=== PATIENT | female | born 1940 | race Caucasian/White ===

== ENCOUNTER 2017-11-10 13:00 | Outpatient (RCR) | payer OTHER, SELFPAY ==
--- NOTE | 2017-10-16 16:40 | PT.OIE ---
Current Diagnoses Benign paroxysmal vertigo, right ear (10/16/17) Dizziness and giddiness (10/16/17) Past Surgical History History of bladder suspension procedure Provider Visit Care Team Role Provider Type Hazel Stewart MD Attending Provider Physician Family Provider Primary Care Provider Specialty: Family Practice Address: [address] [place] [address], [id number] Email: [email or web address] Physical Therapy Initial Evaluation PT-OP-A Visit Information Start: 10/16/17 06:41 Freq: Status: Active Protocol: Document 10/16/17 09:00 AMB (Rec: 10/16/17 16:21 AMB [email or web address]) Out-Patient Physical Therapy Visit Information Visit Information Visit Type Initial Evaluation Visit Start Time 09:00 Visit Stop Time 09:45 Total Visit Minutes 45 Visit Number 1 Number of TITLE SEARCHER Visits 0 Evaluation Information Evaluation Date 10/16/17 PT-OP-B Current Condition Start: 10/16/17 06:41 Freq: Status: Active Protocol: Document 10/16/17 09:00 AMB (Rec: 10/16/17 16:21 AMB [email or web address]) Current Condition History of Current Condition Onset Date 7-8 years ago Current Complaints dizziness with getting into bed and looking up History of Current Condition The patient reports dizziness that improved with physical therapy (descirbes what sounds like Ml manuever) years ago, but then the dizziness came back and she has been dealing with it since. Prior Functional Status Baseline Function- ADL's Independent Baseline Function- Mobility Independent Current Functional Impairments (Reported) Functional Limitations- ADL's Difficulty winding clock ( looking up) Functional Limitations- Mobility/Gait Difficulty walking on uneven ground ([place]) PT-OP-C Subjective Start: 10/16/17 06:41 Freq: Status: Active Protocol: Document 10/16/17 09:00 AMB (Rec: 10/16/17 16:21 AMB [email or web address]) Patient Questionnaires ABC- Activity Specific Balance Confidence Scale ABC Score 79 ABC Functional Impairment 20 to <40% Impaired (Score 61- 80) Dizziness Handicap Inventory DHI Score 18 DHI Functional Impairment 1 to 19% Impaired (Score 1-19) PT-OP-D Balance Start: 10/16/17 06:41 Freq: Status: Active Protocol: Document 10/16/17 09:00 AMB (Rec: 10/16/17 16:30 AMB [email or web address]) Balance Tests Single Limb Standing Single Limb- Right unable Single Limb- Left unable Semi-Tandem Standing Semi-Tandem Standing Balance increased ankle sway with eyes open, unable with eyes closed / head turns PT-OP-O Vestibular Start: 10/16/17 06:41 Freq: Status: Active Protocol: Document 10/16/17 09:00 AMB (Rec: 10/16/17 16:30 AMB [email or web address]) Vestibular Assessment Visual Testing Smooth Pursuits Horizontal WFL Smooth Pursuits Vertical WFL Saccades Horizontal WFL Saccades Vertical WFL Thrust Head Positive Right Head Shake Positive Positional Testing Shreyas-Hallpike Positive Right Upbeating < 60 Seconds Comments Vestibular Comments Strong positive with R [place]- Hallpike that did not repeat with second [place] Hallpike after Ml maneuver. PT-OP-Q Treatments Start: 10/16/17 06:41 Freq: Status: Active Protocol: Document 10/16/17 09:00 AMB (Rec: 10/16/17 16:30 AMB [email or web address]) Canalithic Repositioning BPPV Treatment Ml Affected Canal(s) R Reps 2 PT-OP-T Assessment and Plan Start: 10/16/17 06:41 Freq: Status: Active Protocol: Document 10/16/17 09:00 AMB (Rec: 10/16/17 16:40 AMB [email or web address]) Physical Therapy Assessment Rehab Potential Rehabilitation Potential Excellent Evaluation Complexity Number of Personal Factors/Comorbidities 1-2 Number of Body Systems Impaired 1-2 Clinical Presentation at Evaluation Stable Impairments Impairments Balance Vestibular Goals Two Impairment Balance Short Term Goal (STG) The patient will maintain modified tandem stance with eyes closed for 30 seconds without loss of balance. STG Duration 2 weeks Alf Goal (LTG) The patient will maintain single leg stance for 5 seconds with eye open without loss of balance. LTG Duration 4 weeks One Impairment Dizziness Short Term Goal (STG) The patient will look up without dizziness. STG Duration 2 weeks Portable Grinding Machine Operator Goal (LTG) The patient will get in and out of bed without dizziness. 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 She also has poor static balance. She will benefit from canalith repositioning and then vestibular rehab given the long history of her dizziness. Physical Therapy Plan Frequency and Duration Frequency of Treatment 2x/Week Duration of Treatment 4 weeks Plan of Care Start Date 10/16/17 Plan of Care End Date 11/13/17 Therapeutic Interventions Therapeutic Interventions Balance Training Canalithic Repositioning Gait Training Home Exercise Program Neuromuscular Re-education Self-Care/Home Management Therapeutic Activities Therapeutic Exercises Vestibular Rehabilitation Next Visit Focus/Plan Next Note Type Treatment Note
--- NOTE | 2017-10-16 16:41 | PT.OPPOC ---
Current Diagnoses Benign paroxysmal vertigo, right ear (10/16/17) Dizziness and giddiness (10/16/17) Provider Visit Care Team Role Provider Type Hazel Stewart MD Attending Provider Physician Family Provider Primary Care Provider Specialty: Family Practice Address: [address] [place] [address], [phone] Email: [email or web address] Plan Of Care PT-OP-T Assessment and Plan Start: 10/16/17 06:41 Freq: Status: Active Protocol: Document 10/16/17 09:00 AMB (Rec: 10/16/17 16:40 AMB [email or web address]) Physical Therapy Assessment Rehab Potential Rehabilitation Potential Excellent Evaluation Complexity Number of Personal Factors/Comorbidities 1-2 Number of Body Systems Impaired 1-2 Clinical Presentation at Evaluation Stable Impairments Impairments Balance Vestibular Goals Two Impairment Balance Short Term Goal (STG) The patient will maintain modified tandem stance with eyes closed for 30 seconds without loss of balance. STG Duration 2 weeks Wastewater Operator Goal (LTG) The patient will maitain single leg stance for 5 seconds with eye open without loss of balance. LTG Duration 4 weeks One Impairment Dizziness Short Term Goal (STG) The patient will look up without dizziness. STG Duration 2 weeks Wastewater Operator Goal (LTG) The patient will get in and out of bed without dizziness. 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 She also has poor static balance. She will benfit from canalith repositioning and then vestibular rehab given the long history of her dizziness. Physical Therapy Plan Frequency and Duration Frequency of Treatment 2x/Week Duration of Treatment 4 weeks Plan of Care Start Date 10/16/17 Plan of Care End Date 11/13/17 Therapeutic Interventions Therapeutic Interventions Balance Training Canalithic Repositioning Gait Training Home Exercise Program Neuromuscular Re-education Self-Care/Home Management Therapeutic Activities Therapeutic Exercises Vestibular Rehabilitation Next Visit Focus/Plan Next Note Type Treatment Note Plan of Care Dates Plan of Care Start Date 10/16/17 Plan of Care End Date 11/13/17 Please Sign and Return: I have reviewed this Plan of Care and certify that the skilled therapy services above are required to meet the patient?s needs. Physician Signature Date Printed Name and Credentials Clinical Instructor Signature Printed Name and Credentials
--- NOTE | 2017-10-19 16:10 | PT.OTN ---
Current Diagnoses Benign paroxysmal vertigo, right ear (10/19/17) Dizziness and giddiness (10/19/17) Physical Therapy Treatment Note PT-OP-A Visit Information Start: 10/16/17 06:41 Freq: Status: Active Protocol: Document 10/19/17 11:15 AMB (Rec: 10/19/17 16:06 AMB [email or web address]) Out-Patient Physical Therapy Visit Information Visit Information Visit Type Treatment Note Visit Start Time 11:15 Visit Stop Time 12:00 Total Visit Minutes 45 Visit Number 2 Evaluation Information Evaluation Date 10/16/17 PT-OP-B Current Condition Start: 10/16/17 06:41 Freq: Status: Active Protocol: Document 10/16/17 09:00 AMB (Rec: 10/16/17 16:21 AMB [email or web address]) Current Condition History of Current Condition Onset Date 7-8 years ago Current Complaints dizziness with getting into bed and looking up History of Current Condition The patient reports dizziness that improved with physical therapy (descirbes what sounds like Ml manuindu) years ago, but then the dizziness came back and she has been dealing with it since. Prior Functional Status Baseline Function- ADL's Independent Baseline Function- Mobility Independent Current Functional Impairments (Reported) Functional Limitations- ADL's Difficulty winding clock ( looking up) Functional Limitations- Mobility/Gait Difficulty walking on uneven ground ([place]) PT-OP-C Subjective Start: 10/16/17 06:41 Freq: Status: Active Protocol: Document 10/19/17 11:15 AMB (Rec: 10/19/17 16:06 AMB [email or web address]) OP-PT Subjective Patient Comments Patient Comments Pt has not noticed spinning since the last time she was here. She has been feeling a bit shadowy. PT-OP-D Balance Start: 10/16/17 06:41 Freq: Status: Active Protocol: Document 10/16/17 09:00 AMB (Rec: 10/16/17 16:30 AMB [email or web address]) Balance Tests Single Limb Standing Single Limb- Right unable Single Limb- Left unable Semi-Tandem Standing Semi-Tandem Standing Balance increased ankle sway with eyes open, unable with eyes closed / head turns PT-OP-O Vestibular Start: 10/16/17 06:41 Freq: Status: Active Protocol: Document 10/16/17 09:00 AMB (Rec: 10/16/17 16:30 AMB [email or web address]) Vestibular Assessment Visual Testing Smooth Pursuits Horizontal WFL Smooth Pursuits Vertical WFL Saccades Horizontal WFL Saccades Vertical WFL Thrust Head Positive Right Head Shake Positive Positional Testing Billy-Hallpike Positive Right Upbeating < 60 Seconds Comments Vestibular Comments Strong positive with R [place]- Hallpike that did not repeat with second [place] Hallpike after Ml manuever. PT-OP-Q Treatments Start: 10/16/17 06:41 Freq: Status: Active Protocol: Document 10/19/17 11:15 AMB (Rec: 10/19/17 11:42 AMB [email or web address]) Neuro Re-Education Treatment Balance Activities 1 Details NBOS Comments Eyes closed Vestibular Rehabilitation X1 Viewing Background clear Distance From Target arm length Speed slow Position modified tandem Canalithic Repositioning BPPV Treatment Ml Affected Canal(s) R Reps 2 Comments Checked left, no nystagmus. Mild dizziness in position 1 on rep 1, not on rep 2. PT-OP-T Assessment and Plan Start: 10/16/17 06:41 Freq: Status: Active Protocol: Document 10/19/17 11:15 AMB (Rec: 10/19/17 16:06 AMB [email or web address]) Physical Therapy Assessment Assessment Summary Assessment The patient had decreased nystagmus today. She continues to have poor balance . Physical Therapy Plan Frequency and Duration Frequency of Treatment 2x/Week Duration of Treatment 4 weeks Plan of Care Start Date 10/16/17 Plan of Care End Date 11/13/17 Next Visit Focus/Plan Next Note Type Treatment Note Next Visit Plan Reasess billy-hallpike. Progress balance, VOR.
--- NOTE | 2017-10-23 15:04 | PT.OTN ---
Current Diagnoses Benign paroxysmal vertigo, right ear (10/23/17) Dizziness and giddiness (10/23/17) Physical Therapy Treatment Note PT-OP-A Visit Information Start: 10/16/17 06:41 Freq: Status: Active Protocol: Document 10/23/17 10:30 AMB (Rec: 10/23/17 15:03 AMB [email or web address]) Out-Patient Physical Therapy Visit Information Visit Information Visit Type Treatment Note Visit Start Time 10:30 Visit Stop Time 11:00 Total Visit Minutes 30 Visit Number 3 Evaluation Information Evaluation Date 10/16/17 PT-OP-B Current Condition Start: 10/16/17 06:41 Freq: Status: Active Protocol: Document 10/16/17 09:00 AMB (Rec: 10/16/17 16:21 AMB [email or web address]) Current Condition History of Current Condition Onset Date 7-8 years ago Current Complaints dizziness with getting into bed and looking up History of Current Condition The patient reports dizziness that improved with physical therapy (descirbes what sounds like Ml manuever) years ago, but then the dizziness came back and she has been dealing with it since. Prior Functional Status Baseline Function- ADL's Independent Baseline Function- Mobility Independent Current Functional Impairments (Reported) Functional Limitations- ADL's Difficulty winding clock ( looking up) Functional Limitations- Mobility/Gait Difficulty walking on uneven ground ([place]) PT-OP-C Subjective Start: 10/16/17 06:41 Freq: Status: Active Protocol: Document 10/23/17 10:30 AMB (Rec: 10/23/17 15:03 AMB [email or web address]) OP-PT Subjective Patient Comments Patient Comments Pt reports no problems getting in/out of bed. She did notice feeling off balance with one instance of turning quickly. PT-OP-D Balance Start: 10/16/17 06:41 Freq: Status: Active Protocol: Document 10/16/17 09:00 AMB (Rec: 10/16/17 16:30 AMB [email or web address]) Balance Tests Single Limb Standing Single Limb- Right unable Single Limb- Left unable Semi-Tandem Standing Semi-Tandem Standing Balance increased ankle sway with eyes open, unable with eyes closed / head turns PT-OP-O Vestibular Start: 10/16/17 06:41 Freq: Status: Active Protocol: Document 10/16/17 09:00 AMB (Rec: 10/16/17 16:30 AMB [email or web address]) Vestibular Assessment Visual Testing Smooth Pursuits Horizontal WFL Smooth Pursuits Vertical WFL Saccades Horizontal WFL Saccades Vertical WFL Thrust Head Positive Right Head Shake Positive Positional Testing [place]-Hallpike Positive Right Upbeating < 60 Seconds Comments Vestibular Comments Strong positive with R [place]- Hallpike that did not repeat with second [place]rey[place] Hallpike after Ml artis. PT-OP-Q Treatments Start: 10/16/17 06:41 Freq: Status: Active Protocol: Document 10/23/17 10:30 AMB (Rec: 10/23/17 15:03 AMB [email or web address]) Neuro Re-Education Treatment Balance Activities 3 Details modified tandem Comments EO 2 Details foam Comments blue, with eyes closed, then with eyes open and head turns Vestibular Rehabilitation X1 Viewing Background clear Distance From Target arm length Speed slow Position modified tandem PT-OP-T Assessment and Plan Start: 10/16/17 06:41 Freq: Status: Active Protocol: Document 10/23/17 10:30 AMB (Rec: 10/23/17 15:03 AMB [email or web address]) Physical Therapy Assessment Assessment Summary Assessment No nystagmus noted today, but pt continues to have difficulty with quick head turns. Physical Therapy Plan Next Visit Focus/Plan Next Note Type Treatment Note Next Visit Plan Progress balance, VOR
--- NOTE | 2017-10-29 16:37 | PT.OTN ---
Current Diagnoses Benign paroxysmal vertigo, right ear (10/29/17) Dizziness and giddiness (10/29/17) Physical Therapy Treatment Note PT-OP-A Visit Information Start: 10/16/17 06:41 Freq: Status: Active Protocol: Document 10/29/17 13:00 AMB (Rec: 10/29/17 16:36 AMB [email or web address]) Out-Patient Physical Therapy Visit Information Visit Information Visit Type Treatment Note Visit Start Time 13:00 Visit Stop Time 13:30 Total Visit Minutes 30 Visit Number 4 Evaluation Information Evaluation Date 10/16/17 PT-OP-B Current Condition Start: 10/16/17 06:41 Freq: Status: Active Protocol: Document 10/16/17 09:00 AMB (Rec: 10/16/17 16:21 AMB [email or web address]) Current Condition History of Current Condition Onset Date 7-8 years ago Current Complaints dizziness with getting into bed and looking up History of Current Condition The patient reports dizziness that improved with physical therapy (descirbes what sounds like Ml manuindu) years ago, but then the dizziness came back and she has been dealing with it since. Prior Functional Status Baseline Function- ADL's Independent Baseline Function- Mobility Independent Current Functional Impairments (Reported) Functional Limitations- ADL's Difficulty winding clock ( looking up) Functional Limitations- Mobility/Gait Difficulty walking on uneven ground ([place]) PT-OP-C Subjective Start: 10/16/17 06:41 Freq: Status: Active Protocol: Document 10/29/17 13:00 AMB (Rec: 10/29/17 16:36 AMB [email or web address]) OP-PT Subjective Patient Comments Patient Comments Pt reports she is about 75% better. PT-OP-D Balance Start: 10/16/17 06:41 Freq: Status: Active Protocol: Document 10/16/17 09:00 AMB (Rec: 10/16/17 16:30 AMB [email or web address]) Balance Tests Single Limb Standing Single Limb- Right unable Single Limb- Left unable Semi-Tandem Standing Semi-Tandem Standing Balance increased ankle sway with eyes open, unable with eyes closed / head turns PT-OP-O Vestibular Start: 10/16/17 06:41 Freq: Status: Active Protocol: Document 10/16/17 09:00 AMB (Rec: 10/16/17 16:30 AMB [email or web address]) Vestibular Assessment Visual Testing Smooth Pursuits Horizontal WFL Smooth Pursuits Vertical WFL Saccades Horizontal WFL Saccades Vertical WFL Thrust Head Positive Right Head Shake Positive Positional Testing [place]-Hallpike Positive Right Upbeating < 60 Seconds Comments Vestibular Comments Strong positive with R [place]- Hallpike that did not repeat with second [place] Hallpike after Ml manuever. PT-OP-Q Treatments Start: 10/16/17 06:41 Freq: Status: Active Protocol: Document 10/29/17 13:00 AMB (Rec: 10/29/17 16:36 AMB [email or web address]) Canalithic Repositioning BPPV Treatment Ml Affected Canal(s) L Reps 2 Comments Checked R no nystagmus, but upbeated torsional nystagmus with the L is position 1 on rep 1 and 2 PT-OP-T Assessment and Plan Start: 10/16/17 06:41 Freq: Status: Active Protocol: Document 10/29/17 13:00 AMB (Rec: 10/29/17 16:36 AMB [email or web address]) Physical Therapy Assessment Assessment Summary Assessment Concerning that the pt had nystagmus (but not significant dizziness) on the opposite side that she originally presented with. Physical Therapy Plan Next Visit Focus/Plan Next Note Type Treatment Note Next Visit Plan Reassess billy-hallpike bilaterally
--- NOTE | 2017-11-03 18:12 | PT.OTN ---
Current Diagnoses Benign paroxysmal vertigo, right ear (11/03/17) Dizziness and giddiness (11/03/17) Physical Therapy Treatment Note PT-OP-A Visit Information Start: 10/16/17 06:41 Freq: Status: Active Protocol: Document 11/03/17 13:00 AMB (Rec: 11/03/17 18:08 AMB [email or web address]) Out-Patient Physical Therapy Visit Information Visit Information Visit Type Treatment Note Visit Start Time 13:00 Visit Stop Time 13:30 Total Visit Minutes 30 Visit Number 5 Evaluation Information Evaluation Date 10/16/17 PT-OP-B Current Condition Start: 10/16/17 06:41 Freq: Status: Active Protocol: Document 10/16/17 09:00 AMB (Rec: 10/16/17 16:21 AMB [email or web address]) Current Condition History of Current Condition Onset Date 7-8 years ago Current Complaints dizziness with getting into bed and looking up History of Current Condition The patient reports dizziness that improved with physical therapy (descirbes what sounds like Ml manuever) years ago, but then the dizziness came back and she has been dealing with it since. Prior Functional Status Baseline Function- ADL's Independent Baseline Function- Mobility Independent Current Functional Impairments (Reported) Functional Limitations- ADL's Difficulty winding clock ( looking up) Functional Limitations- Mobility/Gait Difficulty walking on uneven ground ([place]) PT-OP-C Subjective Start: 10/16/17 06:41 Freq: Status: Active Protocol: Document 11/03/17 13:00 AMB (Rec: 11/03/17 18:08 AMB [email or web address]) OP-PT Subjective Patient Comments Patient Comments Pt is doing well, slight feeling of imbalance but no dizziness. PT-OP-D Balance Start: 10/16/17 06:41 Freq: Status: Active Protocol: Document 10/16/17 09:00 AMB (Rec: 10/16/17 16:30 AMB [email or web address]) Balance Tests Single Limb Standing Single Limb- Right unable Single Limb- Left unable Semi-Tandem Standing Semi-Tandem Standing Balance increased ankle sway with eyes open, unable with eyes closed / head turns PT-OP-O Vestibular Start: 10/16/17 06:41 Freq: Status: Active Protocol: Document 10/16/17 09:00 AMB (Rec: 10/16/17 16:30 AMB [email or web address]) Vestibular Assessment Visual Testing Smooth Pursuits Horizontal WFL Smooth Pursuits Vertical WFL Saccades Horizontal WFL Saccades Vertical WFL Thrust Head Positive Right Head Shake Positive Positional Testing [place]rey[place]-Hallpike Positive Right Upbeating < 60 Seconds Comments Vestibular Comments Strong positive with R [place]- Hallpike that did not repeat with second [place] Hallpike after Ml artis. PT-OP-Q Treatments Start: 10/16/17 06:41 Freq: Status: Active Protocol: Document 11/03/17 13:00 AMB (Rec: 11/03/17 13:28 AMB [id number]) Neuro Re-Education Treatment Balance Activities 3 Details modified tandem Comments EO with and withought head turns Vestibular Rehabilitation X1 Viewing Background clear Distance From Target arm length Speed slow Position modified tandem PT-OP-T Assessment and Plan Start: 10/16/17 06:41 Freq: Status: Active Protocol: Document 11/03/17 13:00 AMB (Rec: 11/03/17 18:12 AMB [email or web address]) Physical Therapy Assessment Assessment Summary Assessment Pt without nystagmus but eyes closed and head turn balance continues to be difficult. Physical Therapy Plan Next Visit Focus/Plan Next Note Type Treatment Note Next Visit Plan Follow up with one more visit to make sure all sx are resolved, pt continues to have poor balance.
--- NOTE | 2017-11-10 16:02 | PT.OTN ---
Current Diagnoses Benign paroxysmal vertigo, right ear (11/10/17) Dizziness and giddiness (11/10/17) Physical Therapy Treatment Note PT-OP-A Visit Information Start: 10/16/17 06:41 Freq: Status: Active Protocol: Document 11/10/17 13:00 AMB (Rec: 11/10/17 13:00 AMB [id number]) Out-Patient Physical Therapy Visit Information Visit Information Visit Type Treatment Note Visit Start Time 13:00 Visit Stop Time 13:30 Total Visit Minutes 30 Visit Number 6 PT-OP-B Current Condition Start: 10/16/17 06:41 Freq: Status: Active Protocol: Document 10/16/17 09:00 AMB (Rec: 10/16/17 16:21 AMB [email or web address]) Current Condition History of Current Condition Onset Date 7-8 years ago Current Complaints dizziness with getting into bed and looking up History of Current Condition The patient reports dizziness that improved with physical therapy (descirbes what sounds like Ml manuever) years ago, but then the dizziness came back and she has been dealing with it since. Prior Functional Status Baseline Function- ADL's Independent Baseline Function- Mobility Independent Current Functional Impairments (Reported) Functional Limitations- ADL's Difficulty winding clock ( looking up) Functional Limitations- Mobility/Gait Difficulty walking on uneven ground ([place]) PT-OP-C Subjective Start: 10/16/17 06:41 Freq: Status: Active Protocol: Document 11/10/17 13:00 AMB (Rec: 11/10/17 15:55 AMB [email or web address]) OP-PT Subjective Patient Comments Patient Comments Pt reports a fall last week, when walking down the stairs carrying a box. She did hit her head and her butt which hurt, but now she is back to baseline. She denies any dizziness in the last week. PT-OP-D Balance Start: 10/16/17 06:41 Freq: Status: Active Protocol: Document 10/16/17 09:00 AMB (Rec: 10/16/17 16:30 AMB [email or web address]) Balance Tests Single Limb Standing Single Limb- Right unable Single Limb- Left unable Semi-Tandem Standing Semi-Tandem Standing Balance increased ankle sway with eyes open, unable with eyes closed / head turns PT-OP-O Vestibular Start: 10/16/17 06:41 Freq: Status: Active Protocol: Document 10/16/17 09:00 AMB (Rec: 10/16/17 16:30 AMB [email or web address]) Vestibular Assessment Visual Testing Smooth Pursuits Horizontal WFL Smooth Pursuits Vertical WFL Saccades Horizontal WFL Saccades Vertical WFL Thrust Head Positive Right Head Shake Positive Positional Testing Windsor-Hallpike Positive Right Upbeating < 60 Seconds Comments Vestibular Comments Strong positive with R Shreyas- Hallpike that did not repeat with second Windsor Hallpike after Ml manuever. PT-OP-Q Treatments Start: 10/16/17 06:41 Freq: Status: Active Protocol: Document 11/10/17 13:30 AMB (Rec: 11/10/17 13:33 AMB [email or web address]) Neuro Re-Education Treatment Balance Activities 4 Details single leg stance Comments up to 4 seconds, but inconsistent 3 Details modified tandem Comments EO with and withought head turns 2 Details foam Comments blue, with eyes closed, then with eyes open and head turns 1 Details NBOS Comments Eyes closed PT-OP-T Assessment and Plan Start: 10/16/17 06:41 Freq: Status: Active Protocol: Document 11/10/17 13:19 AMB (Rec: 11/10/17 13:28 AMB [id number]) Physical Therapy Assessment Goals Two Impairment Balance Short Term Goal (STG) The patient will maintain modified tandem stance with eyes closed for 30 seconds without loss of balance. MET STG Duration 2 weeks Retirement Goal (LTG) The patient will maitain single leg stance for 5 seconds with eye open without loss of balance. NOT MET LTG Duration 4 weeks One Impairment Dizziness Short Term Goal (STG) The patient will look up without dizziness. MET STG Duration 2 weeks Retirement Goal (LTG) The patient will get in and out of bed without dizziness. MET LTG Duration 4 weeks Assessment Summary Assessment The patient denies any dizziness over the past week. She did have a fall on stairs , and was encouraged to continue with a balance HEP for overall wellness. She was encouraged to return to physical therapy if she has a return of her dizziness. Physical Therapy Plan Discharge Physical Therapy Discharge Reasons Goals Met
== END 2018-04-02 13:10 ==
LOC: PHYS 13:00
PROVIDERS: Family Provider Family Medicine; PCP Family Medicine; Visit Provider Family Medicine
DX: H81.11 Benign paroxysmal vertigo, right ear (principal); R42 Dizziness and giddiness
CPT/HCPCS: 95992; 97112; 97161

== ENCOUNTER → 2017-12-28 08:55 | Outpatient (CLI) | payer OTHER, SELFPAY ==
[2017-12-28 09:22] LABS: Add Manual Diff / Slide Review NO; Basophils Percent Auto 0.8 % (0-2); Eosinophils Percent Auto 3.2 % (2-4); Hematocrit 36.3 % (36-46); Hemoglobin 12.4 g/dL (12.0-16.0); Mean Corpuscular HGB Conc 34.2 % (30-36); Mean Corpuscular Hemoglobin 30.4 PG (26-34); Mean Corpuscular Volume 88.9 fL (80-100); Monocytes Percent Auto 10.8 % (3-14); Neutrophils Absolute Auto 3800 /uL (3000-5900); Neutrophils Percent Auto 58.2 % (50-75); Platelet Count 250 X10^3/uL (150-400); Red Blood Cell Count 4.08 X10^6/uL (4.0-5.2); Red Cell Distribution Width 14.2 % (11.6-14.8); White Blood Cell Count 6.5 X10^3/uL (4.5-11.0)
[2017-12-28 09:45] LABS: Alanine Aminotransferase 46 IU/L (9-52); Albumin Globulin Ratio 1.1 (1.0-2.8); Alkaline Phosphatase 136 U/L (38-126); Aspartate Aminotransferase 35 IU/L (14-36); BUN Creatinine Ratio 28.8 (6-22); Bilirubin Total 0.5 mg/dL (0.2-1.3); Blood Urea Nitrogen 23 mg/dL (7-17); Calcium 9.6 mg/dL (8.4-10.2); Carbon Dioxide 34 mmol/L (22-32); Chloride 103 mmol/L (98-107); Cholesterol 168 mg/dL (140-199); Estimated Glomerular Filt Rate > 60.0 mL/min (>60); Globulin 3.5 g/dL (1.7-4.1); Glucose 111 mg/dL (80-110); HDL Cholesterol 64 mg/dL (40-60); HEMOLYSIS < 15 (0-50); LDL Cholesterol Calculated 84 mg/dL (<100); Potassium 3.9 mmol/L (3.4-5.1); Sodium 145 mmol/L (137-145); Total Protein 7.5 g/dL (6.3-8.2); Triglycerides 100 mg/dL (35-150)
[2017-12-28 10:15] LABS: TSH w/ Reflex to FT4 0.94 uIU/mL (0.47-4.68)
== END ==
PROVIDERS: Visit Provider Family Medicine
DX: D64.9 Anemia, unspecified (principal); E78.5 Hyperlipidemia, unspecified; I10 Essential (primary) hypertension; E03.9 Hypothyroidism, unspecified
CPT/HCPCS: 36415; 80053; 80061; 84443; 85025

== ENCOUNTER → 2018-02-11 11:11 | Outpatient (CLI) | payer OTHER, SELFPAY ==
--- NOTE | 2018-02-11 11:14 | DI.US.S_ITS ---
PROCEDURE: US CAROTID DOPPLER BI INDICATIONS: retinal vein occlusion TECHNIQUE: Color and pulse Doppler interrogation was performed of both carotid systems, with image documentation and velocity measurements. COMPARISON: None. FINDINGS: Stenosis calculations are based on SRU (Society of Radiologists in Ultrasound) criteria. Right side: Brachial blood pressure: 152/76 mm Hg. Common carotid artery peak systolic velocity: 87 cm/sec. Internal carotid artery peak systolic velocity: 112 cm/sec. Internal carotid artery end diastolic velocity: 26 cm/sec. External carotid artery peak systolic velocity: 98 cm/sec. ICA/CCA peak systolic ratio: 1.3. Lewis scale imaging description: Moderate scattered plaque. Percent internal carotid artery stenosis: Left. Vertebral artery: Flow direction is antegrade. Left side: Brachial blood pressure: 176/78 mm Hg. Common carotid artery peak systolic velocity: 74 cm/sec. Internal carotid artery peak systolic velocity: 115 cm/sec. Internal carotid artery end diastolic velocity: 27 cm/sec. External carotid artery peak systolic velocity: 110 cm/sec. ICA/CCA peak systolic ratio: 1.6. Lewis scale imaging description: Moderate scattered plaque. Percent internal carotid artery stenosis: Less than 50%. Vertebral artery: Flow direction is antegrade. IMPRESSION: Less than 50% bilateral internal carotid artery stenosis. Dictated by: Adonay Zuñiga [facility] Interpreted: Randy Giordano MD on 02/11/2018 at 12:44 Approved by: Randy Giordano M.D. on 02/11/2018 at 13:52
== END ==
PROVIDERS: PCP Ophthalmology; Visit Provider Family Medicine
DX: H34.8192 Central retinal vein occlusion, unspecified eye, stable (principal); I65.23 Occlusion and stenosis of bilateral carotid arteries
CPT/HCPCS: 93880

== ENCOUNTER → 2018-05-28 08:53 | Outpatient (CLI) | payer OTHER, SELFPAY ==
[2018-05-28 09:39] LABS: Add Manual Diff / Slide Review NO; Basophils Absolute Auto 0 /uL (0-100); Basophils Percent Auto 0.5 % (0-2); Eosinophils Absolute Auto 200 /uL (0-450); Eosinophils Percent Auto 2.4 % (2-4); Hematocrit 34.7 % (36-46); Hemoglobin 11.7 g/dL (12.0-16.0); Lymphocytes Absolute Auto 1800 /uL (1100-4500); Lymphocytes Percent Auto 28.1 % (25-40); Mean Corpuscular HGB Conc 33.9 % (30-36); Mean Corpuscular Hemoglobin 29.9 PG (26-34); Mean Corpuscular Volume 88.3 fL (80-100); Monocytes Absolute Auto 700 /uL (0-900); Monocytes Percent Auto 11.3 % (3-14); Neutrophils Absolute Auto 3600 /uL (1500-7000); Neutrophils Percent Auto 57.7 % (50-75); Platelet Count 248 X10^3/uL (150-400); Red Blood Cell Count 3.93 X10^6/uL (4.0-5.2); Red Cell Distribution Width 14.1 % (11.6-14.8); White Blood Cell Count 6.3 X10^3/uL (4.5-11.0)
[2018-05-28 09:49] LABS: Alanine Aminotransferase 30 IU/L (9-52); Albumin Globulin Ratio 1.1 (1.0-2.8); Alkaline Phosphatase 73 U/L (38-126); Aspartate Aminotransferase 33 IU/L (14-36); BUN Creatinine Ratio 28.8 (6-22); Bilirubin Total 0.4 mg/dL (0.2-1.3); Blood Urea Nitrogen 23 mg/dL (7-17); Calcium 9.4 mg/dL (8.4-10.2); Carbon Dioxide 32 mmol/L (22-32); Chloride 99 mmol/L (98-107); Cholesterol 154 mg/dL (140-199); Estimated Glomerular Filt Rate > 60.0 mL/min (>60); Globulin 3.5 g/dL (1.7-4.1); Glucose 116 mg/dL (80-110); HDL Cholesterol 59 mg/dL (40-60); HEMOLYSIS < 15 (0-50); LDL Cholesterol Calculated 75 mg/dL (<100); Magnesium 1.9 mg/dL (1.6-2.3); Potassium 3.3 mmol/L (3.4-5.1); Sodium 139 mmol/L (137-145); Total Protein 7.5 g/dL (6.3-8.2); Triglycerides 99 mg/dL (35-150)
[2018-05-28 10:21] LABS: Thyroid Stimulating Hormone 1.87 uIU/mL (0.47-4.68)
== END ==
PROVIDERS: Family Provider Family Medicine; PCP Family Medicine; Visit Provider Internal Medicine Cardiovascular Disease
DX: R00.2 Palpitations (principal); I10 Essential (primary) hypertension
CPT/HCPCS: 36415; 80053; 80061; 83735; 84443; 85025

== ENCOUNTER → 2018-06-14 09:12 | Outpatient (CLI) | payer OTHER, SELFPAY ==
[2018-06-14 10:31] LABS: BUN Creatinine Ratio 28.8 (6-22); Blood Urea Nitrogen 23 mg/dL (7-17); Calcium 9.5 mg/dL (8.4-10.2); Carbon Dioxide 32 mmol/L (22-32); Chloride 101 mmol/L (98-107); Estimated Glomerular Filt Rate > 60.0 mL/min (>60); Glucose 120 mg/dL (80-110); HEMOLYSIS < 15 (0-50); Potassium 3.4 mmol/L (3.4-5.1); Sodium 139 mmol/L (137-145)
== END ==
PROVIDERS: Family Provider Family Medicine; PCP Family Medicine; Visit Provider Internal Medicine Cardiovascular Disease
DX: E87.6 Hypokalemia (principal)
CPT/HCPCS: 36415; 80048

== ENCOUNTER → 2018-06-30 09:23 | Outpatient (CLI) | payer OTHER, SELFPAY ==
[2018-06-30 10:47] LABS: BUN Creatinine Ratio 28.8 (6-22); Blood Urea Nitrogen 23 mg/dL (7-17); Calcium 9.7 mg/dL (8.4-10.2); Carbon Dioxide 32 mmol/L (22-32); Chloride 100 mmol/L (98-107); Estimated Glomerular Filt Rate > 60.0 mL/min (>60); Glucose 103 mg/dL (80-110); HEMOLYSIS < 15 (0-50); Potassium 4.2 mmol/L (3.4-5.1); Sodium 140 mmol/L (137-145)
== END ==
PROVIDERS: Family Provider Family Medicine; PCP Family Medicine; Visit Provider Internal Medicine Cardiovascular Disease
DX: I10 Essential (primary) hypertension (principal)
CPT/HCPCS: 36415; 80048

== ENCOUNTER → 2018-07-05 12:54 | Outpatient (CLI) | payer OTHER, SELFPAY ==
--- NOTE | 2018-07-05 | DI.MG.S_ITS ---
BILATERAL DIGITAL SCREENING MAMMOGRAM 3D/2D WITH CAD: 07/05/2018 CLINICAL: Routine screening. Comparison is made to exams dated: 06/04/2017 mammogram, 05/21/2016 mammogram, and 05/18/2015 mammogram - [facility]. The tissue of both breasts is heterogeneously dense. This may lower the sensitivity of mammography. Current study was also evaluated with a Computer Aided Detection (CAD) system. There are benign calcifications in both breasts. No significant masses, calcifications, or other findings are seen in either breast. There has been no significant interval change. IMPRESSION: There is no mammographic evidence of malignancy. A 1 year screening mammogram is recommended. This exam was interpreted at Station ID: [id number]. NOTE: For mammograms, a report in lay terms will be sent to the patient. Approximately 15% of breast malignancies will not be visualized mammographically. In the management of a palpable breast mass, a negative mammogram must not discourage biopsy of a clinically suspicious lesion. Electronically Signed By: Melquiades isaacs/alla:07/05/2018 17:13:21 letter sent: Normal Exam ACR BI-RADS Category 2: Benign Finding(s) 3342F
== END ==
PROVIDERS: Family Provider Family Medicine; PCP Family Medicine; Visit Provider Family Medicine
DX: Z12.31 Encounter for screening mammogram for malignant neoplasm of breast (principal)
CPT/HCPCS: 77063; 77067

== ENCOUNTER → 2018-09-22 12:43 | Outpatient (CLI) | payer OTHER, SELFPAY ==
--- NOTE | 2018-09-23 12:44 | DI.RAD.S_ITS ---
PROCEDURE: FL UPPER GI W AIR INDICATIONS: dysphagia COMPARISON: [facility], MG, MM SCREENING MAMMO BI, 07/05/2018, 13:26. FINDINGS: KUB: Preprocedural chief digital officer film demonstrates a normal bowel gas pattern. No suspicious abdominal calcifications. Visualized solid organ contours appear normal. Bony structures appear unremarkable. Esophagus: Esophageal mucosa is normal on air-contrast views. On single-contrast views, there is normal esophageal peristalsis. No strictures, extrinsic mass effects, or diverticula. No hiatal hernia or elicited gastroesophageal reflux. There is normal transit of a calibrated barium tablet through the esophagus. Stomach: The stomach is normally distensible, with normal rugal fold thickness. No mucosal masses or ulcers. Pylorus and duodenal bulb appear normal in morphology. Duodenal folds are normal in thickness as well. IMPRESSION: Normal upper GI examination. If clinical symptoms persist or there is clinical suspicion for abnormality of swallowing mechanisms, barium swallow with speech pathology is suggested. Dictated by: Thai Chau M.D. on 09/23/2018 at 11:03 Approved by: Thai Chau M.D. on 09/23/2018 at 11:04
== END ==
PROVIDERS: PCP Family Medicine; Visit Provider Surgery
DX: R13.10 Dysphagia, unspecified (principal)
CPT/HCPCS: 74247

== ENCOUNTER → 2018-09-23 10:00 | Outpatient (CLI) | payer OTHER, SELFPAY | PROVIDERS: PCP Family Medicine; Visit Provider Surgery | DX: R13.10 Dysphagia, unspecified (principal); Z53.9 Procedure and treatment not carried out, unspecified reason ==

== ENCOUNTER 2018-11-15 06:41 | Day surgery (SDC) | payer OTHER, SELFPAY ==
[2018-11-15] VITALS (8 sets, daily range): BP systolic 118–188; BP diastolic 61–82; PULSE 49–60; RESP 10–17; TEMP 36–37.7; O2SAT 91–98; BMI 23.6
--- NOTE | 2018-11-15 | PATH_ITS ---
[facility] Accession Number: [id number] . 01 Material submitted: . PART A: gastrointestinal site - GASTRIC POLYP PART B: esophagus - RANDOM ESOPHAGEAL BIOPSIES PART C: esophagus - PROXIMAL ESOPHAGUS BIOPSY . 02 Diagnosis: A. Gastric Polyp, Biopsy: Fundic gland polyp. No evidence of Helicobacter organisms on H/E stain. Negative for intestinal metaplasia, dysplasia or malignancy. . B. Random Esophagus, Biopsies: Squamous mucosa with no diagnostic abnormality. 0-1 eosinophils per 40X high-power field. Negative for dysplasia or malignancy. . C. Proximal Esophagus, Biopsy: Squamous epithelium with no diagnostic abnormality. 0-1 eosinophils per 40X high-power field. Negative for dysplasia or malignancy. [facility]/11/16/2018 . 02 Electronically signed: . Terry Lam MD, PhD, Pathologist NPI- [id number] . 01 Gross description: . Part A: GASTRIC POLYP: Received in formalin is 1 fragment(s) of mills, soft tissue measuring 0.2 x 0.2 x 0.2 cm which is entirely submitted and submitted entirely in 1 cassette(s) Part B: RANDOM ESOPHAGEAL BIOPSIES: Received in formalin are multiple fragment(s) of mills, soft tissue measuring 0.1 x 0.1 x 0.1 cm to 0.2 x 0.1 x 0.1 cm which is entirely submitted and submitted entirely in 1 cassette(s) Part C: PROXIMAL ESOPHAGUS BIOPSY: Received in formalin is 1 fragment(s) of mills, soft tissue measuring 0.2 x 0.2 x 0.1 cm which is entirely submitted and submitted entirely in 1 cassette(s) /DMC /DMC . 02 Pathologist provided ICD-10: R13.10, K31.7 . 02 CPT . 132257, [id number], [id number] Performed at: 01 [facility] [address] [place] [address], [place], [place] [id number] MD Panfilo Li MD Phone: [phone] Performed at: 02 [facility] [place] [address] [place], [place] [id number] MD Dorene Baker MD Phone: [phone]
[2018-11-15] MEDS: SODIUM CHLORIDE 0.9% 1,000 ML 200 ML IV (07:14)
--- NOTE | 2018-11-15 07:23 | PM.HP.1 ---
History of Present Illness Date Patient Seen: 11/15/18 Time Patient Seen: 07:30 Chief complaint: [id number] Narrative: 77yo F with progressive dysphagia to solids. She had this develop a few years ago and in 2017 had an EGD with dilation. Per the note, no abnormality was found but a 52 Fr bougie was passed regardless due to her symptoms and pt states she felt better after. Over the last few months the food sticking in the throat sensation has returned. She says she had swallow studies done some years ago but we do not have these records. She says nothing abnormal was found. She has not lost weight. No nausea, no reflux symptoms. No other new symptoms and no symptoms or family history to suggest autoimmune disorder; does have polymyalgia rheumatica listed on PMH. UGI shows no stricture nor abnormality. Symptoms continue to progress since seen in office. Patient History Medical History Hyperlipidemia (Chronic 08/21/14) Hypertension (Chronic 08/21/14) Osteoarthritis (Chronic 05/22/14) Lumbar back pain with radiculopathy affecting right lower extremity (Chronic 11/28/14) Cyst of ovary (Resolved 03/20/15) Hearing loss (Chronic 2011) Hypertension (Chronic 1993) Hypothyroidism (Chronic) Polymyalgia rheumatica (Chronic 2011) Right sacral radiculopathy (Chronic) Chicken pox (Resolved 1961) History of live (Resolved 08/21/68) History of live (Resolved 12/01/64) History of live (Resolved 11/08/62) Measles (Resolved 1946) Tuberculosis (Resolved 1946) History of one miscarriage (Inactive ~1964) Normal colonoscopy (Inactive) Stillborn, normal (Inactive ~1967) Surgical History History of cataract surgery (Acute) Anesthesia (Resolved) History of bladder suspension procedure (Resolved 2001) History of eyelid surgery (Resolved 2013) History of hysterectomy with oophorectomy (Inactive ~2013) Family History Mother Hypertension Stroke Cardiopulmonary arrest Brother Cancer Father Pneumonia Grandmother Heart disease Grandfather Heart disease Social History marital status: household members: spouse occupational status: previously employed Smoking Status: Never smoker alcohol intake: never substance use type: does not use Family & Social History Family History Mother Hypertension Stroke Cardiopulmonary arrest Brother Cancer Father Pneumonia Grandmother Heart disease Grandfather Heart disease Social History: household members spouse Tobacco & Substance use: Smoking Status Never smoker alcohol intake never Meds Home Medications Medication Instructions Recorded Confirmed Type [CALCIUM] 600 mg PO Q DAY #0 05/21/08 09/16/18 History ascorbic acid (vitamin C) 500 mg PO QDAY #0 08/12/16 09/16/18 History hydrochlorothiazide 25 mg tablet 25 mg PO QDAY #90 tab 01/18/18 09/16/18 Rx levothyroxine 88 mcg tablet 88 mcg PO QDAY #90 tab 01/18/18 09/16/18 Rx losartan 100 mg tablet 100 mg PO QDAY #90 tab 01/18/18 09/16/18 Rx lovastatin 40 mg tablet 40 mg PO HS #90 tab 03/05/18 09/16/18 Rx metoprolol succinate ER 50 mg 50 mg PO BID 09/16/18 09/16/18 History tablet,extended release 24 hr potassium chloride ER 20 mEq 20 meq PO DAILY 09/16/18 09/16/18 History tablet,extended release Allergies Allergy/AdvReac Type Severity Reaction Status Date / Time No Known Drug Allergies Allergy Verified 11/15/18 07:35 Review of Systems Constitutional Constitutional: Reports as per HPI Exam Vital Signs (past 8 hours): - 11/15/18 07:10 Temperature 99.9 F H Pulse Rate 60 Respiratory Rate 16 Blood Pressure 188/82 H Pulse Oximetry 96 Oxygen Delivery Method Room Air Narrative Exam Narrative: AAO, NAD, female of healthy weight EOMI, MMM, no scleral icterus unlabored RA soft, nt/nd MAEW visible skin dry and intact Objective Imaging UGI: Radiologist's impression: Normal upper GI examination. If clinical symptoms persist or there is clinical suspicion for abnormality of swallowing mechanisms, barium swallow with speech pathology is suggested. Assessment & Plan Assessment & Plan narrative: - unclear etiology --> EGD after above, plan for biopsies and likely dilation --> all R/B/A discussed and pt wishes to proceed
[2018-11-15] MEDS: LIDOCAINE 4% SOLN 50 ML 20 ML TOP (07:51)
[2018-11-15] MEDS: TETRACAINE/BENZOCAINE/BUTAMBEN (CETACAINE) BOTTLE 1 SPRAY TOP (07:52)
--- NOTE | 2018-11-15 07:56 | SUR.OPER ---
GLASSES IN LABELED BAG TO PACU WITH PATIENT
[2018-11-15] MEDS: fentaNYL 250 MCG/5 ML INJ IV (08:01)
[2018-11-15] MEDS: MIDAZOLAM 5 MG/5 ML VIAL IV (08:02)
--- NOTE | 2018-11-15 08:16 | PM.OP.ENDO ---
Operative Date/Time/Diagnoses Date of procedure: 11/15/18 Time of procedure: 08:16 Pre-op diagnosis: Dysphagia, recurrent Post-op diagnosis: same Procedure & Clinicians Study performed: 1. EGD with Biopsies 2. Esophageal Dilation Same procedure as scheduled: Yes Indications: 78yo F with recurrent dysphagia. Feels like this is mid-esophagus. No abnormal imaging findings. Had an EGD for same a few years ago with no abnormal stricturing but dilation to 52 Fr helped symptoms. Surgeon: Dolores Grey Procedure Notes SCOAP/Timeout: 0752 Procedure in detail: After obtaining informed consent, the patient was brought to the GI suite and placed in the left lateral decubitus position on the examination table. After placement of appropriate monitors, the patient was given incremental doses of Versed and Fentanyl until an appropriate level of sedation was achieved. A time out was held per SCOAP protocol. A bite block was gently placed between the patient's teeth. The endoscope was lubricated and then passed into the patient's posterior oropharynx. The esophagus was cannulated under direct vision and the scope was passed to the first portion of the duodenum without difficulty. The scope was then withdrawn with careful examination of all areas of the upper GI tract and mucosa. In the stomach, the instrument was retroflexed and the GE junction, at 40cm to teeth, examined. The scope was straightened and the procedure continued with examination of the remainder of the upper GI tract. Findings include a small gastric polyp which is removed for biopsy. The esophagus has no distinct stricture nor abnormal mucosa save a small protuberance at 15cm which is submucosal in appearance. Not seen on imaging so unlikely significant but does have a mild bruise, likely from dilations. After initial examination, dilation with sequential bougie dilators from 51 to 54 Fr was performed. Exam of mucosa and stomach after showed no concern for injury or perforation other than small bruise noted. Air was aspirated from the stomach and the endoscope gently removed from the esophagus. The patient was allowed to awaken from sedation without difficulty and taken to the post-anesthesia care unit in good condition. Scope withdrawal time: n/a Sedation minutes: 20 Findings: polyp (gastric polyp, 2mm, body of stomach- biopsied) and other findings (mild protuberance with bruising at 15cm in esophagus (bruising possibly from dilation)- biopsied) Specimen(s): other (1. gastric polyp 2. random esohagus biopsies 3. proximal esophagus biopsy (of protuberance at 15cm)) Complications: none Impression: 1. Gastric polyp 2. Mild protuberance of esophagus at 15cm, minimal bruising likely from dilation 3. No distinct stricture or abnormality of esophagus otherwise- random biopsies sent 4. Dilation to 54 Fr bougie Follow up: weeks Disposition: PACU
--- NOTE | 2018-11-15 08:23 | SUR.PHASEI ---
O2 sat 90%ra, 1l nc applied
== END 2018-11-15 09:44 | disposition home or self-care (01) ==
PROVIDERS: PCP Family Medicine; Visit Provider Surgery
PROC: 0DJ08ZZ Inspection of Upper Intestinal Tract, Via Natural or Artificial Opening Endoscopic (ICD-10-PCS; CPT 43235; principal; 2018-11-15 07:45)
DX: R13.10 Dysphagia, unspecified (principal); I10 Essential (primary) hypertension; E78.5 Hyperlipidemia, unspecified; E03.9 Hypothyroidism, unspecified; K31.7 Polyp of stomach and duodenum
CPT/HCPCS: 43450; 43239; 99152; J2250; J3010

== ENCOUNTER → 2018-12-09 11:08 | Outpatient (CLI) | payer OTHER, SELFPAY ==
--- NOTE | 2018-12-09 | DI.MRI.S_ITS ---
PROCEDURE: MR LUMBAR SPINE WO CON INDICATIONS: Low back pain TECHNIQUE: Noncontrast sagittal T1 spin echo and T2 fast echo, sagittal STIR, axial T1 and T2 fast spin echo through the lumbar spine. In cases with scoliosis, additional coronal T2 fast spin echo may be performed. COMPARISON: [facility], CR, L-SPINE 2-3 VIEWS, 10/26/2014, 11:30. [facility], MR, L-SPINE WITHOUT CONTRAST, 01/16/2015, 13:35. [facility], MR, L-SPINE WITHOUT CONTRAST, 04/07/2017, 16:51. FINDINGS: Image quality: Diagnostic, with note made of motion artifact. Alignment and Curvature: There is minimal retrolisthesis seen at L5-S1 level. Bone Marrow: Marrow is of normal overall signal. Since the prior imaging, there has been interval anterior wedge deformity of L1, with 40% loss of height centrally. No acute features are seen, however. There is no posterior displacement of fracture fragments. No acute vertebral body compression fractures. Spinal Cord: Conus medullaris terminates at the L1 level. Visualized cord demonstrates normal signal and size. Paraspinous Soft Tissues: No paravertebral masses. T12-L1: Mild loss of disc height is seen. Loss of disc signal is seen. L1-L2: Mild loss of disc height is seen. Loss of disc signal is seen. Moderate bilateral neural foraminal narrowing is seen. No significant central canal narrowing is seen. When comparison is made with the prior examination, these findings are similar. L2-L3: The disc height is well-preserved. Loss of disc signal is seen at this level. Mild generalized disc bulge is seen. There is mild left-sided and no right-sided neural foraminal narrowing seen. No significant central canal narrowing is seen. When comparison is made with the prior examination, these findings are similar. L3-L4: Moderate loss of disc height is seen. Loss of disc signal is seen. Moderate to prominent disc bulge is seen, which is eccentric to the right. Moderate facet joint hypertrophy is seen. There is moderate to severe right-sided neural foraminal narrowing seen, with associated compression upon the exiting right L3 nerve root. There is no significant left-sided neural foraminal narrowing seen. Moderate central canal narrowing is seen. When comparison is made with the prior examination, these findings are similar. L4-L5: Moderate loss of disc height is seen. Loss of disc signal is seen. Moderate disc bulge is seen, with a central disc protrusion. There is moderate bilateral neural foraminal narrowing seen, left worse than right. Moderate central canal narrowing is seen. Stable from the prior study. L5-S1: The disc height is well-preserved. Loss of disc signal is seen at this level. Moderate disc bulge is seen, which is eccentric to the right. Moderate facet joint hypertrophy is seen. Moderate bilateral neural foraminal narrowing is seen. Mild central canal narrowing is seen. When comparison is made with the prior examination, these findings are similar. IMPRESSION: Multiple levels of lumbar spine degenerative change are seen, which are similar to 2017. Degenerative changes are most prominent at L3-L4 and L4-L5. Interval L1 compression deformity, yet without acute features. Dictated by: Kavon Pinon M.D. on 12/09/2018 at 12:00 Approved by: Kavon Pinon M.D. on 12/09/2018 at 12:15
== END ==
PROVIDERS: PCP Family Medicine; Visit Provider Physical Medicine & Rehabilitation Pain Medicine
DX: M54.5 Low back pain (principal)
CPT/HCPCS: 72148

== ENCOUNTER → 2019-06-08 09:08 | Outpatient (CLI) | payer OTHER, SELFPAY ==
[2019-06-08 10:24] LABS: Alanine Aminotransferase 17 IU/L (<35); Albumin 4.1 g/dL (3.5-5.0); Albumin Globulin Ratio 1.2 (1.0-2.8); Alkaline Phosphatase 86 U/L (38-126); Aspartate Aminotransferase 30 IU/L (14-36); BUN Creatinine Ratio 28.8 (6-22); Bilirubin Total 0.5 mg/dL (0.2-1.3); Blood Urea Nitrogen 23 mg/dL (7-17); Calcium 10.2 mg/dL (8.4-10.2); Carbon Dioxide 33 mmol/L (22-32); Chloride 102 mmol/L (98-107); Cholesterol 179 mg/dL (140-199); Estimated Glomerular Filt Rate > 60.0 mL/min (>60); Globulin 3.3 g/dL (1.7-4.1); Glucose 121 mg/dL (80-110); HDL Cholesterol 69 mg/dL (40-60); HEMOLYSIS < 15 (0-50); LDL Cholesterol Calculated 89 mg/dL (<100); Potassium 4.4 mmol/L (3.4-5.1); Sodium 142 mmol/L (137-145); Total Protein 7.4 g/dL (6.3-8.2); Triglycerides 105 mg/dL (35-150)
[2019-06-08 10:40] LABS: Free T3, Triiodothyronine Free 3.94 pg/mL (2.77-5.27); Free T4, Direct Thyroxine 1.67 ng/dL (0.78-2.19)
[2019-06-08 10:54] LABS: Thyroid Stimulating Hormone 0.92 uIU/mL (0.47-4.68)
== END ==
PROVIDERS: PCP Family Medicine; Referring Provider Family Medicine; Visit Provider Family Medicine
DX: E03.9 Hypothyroidism, unspecified (principal); I10 Essential (primary) hypertension; E78.5 Hyperlipidemia, unspecified
CPT/HCPCS: 36415; 80053; 80061; 84439; 84443; 84481

== ENCOUNTER 2019-06-16 13:26 | Outpatient (CLI) | payer OTHER, SELFPAY ==
[2019-06-16] VITALS (10 sets, daily range): BP systolic 131–173; BP diastolic 57–71; PULSE 51–61; RESP 14–16; TEMP 36.1; O2SAT 95–100
--- NOTE | 2019-06-16 13:27 | DI.RAD.S_ITS ---
PROCEDURE: PAIN L/SI FACET INJ/BLK 1STL INDICATIONS: SPONDYLOSIS FINDINGS: Fluoroscopic spot filming was performed to verify placement of spinal needles at the L3-L4, L4-L5 level(s), as labeled on the films. Appropriate location(s) of the needle tip(s) was confirmed by injection of iodinated contrast. Dictated by: Yobani Sepulveda M.D. on 06/16/2019 at 16:33 Approved by: Yobani Sepulveda M.D. on 06/16/2019 at 16:33
[2019-06-16] MEDS: MIDAZOLAM 5 MG/5 ML VIAL IV (14:33)
[2019-06-16] MEDS: IOPAMIDOL 15 ML VIAL 3 ML INJ (14:38)
[2019-06-16] MEDS: BETAMETHASONE 30 MG/5 ML MDV 12 MG INJ (14:38)
[2019-06-16] MEDS: BUPIVACAINE 0.5% (PF) VIAL 2 ML INJ (14:38)
--- NOTE | 2019-06-16 14:40 | PC.NURSE ---
ASSISTING PT OFF TABLE AND TRANSPORTING TO POST PROC AREA IN STABLE CONDITION. PASSING RN CARE OF PT OFF TO CARA Nguyễn RN.
--- NOTE | 2019-06-16 14:41 | P.PCN_ITS ---
Procedures Date/Time Date of procedure: 06/16/19 Time of procedure: 14:41 General Procedure description: PREOP DIAGNOSIS 1. FACET ARTHROPATHY, 2. AXIAL LBP, 3. MULTILEVEL DDD, POST OP DIAGNOSIS 1. FACET ARTHROPATHY, 2. AXIAL LBP, 3. MULTILEVEL DDD, PROCEDURES 1. FLUORSCOPICALLY GUIDED CONTRAST CONTROLLED FACET JOINT INJECTIONS RIGHT L3/4, L4/5 SURGEON: Cameron Caraballo, DO INDICATIONS Roxie is referred by for treatment of Axial LBP FINDINGS Multilevel Facet Arthropathy with Clinically significant axial LBP DESCRIPTION OF PROCEDURE Fluoroscopically guided, contrast-controlled right L3/4, L4/5 facet joint injections. Following review of allergy and review of potential side effects and complications, including, but not necessarily limited to, infection, allergic reaction, local tissue breakdown, stroke, temporary or permanent nerve injury, paralysis, and possible , the patient indicated that the patient understood and agreed to proceed. An informed consent document was signed by the patient, witnessed by a nurse, and placed in the patient's chart. Additionally, other treatment options including medications, modalities, and physical therapy were reviewed with the patient. After review of previous anaesthesic history and IV conscious sedation the patient was deemed safe to proceed with todays procedure with IV conscious sedation as ASA class II designation. Safety time-out was performed to confirm patient ID, procedure to be performed and site of procedure. IV sedation was accomplished with 2mg of Versed administered by the RN after DO order, titrated to patient comfort during the course of the procedure while the patient remained responsive to all verbal commands. In the prone position, following sterile prep and drape of the lumbar region, the posterior aspect of the right L3/4, L4/5 facet joints were identified fluoroscopically. The skin was anesthetized via a 25-gauge 1.5-inch needle with 1% lidocaine solution into the corresponding facet joints. At this point, a 22- gauge 3.5-inch spinal needle was atraumatically introduced and advanced under fluoroscopic guidance into the corresponding facet joints. Following negative aspiration, injections of approximately 0.2-cc of Isovue 200 confirmed interarticular placement without vascular uptake. Radiological data, including multiple fluoroscopic views of the lumbosacral spine, reveal a spinal needle at the right L3/4, L4/5 facet joints. Subsequent views show flow of contrast material both superiorly and inferiorly within the joint space without vascular or intrathecal uptake. At this point, a total of 0.5cc including a mixture of 0.25cc Marcaine and 0.25cc betamethasone was injected without complication into each of the corresponding facet joints. The patient tolerated the procedure well without signs or symptoms of complications prior to transfer to the recovery area for further monitoring. The patient was then transferred to the recovery area where they were observed for an appropriate period of time after the injection. The patient reported a VAS score of 7 prior to the procedure and a post-procedure VAS of 0. Total Fluoroscopy Time: 7 seconds Total Conscious Sedation Time: 24min POST OP INSTRUCTIONS The patient was provided a Pain Log to continue to record their response to the target-specific procedure prior to follow-up visit with their referring physician. Additionally, specific post-injection care instructions and a contact number to our office were provided if concerns arise regarding possible complications associated with the procedure are suspected Complications: none
--- NOTE | 2019-06-16 15:25 | PC.NURSE ---
Patient arrived from procedure via w/c accompanied by cecil Wilsonby assist to chair. Denies pain, given water.
== END 2019-06-16 15:05 ==
LOC: RAD 13:27
PROVIDERS: PCP Family Medicine; Referring Provider Physical Medicine & Rehabilitation; Visit Provider Physical Medicine & Rehabilitation
DX: M47.816 Spondylosis without myelopathy or radiculopathy, lumbar region (principal); M54.5 Low back pain; M51.36 Other intervertebral disc degeneration, lumbar region
CPT/HCPCS: 64493; 64494; 99152; J0702; J2250; J3010

== ENCOUNTER → 2019-08-19 09:01 | Outpatient (CLI) | payer OTHER, SELFPAY ==
[2019-08-19 09:55] LABS: BUN Creatinine Ratio 33.8 (6-22); Blood Urea Nitrogen 26 mg/dL (7-17); Calcium 9.9 mg/dL (8.4-10.2); Carbon Dioxide 33 mmol/L (22-32); Chloride 100 mmol/L (98-107); Estimated Glomerular Filt Rate > 60.0 mL/min (>60); Glucose 123 mg/dL (80-110); HEMOLYSIS < 15 (0-50); Potassium 3.9 mmol/L (3.4-5.1); Sodium 138 mmol/L (137-145)
[2019-08-19 10:15] LABS: Hemoglobin A1C% w Est Avg Glu 7.3 % (4.0-6.0)
== END ==
PROVIDERS: PCP Family Medicine; Referring Provider Family Medicine; Visit Provider Family Medicine
DX: R73.01 Impaired fasting glucose (principal)
CPT/HCPCS: 36415; 80048; 83036

== ENCOUNTER → 2019-09-08 12:50 | Outpatient (CLI) | payer OTHER, SELFPAY ==
--- NOTE | 2019-09-08 | DI.MG.S_ITS ---
BILATERAL DIGITAL SCREENING MAMMOGRAM 3D/2D WITH CAD: 09/08/2019 CLINICAL: Routine screening. Comparison is made to exams dated: 07/05/2018 mammogram, 06/04/2017 mammogram, and 05/21/2016 mammogram - [facility]. The tissue of both breasts is heterogeneously dense. This may lower the sensitivity of mammography. Current study was also evaluated with a Computer Aided Detection (CAD) system. There are benign calcifications in both breasts. No significant masses, calcifications, or other findings are seen in either breast. There has been no significant interval change. IMPRESSION: There is no mammographic evidence of malignancy. A 1 year screening mammogram is recommended. This exam was interpreted at Station ID: [id number]. NOTE: For mammograms, a report in lay terms will be sent to the patient. Approximately 15% of breast malignancies will not be visualized mammographically. In the management of a palpable breast mass, a negative mammogram must not discourage biopsy of a clinically suspicious lesion. Electronically Signed By: Panfilo ordonez/alla:09/08/2019 13:45:25 letter sent: Normal Exam ACR BI-RADS Category 2: Benign Finding(s) [id number]
== END ==
PROVIDERS: PCP Family Medicine; Referring Provider Family Medicine; Visit Provider Family Medicine
DX: Z12.31 Encounter for screening mammogram for malignant neoplasm of breast (principal)
CPT/HCPCS: 77063; 77067

== ENCOUNTER → 2019-11-18 08:28 | Outpatient (CLI) | payer OTHER, SELFPAY ==
[2019-11-18 10:02] LABS: Hemoglobin A1C% w Est Avg Glu 7.1 % (4.0-6.0)
[2019-11-18 10:07] LABS: Blood Urea Nitrogen 24 mg/dL (7-17); Calcium 9.9 mg/dL (8.4-10.2); Carbon Dioxide 34 mmol/L (22-32); Chloride 103 mmol/L (98-107); Estimated Glomerular Filt Rate > 60.0 mL/min (>60); Glucose 117 mg/dL (80-110); HEMOLYSIS < 15 (0-50); Potassium 3.7 mmol/L (3.4-5.1); Sodium 139 mmol/L (137-145)
== END ==
PROVIDERS: PCP Family Medicine; Referring Provider Family Medicine; Visit Provider Family Medicine
DX: I10 Essential (primary) hypertension (principal); R73.03 Prediabetes
CPT/HCPCS: 36415; 80048; 83036

== ENCOUNTER → 2020-02-21 08:21 | Outpatient (CLI) | payer OTHER, SELFPAY ==
[2020-02-21 09:33] LABS: Hemoglobin A1C% w Est Avg Glu 6.7 % (4.0-6.0)
[2020-02-21 09:49] LABS: Cholesterol 159 mg/dL (140-199); HDL Cholesterol 65 mg/dL (40-60); LDL Cholesterol Calculated 80 mg/dL (<100); Triglycerides 68 mg/dL (35-150)
[2020-02-23 10:42] LABS: BUN Creatinine Ratio 33.3 (6-22); Blood Urea Nitrogen 25 mg/dL (7-17); Calcium 9.6 mg/dL (8.4-10.2); Carbon Dioxide 32 mmol/L (22-32); Chloride 103 mmol/L (98-107); Estimated Glomerular Filt Rate > 60.0 mL/min (>60); Glucose 116 mg/dL (80-110); HEMOLYSIS < 15 (0-50); Potassium 3.6 mmol/L (3.4-5.1); Sodium 140 mmol/L (137-145)
== END ==
PROVIDERS: PCP Family Medicine; Referring Provider Family Medicine; Visit Provider Family Medicine
DX: E11.9 Type 2 diabetes mellitus without complications (principal); E78.5 Hyperlipidemia, unspecified; I10 Essential (primary) hypertension; E03.9 Hypothyroidism, unspecified
CPT/HCPCS: 36415; 80048; 80061; 83036

== ENCOUNTER → 2020-02-29 12:04 | Outpatient (CLI) | payer OTHER, SELFPAY ==
--- NOTE | 2020-02-29 12:06 | DI.RAD.S_ITS ---
PROCEDURE: XR LUMBAR SPINE MIN 4V INDICATIONS: update imaging TECHNIQUE: 5 views of the lumbar spine were acquired. COMPARISON: [facility], , L-SPINE 2-3 VIEWS, 10/26/2014, 11:30. FINDINGS: Bones: 5 nonrib-bearing vertebrae are present. There is normal bony alignment. No vertebral body compression fractures. No suspicious bony lesions. Soml-[id number] degenerative disc disease is present as was previously the case in October of 2014, with mild interval worsening of disc height reduction and endplate osteophyte formation at L3-4. No definite changes seen at L4-5 and only a slight degree of worsening is seen at L5-S1. The oblique views do not show significant foraminal stenosis to the L5-S1 level where facet osteoarthritis and disc height reduction combined to produce a moderate symmetric foraminal stenosis potentially impinging on the L5 nerve roots E coli Soft tissues: Overlying bowel gas pattern is normal. No suspicious soft tissue calcifications. Oblique images: No pars defects. IMPRESSION: Mild interval progression of degenerative disc disease and facet osteoarthritis as discussed from the comparison study in October of 2014. No intervening compression fracture has developed nor has significant subluxation developed either. Dictated by: Randy Giordano M.D. on 02/29/2020 at 13:34 Approved by: Randy Giordano M.D. on 02/29/2020 at 13:35
== END ==
PROVIDERS: PCP Family Medicine; Referring Provider Physical Medicine & Rehabilitation; Visit Provider Physical Medicine & Rehabilitation
DX: M47.817 Spondylosis without myelopathy or radiculopathy, lumbosacral region (principal); M51.26 Other intervertebral disc displacement, lumbar region; M51.36 Other intervertebral disc degeneration, lumbar region
CPT/HCPCS: 72110

== ENCOUNTER → 2020-03-19 13:02 | Outpatient (CLI) | payer OTHER, SELFPAY ==
[2020-03-19 14:12] LABS: COVID19 -Nasal RAPID Negative (Negative)
== END ==
PROVIDERS: PCP Family Medicine; Visit Provider Physical Medicine & Rehabilitation
DX: Z01.812 Encounter for preprocedural laboratory examination (principal); Z11.59 Encounter for screening for other viral diseases
CPT/HCPCS: 87635; C9803

== ENCOUNTER 2020-03-20 14:12 | Outpatient (CLI) | payer OTHER, SELFPAY ==
[2020-03-20] VITALS (8 sets, daily range): BP systolic 148–237; BP diastolic 68–103; PULSE 61–71; RESP 15–22; O2SAT 97–100
--- NOTE | 2020-03-20 14:15 | DI.RAD.S_ITS ---
PROCEDURE: PAIN SI JOINT INJECTION INDICATIONS: SACROCCOCYGEAL DISORDER COMPARISON: None. FINDINGS: Fluoroscopic spot filming was performed to verify placement of spinal needles at the right inferior sacroiliac joint level(s), as labeled on the films. Appropriate location(s) of the needle tip(s) was confirmed by injection of iodinated contrast. IMPRESSION: Successful needle tip localization at the inferior aspect of the right sacroiliac joint, from posterior approach, for presumed intra-articular steroid injection. Dictated by: Randy Giordano M.D. on 03/20/2020 at 15:52 Approved by: Randy Giordano M.D. on 03/20/2020 at 15:52
[2020-03-20] MEDS: MIDAZOLAM 5 MG/5 ML VIAL IV (15:20)
[2020-03-20] MEDS: BUPIVACAINE 0.5% (PF) VIAL 2 ML INJ (15:28)
[2020-03-20] MEDS: BETAMETHASONE 30 MG/5 ML MDV 12 MG INJ (15:28)
[2020-03-20] MEDS: IOPAMIDOL 15 ML VIAL 3 ML INJ (15:29)
--- NOTE | 2020-03-20 15:32 | PM.PROC.IR.1 ---
Date/Time/Diagnoses Date of procedure: 03/20/20 Time of procedure: 15:32 Pre-procedure diagnosis: Sacroiliac joint pain/DJD Post-procedure diagnosis: same Procedure Notes Procedure: Fluoroscopically guided contrast controlled right sacroiliac joint injection Indications: Roxie is referred by Dr. Rogers for treatment of right sacroiliac joint DJD Physician: Cameron Caraballo Total Fluoroscopy time (seconds): 6 Total sedation minutes: 9 Complications: none Procedure in detail & Post-procedure care: DESCRIPTION OF PROCEDURE Fluoroscopically guided, contrast controlled right sacroiliac joint injection Following review of allergies and review of potential side effects and complications, including, but not necessarily limited to, infection, allergic reaction, local tissue breakdown, temporary as well as permanent nerve injury, paralysis, stroke and possible , the patient indicated that they understood and agreed to proceed. An informed consent was signed by the patient, witnessed by a nurse, and placed in the patient's chart. Additionally, other treatment options including modalities, medications, and physical therapy were reviewed with the patient. After review of previous anaesthesic history and IV conscious sedation the patient was deemed safe to proceed with today?s procedure with IV conscious sedation as ASA class II designation. Safety time-out was performed to confirm patient ID, procedure to be performed and site of procedure. IV sedation was accomplished with a combination of 2mg of Versed was administered by the RN after DO order, titrated to patient comfort during the course of the procedure while the patient remained responsive to all verbal commands In the prone position following sterile prep and drape of the pelvic region, the hyper lucency on in the inferior aspect of the sacroiliac joint was identified fluoroscopically the skin was anesthetized be a 25 gauge 1 eventual with approximately 2cc of 1% lidocaine solution. At this point, a 22 gauge 3 in spinal needle was atraumatically introduced and advanced under fluoroscopic guidance into the inferior aspect of the right sacroiliac joint. Following negative aspiration, approximately 0.3cc of Isovue-300 was injected confirming intra-articular placement without vascular uptake. Radiographic data, including multiple fluoroscopic views of the pelvis, reveals a spinal needle in the sacroiliac joint hyper lucent zone. Subsequent view show flow contrast tear superiorly and inferiorly within the joint capsule without vascular intrathecal uptake. At this point a total of 1cc of 0.5% Marcaine was combined with 1cc of 6 mg of betamethasone was injected without incident. The procedure tolerated the procedure well without signs or symptoms of complications prior to transfer to the recovery area continued monitoring without incident. The patient was then transferred to the recovery area with a bur observed for an appropriate time after the injection. The patient reverted a vas score of 7 prior to the procedure and post-procedure vas of 1. POSTOP INSTRUCTIONS The patient was provided with a pain like to continue to record the patient's response to the target specific procedure prior to the patient's follow-up visit with the referring physician. Additionally, specific post injection care instructions and a contact number to our office were provided if concerns arise regarding the possible complications associated with procedure are suspected.
== END 2020-03-20 16:15 | disposition home or self-care (01) ==
PROVIDERS: PCP Family Medicine; Referring Provider Physical Medicine & Rehabilitation; Visit Provider Physical Medicine & Rehabilitation
DX: M53.3 Sacrococcygeal disorders, not elsewhere classified (principal); M46.1 Sacroiliitis, not elsewhere classified
CPT/HCPCS: 27096; J0702; J2250; J3010

== ENCOUNTER → 2020-08-04 11:41 | Outpatient (CLI) | payer OTHER, SELFPAY ==
--- NOTE | 2020-08-04 | DI.MG.S_ITS ---
BILATERAL DIGITAL SCREENING MAMMOGRAM 3D/2D WITH CAD: 08/04/2020 CLINICAL: Routine screening. Comparison is made to exams dated: 09/08/2019 mammogram, 07/05/2018 mammogram, and 06/04/2017 mammogram - [facility]. The tissue of both breasts is heterogeneously dense. This may lower the sensitivity of mammography. Current study was also evaluated with a Computer Aided Detection (CAD) system. There are benign vascular calcifications in both breasts. No significant masses, calcifications, or other findings are seen in either breast. There has been no significant interval change. IMPRESSION: BENIGN There is no mammographic evidence of malignancy. A 1 year screening mammogram is recommended. Future imaging is recommended as follows: 09/08/2020 screening mammogram. This exam was interpreted at Station ID: [id number]. NOTE: For mammograms, a report in lay terms will be sent to the patient. Approximately 15% of breast malignancies will not be visualized mammographically. In the management of a palpable breast mass, a negative mammogram must not discourage biopsy of a clinically suspicious lesion. Electronically Signed By: Sathya marks/alla:08/06/2020 08:25:19 letter sent: Normal Exam ACR BI-RADS Category 2: Benign Finding(s) [id number]
== END ==
PROVIDERS: PCP Family Medicine; Referring Provider Family Medicine; Visit Provider Family Medicine
DX: Z12.31 Encounter for screening mammogram for malignant neoplasm of breast (principal)
CPT/HCPCS: 77063; 77067

== ENCOUNTER → 2020-08-15 11:17 | Outpatient (CLI) | payer OTHER, SELFPAY ==
[2020-08-15 11:42] LABS: Hemoglobin A1C% w Est Avg Glu 6.6 % (4.0-6.0)
[2020-08-15 12:32] LABS: BUN Creatinine Ratio 34.6 (6-22); Blood Urea Nitrogen 28 mg/dL (7-17); Calcium 10.1 mg/dL (8.4-10.2); Carbon Dioxide 31 mmol/L (22-32); Chloride 99 mmol/L (98-107); Estimated Glomerular Filt Rate > 60.0 mL/min (>60); Glucose 216 mg/dL (80-110); HEMOLYSIS < 15 (0-50); Potassium 3.3 mmol/L (3.4-5.1); Sodium 137 mmol/L (137-145)
[2020-08-15 13:04] LABS: TSH w/ Reflex to FT4 0.35 uIU/mL (0.47-4.68)
[2020-08-15 13:30] LABS: Free T4, Direct Thyroxine 2.14 ng/dL (0.78-2.19)
== END ==
PROVIDERS: PCP Family Medicine; Referring Provider Family Medicine; Visit Provider Family Medicine
DX: E11.9 Type 2 diabetes mellitus without complications (principal); I10 Essential (primary) hypertension; E03.9 Hypothyroidism, unspecified
CPT/HCPCS: 36415; 80048; 83036; 84439; 84443

== ENCOUNTER → 2020-10-08 08:32 | Outpatient (CLI) | payer OTHER, SELFPAY ==
[2020-10-08 10:05] LABS: BUN Creatinine Ratio 36.1 (6-22); Blood Urea Nitrogen 26 mg/dL (7-17); Carbon Dioxide 31 mmol/L (22-32); Chloride 100 mmol/L (98-107); Estimated Glomerular Filt Rate > 60.0 mL/min (>60); Glucose 119 mg/dL (80-110); HEMOLYSIS < 15 (0-50); Potassium 3.5 mmol/L (3.4-5.1); Sodium 137 mmol/L (137-145)
[2020-10-08 10:37] LABS: TSH w/ Reflex to FT4 0.55 uIU/mL (0.47-4.68)
== END ==
PROVIDERS: PCP Family Medicine; Referring Provider Family Medicine; Visit Provider Family Medicine
DX: E03.9 Hypothyroidism, unspecified (principal); I10 Essential (primary) hypertension; E11.9 Type 2 diabetes mellitus without complications; E87.6 Hypokalemia
CPT/HCPCS: 36415; 80048; 84443

== ENCOUNTER → 2021-02-11 08:06 | Outpatient (CLI) | payer OTHER, SELFPAY ==
[2021-02-11 10:48] LABS: Alanine Aminotransferase 18 IU/L (<35); Albumin 3.7 g/dL (3.5-5.0); Albumin Globulin Ratio 1.2 (1.0-2.8); Alkaline Phosphatase 61 U/L (38-126); Aspartate Aminotransferase 29 IU/L (14-36); BUN Creatinine Ratio 32.9 (6-22); Bilirubin Total 0.4 mg/dL (0.2-1.3); Blood Urea Nitrogen 26 mg/dL (7-17); Calcium 10.1 mg/dL (8.4-10.2); Carbon Dioxide 31 mmol/L (22-32); Chloride 100 mmol/L (98-107); Estimated Glomerular Filt Rate > 60.0 mL/min (>60); Globulin 3.1 g/dL (1.7-4.1); Glucose 109 mg/dL (80-110); HEMOLYSIS < 15 (0-50); Potassium 3.5 mmol/L (3.4-5.1); Sodium 137 mmol/L (137-145); Total Protein 6.8 g/dL (6.3-8.2)
[2021-02-11 10:49] LABS: Hemoglobin A1C% w Est Avg Glu 6.6 % (4.0-6.0)
[2021-02-11 12:13] LABS: Free T4, Direct Thyroxine 2.29 ng/dL (0.78-2.19)
[2021-02-11 14:46] LABS: Creatinine Urine Random 67.3 mg/dL
[2021-02-11 14:57] LABS: Microalbumin Urine Random < 0.6 mg/dL (0-1.6)
== END ==
PROVIDERS: PCP Family Medicine; Referring Provider Family Medicine; Visit Provider Family Medicine
DX: E11.9 Type 2 diabetes mellitus without complications (principal); I10 Essential (primary) hypertension; E03.9 Hypothyroidism, unspecified
CPT/HCPCS: 36415; 80053; 82043; 82570; 83036; 84439; 84443

== ENCOUNTER → 2021-05-01 08:20 | Outpatient (CLI) | payer OTHER, SELFPAY ==
[2021-05-01 09:40] LABS: Hemoglobin A1C% w Est Avg Glu 6.9 % (4.0-6.0)
[2021-05-01 09:54] LABS: Alanine Aminotransferase 15 IU/L (<35); Albumin 3.8 g/dL (3.5-5.0); Albumin Globulin Ratio 1.2 (1.0-2.8); Alkaline Phosphatase 68 U/L (38-126); Aspartate Aminotransferase 27 IU/L (14-36); BUN Creatinine Ratio 35.9 (6-22); Bilirubin Total 0.3 mg/dL (0.2-1.3); Blood Urea Nitrogen 28 mg/dL (7-17); Calcium 9.6 mg/dL (8.4-10.2); Carbon Dioxide 30 mmol/L (22-32); Chloride 103 mmol/L (98-107); Cholesterol 157 mg/dL (140-199); Estimated Glomerular Filt Rate > 60.0 mL/min (>60); Globulin 3.3 g/dL (1.7-4.1); Glucose 128 mg/dL (80-110); HDL Cholesterol 59 mg/dL (40-60); HEMOLYSIS < 15 (0-50); LDL Cholesterol Calculated 79 mg/dL (<100); Potassium 3.4 mmol/L (3.4-5.1); Sodium 139 mmol/L (137-145); Total Protein 7.1 g/dL (6.3-8.2); Triglycerides 95 mg/dL (35-150)
[2021-05-01 10:04] LABS: Creatinine Urine Random 88.9 mg/dL
[2021-05-01 10:07] LABS: Microalbumi Creatinin Ratio Ur 7.8 ug/mg CR (<30); Microalbumin Urine Random 0.7 mg/dL (0-1.6)
[2021-05-01 10:36] LABS: TSH w/ Reflex to FT4 0.79 uIU/mL (0.47-4.68)
== END ==
PROVIDERS: PCP Family Medicine; Referring Provider Family Medicine; Visit Provider Family Medicine
DX: E11.9 Type 2 diabetes mellitus without complications (principal); E78.5 Hyperlipidemia, unspecified; E03.9 Hypothyroidism, unspecified; E87.6 Hypokalemia; I10 Essential (primary) hypertension
CPT/HCPCS: 36415; 80053; 80061; 82043; 82570; 83036; 84443

== ENCOUNTER → 2021-08-19 11:57 | Outpatient (CLI) | payer OTHER, SELFPAY ==
[2021-08-19 13:20] LABS: Alanine Aminotransferase 17 IU/L (<35); Albumin 3.9 g/dL (3.5-5.0); Albumin Globulin Ratio 1.1 (1.0-2.8); Alkaline Phosphatase 66 U/L (38-126); Aspartate Aminotransferase 27 IU/L (14-36); BUN Creatinine Ratio 30.5 (6-22); Bilirubin Total 0.4 mg/dL (0.2-1.3); Blood Urea Nitrogen 25 mg/dL (7-17); Calcium 9.5 mg/dL (8.4-10.2); Carbon Dioxide 33 mmol/L (22-32); Chloride 100 mmol/L (98-107); Estimated Glomerular Filt Rate > 60 mL/min (>60); Globulin 3.6 g/dL (1.7-4.1); Glucose 244 mg/dL (80-110); HEMOLYSIS < 15 (0-50); Potassium 3.6 mmol/L (3.4-5.1); Sodium 139 mmol/L (137-145); Total Protein 7.5 g/dL (6.3-8.2)
[2021-08-19 14:19] LABS: Hemoglobin A1C% w Est Avg Glu 6.9 % (4.0-6.0)
[2021-08-19 14:57] LABS: TSH w/ Reflex to FT4 0.37 uIU/mL (0.47-4.68)
[2021-08-19 16:08] LABS: Free T4, Direct Thyroxine 2.58 ng/dL (0.78-2.19)
== END ==
PROVIDERS: PCP Family Medicine; Referring Provider Family Medicine; Visit Provider Family Medicine
DX: E11.9 Type 2 diabetes mellitus without complications (principal); E78.2 Mixed hyperlipidemia; I10 Essential (primary) hypertension; E03.9 Hypothyroidism, unspecified
CPT/HCPCS: 36415; 80053; 83036; 84439; 84443

== ENCOUNTER 2021-09-16 19:59 | Emergency (ER) | payer OTHER, SELFPAY ==
--- NOTE | 2021-09-16 20:00 | DI.RAD.S_ITS ---
PROCEDURE: XR ANKLE RT MIN 3V INDICATIONS: fall TECHNIQUE: 3 views of the ankle were acquired. COMPARISON: None. FINDINGS: Bones: There is a mildly displaced fracture of the medial malleolus extending to the ankle mortise. Ankle mortise alignment appears grossly preserved. There is also a mildly displaced fracture of the distal fibula extending to the distal tibiofibular syndesmosis. No definite associated syndesmotic widening. Soft tissues: There is periarticular soft tissue swelling. There is an associated tibiotalar joint effusion. Achilles tendon appears intact. IMPRESSION: 1. Bimalleolar fracture of the right ankle. Dictated by: Panfilo Knapp M.D. on 09/16/2021 at 20:16 Approved by: Panfilo Knapp M.D. on 09/16/2021 at 20:18
[2021-09-16 20:02] VITALS: BP 110/72; PULSE 75; RESP 16; TEMP 36.8; O2SAT 98
--- NOTE | 2021-09-16 21:59 | PC.NURSE ---
Short leg posterior splint applied to R leg. Pt educated on importance of checking circulation to toes and how to loosen and adjust briana wraps if needed.
[2021-09-16 22:22] VITALS: BP 190/79; PULSE 87; RESP 16; O2SAT 97
--- NOTE | 2021-09-16 22:22 | PC.NURSE ---
Pt requesting this RN make note that pt has a walker at home and does not want one to be provided to her from the hospital. Upon discharge, pt will be assisted into their vehicle and her will get the walker for her when they arrive home.
--- NOTE | 2021-09-16 23:00 | ED_ITS ---
HPI - Extremity Injury (Lower) General Chief Complaint: Extremity Injury, Lower Stated Complaint: Fall/ankle pain Time Seen by Provider: 09/16/21 21:07 Source: patient and EMS Mode of arrival: EMS History of Present Illness HPI Narrative: 80-year-old woman with history of hypertension and diabetes was out working in her garden and stumbled and fell over a rock injuring her right ankle. She comes in for further evaluation. She does not note any additional injuries with the fall. Related Data Home Medications Medication Instructions Recorded Confirmed [CALCIUM] 600 mg PO Q DAY #0 05/21/08 09/11/21 ascorbic acid (vitamin C) 500 mg 500 mg PO QDAY #0 08/12/16 09/11/21 tablet ibuprofen 200 mg capsule (Motrin 200 mg PO Q6H PRN 03/01/20 09/11/21 IB) ResMed AirSense 10 07/18/21 09/11/21 erythromycin 5 mg/gram (0.5 %) eye 1 applic EYE-BOTH g 09/11/21 09/11/21 ointment prednisolone acetate 1 % eye 1 drp EYE-BOTH ml 09/11/21 09/11/21 drops,suspension Previous Rx's Medication Instructions Recorded hydrochlorothiazide 25 mg tablet See Rx Instructions .ROUTE 01/10/21 .COMPLEX #90 tab losartan 100 mg tablet 100 mg PO QDAY #90 tab 04/16/21 metformin 500 mg tablet See Rx Instructions .ROUTE 05/16/21 .COMPLEX #180 tab lovastatin 40 mg tablet See Rx Instructions .ROUTE 08/19/21 .COMPLEX #90 tab levothyroxine 50 mcg tablet 50 mcg PO DAILY #30 tab 09/11/21 Allergies Allergy/AdvReac Type Severity Reaction Status Date / Time No Known Drug Allergies Allergy Verified 09/11/21 11:43 Review of Systems Review of Systems Narrative: Pertinent positive and negative findings as per HPI Remainder of review of systems is otherwise unremarkable for Constitutional: Fevers, chills, weakness ENT: No sore throat, neck pain, ear pain CV: Chest pain, palpitations, Respiratory: Cough, wheeze, dyspnea GI: Nausea, vomiting, diarrhea, : Dysuria, hematuria, Patient History Medical History Chicken pox (1961) Cyst of ovary (03/20/15) Eccrine poroma Esophageal stricture Facet arthropathy, lumbosacral Hearing loss (2011) Herniated nucleus pulposus, L3-4 right History of live (08/21/1968) History of live (12/01/1964) History of live (11/08/1962) History of one miscarriage (~1964) Hyperlipidemia (08/21/14) Hypertension (08/21/14) Hypertension (1993) Hypothyroidism Lumbar back pain with radiculopathy affecting right lower extremity (11/28/14) Measles (194) Normal colonoscopy Osteoarthritis (05/22/14) Polymyalgia rheumatica (2011) Right sacral radiculopathy Sacral dysfunction Seborrheic keratosis, inflamed 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[place], normal (~1967) Tuberculosis (1946) Surgical History Anesthesia History of bladder suspension procedure (2001) History of cataract surgery History of eyelid surgery (2013) History of hysterectomy with oophorectomy (~2013) Family History Mother Hypertension Stroke Cardiopulmonary arrest Brother Cancer Father Pneumonia Grandmother Heart disease Grandfather Heart disease Social History marital status: (to Don) household members: spouse occupational status: previously employed Smoking Status: Never smoker alcohol intake: never substance use type: does not use Smoking Status: Never smoker Substance Use Type: does not use Exam Initial Vital Signs Initial Vital Signs: Vital Signs Temperature 98.2 F 09/16/21 20:02 Pulse Rate 75 09/16/21 20:02 Respiratory Rate 16 09/16/21 20:02 Blood Pressure 110/72 09/16/21 20:02 Pulse Oximetry 98 09/16/21 20:02 General: Alert appropriate in no acute distress Respiratory: Able to speak in full sentences, no obvious respiratory distress Skin: No obvious rashes, warm and dry Neurologic: Grossly intact no obvious asymmetries or abnormalities Psych: appropriate insight and affect, cooperative Extremity: No trauma to the upper extremities or left leg. Her right ankle is swollen and ecchymotic but neurovascularly intact distal Procedures Orthopedic Splinting/Casting Right ankle: Side: right Lower Extremity Injury Location: ankle Lower Extremity Immobilizer: posterior splint and stirrup splint Other Orthopedic Equipment: other (Has walker available at home) Post splinting neuro exam: intact Post splinting vascular exam: intact Placed by: Nursing Course Orders Ordered: ED Orders 09/16/21 20:00 XR ankle RT min 3V Stat Vital Signs Vital signs: Vital Signs - 8 hr 09/16/21 20:02 09/16/21 22:22 Temperature 98.2 F Pulse Rate 75 87 Respiratory Rate 16 16 Blood Pressure 110/72 190/79 H Pulse Oximetry 98 97 MDM - Extremity Injury (Lower) Imaging Data XR ankle: Radiologist's Impression: FINDINGS:? ? Bones:? There is a mildly displaced fracture of the medial malleolus extending to the ankle mortise.? Ankle mortise alignment appears grossly preserved.? There is also a mildly displaced fracture of the distal fibula extending to the distal tibiofibular syndesmosis.? No definite associated syndesmotic widening. ? Soft tissues:? There is periarticular soft tissue swelling.? There is an associated tibiotalar joint effusion.? Achilles tendon appears intact.? ? ? IMPRESSION:? ? 1. Bimalleolar fracture of the right ankle. ? Dictated by: Panfilo Knapp M.D. on 09/16/2021 at 20:16 ? ? [facility] Narrative Medical decision making narrative: 80-year-old woman with mechanical fall and resulting bimalleolar right ankle fracture. Pain is controlled. She is placed in a posterior splint with with sugar-tong bracing for stability and instructed to do no weight bearing. She does have walker to help at home. She will need follow-up with Orthopedic surgery and I did share with of possibility that she may need surgical intervention. Discussed use of of appropriate pain medications. On clinical exam there was no suggestion of additional injuries from her fall today. Questions are answered and she is safe for home discharge Discharge Plan Departure Patient Disposition: Home Clinical Impression: Ankle fracture, bimalleolar, closed Instructions: DI for Ankle Fracture Activity Restrictions/Additional Instructions: Thank you for coming in today You do have an ankle fracture and does involve both of the bones in your lower leg. This is an unstable fracture and you should not be walking on this like at all. Please make sure you are using the walker that you have available at home. You have a splint in place but you need to see the orthopedic surgeon for definitive treatment of this fracture. Please call [facility] at [phone] tomorrow. Please explain to them your in the emergency room and have a ?by a malleolar ankle fracture? and will need to be seen. Using 400 mg of ibuprofen (2 ynzb-[id number] pills) and 1 Tylenol every 6 hours can be very helpful in controlling pain. If you find that you are getting worse or develop any new symptoms, please feel free to return to the emergency department for further evaluation. Prescriptions: No Action [CALCIUM] 600 mg PO Q DAY Qty: 0 0RF ascorbic acid (vitamin C) 500 MG tablet 500 mg PO QDAY Qty: 0 0RF hydrochlorothiazide 25 mg tablet See Rx Instructions .ROUTE .COMPLEX Qty: 90 3RF Dose Instruction: Take 1 tablet (25 mg) by mouth daily Rx Instructions: Take 1 tablet (25 mg) by mouth daily losartan 100 mg tablet 100 mg PO QDAY Qty: 90 3RF metformin 500 mg tablet See Rx Instructions .ROUTE .COMPLEX Qty: 180 1RF Dose Instruction: Take 1 tablet (500 mg) by mouth 2 times daily Rx Instructions: Take 1 tablet (500 mg) by mouth 2 times daily lovastatin 40 mg tablet See Rx Instructions .ROUTE .COMPLEX Qty: 90 0RF Dose Instruction: Take 1 tablet (40 mg) by mouth daily at bedtime DUE FOR LAB WORK Rx Instructions: Take 1 tablet (40 mg) by mouth daily at bedtime erythromycin 5 mg/gram (0.5 %) ointment 1 applic EYE-BOTH 0RF prednisolone acetate 1 % drops,suspension 1 drp EYE-BOTH 0RF levothyroxine 50 mcg tablet 50 mcg PO DAILY Qty: 30 5RF ibuprofen [Motrin IB] 200 mg capsule 200 mg PO Q6H PRN0RF (DME) ResMed AirSense 10 See Rx Instructions .Route .MEDSUPPLY 0RF Rx Instructions: CPAP Min: 5 Max: 15 DME: [employer] Referrals: Erin Melvin MD [Primary Care Provider] -
[2021-09-16 23:32] VITALS: BP 181/70; PULSE 71; RESP 18; O2SAT 97
== END 2021-09-16 23:33 | disposition home or self-care (01) ==
PROVIDERS: Emergency Provider Emergency Medicine; PCP Family Medicine
DX: S82.841A Displaced bimalleolar fracture of right lower leg, initial encounter for closed fracture (principal); W01.0XXA Fall on same level from slipping, tripping and stumbling without subsequent striking against object, initial encounter; Y93.H2 Activity, gardening and landscaping
CPT/HCPCS: 73610; 99281; 99283

== ENCOUNTER → 2021-09-23 11:03 | Outpatient (CLI) | payer OTHER, SELFPAY ==
[2021-09-23 12:05] LABS: COVID19 -Nasal RAPID Negative (Negative)
== END ==
PROVIDERS: PCP Family Medicine; Referring Provider Orthopaedic Surgery; Visit Provider Orthopaedic Surgery
DX: Z20.822 Contact with and (suspected) exposure to COVID-19 (principal)
CPT/HCPCS: 87635; C9803

== ENCOUNTER 2021-09-24 06:07 | Day surgery (SDC) | payer OTHER, SELFPAY ==
[2021-09-19 10:41] VITALS: BMI 25.1
[2021-09-24 06:56] VITALS: BP 149/64; PULSE 68; RESP 20; TEMP 37.2; O2SAT 98; BMI 25.1
[2021-09-24] MEDS: LACTATED RINGERS 1,000 ML 42 ML IV ×2 (07:12→09:00)
--- NOTE | 2021-09-24 07:28 | PM.PREOP ---
Pre-operative Note COVID-19 COVID-19 status: Negative Result date/Date tested (Pos, Neg/Pending): 09/23/21 Interval Note History & Physical reviewed/Exam performed by Physician: Yes Changes to H&P: No
[2021-09-24] MEDS: ACETAMINOPHEN 325 MG TABLET 975 MG PO (07:41)
[2021-09-24] MEDS: CELECOXIB 200 MG CAPSULE PO (07:41)
[2021-09-24] MEDS: CEFAZOLIN 1 GM VIAL IV (08:28)
--- NOTE | 2021-09-24 08:35 | SUR.OPER ---
Supine on padded OR bed, head on pillow, arms secured on padded arm boards at <90 degrees abduction, legs uncrossed, safety belt at thigh, tape over blanket over lower leg. Right leg draped into field positioned on bump during procedure. Positioning directed and approved by surgeon.
--- NOTE | 2021-09-24 08:54 | SUR.PREOP ---
Block start time [0758] . Monitoring initiated and maintained throughout procedure. Oxygen and medications given by anesthesiologist instructions. Patient remained stable throughout procedure, no adverse reactions noted. Block end time [0808]. Pt left for OR in stable condition.
[2021-09-24] MEDS: BUPIVACAINE 0.5% (PF) VIAL 10 ML INJ (09:12)
--- NOTE | 2021-09-24 09:33 | PM.OP.1 ---
Operative Date/Time/Diagnoses Date of procedure: 09/24/21 Time of procedure: 09:33 Pre-op diagnosis: Right ankle closed displaced bimalleolar fracture. Post-op diagnosis: same Procedure & Clinicians Procedure: open reduction internal fixation of medial and lateral malleoli, right ankle Same procedure as scheduled: Yes Indications: The patient is an 80-year-old woman who suffered a fall sustaining the above-noted fracture. She has agreed to open reduction internal fixation after discussion the risks benefits and alternatives. Risks discussed included but were not limited to: Loss of fixation, nerve damage, infection, stiffness, deep venous thrombosis, pulmonary embolism, stroke, myocardial infarction, permanent paralysis and . Surgeon: Clark Álvarez Click Yes if Unassisted: Yes Anesthesia Type: General, Peripheral nerve block and Local Operative Notes Findings: displaced fracture of the distal fibula and minimally displaced medial malleolus fracture Closure Type: primary Specimen(s): none sent Prosthetic devices, grafts, tissues, transplants, or devices: implants used in this procedure manufactured by the [employer] and included a 6 hole 1/3 tubular fibular plate with 5 cortical screws and 1 cancellous screws through the plate and an additional lag screw which was a cortical screw. On the medial side two 40 mm partially-threaded cancellous bone screws were implanted. Applied: implant(s) Estimated Blood Loss (mL): 100 Blood products transfused: none Tourniquet time (min): 44 Procedure in detail: The patient was seen in the preoperative area where she identified the right foot as the operative site and this was marked with my initials. She was taken to the operating room placed on the operating room table in the supine position after undergoing a peripheral nerve block in the preoperative area for postoperative pain control. She received a g of Ancef preoperatively. She underwent induction of a general anesthetic. A tourniquet was placed about her proximal right thigh. Her right leg was prepared from the toes to the tourniquet with ChloraPrep in the usual fashion and draped through sterile drapes. The leg was elevated and exsanguinated with an Esmarch bandage and the tourniquet inflated to 250 mmHg. An incision was created approximately 10 cm in length in line with the distal fibula. We immediately encountered significant bleeding which made it clear that the tourniquet was not functioning normally. A compression dressing was applied using the Esmarch bandage and the tourniquet replaced with a new tourniquet which did function normally. The bleeder was controlled with electrocautery. The fascia on the fibula was elevated to expose the fracture site. The fracture was cleaned of hematoma and reduced with a reduction clamp and a single anterior to posterior lag screw placed by drilling a 3.5 mm proximal hole and a 2.5 mm distal hole. The countersink was used. The appropriate length screw was placed. This reduced the fracture completely and was then backed up with a lateral 1/3 tubular plate which was bent to the shape of the fibula. The 5 proximal holes in the plate were fixed with bicortical cortical screws in the distal hole was fixed with a unicortical cancellous screw due to proximity to the joint. The position of all hardware and the fracture was verified on fluoroscopy as being satisfactory. This wound was irrigated and closure of the subcutaneous tissues was performed with 3-0 Vicryl. We then turned our attention to the medial side. The medial incision was created overlying the tip of the medial malleolus. This measured approximately 4 cm in length. The fracture was very well reduced in actually quite difficult to see. It was eventually found and fixed with 2 parallel 40 mm partially threaded screws placed up from the malleolus into the distal tibia. This nicely compressed the fracture. This wound was also irrigated and the subcutaneous layer closed with 3-0 Vicryl. The position of all screws and the of fractures was verified as appropriate in the AP and lateral views. The wounds were then closed with francai. 10 mL of 0.5% plain Marcaine was injected for postoperative pain control. Dressings of Xeroform sterile 4 x 4s and sterile cast padding were applied followed by a stirrup type splint and Uli wrap. The tourniquet was deflated during splint placement for a total tourniquet time of 44 minutes. The patient was then extubated in the operating room and transported to the recovery room in good condition having tolerated the procedure well. Complications: none Post-operative Condition: stable Disposition: PACU Plan for aftercare: The patient will be discharged later this morning. She will remain nonweightbearing on the right lower extremity for 4 weeks. She will be seen in my office in 2 weeks for removal of francia and placement into a short-leg cast.
[2021-09-24 09:34] VITALS: BP 135/52; PULSE 87; RESP 16; TEMP 36.1; O2SAT 97
[2021-09-24 09:39] VITALS: BP 140/53; PULSE 88; RESP 16; O2SAT 97
[2021-09-24] MEDS: ONDANSETRON 4 MG/2 ML INJ IV (09:46)
[2021-09-24] MEDS: OXYCODONE IR 5 MG TABLET PO (09:47)
[2021-09-24 09:49] VITALS: BP 140/54; PULSE 86; RESP 15; O2SAT 94
[2021-09-24 09:59] VITALS: BP 144/58; PULSE 80; RESP 13; TEMP 36.7; O2SAT 95
[2021-09-24 10:30] VITALS: BP 142/67; PULSE 74; RESP 16; TEMP 36.1; O2SAT 96
--- NOTE | 2021-09-24 10:58 | SUR.PHASEII ---
1030 Patient has been waiting for spouse to arrive to review discharge instructions. Tolerating PO well, states that her pain is improving and declined another med. Instructions reviewed with patient/spouse.
== END 2021-09-24 10:53 | disposition home or self-care (01) ==
PROVIDERS: PCP Family Medicine; Referring Provider Orthopaedic Surgery; Visit Provider Orthopaedic Surgery
PROC: 0SSF04Z Reposition Right Ankle Joint with Internal Fixation Device, Open Approach (ICD-10-PCS; CPT 27814; principal; 2021-09-24 07:45)
DX: S82.841A Displaced bimalleolar fracture of right lower leg, initial encounter for closed fracture (principal); W18.40XA Slipping, tripping and stumbling without falling, unspecified, initial encounter; E03.9 Hypothyroidism, unspecified; I10 Essential (primary) hypertension; G47.33 Obstructive sleep apnea (adult) (pediatric); E11.9 Type 2 diabetes mellitus without complications; Z79.84 Long term (current) use of oral hypoglycemic drugs
CPT/HCPCS: 27814; 64450; J0690; J1100; J2250; J2405; J2704; J3010

== ENCOUNTER → 2021-10-08 15:43 | Outpatient (CLI) | payer OTHER, SELFPAY ==
[2021-10-08 18:20] LABS: TSH w/ Reflex to FT4 7.49 uIU/mL (0.47-4.68)
[2021-10-08 19:04] LABS: Free T4, Direct Thyroxine 1.35 ng/dL (0.78-2.19)
== END ==
PROVIDERS: PCP Family Medicine; Referring Provider Family Medicine; Visit Provider Family Medicine
DX: E03.9 Hypothyroidism, unspecified (principal)
CPT/HCPCS: 36415; 84439; 84443

== ENCOUNTER → 2021-12-19 11:54 | Outpatient (CLI) | payer OTHER, SELFPAY | PROVIDERS: PCP Family Medicine; Referring Provider Pediatrics; Visit Provider Pediatrics | DX: M81.0 Age-related osteoporosis without current pathological fracture (principal); Z78.0 Asymptomatic menopausal state; M85.88 Other specified disorders of bone density and structure, other site | CPT/HCPCS: 77080 ==

== ENCOUNTER → 2022-01-30 10:25 | Outpatient (CLI) | payer OTHER, SELFPAY ==
[2022-01-30 15:37] LABS: Free T4, Direct Thyroxine 1.59 ng/dL (0.78-2.19)
== END ==
PROVIDERS: Family Medicine; PCP Family Medicine; Referring Provider Family Medicine; Visit Provider Family Medicine
DX: E03.9 Hypothyroidism, unspecified (principal)
CPT/HCPCS: 36415; 84439; 84443

== ENCOUNTER 2022-03-17 05:32 | Inpatient (IN) | payer OTHER, SELFPAY ==
[2022-03-17] VITALS (13 sets, daily range): BP systolic 105–153; BP diastolic 37–77; PULSE 82–108; RESP 16–26; TEMP 35.9–36.9; O2SAT 93–97; BMI 22.8
--- NOTE | 2022-03-17 05:42 | DI.RAD.S_ITS ---
PROCEDURE: XR CHEST 1V INDICATIONS: short of breath TECHNIQUE: One view of the chest was acquired. COMPARISON: [facility], , CHEST 2 VIEW, 03/04/2012, 11:47. FINDINGS: Surgical changes and devices: None. Lungs and pleura: Confluent opacity at the left lung periphery lower lobe. No pleural effusions. Mediastinum: Mediastinal contours appear normal. Heart size is normal. Bones and chest wall: No suspicious bony lesions. Overlying soft tissues appear unremarkable. IMPRESSION: Confluent opacity left lower lobe of the lung, suspicious for infection/inflammation. Consider future imaging surveillance to assess for resolution. Agree with prelim report. Dictated by: Sachin Perdomo M.D. on 03/17/2022 at 8:21 Approved by: Sachin Perdomo M.D. on 03/17/2022 at 8:21
--- NOTE | 2022-03-17 05:43 | ED.WEAKNESS ---
HPI - Weakness General Chief complaint: Fall Stated complaint: GLF Time Seen by Provider: 03/17/22 05:41 History of Present Illness HPI Narrative: Patient is a 81-year-old female history of hypothyroid hypertension presenting today with generalized weakness and fall. Patient states that she was feeling okay today however she went to bed woke up and had to go the bathroom. She has had 1 episode of diarrhea she went back to bed. He tried to get up again when she tripped and fell. She generally is not feeling well. She is mildly nauseated no vomiting. Had she just overall feels very weak and fatigued. She denies any chest pain or palpitations. No painful or frequent urination. She states that she did not hit her head or lose consciousness when she fell. She is not on any antiplatelet or anticoagulation medication. She has no other injury from a fall. Related Data Home Medications Medication Instructions Recorded Confirmed ascorbic acid (vitamin C) 500 mg 500 mg PO QDAY ##0 08/12/16 03/17/22 tablet ibuprofen 200 mg capsule (Motrin 200 mg PO Q6H PRN Pain 03/01/20 03/17/22 IB) prednisolone acetate 1 % eye 1 drp EYE-RIGHT TID 09/11/21 03/17/22 drops,suspension hydrochlorothiazide 25 mg tablet 25 mg PO DAILY 01/13/22 03/17/22 losartan 100 mg tablet 100 mg PO QDAY 01/13/22 03/17/22 levothyroxine 50 mcg tablet 50 mcg PO DAILY 03/17/22 03/17/22 Previous Rx's Medication Instructions Recorded metformin 500 mg tablet 500 mg PO BID #180 tabs 02/04/22 lovastatin 40 mg tablet 40 mg PO BEDTIME #90 tabs 02/11/22 amoxicillin 875 mg-potassium 1 tab PO BID #10 tabs 03/19/22 clavulanate 125 mg tablet Allergies Allergy/AdvReac Type Severity Reaction Status Date / Time No Known Drug Allergies Allergy Verified 02/11/22 11:43 Review of Systems Review of Systems Narrative: GENERAL: Denies chills, fatigue, malaise, fever, sweats, travel HEENT: Denies sinus pain, ear pain, sore throat, difficulty swallowing, neck pain RESPIRATORY: Denies dyspnea, cough, wheezing, hemoptysis, sputum. CARDIOVASCULAR: Denies chest pain, palpitations, orthopnea, edema GASTROINTESTINAL: See HPI : Denies dysuria, frequency, incontinence, hematuria, urinary retention, flank pain. MUSCULOSKELETAL: Denies weakness, joint pain, or bony pain SKIN: No rash, no erythema, no pruritus NEUROLOGIC: Denies weakness, dizziness, headache, numbness, change in speech, confusion PSYCHIATRIC: No concerning psychosocial issues. 12 point review of systems is negative except for those stated above and HPI Patient History Medical History Chicken pox (1961) Cyst of ovary (03/20/15) Eccrine poroma Esophageal stricture Facet arthropathy, lumbosacral Hearing loss (2011) Herniated nucleus pulposus, L3-4 right History of live (08/21/1968) History of live (12/01/1964) History of live (11/08/1962) History of one miscarriage (~1964) Hyperlipidemia (08/21/14) Hypertension (08/21/14) Hypertension (1993) Hypothyroidism Lumbar back pain with radiculopathy affecting right lower extremity (11/28/14) Measles (194) Normal colonoscopy Obstructive sleep apnea Osteoarthritis (05/22/14) Polymyalgia rheumatica (2011) Right sacral radiculopathy Sacral dysfunction Seborrheic keratosis, inflamed 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Stillborn, normal (~1967) Tuberculosis (1946) Surgical History Anesthesia History of bladder suspension procedure (2001) History of cataract surgery History of eyelid surgery (2013) History of hysterectomy with oophorectomy (~2013) Family History Mother Hypertension Stroke Cardiopulmonary arrest Brother Cancer Father Pneumonia Grandmother Heart disease Grandfather Heart disease Social History marital status: household members: spouse occupational status: previously employed Smoking Status: Never smoker alcohol intake: never substance use type: does not use Smoking Status: Never smoker Substance Use Type: does not use Exam Initial Vital Signs Initial Vital Signs: Vital Signs Temperature 98.4 F 03/17/22 05:39 Pulse Rate 88 03/17/22 05:39 Respiratory Rate 16 03/17/22 05:39 Blood Pressure 153/69 H 03/17/22 05:39 Pulse Oximetry 97 03/17/22 05:39 Oxygen Delivery Method 03/17/22 05:39 GENERAL: Alert week 81-year-old female HEENT: Head atraumatic,EOMI, pupils reactive, face symmetric, mildly dry CARDIOVASCULAR: Regular rate and rhythm without murmurs, rubs or gallops. RESPIRATORY: Breath sounds equal bilaterally, no wheezes rales or rhonchi. ABDOMEN: Soft, nontender. Normoactive bowel sounds all 4 quadrants. No guarding or rebound. : No CVA tenderness EXTREMITIES: Normal range of motion, no clubbing or edema. Neurovascularly intact NEUROLOGICAL: Alert and oriented x4.Normal gait and speech. Moving all extremities SKIN: Warm, dry, no laceration, no petechiae, no rashes or lesions. Course Orders Ordered: Discontinued Medications Acetaminophen (Acetaminophen 325 Mg Tablet) 650 mg PO Q6H PRN PRN Reason: Fever/Mild Pain (1-3) Last Admin: 03/17/22 21:56 Dose: 650 mg Documented By: Admin: 03/17/22 10:12 Dose: 650 mg Documented By: ASTRID Hydrocodone Bitart/Acetaminophen (Hydrocodone/Acet 5/325 Tablet) 1 tab PO Q6HR PRN PRN Reason: Pain, Moderate (4-6) Albuterol/Ipratropium (Albuterol/Ipratropium 3 Ml Ampul) 3 ml INH [id number] JAE Last Admin: 03/19/22 12:05 Dose: Not Given Documented By: Admin: 03/19/22 10:16 Dose: Not Given Documented By: Admin: 03/19/22 08:05 Dose: Not Given Documented By: Admin: 03/18/22 19:51 Dose: Not Given Documented By: Admin: 03/18/22 14:00 Dose: Not Given Documented By: JShaw Admin: 03/18/22 14:00 Dose: Not Given Documented By: JShaw Admin: 03/18/22 13:59 Dose: Not Given Documented By: JShaw Admin: 03/18/22 04:42 Dose: Not Given Documented By: AM Dextrose (Dextrose 50 % In Water 25 Gm/50 Ml Syringe) 25 gm IV PRN PRN PRN Reason: Hypoglycemia Enoxaparin Sodium (Enoxaparin 40 Mg/0.4 Ml Syringe) 40 mg SUBCUT DAILY [facility] Last Admin: 03/19/22 08:45 Dose: 40 mg Documented By: Admin: 03/18/22 09:26 Dose: 40 mg Documented By: Admin: 03/17/22 10:13 Dose: 40 mg Documented By: ASTRID Sodium Chloride (Normal Saline 0.9%) 1,000 mls @ 1,000 mls/hr IV BOLUS ONE Stop: 03/17/22 06:41 Last Infusion: 03/17/22 07:22 Dose: 0 mls/hr Documented By: Admin: 03/17/22 06:00 Dose: 1,000 mls/hr Documented By: BRIANNA POTASSIUM CHLORIDE IN WATER (Potassium Cl 10 Meq/100 Ml Delmis) 10 meq in 100 mls @ 100 mls/hr IV Q1H JAE Stop: 03/17/22 10:14 Last Admin: 03/17/22 12:22 Dose: 100 mls/hr Documented By: Infusion: 03/17/22 12:22 Dose: 100 mls/hr Documented By: Admin: 03/17/22 11:29 Dose: 100 mls/hr Documented By: Infusion: 03/17/22 11:20 Dose: 100 mls/hr Documented By: Admin: 03/17/22 10:20 Dose: 100 mls/hr Documented By: Infusion: 03/17/22 08:58 Dose: 0 mls/hr Documented By: Admin: 03/17/22 07:00 Dose: 100 mls/hr Documented By: FELISHA Piperacillin Sod/Tazobactam (Sod 4.5 gm/ Sodium Chloride) 100 mls @ 200 mls/hr IV NOW ONE Stop: 03/17/22 06:39 Last Infusion: 03/17/22 08:35 Dose: 0 mls/hr Documented By: Admin: 03/17/22 07:44 Dose: 200 mls/hr Documented By: MIKE Sodium Chloride (Normal Saline 0.9%) 1,000 mls @ 1,000 mls/hr IV BOLUS ONE Stop: 03/17/22 08:05 Last Infusion: 03/17/22 08:58 Dose: 0 mls/hr Documented By: Admin: 03/17/22 07:21 Dose: 1,000 mls/hr Documented By: FELISHA Piperacillin Sod/Tazobactam (Sod 3.375 gm/ Sodium Chloride) 100 mls @ 25 mls/hr IV Q8H [facility] Last Admin: 03/17/22 08:34 Dose: Not Given Documented By: MIKE Piperacillin Sod/Tazobactam (Sod 3.375 gm/ Sodium Chloride) 100 mls @ 25 mls/hr IV Q8H [facility] Last Admin: 03/17/22 12:24 Dose: Not Given Documented By: ASTRID Sodium Chloride (Normal Saline 0.9%) 1,000 mls @ 1,000 mls/hr IV BOLUS ONE Stop: 03/17/22 10:15 Last Admin: 03/17/22 10:16 Dose: 1,000 mls/hr Documented By: ASTRID Azithromycin 500 mg/ Dextrose 250 mls @ 250 mls/hr IV Q24H [facility] Last Admin: 03/19/22 10:17 Dose: Not Given Documented By: Infusion: 03/19/22 08:17 Dose: 250 mls/hr Documented By: Admin: 03/18/22 09:27 Dose: 250 mls/hr Documented By: Infusion: 03/17/22 11:18 Dose: 0 mls/hr Documented By: Admin: 03/17/22 10:18 Dose: 250 mls/hr Documented By: ASTRID Vancomycin HCl (Vancomycin) 750 mg in 150 mls @ 150 mls/hr IV Q12H [facility] Last Admin: 03/17/22 12:23 Dose: Not Given Documented By: ASTRID Piperacillin Sod/Tazobactam (Sod 3.375 gm/ Sodium Chloride) 100 mls @ 25 mls/hr IV Q8H [facility] Piperacillin Sod/Tazobactam (Sod 3.375 gm/ Sodium Chloride) 100 mls @ 25 mls/hr IV Q8H [facility] Last Infusion: 03/19/22 11:33 Dose: 25 mls/hr Documented By: Infusion: 03/19/22 10:17 Dose: 25 mls/hr Documented By: Admin: 03/19/22 06:18 Dose: 25 mls/hr Documented By: Infusion: 03/19/22 02:30 Dose: 0 mls/hr Documented By: Admin: 03/18/22 22:29 Dose: 25 mls/hr Documented By: Infusion: 03/18/22 19:11 Dose: 25 mls/hr Documented By: Admin: 03/18/22 15:11 Dose: 25 mls/hr Documented By: Infusion: 03/18/22 09:56 Dose: 25 mls/hr Documented By: Admin: 03/18/22 05:56 Dose: 25 mls/hr Documented By: Infusion: 03/18/22 01:57 Dose: 0 mls/hr Documented By: Admin: 03/17/22 21:57 Dose: 25 mls/hr Documented By: Infusion: 03/17/22 18:36 Dose: 25 mls/hr Documented By: Admin: 03/17/22 14:36 Dose: 25 mls/hr Documented By: ASTRID POTASSIUM CHLORIDE IN WATER (Potassium Cl 10 Meq/100 Ml Delmis) 10 meq in 100 mls @ 100 mls/hr IV Q1H JAE Stop: 03/17/22 13:29 Last Admin: 03/17/22 12:24 Dose: Not Given Documented By: ASTRID Vancomycin HCl (Vancomycin) 750 mg in 150 mls @ 150 mls/hr IV Q12H [facility] Last Infusion: 03/19/22 10:16 Dose: 150 mls/hr Documented By: Admin: 03/18/22 13:06 Dose: 150 mls/hr Documented By: Infusion: 03/18/22 03:49 Dose: 0 mls/hr Documented By: Admin: 03/18/22 02:49 Dose: 150 mls/hr Documented By: Infusion: 03/17/22 14:30 Dose: 0 mls/hr Documented By: Admin: 03/17/22 13:30 Dose: 150 mls/hr Documented By: ASTRID Sodium Chloride (Normal Saline 0.9%) 500 mls @ 1,000 mls/hr IV BOLUS ONE Stop: 03/17/22 17:28 Last Admin: 03/17/22 17:46 Dose: 1,000 mls/hr Documented By: ASTRID Sodium Chloride (Normal Saline 0.9%) 1,000 mls @ 1,000 mls/hr IV BOLUS ONE Stop: 03/18/22 01:24 Last Infusion: 03/19/22 10:17 Dose: 1,000 mls/hr Documented By: Admin: 03/18/22 00:36 Dose: 1,000 mls/hr Documented By: AM Insulin Human Lispro (Insulin Lispro 100 Unit/Ml 3ml Vial) 0 unit SUBCUT [facility]; Protocol Last Admin: 03/19/22 08:16 Dose: Not Given Documented By: Admin: 03/18/22 20:46 Dose: 3 unit Documented By: Co-signed By: JASON Admin: 03/18/22 17:05 Dose: 2 unit Documented By: ASTRID Co-signed By: ROSA Admin: 03/18/22 11:56 Dose: 2 unit Documented By: ASTRID Co-signed By: MODESTO Admin: 03/18/22 08:15 Dose: Not Given Documented By: Admin: 03/17/22 22:59 Dose: Not Given Documented By: Admin: 03/17/22 17:44 Dose: Not Given Documented By: Admin: 03/17/22 12:13 Dose: 1 unit Documented By: ASTRID Co-signed By: ROSA Admin: 03/17/22 08:35 Dose: Not Given Documented By: PATSY Levothyroxine Sodium (Levothyroxine 50 Mcg Tablet) 50 mcg PO DAILY [facility] Last Admin: 03/18/22 09:26 Dose: 50 mcg Documented By: Admin: 03/17/22 10:13 Dose: 50 mcg Documented By: ASTRID Levothyroxine Sodium (Levothyroxine 50 Mcg Tablet) 50 mcg PO DAILY@0600 [facility] Last Admin: 03/19/22 06:18 Dose: 50 mcg Documented By: Losartan Potassium (Losartan 50 Mg Tablet) 100 mg PO DAILY [facility] Last Admin: 03/19/22 08:46 Dose: 100 mg Documented By: TATE Losartan Potassium (Losartan 50 Mg Tablet) 100 mg PO NOW ONE Stop: 03/18/22 19:27 Last Admin: 03/18/22 20:08 Dose: 100 mg Documented By: Ondansetron HCl (Ondansetron 4 Mg/2 Ml Inj) 4 mg IV Q8HR PRN PRN Reason: Nausea And Vomiting Potassium Chloride (Potassium Chloride 20 Meq Tab) 40 meq PO NOW ONE Stop: 03/17/22 18:09 Last Admin: 03/17/22 20:10 Dose: 40 meq Documented By: JASON Potassium Chloride (Potassium Chloride 20 Meq Tab) 40 meq PO NOW ONE Stop: 03/18/22 06:26 Last Admin: 03/18/22 06:44 Dose: 40 meq Documented By: AM Potassium Chloride (Potassium Chloride 20 Meq Tab) 40 meq PO 0700 [facility] Last Admin: 03/19/22 06:55 Dose: 40 meq Documented By: Prednisolone Acetate (Prednisolone Ophth Susp) 1 drops EYE-RIGHT TID [facility] Last Admin: 03/19/22 08:46 Dose: 1 drop Documented By: Admin: 03/18/22 20:14 Dose: 1 drop Documented By: Admin: 03/18/22 15:12 Dose: 1 drop Documented By: Admin: 03/18/22 09:32 Dose: 1 drop Documented By: ASTRID Prednisone (Prednisone 20 Mg Tablet) 40 mg PO DAILY [facility] Last Admin: 03/18/22 09:26 Dose: 40 mg Documented By: ASTRID Vancomycin HCl (Vancomycin Per Pharmacy) 1 request MISC NOW ONE Stop: 03/17/22 09:17 Last Admin: 03/17/22 10:59 Dose: 1 request Documented By: ASTRID Vancomycin HCl (Vancomycin Trough) 1 request MISC NOW ONE Stop: 03/19/22 00:31 Vancomycin HCl (Vancomycin Peak) 1 request MISC NOW ONE Stop: 03/19/22 03:01 Vital Signs Vital signs: Vital Signs - 8 hr 03/17/22 05:39 03/17/22 05:48 03/17/22 06:00 Temperature 98.4 F Pulse Rate 88 88 89 Respiratory Rate 16 Blood Pressure 153/69 H Pulse Oximetry 97 96 96 Oxygen Delivery Method Room Air 03/17/22 06:02 03/17/22 06:02 03/17/22 06:30 Temperature Pulse Rate 90 Respiratory Rate Blood Pressure 137/63 143/64 H Pulse Oximetry 96 Oxygen Delivery Method 03/17/22 06:30 Temperature Pulse Rate 91 H Respiratory Rate Blood Pressure Pulse Oximetry 97 Oxygen Delivery Method MDM - Weakness Lab Data Result diagrams: 03/19/22 08:22 03/19/22 08:22 Labs: Lab Results 03/17/22 03/17/22 03/17/22 Range/Units 05:35 05:40 05:40 WBC 16.5 H (4.5-11.0) X10^3/uL RBC 3.91 L (4.0-5.2) X10^6/uL Hgb 11.4 L (12.0-16.0) g/dL Hct 34.2 L (36-46) % MCV 87.4 (80-100) fL MCH 29.2 (26-34) PG MCHC 33.4 (30-36) % RDW 14.1 (11.6-14.8) % Plt Count 256 (150-400) X10^3/uL Neut % (Auto) 90.9 H (50-75) % Lymph % (Auto) 2.5 L (25-40) % [place] % (Auto) 6.3 (3-14) % Eos % (Auto) 0.0 L (2-4) % Baso % (Auto) 0.3 (0-2) % Neut # (Auto) 59118 H (6402-5868) /uL Lymph # (Auto) 400 L (4671-9574) /uL [place] # (Auto) 1000 H (0-900) /uL Eos # (Auto) 0 (0-450) /uL Baso # (Auto) 100 (0-100) /uL Sodium 137 (137-145) mmol/L Potassium 2.9 L (3.4-5.1) mmol/L Chloride 97 L (98-107) mmol/L Carbon Dioxide 31 (22-32) mmol/L BUN 22 H (7-17) mg/dL Creatinine 0.74 (0.52-1.04) mg/dL Estimated GFR > 60 (>60) mL/min BUN/Creatinine Ratio 29.7 H (6-22) Glucose 179 H (80-110) mg/dL Lactate (0.7-2.1) mmol/L Calcium 9.6 (8.4-10.2) mg/dL Total Bilirubin 0.6 (0.2-1.3) mg/dL AST 29 (14-36) IU/L ALT 21 (<35) IU/L Alkaline Phosphatase 74 (38-126) U/L Total Creatine Kinase 96 (30-135) U/L CK-MB (CK-2) TNP CK-MB (CK-2) Rel Index TNP Troponin I < 0.012 (0.01-0.034) ng/mL Total Protein 7.8 (6.3-8.2) g/dL Albumin 4.1 (3.5-5.0) g/dL Globulin 3.7 (1.7-4.1) g/dL Albumin/Globulin Ratio 1.1 (1.0-2.8) Lipase 52 (23-300) U/L Procalcitonin 1.00 H (<0.5) ng/mL Urine Color Urine Appearance Urine pH (4.5-8.0) Ur Specific [place] (1.000-1.035) Urine Protein (Negative) Urine Glucose (UA) (Negative) g/dL Urine Ketones (NEGATIVE) Urine Occult Blood (Negative) Urine Nitrate (Negative) Urine Bilirubin (NEGATIVE) Urine Urobilinogen (0.2) E.U./dL Ur Leukocyte Esterase (NEGATIVE) Urine RBC (0-5/HPF) Urine WBC (0-5/HPF) Ur Squamous Epith Cells (0-5/HPF) Urine Bacteria (None) Ur Culture Indicated? Stl C. cayetanensis PCR (Not Detect) Stool Rotavirus (PCR) (Not Detect) Stool Adenovirus (PCR) (Not Detect) Stool Astrovirus (PCR) (Not Detect) Stool Cryptosporidium PCR (Not Detect) Stl E.coli Shiga Tox PCR (Not Detect) St Sh/Enteroin Ecoli PCR (Not Detect) Stool E coli O157 PCR Stl Enterotoxigenic E PCR (Not Detect) Stool EPEC (PCR) (Not Detect) Stl E. histolytica PCR (Not Detect) Stool Giardia Lamblia PCR (Not Detect) Stool Sapovirus (PCR) (Not Detect) Stl P. shigelloides PCR (Not Detect) St Y.enterocolitica PCR (Not Detect) Stool Vibrio (PCR) (Not Detect) Stl Vibrio cholerae PCR (Not Detect) Stl Enteroaggr Ecoli PCR (Not Detect) Stl Norovirus GI/GII PCR (Not Detect) Campylobacter (PCR) (Not Detect) C. difficile Tox (PCR) (Not Detect) SARS-CoV-2 (PCR) Negative (Negative) Influenza A (RT-PCR) Flu a negative (NEGATIVE) Influenza B (RT-PCR) Flu b negative (NEGATIVE) RSV (PCR) Negative (Negative) Salmonella (PCR) (Not Detect) 03/17/22 03/17/22 03/17/22 Range/Units 05:40 07:43 07:43 WBC (4.5-11.0) X10^3/uL RBC (4.0-5.2) X10^6/uL Hgb (12.0-16.0) g/dL Hct (36-46) % MCV (80-100) fL MCH (26-34) PG MCHC (30-36) % RDW (11.6-14.8) % Plt Count (150-400) X10^3/uL Neut % (Auto) (50-75) % Lymph % (Auto) (25-40) % [place] % (Auto) (3-14) % Eos % (Auto) (2-4) % Baso % (Auto) (0-2) % Neut # (Auto) (5287-4815) /uL Lymph # (Auto) (3377-0780) /uL [place] # (Auto) (0-900) /uL Eos # (Auto) (0-450) /uL Baso # (Auto) (0-100) /uL Sodium (137-145) mmol/L Potassium (3.4-5.1) mmol/L Chloride (98-107) mmol/L Carbon Dioxide (22-32) mmol/L BUN (7-17) mg/dL Creatinine (0.52-1.04) mg/dL Estimated GFR (>60) mL/min BUN/Creatinine Ratio (6-22) Glucose (80-110) mg/dL Lactate 2.3 H (0.7-2.1) mmol/L Calcium (8.4-10.2) mg/dL Total Bilirubin (0.2-1.3) mg/dL AST (14-36) IU/L ALT (<35) IU/L Alkaline Phosphatase (38-126) U/L Total Creatine Kinase (30-135) U/L CK-MB (CK-2) CK-MB (CK-2) Rel Index Troponin I (0.01-0.034) ng/mL Total Protein (6.3-8.2) g/dL Albumin (3.5-5.0) g/dL Globulin (1.7-4.1) g/dL Albumin/Globulin Ratio (1.0-2.8) Lipase (23-300) U/L Procalcitonin (<0.5) ng/mL Urine Color Yellow Urine Appearance Clear Urine pH 7.0 (4.5-8.0) Ur Specific [place] 1.015 (1.000-1.035) Urine Protein Negative (Negative) Urine Glucose (UA) Negative (Negative) g/dL Urine Ketones Negative (NEGATIVE) Urine Occult Blood Negative (Negative) Urine Nitrate Negative (Negative) Urine Bilirubin Negative (NEGATIVE) Urine Urobilinogen 0.2 (0.2) E.U./dL Ur Leukocyte Esterase Negative (NEGATIVE) Urine RBC None seen (0-5/HPF) Urine WBC None seen (0-5/HPF) Ur Squamous Epith Cells None seen (0-5/HPF) Urine Bacteria None seen (None) Ur Culture Indicated? Cult not indicated Stl C. cayetanensis PCR Not detected (Not Detect) Stool Rotavirus (PCR) Not detected (Not Detect) Stool Adenovirus (PCR) Not detected (Not Detect) Stool Astrovirus (PCR) Not detected (Not Detect) Stool Cryptosporidium PCR Not detected (Not Detect) Stl E.coli Shiga Tox PCR Not detected (Not Detect) St Sh/Enteroin Ecoli PCR Not detected (Not Detect) Stool E coli O157 PCR Not Reportable Stl Enterotoxigenic E PCR Not detected (Not Detect) Stool EPEC (PCR) Not detected (Not Detect) Stl E. histolytica PCR Not detected (Not Detect) Stool Giardia Lamblia PCR Not detected (Not Detect) Stool Sapovirus (PCR) Not detected (Not Detect) Stl P. shigelloides PCR Not detected (Not Detect) St Y.enterocolitica PCR Not detected (Not Detect) Stool Vibrio (PCR) Not detected (Not Detect) Stl Vibrio cholerae PCR Not detected (Not Detect) Stl Enteroaggr Ecoli PCR Not detected (Not Detect) Stl Norovirus GI/GII PCR Not detected (Not Detect) Campylobacter (PCR) Not detected (Not Detect) C. difficile Tox (PCR) Not detected (Not Detect) SARS-CoV-2 (PCR) (Negative) Influenza A (RT-PCR) (NEGATIVE) Influenza B (RT-PCR) (NEGATIVE) RSV (PCR) (Negative) Salmonella (PCR) Not detected (Not Detect) Imaging Data Chest x-ray: Radiologist Impression: Preliminary report ill-defined lower lobe opacity. Differential considerations include pneumonia pleural based mass . CT scan - abdomen/pelvis: Radiologist Impression: Patient: Roxie Brito MR#: [id number] : 1940 Acct:[id number] Age/Sex: 81 / F Date of Service: 03/17/22 Loc: ED Accession Number: [id number] ?? Procedure: CT chest abd pel w con Ordering Provider: Nikki Madrid D.O. PROCEDURE:? CT CHEST ABD PEL W CON ? INDICATIONS:? left flank pain fever ? TECHNIQUE:? After the administration of intravenous contrast, 5 mm thick sections acquired from the lung apices to the symphysis.? 5 mm coronal and sagittal reformats were performed, with additional 7 mm MIP reformats through the lungs.? For radiation dose reduction, the following was used:? automated exposure control, adjustment of mA and/or kV according to patient size.? ? COMPARISON:? [facility], CR, XR CHEST 1V, 03/17/2022, 5:43. ? FINDINGS:? Image quality:? Excellent ? Lungs and pleura:? Mixed ground-glass and consolidation in the left lower lobe periphery corresponding to radiographic abnormality.? There are also scattered areas centrilobular nodularity in both lungs and atelectasis/scarring, particularly at the apices. No pleural effusions or pneumothorax. ? Mediastinum, heart, and esophagus:? Nonspecific mild distal esophageal wall thickening.? No thoracic aortic aneurysm scattered atherosclerotic calcifications.? Overall heart size is at the upper limit of normal. ? Chest wall and thyroid:? Overall unremarkable ? Solid organs:? Liver is unremarkable.? Gallbladder is mildly distended.? Prominent biliary tree is at the upper limit of normal for age.? No pathologic dilation of the pancreatic duct.? No splenomegaly.? No adrenal nodule.? Extrarenal pelvis bilaterally.? No hydronephrosis. ? Vessels and lymph nodes:? The main portal vein is patent.? No abdominal aortic aneurysm.? No pathologic adenopathy by size criteria. ? Bowel and peritoneum:? No bowel obstruction.? No pathologic ascites.? Mild pericolonic fat stranding. ? Body wall:? Tiny fat containing umbilical hernia. ? Pelvis:? Bladder is unremarkable.? Status post hysterectomy. ? Bones:? Degenerative changes without acute or suspicious osseous abnormality.? There is age-indeterminate height loss of the L1 vertebral body superior endplate. ? IMPRESSION:? Corresponding to radiographic abnormality is a confluent mixed ground-glass and consolidation in the periphery of the left lower lobe.? Other areas of centrilobular nodularity are present in both lungs, along with atelectasis and scarring.? Findings are favored to represent infection or inflammation.? Imaging surveillance is recommended to ensure resolution, as adenocarcinoma can have a similar appearance. ? Possible mild colitis.? No bowel obstruction. ? Other findings as above. ? ? ? Dictated by: Sachin Perdomo M.D. on 03/17/2022 at 7:51 ? ? ECG Data Interpretation: Normal sinus rhythm rate 87 OR interval 174 QRS 74 QTC 551 low voltage artifact noted is no ST changes MDM Narrative Medical decision making narrative: Patient is generally weak. Found to have leukocytosis 16 procalcitonin of 1 lactic acid of 2.3. Her viral panel is negative and she is negative chest x-ray. Waiting urine sample. She actually did have a bowel movement here in the ED but it is not diarrhea or liquid. Concern for bacterial infection she is given Zosyn. sHe is given IV fluids as well. She is not hypotensive or tachycardic. She has not given the full sepsis fluids. She is actually tender in her left flank area. Dr. Guevara no updated patient's symptoms test results CT urinalysis and GI panel are pending. But he does agree to accept Discharge Plan Departure Patient Disposition: Admitted As Inpatient Clinical Impression: Sepsis Admit Date/Time: 03/17/22 08:22 Admit Provider: Rodo Guevara
[2022-03-17] MEDS: SODIUM CHLORIDE 0.9% 1,000 ML 1000 ML IV ×3 (06:00→10:16)
[2022-03-17 06:02] LABS: Add Manual Diff / Slide Review NO; Basophils Absolute Auto 100 /uL (0-100); Basophils Percent Auto 0.3 % (0-2); Eosinophils Absolute Auto 0 /uL (0-450); Hematocrit 34.2 % (36-46); Hemoglobin 11.4 g/dL (12.0-16.0); Lymphocytes Absolute Auto 400 /uL (1100-4500); Lymphocytes Percent Auto 2.5 % (25-40); Mean Corpuscular HGB Conc 33.4 % (30-36); Mean Corpuscular Hemoglobin 29.2 PG (26-34); Mean Corpuscular Volume 87.4 fL (80-100); Monocytes Absolute Auto 1000 /uL (0-900); Monocytes Percent Auto 6.3 % (3-14); Neutrophils Absolute Auto 15000 /uL (1500-7000); Neutrophils Percent Auto 90.9 % (50-75); Platelet Count 256 X10^3/uL (150-400); Red Blood Cell Count 3.91 X10^6/uL (4.0-5.2); Red Cell Distribution Width 14.1 % (11.6-14.8); White Blood Cell Count 16.5 X10^3/uL (4.5-11.0)
[2022-03-17 06:08] LABS: HEMOLYSIS < 15 (0-50)
[2022-03-17 06:12] LABS: Alanine Aminotransferase 21 IU/L (<35); Albumin 4.1 g/dL (3.5-5.0); Albumin Globulin Ratio 1.1 (1.0-2.8); Alkaline Phosphatase 74 U/L (38-126); Aspartate Aminotransferase 29 IU/L (14-36); BUN Creatinine Ratio 29.7 (6-22); Bilirubin Total 0.6 mg/dL (0.2-1.3); Blood Urea Nitrogen 22 mg/dL (7-17); Calcium 9.6 mg/dL (8.4-10.2); Carbon Dioxide 31 mmol/L (22-32); Chloride 97 mmol/L (98-107); Creatine Kinase 96 U/L (30-135); Estimated Glomerular Filt Rate > 60 mL/min (>60); Globulin 3.7 g/dL (1.7-4.1); Glucose 179 mg/dL (80-110); Lipase 52 U/L (23-300); Potassium 2.9 mmol/L (3.4-5.1); Sodium 137 mmol/L (137-145); Total Protein 7.8 g/dL (6.3-8.2)
[2022-03-17 06:13] LABS: Lactate (Lactic Acid) 2.3 mmol/L (0.7-2.1)
--- NOTE | 2022-03-17 06:23 | PC.NURSE ---
first set of BC's frawn at this time
[2022-03-17 06:26] LABS: Troponin I < 0.012 ng/mL (0.01-0.034)
[2022-03-17 06:37] LABS: Influenza A - CEPHEID Flu A NEGATIVE (NEGATIVE); Influenza B - CEPHEID Flu B NEGATIVE (NEGATIVE); Respiratory Syncytial Virus Negative (Negative)
[2022-03-17 06:38] LABS: COVID-19 CEPHEID 4-PLEX PCR Negative (Negative)
[2022-03-17] MEDS: POTASSIUM CHLORIDE IN WATER 10 MEQ/100 ML PIGGYBACK 100 MEQ IV ×4 (07:00→12:22)
--- NOTE | 2022-03-17 07:01 | PC.NURSE ---
In room with ELHAM Cruz to place the patient on the bedpan - the patient's perineal area was covered with loose brown stool - cleansed area with cleaning cloths - placed on bedpan with no output - pt states that she is unaware of having BM's - pt oozing stool without awareness - small sample collected and placed in a specimen cup - in and out cath performed by ELHAM Cruz - clear yellow urine obtained and sent to lab
--- NOTE | 2022-03-17 07:23 | DI.CT.S_ITS ---
PROCEDURE: CT CHEST ABD PEL W CON INDICATIONS: left flank pain fever TECHNIQUE: After the administration of intravenous contrast, 5 mm thick sections acquired from the lung apices to the symphysis. 5 mm coronal and sagittal reformats were performed, with additional 7 mm MIP reformats through the lungs. For radiation dose reduction, the following was used: automated exposure control, adjustment of mA and/or kV according to patient size. COMPARISON: [facility], CR, XR CHEST 1V, 03/17/2022, 5:43. FINDINGS: Image quality: Excellent Lungs and pleura: Mixed ground-glass and consolidation in the left lower lobe periphery corresponding to radiographic abnormality. There are also scattered areas centrilobular nodularity in both lungs and atelectasis/scarring, particularly at the apices. No pleural effusions or pneumothorax. Mediastinum, heart, and esophagus: Nonspecific mild distal esophageal wall thickening. No thoracic aortic aneurysm scattered atherosclerotic calcifications. Overall heart size is at the upper limit of normal. Chest wall and thyroid: Overall unremarkable Solid organs: Liver is unremarkable. Gallbladder is mildly distended. Prominent biliary tree is at the upper limit of normal for age. No pathologic dilation of the pancreatic duct. No splenomegaly. No adrenal nodule. Extrarenal pelvis bilaterally. No hydronephrosis. Vessels and lymph nodes: The main portal vein is patent. No abdominal aortic aneurysm. No pathologic adenopathy by size criteria. Bowel and peritoneum: No bowel obstruction. No pathologic ascites. Mild pericolonic fat stranding. Body wall: Tiny fat containing umbilical hernia. Pelvis: Bladder is unremarkable. Status post hysterectomy. Bones: Degenerative changes without acute or suspicious osseous abnormality. There is age-indeterminate height loss of the L1 vertebral body superior endplate. IMPRESSION: Corresponding to radiographic abnormality is a confluent mixed ground-glass and consolidation in the periphery of the left lower lobe. Other areas of centrilobular nodularity are present in both lungs, along with atelectasis and scarring. Findings are favored to represent infection or inflammation. Imaging surveillance is recommended to ensure resolution, as adenocarcinoma can have a similar appearance. Possible mild colitis. No bowel obstruction. Other findings as above. Dictated by: Sachin Perdomo M.D. on 03/17/2022 at 7:51 Approved by: Sachin Perdomo M.D. on 03/17/2022 at 7:59
[2022-03-17] MEDS: PIPERACILLIN/TAZO 4.5 GM in SODIUM CHLORIDE 0.9% 100 ML IV (07:44)
[2022-03-17 07:53] LABS: Appearance Urine UA CLEAR; Bilirubin Urine UA NEGATIVE (NEGATIVE); Color Urine UA YELLOW; Glucose Urine UA NEGATIVE (Negative); Ketones Urine UA NEGATIVE (NEGATIVE); Leukocyte Esterase Urine UA NEGATIVE (NEGATIVE); Nitrite Urine UA NEGATIVE (Negative); Occult Blood Urine UA NEGATIVE (Negative); Protein Urine UA NEGATIVE (Negative); Specific Gravity Urine UA 1.015 (1.000-1.035); Urobilinogen Urine UA 0.2 E.U./dL (0.2)
[2022-03-17 07:57] LABS: Reflexed Lactate in 2 Hours Y
[2022-03-17 08:03] LABS: Bacteria Urine None Seen; Culture Indicated Urine Cult Not Indicated; RBC Urine None Seen (0-5/HPF); Squamous Epithelial Cell Urine None Seen (0-5/HPF); WBC Urine None Seen (0-5/HPF)
[2022-03-17 09:10] LABS: Lactate 2HR (Lactic Acid Rflx) 2.6 mmol/L (0.7-2.1)
[2022-03-17 10:10] LABS: Adenovirus F 40/41 Not Detected (Not Detect); Astrovirus Not Detected (Not Detect); Campylobacter Not Detected (Not Detect); Clostridium difficile toxin AB Not Detected (Not Detect); Cryptosporidium Not Detected (Not Detect); Cyclospora cayetanensis Not Detected (Not Detect); Entamoeba histolytica Not Detected (Not Detect); Enteroaggregative E.coli Not Detected (Not Detect); Enteropathogenic E.coli Not Detected (Not Detect); Enterotoxigenic E.coli It/st Not Detected (Not Detect); Giardia lamblia Not Detected (Not Detect); Norovirus GI/GII Not Detected (Not Detect); Plesiomonsa shigelloides Not Detected (Not Detect); Rotavirus A Not Detected (Not Detect); Salmonella Not Detected (Not Detect); Sapovirus Not Detected (Not Detect); Shiga-like toxin-prod E.coli Not Detected (Not Detect); Shigella/Enteroinvasive E.coli Not Detected (Not Detect); Vibrio Not Detected (Not Detect); Vibrio cholerae Not Detected (Not Detect); Yersinia enterocolitica Not Detected (Not Detect)
[2022-03-17] MEDS: ACETAMINOPHEN 325 MG TABLET 650 MG PO ×2 (10:12→21:56)
[2022-03-17] MEDS: LEVOTHYROXINE 50 MCG TABLET PO (10:13)
[2022-03-17] MEDS: ENOXAPARIN 40 MG/0.4 ML SYRINGE SUBCUT (10:13)
[2022-03-17] MEDS: AZITHROMYCIN 500 MG in DEXTROSE 5% IN WATER 250 ML 250 MG IV (10:18)
--- NOTE | 2022-03-17 10:28 | P.HP_ITS ---
History of Present Illness History of Present Illness Date Patient Seen: 03/17/22 Time Patient Seen: 10:00 Chief complaint: GLF Narrative: Ms. Brito is an 81W with PMH hypothyroid, hypertension who presents to the hospital with weakness and a fall. She states pthat prior to today she largely felt well. When she woke up today she had diarrhea. She had an episode of vomiting. She then had a trip and fall an dnoted she was weak and tired. She feels cold. She has not felt subjective fevers. No dysuria. No cough or shortness of breath. No abdominal pain. No sick contacts. After the fall she had right hip pain and left flank pain. In the ED workup was done, vitals were afebrile, normal heart rate and respiratory rate. Labs notable for WBC 16.5, hgb 11.4 plts 256. K 2.9, creatinine 0.74. Troponin negative. Procal 1.00. Lactate 2.3->2.6->1.8. COVID, flu, and RSV negative. Chest xray showed left lower lobe opacity. CT shows opacity in the left lower lobe, and possible mild colitis. She was ordered for antibiotics and admitted for further treatment. Patient History Medical History Chicken pox (1961) Cyst of ovary (03/20/15) Eccrine poroma Esophageal stricture Facet arthropathy, lumbosacral Hearing loss (2011) Herniated nucleus pulposus, L3-4 right History of live (08/21/1968) History of live (12/01/1964) History of live (11/08/1962) History of one miscarriage (~1964) Hyperlipidemia (08/21/14) Hypertension (08/21/14) Hypertension (1993) Hypothyroidism Lumbar back pain with radiculopathy affecting right lower extremity (11/28/14) Measles (1946) Normal colonoscopy Obstructive sleep apnea Osteoarthritis (05/22/14) Polymyalgia rheumatica (2011) Right sacral radiculopathy Sacral dysfunction Seborrheic keratosis, inflamed 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Stillborn, normal (~1967) Tuberculosis (194) Surgical History Anesthesia History of bladder suspension procedure (2001) History of cataract surgery History of eyelid surgery (2013) History of hysterectomy with oophorectomy (~2013) Family & Social History Family History Mother Hypertension Stroke Cardiopulmonary arrest Brother Cancer Father Pneumonia Grandmother Heart disease Grandfather Heart disease Social History: household members spouse Prior Living Arrangements House Safety & Behavioral: Feels Safe in Current Yes Environment Been Physically Hurt or No Threatened By a Person Tobacco & Substance use: Smoking Status Never smoker alcohol intake never Substance Use Type does not use Meds Home Medications and Allergies Home Medications Medication Instructions Recorded Confirmed Type ascorbic acid (vitamin C) 500 mg 500 mg PO QDAY ##0 08/12/16 03/17/22 History tablet ibuprofen 200 mg capsule (Motrin 200 mg PO Q6H PRN Pain 03/01/20 03/17/22 History IB) prednisolone acetate 1 % eye 1 drp EYE-RIGHT TID 09/11/21 03/17/22 History drops,suspension hydrochlorothiazide 25 mg tablet 25 mg PO DAILY 01/13/22 03/17/22 History losartan 100 mg tablet 100 mg PO QDAY 01/13/22 03/17/22 History metformin 500 mg tablet 500 mg PO BID #180 tabs 02/04/22 03/17/22 Rx lovastatin 40 mg tablet 40 mg PO BEDTIME #90 tabs 02/11/22 03/17/22 Rx levothyroxine 50 mcg tablet 50 mcg PO DAILY 03/17/22 03/17/22 History Allergies Allergy/AdvReac Type Severity Reaction Status Date / Time No Known Drug Allergies Allergy Verified 02/11/22 11:43 Review of Systems Review of Systems Narrative: 14 systems reviewed and negative aside from what is noted in HPI Exam Vital Signs (past 8 hours): - 03/17/22 17:16 Temperature 97 F L Pulse Rate 82 Respiratory Rate 16 Blood Pressure 105/37 L Pulse Oximetry 94 Oxygen Flow Rate 0 Oxygen Delivery Method Room Air Oxygen Flow Rate 0 Narrative Exam Narrative: GEN: fatigued, no acute distress HEENT: dry mucous membreanes, PERRL NECK: trachea midline, no JVD PULM: rhonchi noted in left lung CV: regular rate and rhythm, systolic murmur noted ABD: soft, nontender, nondistended, no organomegaly EXT: warm and well perfused with no edema NEURO: awake, alert, oriented, no focal deficits Objective Labs Result Diagrams: 03/17/22 05:40 03/17/22 17:20 Labs: Laboratory Results - last 24 hr 03/17/22 03/17/22 03/17/22 05:35 05:40 05:40 WBC 16.5 H RBC 3.91 L Hgb 11.4 L Hct 34.2 L MCV 87.4 MCH 29.2 MCHC 33.4 RDW 14.1 Plt Count 256 Neut % (Auto) 90.9 H Lymph % (Auto) 2.5 L [place] % (Auto) 6.3 Eos % (Auto) 0.0 L Baso % (Auto) 0.3 Neut # (Auto) 65033 H Lymph # (Auto) 400 L [place] # (Auto) 1000 H Eos # (Auto) 0 Baso # (Auto) 100 Sodium 137 Potassium 2.9 L Chloride 97 L Carbon Dioxide 31 BUN 22 H Creatinine 0.74 Estimated GFR > 60 BUN/Creatinine Ratio 29.7 H Glucose 179 H Lactate Calcium 9.6 Total Bilirubin 0.6 AST 29 ALT 21 Alkaline Phosphatase 74 Total Creatine Kinase 96 CK-MB (CK-2) TNP CK-MB (CK-2) Rel Index TNP Troponin I < 0.012 Total Protein 7.8 Albumin 4.1 Globulin 3.7 Albumin/Globulin Ratio 1.1 Lipase 52 Procalcitonin 1.00 H Urine Color Urine Appearance Urine pH Ur Specific [place] Urine Protein Urine Glucose (UA) Urine Ketones Urine Occult Blood Urine Nitrate Urine Bilirubin Urine Urobilinogen Ur Leukocyte Esterase Urine RBC Urine WBC Ur Squamous Epith Cells Urine Bacteria Ur Culture Indicated? Stl C. cayetanensis PCR Stool Rotavirus (PCR) Stool Adenovirus (PCR) Stool Astrovirus (PCR) Stool Cryptosporidium PCR Stl E.coli Shiga Tox PCR St Sh/Enteroin Ecoli PCR Stool E coli O157 PCR Stl Enterotoxigenic E PCR Stool EPEC (PCR) Stl E. histolytica PCR Stool Giardia Lamblia PCR Stool Sapovirus (PCR) Stl P. shigelloides PCR St Y.enterocolitica PCR Stool Vibrio (PCR) Stl Vibrio cholerae PCR Stl Enteroaggr Ecoli PCR Stl Norovirus GI/GII PCR Campylobacter (PCR) C. difficile Tox (PCR) SARS-CoV-2 (PCR) Negative Influenza A (RT-PCR) Flu a negative Influenza B (RT-PCR) Flu b negative RSV (PCR) Negative Salmonella (PCR) 03/17/22 03/17/22 03/17/22 05:40 07:43 07:43 WBC RBC Hgb Hct MCV MCH MCHC RDW Plt Count Neut % (Auto) Lymph % (Auto) [place] % (Auto) Eos % (Auto) Baso % (Auto) Neut # (Auto) Lymph # (Auto) [place] # (Auto) Eos # (Auto) Baso # (Auto) Sodium Potassium Chloride Carbon Dioxide BUN Creatinine Estimated GFR BUN/Creatinine Ratio Glucose Lactate 2.3 H Calcium Total Bilirubin AST ALT Alkaline Phosphatase Total Creatine Kinase CK-MB (CK-2) CK-MB (CK-2) Rel Index Troponin I Total Protein Albumin Globulin Albumin/Globulin Ratio Lipase Procalcitonin Urine Color Yellow Urine Appearance Clear Urine pH 7.0 Ur Specific [place] 1.015 Urine Protein Negative Urine Glucose (UA) Negative Urine Ketones Negative Urine Occult Blood Negative Urine Nitrate Negative Urine Bilirubin Negative Urine Urobilinogen 0.2 Ur Leukocyte Esterase Negative Urine RBC None seen Urine WBC None seen Ur Squamous Epith Cells None seen Urine Bacteria None seen Ur Culture Indicated? Cult not indicated Stl C. cayetanensis PCR Not detected Stool Rotavirus (PCR) Not detected Stool Adenovirus (PCR) Not detected Stool Astrovirus (PCR) Not detected Stool Cryptosporidium PCR Not detected Stl E.coli Shiga Tox PCR Not detected St Sh/Enteroin Ecoli PCR Not detected Stool E coli O157 PCR Not Reportable Stl Enterotoxigenic E PCR Not detected Stool EPEC (PCR) Not detected Stl E. histolytica PCR Not detected Stool Giardia Lamblia PCR Not detected Stool Sapovirus (PCR) Not detected Stl P. shigelloides PCR Not detected St Y.enterocolitica PCR Not detected Stool Vibrio (PCR) Not detected Stl Vibrio cholerae PCR Not detected Stl Enteroaggr Ecoli PCR Not detected Stl Norovirus GI/GII PCR Not detected Campylobacter (PCR) Not detected C. difficile Tox (PCR) Not detected SARS-CoV-2 (PCR) Influenza A (RT-PCR) Influenza B (RT-PCR) RSV (PCR) Salmonella (PCR) Not detected 03/17/22 03/17/22 03/17/22 08:45 17:20 17:20 WBC RBC Hgb Hct MCV MCH MCHC RDW Plt Count Neut % (Auto) Lymph % (Auto) [place] % (Auto) Eos % (Auto) Baso % (Auto) Neut # (Auto) Lymph # (Auto) [place] # (Auto) Eos # (Auto) Baso # (Auto) Sodium 134 L Potassium 3.1 L Chloride 102 Carbon Dioxide 25 BUN 16 Creatinine 0.68 Estimated GFR > 60 BUN/Creatinine Ratio 23.5 H Glucose 125 H Lactate 2.6 H 1.8 Calcium 7.6 L Total Bilirubin AST ALT Alkaline Phosphatase Total Creatine Kinase CK-MB (CK-2) CK-MB (CK-2) Rel Index Troponin I Total Protein Albumin Globulin Albumin/Globulin Ratio Lipase Procalcitonin Urine Color Urine Appearance Urine pH Ur Specific [place] Urine Protein Urine Glucose (UA) Urine Ketones Urine Occult Blood Urine Nitrate Urine Bilirubin Urine Urobilinogen Ur Leukocyte Esterase Urine RBC Urine WBC Ur Squamous Epith Cells Urine Bacteria Ur Culture Indicated? Stl C. cayetanensis PCR Stool Rotavirus (PCR) Stool Adenovirus (PCR) Stool Astrovirus (PCR) Stool Cryptosporidium PCR Stl E.coli Shiga Tox PCR St Sh/Enteroin Ecoli PCR Stool E coli O157 PCR Stl Enterotoxigenic E PCR Stool EPEC (PCR) Stl E. histolytica PCR Stool Giardia Lamblia PCR Stool Sapovirus (PCR) Stl P. shigelloides PCR St Y.enterocolitica PCR Stool Vibrio (PCR) Stl Vibrio cholerae PCR Stl Enteroaggr Ecoli PCR Stl Norovirus GI/GII PCR Campylobacter (PCR) C. difficile Tox (PCR) SARS-CoV-2 (PCR) Influenza A (RT-PCR) Influenza B (RT-PCR) RSV (PCR) Salmonella (PCR) Assessment & Plan Assessment & Plan narrative: 1. Acute pneumonia -she is noted on have opacity on xray -labs notable for procal of 1.00, wbc 16 -CURB 65 of 3 -she is also noted to have elevated lactate and hypotension to the systolic 90s which improved with IV fluids -continue broad spectrum antibiotics with vanc,zosyn, azithro -folow up cultures -check MRSA swab 2. Hypokalemia -replete as needed 3. Hypothyroidism -continue synthroid 4. Hypertension -hold anti-hypertensives for now Dispo: Patient appears to have severe infection with hypotension requiring multiple boluses of IV fluids and broad spectrum antibiotics. May need further workup if is not improving with antibiotics. Given severity of initial presentation she is appropriate for inpatient admission as expected length of stay is greater than 2 midnights Code: Full Proxy: Chuck Mayer, spouse I have utilized all available resources to reconcile the patient's home medications Time Spent With Patient Critical Care time: I spent a total of [] minutes of critical care time on this patient's care today; this time is exclusive of procedural time. Quality VTE Deep Vein Thrombosis/Pulmonary Embolism Present on Admission: No
[2022-03-17] MEDS: VANCOMYCIN PER PHARMACY 1 REQUEST MISC (10:59)
[2022-03-17] MEDS: INSULIN LISPRO 100 UNIT/ML 3ML VIAL SUBCUT (12:13)
[2022-03-17] MEDS: VANCOMYCIN 750 MG/150 ML PIGGYBACK 150 MG IV (13:30)
[2022-03-17] MEDS: PIPERACILLIN/TAZO 3.375 GM in SODIUM CHLORIDE 0.9% 100 ML IV ×2 (14:36→21:57)
[2022-03-17 17:42] LABS: BUN Creatinine Ratio 23.5 (6-22); Blood Urea Nitrogen 16 mg/dL (7-17); Calcium 7.6 mg/dL (8.4-10.2); Carbon Dioxide 25 mmol/L (22-32); Chloride 102 mmol/L (98-107); Estimated Glomerular Filt Rate > 60 mL/min (>60); Glucose 125 mg/dL (80-110); HEMOLYSIS < 15 (0-50); Potassium 3.1 mmol/L (3.4-5.1); Sodium 134 mmol/L (137-145)
[2022-03-17 17:43] LABS: Lactate (Lactic Acid) 1.8 mmol/L (0.7-2.1)
[2022-03-17] MEDS: SODIUM CHLORIDE 0.9% 500 ML 1000 ML IV (17:46)
--- NOTE | 2022-03-17 18:34 | PC.NURSE ---
Pt arrived to room 207 at 9 a.m. A&Ox3, VSS, afebrile on RA. She states she is feeling weak and slid over from gurney to bed. She is able to move all extremities well. IV potassium replacement, NS 1 liter bolus and IV antibiotics administered. Patient tolerated well. DBP running low this evening, alerted and NS bolus 500 cc given, with repeat BMP and lactate acid. Pt denies feeling symptomatic. She is able to get up with x1 assist to bsc this evening. Poor appetite throughout the day but she denies n/v. She states she is eager to go home but reports not feeling well.She is educated on IS and uses frequently. LS clear,diminished in bases. Bed alarm on, call light in reach, frequent rounding.
[2022-03-17] MEDS: POTASSIUM CHLORIDE 20 MEQ TAB 40 MEQ PO (20:10)
[2022-03-18] VITALS (13 sets, daily range): BP systolic 103–185; BP diastolic 38–90; PULSE 75–95; RESP 16–22; TEMP 36.2–36.8; O2SAT 92–96
[2022-03-18] MEDS: SODIUM CHLORIDE 0.9% 1,000 ML 1000 ML IV (00:36)
[2022-03-18] MEDS: VANCOMYCIN 750 MG/150 ML PIGGYBACK 150 MG IV ×2 (02:49→13:06)
--- NOTE | 2022-03-18 04:47 | PC.NURSE ---
0000, MAP of 60, RR 20, pt denies SOB or any issues, bolus given. BP and Map increased. 88% o2 sat on RA w/ ambulation to bedside commode, RR 28 and shallow, pt states 'im fine' denying SOB. When laying back in bed pt leaned head into bed railing. No bump/redness/pain. RN advised pt to change positions slowly. Brief fully saturated, advised to call when needing to urinate or feeling of brief is wet.
[2022-03-18 05:39] LABS: Add Manual Diff / Slide Review NO; Basophils Absolute Auto 0 /uL (0-100); Basophils Percent Auto 0.2 % (0-2); Eosinophils Absolute Auto 0 /uL (0-450); Eosinophils Percent Auto 0.2 % (2-4); Hematocrit 28.6 % (36-46); Hemoglobin 9.5 g/dL (12.0-16.0); Lymphocytes Absolute Auto 1700 /uL (1100-4500); Lymphocytes Percent Auto 9.7 % (25-40); Mean Corpuscular HGB Conc 33.2 % (30-36); Mean Corpuscular Hemoglobin 29.3 PG (26-34); Mean Corpuscular Volume 88.3 fL (80-100); Monocytes Absolute Auto 1000 /uL (0-900); Neutrophils Absolute Auto 14500 /uL (1500-7000); Neutrophils Percent Auto 83.9 % (50-75); Platelet Count 212 X10^3/uL (150-400); Red Blood Cell Count 3.24 X10^6/uL (4.0-5.2); Red Cell Distribution Width 14.6 % (11.6-14.8); White Blood Cell Count 17.3 X10^3/uL (4.5-11.0)
[2022-03-18 05:45] LABS: BUN Creatinine Ratio 18.4 (6-22); Blood Urea Nitrogen 14 mg/dL (7-17); Calcium 7.4 mg/dL (8.4-10.2); Carbon Dioxide 24 mmol/L (22-32); Chloride 110 mmol/L (98-107); Estimated Glomerular Filt Rate > 60 mL/min (>60); Glucose 122 mg/dL (80-110); HEMOLYSIS < 15 (0-50); Potassium 3.3 mmol/L (3.4-5.1); Sodium 138 mmol/L (137-145)
[2022-03-18] MEDS: PIPERACILLIN/TAZO 3.375 GM in SODIUM CHLORIDE 0.9% 100 ML IV ×3 (05:56→22:29)
[2022-03-18] MEDS: POTASSIUM CHLORIDE 20 MEQ TAB 40 MEQ PO (06:44)
--- NOTE | 2022-03-18 09:07 | CM.DANOTE ---
Addendum entered by Micaela Lunsford R.N. 03/18/22 14:40: Patient originally had discharge orders, but her blood pressure had increased. It is also noted that patient is able to walk, but holding on to staff. P.T. orders were placed as likely patient will need a FWW upon DC. May also see if patient could potentially benefit with home health. Original Note: DCP: Case received, EMR reviewed and met with patient. Introduced self and role. Was able to obtain information regarding patient's baseline activity status at home prior to admission. DCP assessment completed with information currently available. Patient is an 81 year old female who admitted yesterday morning to the care of the hospitalist team. PCP: Dr. Rehman. Payer: confirmed: [facility]. Patient came to the hospital via ambulance secondary to a fall that occurred at home. It is noted that patient had gotten up from bed, had an episode of diarrhea, and then went back to bed. Patient had tried to get up again, and had tripped and fell. Patient was weak, and nauseated. Patient or spouse was unable to get patient up, so she was brought here to [facility]. Patient was diagnosed with acute pneumonia. Patient initially had BP systolic in the 90s. Patient is here for IV fluids, broad spectrum antibiotics. Met with patient in her room. She was sitting up in bed having breakfast, alert and oriented. Confirmed that she resides here in [place], in the [facility], with spouse, Chuck. She indicated that she drives, and does not use any DME at her baseline. Confirmed that her provider had been Dr. Rogers, is not Ori, but has seen other providers in the group, such as Dr. Padgett. She indicated that when she had fallen, her attempted to help her up, but was unable. P: DCP to continue to follow. Patient does not have P.T. orders as of yet, but she is hopeful to go home as soon as she is able. Micaela Lunsford RN/Top Icer Discharge Planning/Care Management CM Discharge Assessment Start: 03/18/22 09:05 Freq: Status: Active Protocol: Document 03/18/22 09:05 (Rec: 03/18/22 09:07 [id number]) Discharge Planning Assessment Assigned Brush Loader And Handle Attacher Micaela Lunsford RN/Top Icer Advance Directives? Yes Advance Directives on File Yes History Provided By Patient,Medical Record Prior Living Arrangements House Household Members spouse Type of transporation used prior to Drives own vehicle admit Independent with ADL's Yes Is patient alert and oriented? Yes Caregiver for Another No Barriers to Discharge No Discharge Plan Home Transportation Arrangement Spouse Referrals Initiated Other Additional Comment Patient did have a fall due to weakness, she does not yet have P.T. orders, will see if appropriate. Whiteboard Updated in Patient Room with Yes name and ext. # of Brush Loader And Handle Attacher Review Status In Process Next Review Type Continued Stay Review
[2022-03-18] MEDS: LEVOTHYROXINE 50 MCG TABLET PO (09:26)
[2022-03-18] MEDS: predniSONE 20 MG TABLET 40 MG PO (09:26)
[2022-03-18] MEDS: ENOXAPARIN 40 MG/0.4 ML SYRINGE SUBCUT (09:26)
[2022-03-18] MEDS: AZITHROMYCIN 500 MG in DEXTROSE 5% IN WATER 250 ML 250 MG IV (09:27)
[2022-03-18] MEDS: prednisoLONE OPHTH SUSP 1 DROPS EYE-RIGHT ×3 (09:32→20:14)
[2022-03-18] MEDS: INSULIN LISPRO 100 UNIT/ML 3ML VIAL SUBCUT ×3 (11:56→20:46)
[2022-03-18 12:51] LABS: Procalcitonin 6.82 ng/mL (<0.5)
--- NOTE | 2022-03-18 14:40 | PT.IIE ---
Current Diagnoses Pneumonia, unspecified organism (03/17/22) Surgical History (Last Reviewed 03/17/22 @ 19:35 by Rodo Guevara MD) Anesthesia History of bladder suspension procedure (2001) History of cataract surgery History of eyelid surgery (2013) History of hysterectomy with oophorectomy (~2013) Medical History (Last Reviewed 03/17/22 @ 19:35 by Rodo Guevara MD) Chicken pox (1961) Cyst of ovary (03/20/15) Eccrine poroma Esophageal stricture Facet arthropathy, lumbosacral Hearing loss (2011) Herniated nucleus pulposus, L3-4 right History of live (08/21/1968) History of live (12/01/1964) History of live (11/08/1962) History of one miscarriage (~1964) Hyperlipidemia (08/21/14) Hypertension (08/21/14) Hypertension (1993) Hypothyroidism Lumbar back pain with radiculopathy affecting right lower extremity (11/28/14) Measles (1946) Normal colonoscopy Obstructive sleep apnea Osteoarthritis (05/22/14) Polymyalgia rheumatica (2011) Right sacral radiculopathy Sacral dysfunction Seborrheic keratosis, inflamed 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Stillborn, normal (~1967) Tuberculosis (1946) Physical Therapy Inpatient Evaluation/Re-Eval M1 PT/OT-IP Prior Functional Status Start: 03/18/22 16:57 Freq: NEEDED Status: Active Protocol: Document 03/18/22 14:40 AB (Rec: 03/18/22 17:08 AB [id number]) Medical Review Prior Functional Status Medical History Reviewed Yes Communication ablet o make needs known Mobility and Gait pt stated that she is modified independent with all mobilities and ambulation without AD Social History Household Members spouse Living Arrangements House Number of Floors (Floors) One Floor Number of Stairs To Enter/Railing? 2 steps to etner with L rail ascending Home Environment High Toilet,Walk in Shower, Built-In Shower Seat Home Equipment Front Wheel Walker,Grab Bars Near Toilet,Grab Bars In Shower M2 PT-IP Current Condition Start: 03/18/22 16:57 Freq: NEEDED Status: Active Protocol: Document 03/18/22 14:40 AB (Rec: 03/18/22 17:08 AB [id number]) Physical Therapy Current Condition Current Condition Evaluation Date 03/18/22 Treatment Diagnosis sepsis; difficulty in walking Onset Date 03/17/22 M3 PT-IP Subjective Start: 03/18/22 16:57 Freq: NEEDED Status: Active Protocol: Document 03/18/22 14:40 AB (Rec: 03/18/22 17:08 AB [id number]) Subjective Physical Therapy Visit Type Type Initial Evaluation Visit Start Time 14:40 Visit Stop Time 15:11 Total Visit Minutes 31 Number of CHECKER STOCKER Visits 0 Physical Therapy Visit Comments Patient Comments agreeable to do PT M4 PT-IP Mobility and Gait Start: 03/18/22 16:57 Freq: NEEDED Status: Active Protocol: Document 03/18/22 14:40 AB (Rec: 03/18/22 17:08 AB [id number]) PT-Bed Mobility Assessment Supine to Sit Supine to Sit Standby Assistance PT-Transfer Assessment Sit to and From Stand Sit to and from Stand Standby Assistance,Contact Guard Assistance,1 Person Assistance Equipment Transfer Assistive Device None,Gait Belt,Front Wheeled Walker Orthotic/Prosthetic Devices or Brace: No Transfers Transfer Destination Chair Transfer Technique ambulated Transfer Ability Level of Assist Standby Assistance,Contact Guard Assistance,Use of Upper Extremities Comments Mobility Comments pt completed supine to sit SBA . able to sit on EOB SBA. completed sit to stand CGA and ambulated in room without AD ~ 5 ft CGA and cues. presents with unsteady gait and pt agreed to use a FWW. pt ambulated in room using FWW ~ 50 ft SBA. agreed to do stairs. completed up/down step stool using 1 rail CGA and cues. repeated x 5 sets. pt agreed to sit on the chair. ambulated back to the chair using FWW. positioned on the chair. call light and table placed within reach. Gait Assessment Gait Gait Assistance Required: Standby Assistance,Contact Guard Assist Distance (Feet) 50 Able to Maintain Weight Bearing Status Yes During Gait Assistive Devices Assistive Device None,Gait Belt,Front Wheeled Walker Orthotic/Prosthetic Devices or Brace: No Gait Deviations General Gait Pattern Decreased Stride Length, Decreased Feet Clearance Factors Limiting Gait Function Factors Limiting Gait Function Decreased Activity Tolerance, Decreased Strength,Limited Range of Motion,Poor Balance, Poor Safety Awareness Stair Climbing Assessment Evaluation Level of Assist On Stairs Contact Guard Assistance Devices Stair Climbing Assistive Devices Left Railing,Right Railing Technique/Endurance Stair Climbing Direction Ascend and Descend Stair Climbing Technique Step to Step Number of Steps Climbed 1 Query Text: Stair Climbing Set # Repetitions (reps) 5 PT-Balance Assessment Sitting Balance and Reactions Static Sitting Balance Ability Good Dynamic Sitting Balance Ability Good Standing Balance and Reactions Static Standing Balance Ability Fair Dynamic Standing Balance Ability Fair Device Used FWW M5 PT-IP Objective Assessments Start: 03/18/22 16:57 Freq: NEEDED Status: Active Protocol: Document 03/18/22 14:40 AB (Rec: 03/18/22 17:08 AB [id number]) Orientation Orientation/Cognition Level of Alertness Alert Orientation Name,Place,Situation Language Function Ability No Deficits Noted Safety Awareness Decreased Safety Awareness Strength Upper Extremity Strength Assessment Within Functional Limits Lower Extremity Strength Hip 4-/5 Knee 4-/5 Coordination Assessment Gross Coordination Gross Coordination WNL Muscle Tone Muscle Tone WNL Yes M6 PT-IP Treatment Start: 03/18/22 16:57 Freq: NEEDED Status: Active Protocol: Document 03/18/22 14:40 AB (Rec: 03/18/22 17:08 [facility] Treatment Education Education Provided Safety M7 PT-IP Assessment and Plan Start: 03/18/22 16:57 Freq: NEEDED Status: Active Protocol: Document 03/18/22 14:40 AB (Rec: 03/18/22 17:08 AB [id number]) PT Summary Assessment and Plan Potential Rehabilitation Potential Fair Status of Condition at Evaluation Stable Summary Impairments Pain,ROM,Strength,Balance, Coordination,Sensation,Tone, Cognition,Bed Mobility, Transfers,Gait,Activity Tolerance Assessment Summary pt requiring SBA to CGA with mobility. recommending use of FWW at this time and pt agreed . pt plans to go home and spouse will be able to assist. Goals Bed Mobility Goal Independent Transfer Goal Independent,Front Wheeled Walker Gait Goal Independent,Front Wheel Walker Gait Distance 200 Other Goals improve ambulation without AD 100 ft SBA up/down 2 steps L rail ascending SBA Days to Meet Goals 5 Frequency of Treatment Frequency Of Treatment Once a Day Treatment Plan Physical Therapy Treatment Plan Bed Mobility Training,Transfer Training,Gait Training, Therapeutic Exercise,Balance Retraining,Discharge Planning, Hot or Cold Pack,Neuromuscular Re-ed,Coordination Retraining Recommendations To Nursing Amount of Assist Needed 1 Person Assist Discharge Recommendations PT Discharge Recommendations Home with Assistance,Home Health Transportation Needs at Discharge Private Vehicle
--- NOTE | 2022-03-18 15:02 | P.PN_ITS ---
Subjective Subjective Date Patient Seen: 03/18/22 Time Patient Seen: 08:00 Interval history: She feels more energetic today. She has had some worsening shortness of breath especially with exertion. She denies any aspiration. Exam Vital Signs (past 8 hours): - 03/18/22 09:13 03/18/22 13:00 Temperature 97.5 F L Pulse Rate 79 80 Respiratory Rate 16 16 Blood Pressure 124/51 L 162/84 H Pulse Oximetry 95 94 Oxygen Delivery Method Room Air Oxygen Flow Rate 0 Narrative Exam Narrative: GEN: no acute distress HEENT: moist mucous membreanes, PERRL PULM: rhonchi noted in left lung CV: regular rate and rhythm, systolic murmur noted ABD: soft, nontender, nondistended, no organomegaly EXT: warm and well perfused with no edema NEURO: awake, alert, oriented, no focal deficits Objective Labs Result Diagrams: 03/18/22 05:11 03/18/22 05:11 Labs: Laboratory Results - last 24 hr 03/17/22 03/17/22 03/17/22 17:20 17:20 19:30 WBC RBC Hgb Hct MCV MCH MCHC RDW Plt Count Neut % (Auto) Lymph % (Auto) [place] % (Auto) Eos % (Auto) Baso % (Auto) Neut # (Auto) Lymph # (Auto) [place] # (Auto) Eos # (Auto) Baso # (Auto) Sodium 134 L Potassium 3.1 L Chloride 102 Carbon Dioxide 25 BUN 16 Creatinine 0.68 Estimated GFR > 60 BUN/Creatinine Ratio 23.5 H Glucose 125 H Lactate 1.8 Calcium 7.6 L Procalcitonin Nasal Screen MRSA (PCR) Negative for mrsa 03/18/22 03/18/22 03/18/22 05:11 05:11 05:11 WBC 17.3 H RBC 3.24 L Hgb 9.5 L Hct 28.6 L MCV 88.3 MCH 29.3 MCHC 33.2 RDW 14.6 Plt Count 212 Neut % (Auto) 83.9 H Lymph % (Auto) 9.7 L [place] % (Auto) 6.0 Eos % (Auto) 0.2 L Baso % (Auto) 0.2 Neut # (Auto) 25938 H Lymph # (Auto) 1700 [place] # (Auto) 1000 H Eos # (Auto) 0 Baso # (Auto) 0 Sodium 138 Potassium 3.3 L Chloride 110 H Carbon Dioxide 24 BUN 14 Creatinine 0.76 Estimated GFR > 60 BUN/Creatinine Ratio 18.4 Glucose 122 H Lactate Calcium 7.4 L Procalcitonin 6.82 H Nasal Screen MRSA (PCR) [facility] Medical History Chicken pox (1961) Cyst of ovary (03/20/15) Eccrine poroma Esophageal stricture Facet arthropathy, lumbosacral Hearing loss (2011) Herniated nucleus pulposus, L3-4 right History of live (08/21/1968) History of live (12/01/1964) History of live (11/08/1962) History of one miscarriage (~1964) Hyperlipidemia (08/21/14) Hypertension (08/21/14) Hypertension (1993) Hypothyroidism Lumbar back pain with radiculopathy affecting right lower extremity (11/28/14) Measles (1946) Normal colonoscopy Obstructive sleep apnea Osteoarthritis (05/22/14) Polymyalgia rheumatica (2011) Right sacral radiculopathy Sacral dysfunction Seborrheic keratosis, inflamed 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Stillborn, normal (~1967) Tuberculosis (1946) Surgical History Anesthesia History of bladder suspension procedure (2001) History of cataract surgery History of eyelid surgery (2013) History of hysterectomy with oophorectomy (~2013) Family History Mother Hypertension Stroke Cardiopulmonary arrest Brother Cancer Father Pneumonia Grandmother Heart disease Grandfather Heart disease Social History marital status: household members: spouse occupational status: previously employed Smoking Status: Never smoker alcohol intake: never substance use type: does not use Assessment & Plan Assessment & Plan narrative: 1. Acute pneumonia -she is noted on have opacity on xray -labs notable for procal of 1.00, wbc 16 on admission -onn 03/18 procal worsened to over 6, and wbc to over 17.3 -CURB 65 of 3 -she is also noted to have elevated lactate and hypotension to the systolic 90s which improved with IV fluids -continue broad spectrum antibiotics with zosyn, azithromycin -folow up cultures -mrsa swab negative, stop vanco 2. Hypokalemia -replete as needed 3. Hypothyroidism -continue synthroid 4. Hypertension -hold anti-hypertensives for now Dispo: Patient appears to have severe infection with hypotension requiring multiple boluses of IV fluids and broad spectrum antibiotics. May need further workup if is not improving with antibiotics. Given severity of initial presentation she is appropriate for inpatient admission as expected length of stay is greater than 2 midnights Code: Full Proxy: Chuck Mayer, spouse I have utilized all available resources to reconcile the patient's home medications Time Spent With Patient Critical Care time: I spent a total of [] minutes of critical care time on this patient's care today; this time is exclusive of procedural time. Quality VTE Deep Vein Thrombosis/Pulmonary Embolism Present on Admission: No
[2022-03-18] MEDS: LOSARTAN 50 MG TABLET 100 MG PO (20:08)
[2022-03-19 03:00] VITALS: BP 127/76; PULSE 83; RESP 16; TEMP 36.1; O2SAT 97
[2022-03-19 03:35] LABS: HEMOLYSIS < 15 (0-50); Potassium 3.1 mmol/L (3.4-5.1)
[2022-03-19] MEDS: LEVOTHYROXINE 50 MCG TABLET PO (06:18)
[2022-03-19] MEDS: PIPERACILLIN/TAZO 3.375 GM in SODIUM CHLORIDE 0.9% 100 ML IV (06:18)
[2022-03-19] MEDS: POTASSIUM CHLORIDE 20 MEQ TAB 40 MEQ PO (06:55)
[2022-03-19 08:00] VITALS: O2SAT 95
[2022-03-19 08:11] VITALS: BP 165/73; PULSE 74; RESP 18; TEMP 36.7; O2SAT 97
[2022-03-19 08:45] LABS: Hematocrit 29.6 % (36-46); Mean Corpuscular HGB Conc 33.7 % (30-36); Mean Corpuscular Hemoglobin 29.6 PG (26-34); Mean Corpuscular Volume 87.8 fL (80-100); Platelet Count 233 X10^3/uL (150-400); Red Blood Cell Count 3.37 X10^6/uL (4.0-5.2); Red Cell Distribution Width 15.1 % (11.6-14.8); White Blood Cell Count 17.1 X10^3/uL (4.5-11.0)
[2022-03-19] MEDS: ENOXAPARIN 40 MG/0.4 ML SYRINGE SUBCUT (08:45)
[2022-03-19 08:46] VITALS: BP 165/73; PULSE 74
[2022-03-19] MEDS: prednisoLONE OPHTH SUSP 1 DROPS EYE-RIGHT (08:46)
[2022-03-19] MEDS: LOSARTAN 50 MG TABLET 100 MG PO (08:46)
[2022-03-19 08:55] LABS: BUN Creatinine Ratio 21.4 (6-22); Blood Urea Nitrogen 15 mg/dL (7-17); Calcium 8.3 mg/dL (8.4-10.2); Carbon Dioxide 22 mmol/L (22-32); Chloride 109 mmol/L (98-107); Estimated Glomerular Filt Rate > 60 mL/min (>60); Glucose 123 mg/dL (80-110); HEMOLYSIS < 15 (0-50); Potassium 3.1 mmol/L (3.4-5.1); Sodium 138 mmol/L (137-145)
[2022-03-19 09:11] LABS: Procalcitonin 5.03 ng/mL (<0.5)
--- NOTE | 2022-03-19 10:37 | CM.DPC ---
DCP Cont: Patient has discharge orders for today. Checked in with patient to see if she would like home health. Patient indicated, she does not think that she does. Let her know that if she changes her mind, she can tell her nurse, and this DC Sc[facility]er can order. Patient is not familiar with home health, and would have no preferences upon agencies should she change her mind. P: DCP to continue to follow. Plan is home today, she will let this DC [facility]er know if she changes her mind before she leaves, for home health. Micaela Lunsford RN/Community Case Manager
--- NOTE | 2022-03-19 11:31 | PT.IPTN ---
Current Diagnoses Pneumonia, unspecified organism (03/17/22) Physical Therapy Treatment Note M2 PT-IP Current Condition Start: 03/18/22 16:57 Freq: NEEDED Status: Active Protocol: Document 03/18/22 14:40 AB (Rec: 03/18/22 17:08 AB [id number]) Physical Therapy Current Condition Current Condition Evaluation Date 03/18/22 Treatment Diagnosis sepsis; difficulty in walking Onset Date 03/17/22 M3 PT-IP Subjective Start: 03/18/22 16:57 Freq: NEEDED Status: Active Protocol: Document 03/19/22 11:19 [facility] (Rec: 03/19/22 11:29 [facility] [id number]) Subjective Physical Therapy Visit Type Type Treatment Note Visit Start Time 10:50 Visit Stop Time 11:15 Total Visit Minutes 25 Physical Therapy Visit Comments Patient Comments pt is agreeable to do PT and states she is ready to go go. She would like to get dressed M4 PT-IP Mobility and Gait Start: 03/18/22 16:57 Freq: NEEDED Status: Active Protocol: Document 03/19/22 11:19 [facility] (Rec: 03/19/22 11:29 [facility] [id number]) PT-Transfer Assessment Sit to and From Stand Sit to and from Stand Standby Assistance,Contact Guard Assistance,1 Person Assistance Equipment Transfer Assistive Device None,Gait Belt,Front Wheeled Walker Orthotic/Prosthetic Devices or Brace: No Transfers Transfer Destination Toilet Transfer Technique ambulated Transfer Ability Level of Assist Standby Assistance,Contact Guard Assistance,Use of Upper Extremities Comments Mobility Comments pt completed supine to sit at edge of bed with SBA, she performed sit-stand with CGA, pt ambulated to the bathroom to void with CGA, after toileting pt then ambulated back to the bedside chair and sat with SBA. She was given her clothes to put on and she did this IND. She decided to stay in the bedside chair until her arrives to pick her up Gait Assessment Gait Gait Assistance Required: Standby Assistance,Contact Guard Assist Distance (Feet) 25 Able to Maintain Weight Bearing Status Yes During Gait Assistive Devices Assistive Device None,Gait Belt,Front Wheeled Walker Orthotic/Prosthetic Devices or Brace: No Gait Deviations General Gait Pattern Decreased Stride Length, Decreased Feet Clearance Factors Limiting Gait Function Factors Limiting Gait Function Decreased Activity Tolerance, Decreased Strength,Limited Range of Motion,Poor Balance, Poor Safety Awareness M5 PT-IP Objective Assessments Start: 03/18/22 16:57 Freq: NEEDED Status: Active Protocol: Document 03/18/22 14:40 AB (Rec: 03/18/22 17:08 AB [id number]) Orientation Orientation/Cognition Level of Alertness Alert Orientation Name,Place,Situation Language Function Ability No Deficits Noted Safety Awareness Decreased Safety Awareness Strength Upper Extremity Strength Assessment Within Functional Limits Lower Extremity Strength Hip 4-/5 Knee 4-/5 Coordination Assessment Gross Coordination Gross Coordination WNL Muscle Tone Muscle Tone WNL Yes M6 PT-IP Treatment Start: 03/18/22 16:57 Freq: NEEDED Status: Active Protocol: Document 03/19/22 11:30 [facility] (Rec: 03/19/22 11:31 [facility] [id number]) Physical Therapy Treatment Education Education Provided Safety Other Treatments Other Treatment Performed pt was given clothes to put on per her request. PT provided SBA while she dressed. Her call light was placed within reach and she is waiting in the bed side chair for her ride home and to be DC M7 PT-IP Assessment and Plan Start: 03/18/22 16:57 Freq: NEEDED Status: Active Protocol: Document 03/19/22 11:19 [facility] (Rec: 03/19/22 11:29 [facility] [id number]) PT Summary Assessment and Plan Potential Rehabilitation Potential Fair Status of Condition at Evaluation Stable Summary Impairments Pain,ROM,Strength,Balance, Coordination,Sensation,Tone, Cognition,Bed Mobility, Transfers,Gait,Activity Tolerance Assessment Summary pt requiring SBA to CGA with mobility. recommending use of FWW at this time and pt agrees . There are discharge orders placed and she is awaiting discharge. Her is driving her home Goals Bed Mobility Goal Independent Transfer Goal Independent,Front Wheeled Walker Gait Goal Independent,Front Wheel Walker Gait Distance 200 Other Goals improve ambulation without AD 100 ft SBA up/down 2 steps L rail ascending SBA Days to Meet Goals 5 Frequency of Treatment Frequency Of Treatment Once a Day Treatment Plan Physical Therapy Treatment Plan Bed Mobility Training,Transfer Training,Gait Training, Therapeutic Exercise,Balance Retraining,Discharge Planning, Hot or Cold Pack,Neuromuscular Re-ed,Coordination Retraining Other Recommendations and Next Treatment pt to be DC home this AM Focus Recommendations To Nursing Amount of Assist Needed 1 Person Assist Discharge Recommendations PT Discharge Recommendations Home with Assistance,Home Health Transportation Needs at Discharge Private Vehicle
--- NOTE | 2022-03-19 22:31 | PM.DS.1 ---
History of Present Illness History of Present Illness Chief complaint: GLF Narrative: Ms. Brito is an 81W with PMH hypothyroid, hypertension who presents to the hospital with weakness and a fall. She states pthat prior to today she largely felt well. When she woke up today she had diarrhea. She had an episode of vomiting. She then had a trip and fall an dnoted she was weak and tired. She feels cold. She has not felt subjective fevers. No dysuria. No cough or shortness of breath. No abdominal pain. No sick contacts. After the fall she had right hip pain and left flank pain. In the ED workup was done, vitals were afebrile, normal heart rate and respiratory rate. Labs notable for WBC 16.5, hgb 11.4 plts 256. K 2.9, creatinine 0.74. Troponin negative. Procal 1.00. Lactate 2.3->2.6->1.8. COVID, flu, and RSV negative. Chest xray showed left lower lobe opacity. CT shows opacity in the left lower lobe, and possible mild colitis. She was ordered for antibiotics and admitted for further treatment. Discharge Providers Provider Date of admission: 03/17/22 08:22 Discharge Date: 03/19/22 Primary care physician: Raheel Rehman MD Consults: 03/18/22 14:16 Consult to Physical Therapy Evaluate & Treat Comment: Physician Instructions: Evaluate and Treat Discharge provider: Rodo Guevara MD Summary Hospital Course Discharge Diagnosis: 1. Acute bacterial pneumonia 2. Hypokalemia 3. Hypothyroidism 4. Hypertension Hospital Course: Ms. Brito was admitted primarily with weakness and hypotension. She was found to have a consolidation on xray consistent with pneumonia. White count and procalcitonin were elevated. She was initially not short of breath, though she did develop mild shortness of breath after admission. She was fluid resuscitated and her strength improved and her blood pressure normalized. She was feeling better and requesting to go home, but white count and procalcitonin were rising so she was treated for an additional day. She did get a dose of steroids which is likely cause of continued elevated white count. Her procalcitonin was downtrending on day of discharge. She had no fevers, cough, shortness of breath and was eager to go home. She was given a presciption for antibiotics and encouraged to follow up with PCP within one week. Exam Vital Signs (past 8 hours): Oxygen Delivery Method Room Air Oxygen Flow Rate 0 Narrative Exam Narrative: GEN: no acute distress HEENT: moist mucous membreanes, PERRL PULM: rhonchi improving in left lung CV: regular rate and rhythm, systolic murmur noted ABD: soft, nontender, nondistended, no organomegaly EXT: warm and well perfused with no edema NEURO: awake, alert, oriented, no focal deficits Objective Labs Result Diagrams: 03/19/22 08:22 03/19/22 08:22 Labs: Laboratory Results - last 24 hr 03/19/22 03/19/22 03/19/22 03:22 08:22 08:22 WBC 17.1 H RBC 3.37 L Hgb 10.0 L Hct 29.6 L MCV 87.8 MCH 29.6 MCHC 33.7 RDW 15.1 H Plt Count 233 Sodium 138 Potassium 3.1 L 3.1 L Chloride 109 H Carbon Dioxide 22 BUN 15 Creatinine 0.70 Estimated GFR > 60 BUN/Creatinine Ratio 21.4 Glucose 123 H Calcium 8.3 L Procalcitonin 5.03 H [facility] Medical History Chicken pox (1961) Cyst of ovary (03/20/15) Eccrine poroma Esophageal stricture Facet arthropathy, lumbosacral Hearing loss (2011) Herniated nucleus pulposus, L3-4 right History of live (08/21/1968) History of live (12/01/1964) History of live (11/08/1962) History of one miscarriage (~1964) Hyperlipidemia (08/21/14) Hypertension (08/21/14) Hypertension (1993) Hypothyroidism Lumbar back pain with radiculopathy affecting right lower extremity (11/28/14) Measles (194) Normal colonoscopy Obstructive sleep apnea Osteoarthritis (05/22/14) Polymyalgia rheumatica (2011) Right sacral radiculopathy Sacral dysfunction Seborrheic keratosis, inflamed 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Stillborn, normal (~1967) Tuberculosis (194) Surgical History Anesthesia History of bladder suspension procedure (2001) History of cataract surgery History of eyelid surgery (2013) History of hysterectomy with oophorectomy (~2013) Family History Mother Hypertension Stroke Cardiopulmonary arrest Brother Cancer Father Pneumonia Grandmother Heart disease Grandfather Heart disease Social History marital status: household members: spouse occupational status: previously employed Smoking Status: Never smoker alcohol intake: never substance use type: does not use Discharge Plan Discharge Plan Patient Disposition: Home Provider Discharge Comment: Ms. Brito came in to the hospital feeling ill. She was found to have a pneumonia. She was given antibiotics and was feeling better. She should completely finish both antibiotics. She should follow up with her PCP within one week. Discharge orders & Medications Prescriptions: New azithromycin 500 mg tablet 500 mg PO DAILY 3 Days Qty: 3 0RF amoxicillin-pot clavulanate 875-125 mg tablet 1 tab PO BID Qty: 10 0RF Continued ascorbic acid (vitamin C) 500 MG tablet 500 mg PO QDAY Qty: 0 metformin 500 mg tablet 500 mg PO BID Qty: 180 0RF lovastatin 40 mg tablet 40 mg PO BEDTIME Qty: 90 0RF losartan 100 mg tablet 100 mg PO QDAY hydrochlorothiazide 25 mg tablet 25 mg PO DAILY prednisolone acetate 1 % drops,suspension 1 drp EYE-RIGHT TID levothyroxine 50 mcg tablet 50 mcg PO DAILY ibuprofen [Motrin IB] 200 mg capsule 200 mg PO Q6H PRN (Reason: Pain) Follow up/Referrals: Raheel Rehman MD [Primary Care Provider] - 3-5 Days Discharge Health Status Multidrug resistant organism: No MDRO Diet/Activity/Treatments Diet: Regular Visit Report/Discharge Packet Instructions: DI for Pneumonia -- Adult Discharge Data Primary Care Provider: Raheel Rehman Quality VTE Deep Vein Thrombosis/Pulmonary Embolism Present on Admission: No
== END 2022-03-19 12:07 | disposition home or self-care (01) | DRG 195 ==
LOC: ED 07:28 → AC 08:26
PROVIDERS: Admitting Provider Internal Medicine; Emergency Provider Emergency Medicine; PCP Family Medicine; Referring Provider Emergency Medicine; Visit Provider Internal Medicine
DX: J15.9 Unspecified bacterial pneumonia (principal); E87.6 Hypokalemia; E03.9 Hypothyroidism, unspecified; I10 Essential (primary) hypertension; I95.9 Hypotension, unspecified; E78.5 Hyperlipidemia, unspecified; Z20.822 Contact with and (suspected) exposure to COVID-19
CPT/HCPCS: 0241U; 36415; 71045; 71260; 74177; 80048; 80053; 81001; 82550; 82962; 83605; 83690; 84132; 84145; 84484; 85025; 85027; 87040; 87507; 87797; 93005; 96365; 96366; 96368; 97161; 97530; 99284; J1650; J1815; J2543; Q9967

== ENCOUNTER → 2022-03-26 11:51 | Outpatient (CLI) | payer OTHER, SELFPAY ==
[2022-03-17 08:36] VITALS: BMI 22.8
[2022-03-26 12:55] LABS: Add Manual Diff / Slide Review NO; Basophils Absolute Auto 100 /uL (0-100); Basophils Percent Auto 0.6 % (0-2); Eosinophils Absolute Auto 100 /uL (0-450); Eosinophils Percent Auto 1.4 % (2-4); Hematocrit 33.5 % (36-46); Hemoglobin 11.2 g/dL (12.0-16.0); Lymphocytes Absolute Auto 1500 /uL (1100-4500); Lymphocytes Percent Auto 16.3 % (25-40); Mean Corpuscular HGB Conc 33.4 % (30-36); Mean Corpuscular Hemoglobin 29.2 PG (26-34); Mean Corpuscular Volume 87.5 fL (80-100); Monocytes Absolute Auto 600 /uL (0-900); Monocytes Percent Auto 6.9 % (3-14); Neutrophils Absolute Auto 7000 /uL (1500-7000); Neutrophils Percent Auto 74.8 % (50-75); Platelet Count 413 X10^3/uL (150-400); Red Blood Cell Count 3.82 X10^6/uL (4.0-5.2); Red Cell Distribution Width 14.8 % (11.6-14.8); White Blood Cell Count 9.3 X10^3/uL (4.5-11.0)
[2022-03-26 13:09] LABS: Hemoglobin A1C% w Est Avg Glu 6.9 % (4.0-6.0)
[2022-03-26 16:50] LABS: Alanine Aminotransferase 22 IU/L (<35); Albumin Globulin Ratio 1.1 (1.0-2.8); Alkaline Phosphatase 66 U/L (38-126); Aspartate Aminotransferase 27 IU/L (14-36); BUN Creatinine Ratio 25.9 (6-22); Bilirubin Total 0.3 mg/dL (0.2-1.3); Blood Urea Nitrogen 21 mg/dL (7-17); Calcium 9.9 mg/dL (8.4-10.2); Carbon Dioxide 32 mmol/L (22-32); Chloride 95 mmol/L (98-107); Estimated Glomerular Filt Rate > 60 mL/min (>60); Globulin 3.6 g/dL (1.7-4.1); Glucose 208 mg/dL (80-110); HEMOLYSIS < 15 (0-50); Potassium 3.4 mmol/L (3.4-5.1); Sodium 137 mmol/L (137-145); Total Protein 7.6 g/dL (6.3-8.2)
[2022-03-26 23:28] LABS: Free T4, Direct Thyroxine 1.41 ng/dL (0.78-2.19)
== END ==
PROVIDERS: PCP Family Medicine; Referring Provider Family Medicine; Visit Provider Family Medicine
DX: A41.9 Sepsis, unspecified organism (principal); E11.9 Type 2 diabetes mellitus without complications; E87.6 Hypokalemia; I10 Essential (primary) hypertension; J18.9 Pneumonia, unspecified organism
CPT/HCPCS: 36415; 80053; 83036; 84439; 84443; 85025

== ENCOUNTER → 2022-04-22 11:28 | Outpatient (CLI) | payer OTHER, SELFPAY ==
[2022-03-17 08:36] VITALS: BMI 22.8
[2022-04-22 15:08] LABS: Free T4, Direct Thyroxine 1.45 ng/dL (0.78-2.19)
== END ==
PROVIDERS: Family Provider Family Medicine; PCP Family Medicine; Referring Provider Family Medicine; Visit Provider Family Medicine
DX: E03.9 Hypothyroidism, unspecified (principal)
CPT/HCPCS: 36415; 84439; 84443

== ENCOUNTER → 2022-05-01 11:30 | Outpatient (CLI) | payer OTHER, SELFPAY ==
[2022-03-17 08:36] VITALS: BMI 22.8
--- NOTE | 2022-05-01 11:32 | DI.RAD.S_ITS ---
PROCEDURE: XR CHEST 2V INDICATIONS: follow up pneumonia TECHNIQUE: 2 views of the chest were acquired. COMPARISON: [facility], CR, XR CHEST 1V, 03/17/2022, 5:43. FINDINGS: Surgical changes and devices: None. Lungs and pleura: Lungs are clear. No pleural effusions or pneumothorax. Mediastinum: Mediastinal contours are normal. Heart size is normal. Bones and chest wall: No suspicious bony abnormalities. Soft tissues appear unremarkable. IMPRESSION: No acute pulmonary process. Dictated by: Jane Miles M.D. on 05/01/2022 at 18:54 Approved by: Jane Miles M.D. on 05/01/2022 at 18:57
== END ==
PROVIDERS: Family Provider Family Medicine; PCP Family Medicine; Referring Provider Family Medicine; Visit Provider Family Medicine
DX: J18.9 Pneumonia, unspecified organism (principal)
CPT/HCPCS: 71046

== ENCOUNTER → 2022-06-02 11:25 | Outpatient (CLI) | payer OTHER, SELFPAY ==
[2022-03-17 08:36] VITALS: BMI 22.8
[2022-06-02 13:29] LABS: TSH w/ Reflex to FT4 2.04 uIU/mL (0.47-4.68)
== END ==
PROVIDERS: Family Provider Family Medicine; PCP Family Medicine; Referring Provider Family Medicine; Visit Provider Family Medicine
DX: E03.9 Hypothyroidism, unspecified (principal)
CPT/HCPCS: 36415; 84443

== ENCOUNTER 2022-08-20 11:15 | Outpatient (RCR) | payer OTHER, SELFPAY ==
[2022-03-17 08:36] VITALS: BMI 22.8
--- NOTE | 2022-05-13 15:37 | PT.OPPOC ---
Physical, Occupational & Speech Therapy At [facility] Current Diagnoses Other abnormalities of gait and mobility (05/13/22) Weakness (05/13/22) Other reduced mobility (05/13/22) Visit Care Team Role Provider Type Kina Bustamante DO Primary Care Provider Physician Specialty: Medical Address: [address] [place] [address], [address], [place], [address] Email: [email or web address] Raheel Rehman MD Attending Provider Physician Family Provider Referring Provider Specialty: Family Practice Address: [address] [place] [address], [id number] Email: [email or web address] Plan Of Care PT-OP-T Assessment and Plan Start: 05/12/22 17:02 Freq: Status: Active Protocol: Document 05/13/22 12:58 SAK (Rec: 05/13/22 13:46 [facility] [id number]) Physical Therapy Assessment Rehab Potential Rehabilitation Potential Good Evaluation Complexity Number of Personal Factors/Comorbidities 1-2 Number of Body Systems Impaired 3 Clinical Presentation at Evaluation Evolving Impairments Impairments Activity Tolerance,Balance, Gait,Strength Assessment Summary Assessment Patient presents to PT with function-limiting weakness right greater than left, balance dysfunction, history of falls. Comes to PT without assistive device for gait, but using wall and other objects to steady herself during gait. Feel she would benefit from physical therapy for strengthening, gait and balance training to help her decrease her risk of falls and return to a more active lifestyle. Discussed POC and patient is in agreement. Physical Therapy Plan Frequency and Duration Frequency of Treatment 2x/Week Duration of treatment (weeks) 12 Plan of Care Start Date 05/13/22 Plan of Care End Date 08/11/22 Therapeutic Interventions Therapeutic Interventions Balance Training,Gait Training ,Home Exercise Program,Manual Therapy,Patient/Caregiver Education,Self-Care/Home Management,Soft Tissue Mobilization,Taping, Therapeutic Activities, Therapeutic Exercises Next Visit Focus/Plan Next Note Type Treatment Note Next Visit Plan Review HEP, therapeutic exercises for LE strengthening , balance, and gait training as tolerated. Plan of Care Dates Plan of Care Start Date 05/13/22 Plan of Care End Date 08/11/22 Electronically Signed by: Alia Serrano, PT 05/15/22 2235 If you are in agreement with this Plan of Care, please return a signed and dated copy. I have reviewed this Plan of Care and certify that the skilled therapy services above are required to meet the patient?s needs. Physician Signature Date Printed Name and Credentials Clinical Instructor Signature Printed Name and Credentials
--- NOTE | 2022-05-13 15:37 | PT.OIE ---
Current Diagnoses Other abnormalities of gait and mobility (05/13/22) Weakness (05/13/22) Other reduced mobility (05/13/22) Past Medical History (Last Updated 05/05/22 @ 16:18 by Kina Bustamante DO) Chicken pox (1961) Cyst of ovary (03/20/15) Eccrine poroma Esophageal stricture Facet arthropathy, lumbosacral Hearing loss (2011) Herniated nucleus pulposus, L3-4 right History of live (08/21/1968) History of live (12/01/1964) History of live (11/08/1962) History of one miscarriage (~1964) Hyperlipidemia (08/21/14) Hypertension (08/21/14) Hypertension (1993) Hypokalemia Hypothyroidism Lumbar back pain with radiculopathy affecting right lower extremity (11/28/14) Measles (1946) Normal colonoscopy Obstructive sleep apnea Osteoarthritis (05/22/14) Polymyalgia rheumatica (2011) Right sacral radiculopathy Sacral dysfunction Seborrheic keratosis, inflamed Sepsis 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Stillborn, normal (~1967) Tuberculosis (1946) Past Surgical History (Last Reviewed 03/17/22 @ 19:35 by Rodo Guevara MD) Anesthesia History of bladder suspension procedure (2001) History of cataract surgery History of eyelid surgery (2013) History of hysterectomy with oophorectomy (~2013) Visit Care Team Role Provider Type Kina Bustamante DO Primary Care Provider Physician Specialty: Medical Address: [address] [place] [address], [address], [place], [facility] Email: [email or web address] Raheel Rehman MD Attending Provider Physician Family Provider Referring Provider Specialty: Family Practice Address: [address] [place] [address] Email: [email or web address] Physical Therapy Initial Evaluation PT-OP-A Visit Information Start: 05/12/22 17:02 Freq: Status: Active Protocol: Document 05/13/22 12:58 [facility] (Rec: 05/13/22 13:46 [facility] [id number]) Out-Patient Physical Therapy Visit Information Visit Information Visit Type Initial Evaluation Visit Start Time 13:03 Visit Stop Time 13:45 Total Visit Minutes 42 Visit Number 1 Evaluation Information Evaluation Date 05/13/22 PT-OP-B Current Condition Start: 05/12/22 17:02 Freq: Status: Active Protocol: Document 05/13/22 12:58 [facility] (Rec: 05/13/22 13:46 [facility] [id number]) Current Condition History of Current Condition Onset Date August 2021 Current Complaints weakness, difficulty walking History of Current Condition Patient reports not sure why I'm here. Fell at home 2x over past 6 months, plus fell last February and wasn't able to get up; went into hospital with pneumonia. Fell and broke right ankle August 2021; ORIF. Agrees per doctor referral she may benefit for her balance and strenth. Rides a stationary bike 40 min 5x/wk. Doesn't go for walks. c/o weakness right thigh and ankle. Prior Treatments and Tests No PT. Prior Functional Status Baseline Function- ADL's Independent Baseline Function- Mobility Independent Baseline Function- Gait indep, no falls Baseline Function- Work/School retired Baseline Function- Recreation/Hobbies no dificulty Current Functional Impairments (Reported) Functional Limitations- ADL's takes more time Functional Limitations- Mobility/Gait some unsteadyness and history of falls Functional Limitations- Work/School retired Functional Limitations- Recreation/ limited Hobbies Personal Factors Other Personal Factors That May Effect right ankle fracture Therapy/Recovery PT-OP-C Subjective Start: 05/12/22 17:02 Freq: Status: Active Protocol: Document 05/15/22 12:58 [facility] (Rec: 05/15/22 15:36 [facility] [id number]) Patient Questionnaires 36 Item Health Survey 36-Score 55 PT-OP-D Balance Start: 05/12/22 17:02 Freq: Status: Active Protocol: Document 05/15/22 12:58 [facility] (Rec: 05/15/22 15:36 [facility] [id number]) Layton Balance Assessment Evaluation Sitting to Standing Ability Independent w/out Hands Unsupported Stance Safely- 2 minutes Sitting Unsupported, Feet on Floor Safely- 2 minutes Standing to Sitting Ability Safely, Minimal Hand Use Transfer Ability Safely, Hand Use Unsupported Stance- Eyes Closed Supervision, 10 seconds Unsupported Stance- Eyes Open Independent, 1 minute Reaching Forward Standing Safely, 2 inches Pick- Up Object From Floor Within 2 inches, Unable Look Behind Shoulder - Standing Supervision w/Turning Turning 360 Degrees Turns slowly, but safely Unsupported Stance, Alternating Feet on (I)- 8 Steps in > 20 secs Stair Unsupported Tandem Stance Balance Lost- Step/Stand Unilateral Leg Stance Unable,assist to not fall Total Score Layton Total Score (out of 56 points) 36 PT-OP-G Mobility & Gait Start: 05/12/22 17:02 Freq: Status: Active Protocol: Document 05/15/22 12:58 [facility] (Rec: 05/15/22 15:36 [facility] [id number]) OP Gait Assessment Gait Gait Assistance Required: Independent Assistive Devices Assistive Device None Gait Deviations General Gait Pattern Decreased Stride Length, Decreased Feet Clearance Factors Limiting Gait Function Factors Limiting Gait Function Decreased Strength,Poor Balance Comments Gait Comments reaches for objects to stready herself Stair Climbing Evaluation Evaluation Level of Assist On Stairs Independent Devices Stair Climbing Assistive Devices Left Railing,Right Railing Technique/Endurance Stair Climbing Technique Step Over Step PT-OP-H Neuro Start: 05/12/22 17:02 Freq: Status: Active Protocol: Document 05/15/22 12:58 [facility] (Rec: 05/15/22 15:36 [facility] [id number]) Sensation Evaluation Gross Sensation Gross Sensation WNL PT-OP-J Posture/Palpation/Skin Start: 05/12/22 17:02 Freq: Status: Active Protocol: Document 05/15/22 12:58 [facility] (Rec: 05/15/22 15:36 [facility] [id number]) Posture Evaluation Position Standing Head/C-Spine Posture Forward Head T-Spine Posture Increased Kyphosis L-Spine Posture Decreased Lordosis Scapula Posture (L) Protracted,(R) Protracted Arm Posture (L) Internally Rotated,(R) Internally Rotated Pelvis Posture Posterior Tilted Hip Posture (L) Externally Rotated,(R) Externally Rotated PT-OP-K Range of Motion Start: 05/12/22 17:02 Freq: Status: Active Protocol: Document 05/15/22 12:58 [facility] (Rec: 05/15/22 15:36 [facility] [id number]) Hip Goniometric Range of Motion Hip alexys Hip ROM WFL Yes Knee Goniometric Range of Motion Knee alexys Knee ROM WFL Yes Ankle and Foot Goniometric Range of Motion Ankle and Foot alexys Ankle/Foot ROM WFL No Dorsiflexion with Knee Flexed 0 Dorsiflexion with Knee Extended 0 Ankle and Foot ROM Limitations ROM Limitations Soft Tissue Tightness PT-OP-M Strength Start: 05/12/22 17:02 Freq: Status: Active Protocol: Document 05/15/22 12:58 [facility] (Rec: 05/15/22 15:36 [facility] [id number]) Hip Strength Hip Manual Muscle Testing Right Flexion (L2) 4 Good Extension (S1) 4 Good Abduction 4- Good- Adduction 3+ Fair+ External Rotation 3+ Fair+ Left Flexion (L2) 4- Good- Extension (S1) 4- Good- Abduction 4 Good External Rotation 4- Good- Internal Rotation 4 Good Knee Strength Knee Manual Muscle Testing rright Flexion (S2) 4- Good- Extension (L3) 4- Good- Left Flexion (S2) 4 Good Extension (L3) 4 Good Ankle/Foot Strength Ankle and Foot Manual Muscle Testing Right Dorsiflexion (L4) 4- Good- Plantarflexion (S1) 4- Good- Left Dorsiflexion (L4) 4 Good Plantarflexion (S1) 4 Good PT-OP-Q Treatments Start: 05/12/22 17:02 Freq: Status: Active Protocol: Document 05/15/22 12:58 [facility] (Rec: 05/15/22 15:36 [facility] [id number]) Self-Care/Home Management Treatment Education Patient Education Fall Risk,Home Exercise Program Other Education issued handout PT-OP-T Assessment and Plan Start: 05/12/22 17:02 Freq: Status: Active Protocol: Document 05/13/22 12:58 [facility] (Rec: 05/13/22 13:46 [facility] [id number]) Physical Therapy Assessment Rehab Potential Rehabilitation Potential Good Evaluation Complexity Number of Personal Factors/Comorbidities 1-2 Number of Body Systems Impaired 3 Clinical Presentation at Evaluation Evolving Impairments Impairments Activity Tolerance,Balance, Gait,Strength Assessment Summary Assessment Patient presents to PT with function-limiting weakness right greater than left, balance dysfunction, history of falls. Comes to PT without assistive device for gait, but using wall and other objects to steady herself during gait. Feel she would benefit from physical therapy for strengthening, gait and balance training to help her decrease her risk of falls and return to a more active lifestyle. Discussed POC and patient is in agreement. Physical Therapy Plan Frequency and Duration Frequency of Treatment 2x/Week Duration of treatment (weeks) 12 Plan of Care Start Date 05/13/22 Plan of Care End Date 08/11/22 Therapeutic Interventions Therapeutic Interventions Balance Training,Gait Training ,Home Exercise Program,Manual Therapy,Patient/Caregiver Education,Self-Care/Home Management,Soft Tissue Mobilization,Taping, Therapeutic Activities, Therapeutic Exercises Next Visit Focus/Plan Next Note Type Treatment Note Next Visit Plan Review HEP, therapeutic exercises for LE strengthening , balance, and gait training as tolerated.
--- NOTE | 2022-05-13 15:46 | PT.OPPOC ---
Physical, Occupational & Speech Therapy At [facility] Current Diagnoses Other abnormalities of gait and mobility (05/13/22) Weakness (05/13/22) Other reduced mobility (05/13/22) Visit Care Team Role Provider Type Kina Bustamante DO Primary Care Provider Physician Specialty: Medical Address: [address] [place] [address], [address], [place], [address] Email: [email or web address] Raheel Rehman MD Attending Provider Physician Family Provider Referring Provider Specialty: Family Practice Address: [address] [place] [address], [address] Email: [email or web address] Plan Of Care PT-OP-T Assessment and Plan Start: 05/12/22 17:02 Freq: Status: Active Protocol: Document 05/13/22 12:58 [facility] (Rec: 05/13/22 13:46 [facility] [id number]) Physical Therapy Assessment Rehab Potential Rehabilitation Potential Good Evaluation Complexity Number of Personal Factors/Comorbidities 1-2 Number of Body Systems Impaired 3 Clinical Presentation at Evaluation Evolving Impairments Impairments Activity Tolerance,Balance, Gait,Strength Goals Three Impairment gait dysfunction Impairment unsteady gait, doesn't use device Manager Power Goal (LTG) Patient to be safe with gait on level and uneven surfaces with least restrictive device. LTG Duration 07/11/22 Two Impairment weakness alexys LE's right greater than left Short Term Goal (STG) Instruct patient in HEP to support exercises and activities in therapy STG Duration 06/13/22 Manager Power Goal (LTG) Patient to be independent in HEP for purposes of LE strengthening and balance training LTG Duration 07/11/22 One Impairment Balance dysfunction with high risk for falls Impairment Layton balance score 36/56 indicating high rrisk for falls Short Term Goal (STG) Improve Layton balance score to at least 45/56 STG Duration 06/13/22 Manager Power Goal (LTG) Improve Layton Balance score to at least 50/56 as measure of improved balance and safety LTG Duration 07/11/22 Assessment Summary Assessment Patient presents to PT with function-limiting weakness right greater than left, balance dysfunction, history of falls. Comes to PT without assistive device for gait, but using wall and other objects to steady herself during gait. Feel she would benefit from physical therapy for strengthening, gait and balance training to help her decrease her risk of falls and return to a more active lifestyle. Discussed POC and patient is in agreement. Physical Therapy Plan Frequency and Duration Frequency of Treatment 2x/Week Duration of treatment (weeks) 12 Plan of Care Start Date 05/13/22 Plan of Care End Date 08/11/22 Therapeutic Interventions Therapeutic Interventions Balance Training,Gait Training ,Home Exercise Program,Manual Therapy,Patient/Caregiver Education,Self-Care/Home Management,Soft Tissue Mobilization,Taping, Therapeutic Activities, Therapeutic Exercises Next Visit Focus/Plan Next Note Type Treatment Note Next Visit Plan Review HEP, therapeutic exercises for LE strengthening , balance, and gait training as tolerated. Plan of Care Dates Plan of Care Start Date 05/13/22 Plan of Care End Date 08/11/22 Electronically Signed by: Alia Serrano, PT 05/15/22 [id number] If you are in agreement with this Plan of Care, please return a signed and dated copy. I have reviewed this Plan of Care and certify that the skilled therapy services above are required to meet the patient?s needs. Physician Signature Date Printed Name and Credentials Clinical Instructor Signature Printed Name and Credentials
--- NOTE | 2022-05-20 16:54 | PT.OTN ---
Current Diagnoses Other abnormalities of gait and mobility (05/20/22) Weakness (05/20/22) Other reduced mobility (05/20/22) Physical Therapy Treatment Note PT-OP-A Visit Information Start: 05/12/22 17:02 Freq: Status: Active Protocol: Document 05/20/22 10:32 [facility] (Rec: 05/20/22 11:16 [facility] [id number]) Out-Patient Physical Therapy Visit Information Visit Information Visit Type Treatment Note Visit Start Time 10:32 Visit Stop Time 11:15 Total Visit Minutes 43 Visit Number 2 PT-OP-B Current Condition Start: 05/12/22 17:02 Freq: Status: Active Protocol: Document 05/20/22 10:32 [facility] (Rec: 05/20/22 11:16 [facility] [id number]) Current Condition History of Current Condition Onset Date August 2021 Current Complaints weakness, difficulty walking History of Current Condition Patient reports not sure why I'm here. Fell at home 2x over past 6 months, plus fell last February and wasn't able to get up; went into hospital with pneumonia. Fell and broke right ankle August 2021; ORIF. Agrees per doctor referral she may benefit for her balance and strenth. Rides a stationary bike 40 min 5x/wk. Doesn't go for walks. c/o weakness right thigh and ankle. Prior Treatments and Tests No PT. PT-OP-C Subjective Start: 05/12/22 17:02 Freq: Status: Active Protocol: Document 05/20/22 10:32 [facility] (Rec: 05/20/22 11:16 [facility] [id number]) OP-PT Subjective Patient Comments Patient Comments Did exercises at least once since seen in PT. PT-OP-D Balance Start: 05/12/22 17:02 Freq: Status: Active Protocol: Document 05/13/22 12:58 [facility] (Rec: 05/15/22 15:36 [facility] [id number]) Layton Balance Assessment Evaluation Sitting to Standing Ability Independent w/out Hands Unsupported Stance Safely- 2 minutes Sitting Unsupported, Feet on Floor Safely- 2 minutes Standing to Sitting Ability Safely, Minimal Hand Use Transfer Ability Safely, Hand Use Unsupported Stance- Eyes Closed Supervision, 10 seconds Unsupported Stance- Eyes Open Independent, 1 minute Reaching Forward Standing Safely, 2 inches Pick- Up Object From Floor Within 2 inches, Unable Look Behind Shoulder - Standing Supervision w/Turning Turning 360 Degrees Turns slowly, but safely Unsupported Stance, Alternating Feet on (I)- 8 Steps in > 20 secs Stair Unsupported Tandem Stance Balance Lost- Step/Stand Unilateral Leg Stance Unable,assist to not fall Total Score Layton Total Score (out of 56 points) 36 PT-OP-G Mobility & Gait Start: 05/12/22 17:02 Freq: Status: Active Protocol: Document 05/13/22 12:58 [facility] (Rec: 05/15/22 15:36 [facility] [id number]) OP Gait Assessment Gait Gait Assistance Required: Independent Assistive Devices Assistive Device None Gait Deviations General Gait Pattern Decreased Stride Length, Decreased Feet Clearance Factors Limiting Gait Function Factors Limiting Gait Function Decreased Strength,Poor Balance Comments Gait Comments reaches for objects to stready herself Stair Climbing Evaluation Evaluation Level of Assist On Stairs Independent Devices Stair Climbing Assistive Devices Left Railing,Right Railing Technique/Endurance Stair Climbing Technique Step Over Step PT-OP-H Neuro Start: 05/12/22 17:02 Freq: Status: Active Protocol: Document 05/13/22 12:58 [facility] (Rec: 05/15/22 15:36 [facility] [id number]) Sensation Evaluation Gross Sensation Gross Sensation WNL PT-OP-J Posture/Palpation/Skin Start: 05/12/22 17:02 Freq: Status: Active Protocol: Document 05/13/22 12:58 [facility] (Rec: 05/15/22 15:36 [facility] [id number]) Posture Evaluation Position Standing Head/C-Spine Posture Forward Head T-Spine Posture Increased Kyphosis L-Spine Posture Decreased Lordosis Scapula Posture (L) Protracted,(R) Protracted Arm Posture (L) Internally Rotated,(R) Internally Rotated Pelvis Posture Posterior Tilted Hip Posture (L) Externally Rotated,(R) Externally Rotated PT-OP-K Range of Motion Start: 05/12/22 17:02 Freq: Status: Active Protocol: Document 05/13/22 12:58 [facility] (Rec: 05/15/22 15:36 [facility] [id number]) Hip Goniometric Range of Motion Hip alexys Hip ROM WFL Yes Knee Goniometric Range of Motion Knee alexys Knee ROM WFL Yes Ankle and Foot Goniometric Range of Motion Ankle and Foot alexys Ankle/Foot ROM WFL No Dorsiflexion with Knee Flexed 0 Dorsiflexion with Knee Extended 0 Ankle and Foot ROM Limitations ROM Limitations Soft Tissue Tightness PT-OP-M Strength Start: 05/12/22 17:02 Freq: Status: Active Protocol: Document 05/13/22 12:58 [facility] (Rec: 05/15/22 15:36 [facility] [id number]) Hip Strength Hip Manual Muscle Testing Right Flexion (L2) 4 Good Extension (S1) 4 Good Abduction 4- Good- Adduction 3+ Fair+ External Rotation 3+ Fair+ Left Flexion (L2) 4- Good- Extension (S1) 4- Good- Abduction 4 Good External Rotation 4- Good- Internal Rotation 4 Good Knee Strength Knee Manual Muscle Testing rright Flexion (S2) 4- Good- Extension (L3) 4- Good- Left Flexion (S2) 4 Good Extension (L3) 4 Good Ankle/Foot Strength Ankle and Foot Manual Muscle Testing Right Dorsiflexion (L4) 4- Good- Plantarflexion (S1) 4- Good- Left Dorsiflexion (L4) 4 Good Plantarflexion (S1) 4 Good PT-OP-Q Treatments Start: 05/12/22 17:02 Freq: Status: Active Protocol: Document 05/20/22 10:32 [facility] (Rec: 05/20/22 11:16 [facility] [id number]) Cardio Equipment Recumbent Stepper (Sci-Fit) Duration (Minutes) 6 Resistance 1 Seat Position 6 Other 0.5 miles Therapeutic Exercises Sitting Exercises ankle alphabet Reps/Minutes 10x Standing Exercises chair squat Reps/Minutes 10x toe raise Equipment Used parallel bars Reps/Minutes 10x heel raise Equipment Used parallel bars Reps/Minutes 10x Neuro Re-Education Treatment Balance Activities tiltboard Details bal and wt shift f/b, side Equipment parallel bars Reps/Duration 3 min x 2 Comments min UE support foam stand Surface blue square foam Equipment parallel bars Reps/Duration 5 min Comments EO, head turns, EC min UE support tandem stand Equipment parallel bars Reps/Duration 5x SLS Equipment parallel bars Reps/Duration 5x Self-Care/Home Management Treatment Education Other Education continue HEP PT-OP-T Assessment and Plan Start: 05/12/22 17:02 Freq: Status: Active Protocol: Document 05/20/22 10:32 [facility] (Rec: 05/20/22 11:16 [facility] [id number]) Physical Therapy Assessment Goals Three Impairment gait dysfunction Impairment unsteady gait, doesn't use device Survey Coordinator Goal (LTG) Patient to be safe with gait on level and uneven surfaces with least restrictive device. LTG Duration 07/11/22 Two Impairment weakness alexys LE's right greater than left Short Term Goal (STG) Instruct patient in HEP to support exercises and activities in therapy STG Duration 06/13/22 Survey Coordinator Goal (LTG) Patient to be independent in HEP for purposes of LE strengthening and balance training LTG Duration 07/11/22 One Impairment Balance dysfunction with high risk for falls Impairment Layton balance score 36/56 indicating high rrisk for falls Short Term Goal (STG) Improve Layton balance score to at least 45/56 STG Duration 06/13/22 Survey Coordinator Goal (LTG) Improve Layton Balance score to at least 50/56 as measure of improved balance and safety LTG Duration 07/11/22 Assessment Summary Assessment Good tolerance for ther ex today with frequent rest breaks. Tendency to lose balance backward but with repetition demonstrating improving balance reactions. No additions to HEP today, anticipate update next session . Physical Therapy Plan Frequency and Duration Frequency of Treatment 2x/Week Duration of treatment (weeks) 12 Plan of Care Start Date 05/13/22 Plan of Care End Date 08/11/22 Therapeutic Interventions Therapeutic Interventions Balance Training,Gait Training ,Home Exercise Program,Manual Therapy,Patient/Caregiver Education,Self-Care/Home Management,Soft Tissue Mobilization,Taping, Therapeutic Activities, Therapeutic Exercises Next Visit Focus/Plan Next Note Type Treatment Note Next Visit Plan Review HEP, therapeutic exercises for LE strengthening , balance, and gait training as tolerated.
--- NOTE | 2022-05-26 12:22 | PT.OTN ---
Current Diagnoses Other abnormalities of gait and mobility (05/26/22) Weakness (05/26/22) Other reduced mobility (05/26/22) Physical Therapy Treatment Note PT-OP-A Visit Information Start: 05/12/22 17:02 Freq: Status: Active Protocol: Document 05/26/22 11:22 NBM (Rec: 05/26/22 12:19 NB [id number]) Out-Patient Physical Therapy Visit Information Visit Information Visit Type Treatment Note Visit Start Time 11:22 Visit Stop Time 12:02 Total Visit Minutes 40 Visit Number 3 PT-OP-B Current Condition Start: 05/12/22 17:02 Freq: Status: Active Protocol: Document 05/20/22 10:32 SAK (Rec: 05/20/22 11:16 SAK [id number]) Current Condition History of Current Condition Onset Date August 2021 Current Complaints weakness, difficulty walking History of Current Condition Patient reports not sure why I'm here. Fell at home 2x over past 6 months, plus fell last February and wasn't able to get up; went into hospital with pneumonia. Fell and broke right ankle August 2021; ORIF. Agrees per doctor referral she may benefit for her balance and strenth. Rides a stationary bike 40 min 5x/wk. Doesn't go for walks. c/o weakness right thigh and ankle. Prior Treatments and Tests No PT. PT-OP-C Subjective Start: 05/12/22 17:02 Freq: Status: Active Protocol: Document 05/26/22 11:22 NBM (Rec: 05/26/22 12:19 NB [id number]) OP-PT Subjective Patient Comments Patient Comments Pt states she gets busy doing other things and so doesn't do her home ex's as often as I should. PT-OP-D Balance Start: 05/12/22 17:02 Freq: Status: Active Protocol: Document 05/13/22 12:58 SAK (Rec: 05/15/22 15:36 SAK [id number]) [place] Balance Assessment Evaluation Sitting to Standing Ability Independent w/out Hands Unsupported Stance Safely- 2 minutes Sitting Unsupported, Feet on Floor Safely- 2 minutes Standing to Sitting Ability Safely, Minimal Hand Use Transfer Ability Safely, Hand Use Unsupported Stance- Eyes Closed Supervision, 10 seconds Unsupported Stance- Eyes Open Independent, 1 minute Reaching Forward Standing Safely, 2 inches Pick- Up Object From Floor Within 2 inches, Unable Look Behind Shoulder - Standing Supervision w/Turning Turning 360 Degrees Turns slowly, but safely Unsupported Stance, Alternating Feet on (I)- 8 Steps in > 20 secs Stair Unsupported Tandem Stance Balance Lost- Step/Stand Unilateral Leg Stance Unable,assist to not fall Total Score Layton Total Score (out of 56 points) 36 PT-OP-G Mobility & Gait Start: 05/12/22 17:02 Freq: Status: Active Protocol: Document 05/13/22 12:58 [facility] (Rec: 05/15/22 15:36 [facility] [id number]) OP Gait Assessment Gait Gait Assistance Required: Independent Assistive Devices Assistive Device None Gait Deviations General Gait Pattern Decreased Stride Length, Decreased Feet Clearance Factors Limiting Gait Function Factors Limiting Gait Function Decreased Strength,Poor Balance Comments Gait Comments reaches for objects to stready herself Stair Climbing Evaluation Evaluation Level of Assist On Stairs Independent Devices Stair Climbing Assistive Devices Left Railing,Right Railing Technique/Endurance Stair Climbing Technique Step Over Step PT-OP-H Neuro Start: 05/12/22 17:02 Freq: Status: Active Protocol: Document 05/13/22 12:58 [facility] (Rec: 05/15/22 15:36 [facility] [id number]) Sensation Evaluation Gross Sensation Gross Sensation WNL PT-OP-J Posture/Palpation/Skin Start: 05/12/22 17:02 Freq: Status: Active Protocol: Document 05/13/22 12:58 [facility] (Rec: 05/15/22 15:36 [facility] [id number]) Posture Evaluation Position Standing Head/C-Spine Posture Forward Head T-Spine Posture Increased Kyphosis L-Spine Posture Decreased Lordosis Scapula Posture (L) Protracted,(R) Protracted Arm Posture (L) Internally Rotated,(R) Internally Rotated Pelvis Posture Posterior Tilted Hip Posture (L) Externally Rotated,(R) Externally Rotated PT-OP-K Range of Motion Start: 05/12/22 17:02 Freq: Status: Active Protocol: Document 05/13/22 12:58 [facility] (Rec: 05/15/22 15:36 [facility] [id number]) Hip Goniometric Range of Motion Hip alexys Hip ROM WFL Yes Knee Goniometric Range of Motion Knee alexys Knee ROM WFL Yes Ankle and Foot Goniometric Range of Motion Ankle and Foot alexys Ankle/Foot ROM WFL No Dorsiflexion with Knee Flexed 0 Dorsiflexion with Knee Extended 0 Ankle and Foot ROM Limitations ROM Limitations Soft Tissue Tightness PT-OP-M Strength Start: 05/12/22 17:02 Freq: Status: Active Protocol: Document 05/13/22 12:58 SAK (Rec: 05/15/22 15:36 SAK [id number]) Hip Strength Hip Manual Muscle Testing Right Flexion (L2) 4 Good Extension (S1) 4 Good Abduction 4- Good- Adduction 3+ Fair+ External Rotation 3+ Fair+ Left Flexion (L2) 4- Good- Extension (S1) 4- Good- Abduction 4 Good External Rotation 4- Good- Internal Rotation 4 Good Knee Strength Knee Manual Muscle Testing rright Flexion (S2) 4- Good- Extension (L3) 4- Good- Left Flexion (S2) 4 Good Extension (L3) 4 Good Ankle/Foot Strength Ankle and Foot Manual Muscle Testing Right Dorsiflexion (L4) 4- Good- Plantarflexion (S1) 4- Good- Left Dorsiflexion (L4) 4 Good Plantarflexion (S1) 4 Good PT-OP-Q Treatments Start: 05/12/22 17:02 Freq: Status: Active Protocol: Document 05/26/22 11:22 NB (Rec: 05/26/22 12:19 [facility] [id number]) Cardio Equipment Recumbent Bicycle Duration (Minutes) 5 Resistance 5 Seat Position 1 Other cue for RLE knee alignment Therapeutic Exercises Sitting Exercises ankle alphabet Side bilateral Reps/Minutes 10x Comments vc for smaller letters to target ankle vs quads Standing Exercises Hip abduction Side bilateral Resistance Lvl1 Tb Equipment Used handrail Reps/Minutes x10 ea Comments cues for controlled eccentric, neutral foot chair squat Equipment Used parallel bars Reps/Minutes 10x toe raise Side bilateral Equipment Used parallel bars Reps/Minutes 10x Comments initial cue for form heel raise Side bilateral Equipment Used parallel bars Reps/Minutes 10x Comments initial cue for form Neuro Re-Education Treatment Balance Activities tiltboard Details bal and wt shift f/b, med/lat Equipment parallel bars Reps/Duration 3 min x 2 Comments min UE support; EO/EC tandem stand Equipment parallel bars Reps/Duration 4 min Comments EO/EC SLS Equipment parallel bars Reps/Duration 3 min Comments trials Self-Care/Home Management Treatment Education Patient Education Home Exercise Program Other Education Discussed to continue current HEP and ways to incorporate it into her daily routine, or to pick one ex each day. PT-OP-T Assessment and Plan Start: 05/12/22 17:02 Freq: Status: Active Protocol: Document 05/26/22 11:22 [facility] (Rec: 05/26/22 12:19 [facility] [id number]) Physical Therapy Assessment Goals Three Impairment gait dysfunction Impairment unsteady gait, doesn't use device Eviscerator Goal (LTG) Patient to be safe with gait on level and uneven surfaces with least restrictive device. LTG Duration 07/11/22 Two Impairment weakness alexys LE's right greater than left Short Term Goal (STG) Instruct patient in HEP to support exercises and activities in therapy STG Duration 06/13/22 Eviscerator Goal (LTG) Patient to be independent in HEP for purposes of LE strengthening and balance training LTG Duration 07/11/22 One Impairment Balance dysfunction with high risk for falls Impairment [place]ton balance score 36/56 indicating high rrisk for falls Short Term Goal (STG) Improve [place]ton balance score to at least 45/56 STG Duration 06/13/22 Eviscerator Goal (LTG) Improve [place] Balance score to at least 50/56 as measure of improved balance and safety LTG Duration 07/11/22 Assessment Summary Assessment Pt requires initial cues for form with heel and toe raises and incorporates cues successfully with repetitions. Pt requires cues for knee valgus w/ chair squats. Pt is challenged w/ balance reactions eyes closed fairly equal in both a/p and m/l directions on tiltboard. Pt encouraged to make smaller letters with ankle alphabet to reduce quad involvement. No additions to HEP today due to pt unable to implement current HEP yet. Discussed ways to incorporate HEP into her daily routine, or to pick one ex each day. Physical Therapy Plan Frequency and Duration Frequency of Treatment 2x/Week Duration of treatment (weeks) 12 Plan of Care Start Date 05/13/22 Plan of Care End Date 08/11/22 Therapeutic Interventions Therapeutic Interventions Balance Training,Gait Training ,Home Exercise Program,Manual Therapy,Patient/Caregiver Education,Self-Care/Home Management,Soft Tissue Mobilization,Taping, Therapeutic Activities, Therapeutic Exercises Next Visit Focus/Plan Next Note Type Treatment Note Next Visit Plan Review HEP, therapeutic exercises for LE strengthening , balance, and gait training as tolerated.
--- NOTE | 2022-06-02 14:09 | PT.OTN ---
Current Diagnoses Other abnormalities of gait and mobility (06/02/22) Weakness (06/02/22) Other reduced mobility (06/02/22) Physical Therapy Treatment Note PT-OP-A Visit Information Start: 05/12/22 17:02 Freq: Status: Active Protocol: Document 06/02/22 10:37 NBM (Rec: 06/02/22 11:21 NBM [id number]) Out-Patient Physical Therapy Visit Information Visit Information Visit Type Treatment Note Visit Start Time 10:37 Visit Stop Time 11:17 Total Visit Minutes 40 Visit Number 5 Number of MATHEMATICS FACULTY MEMBER Visits 1 PT-OP-B Current Condition Start: 05/12/22 17:02 Freq: Status: Active Protocol: Document 05/20/22 10:32 SAK (Rec: 05/20/22 11:16 SAK [id number]) Current Condition History of Current Condition Onset Date August 2021 Current Complaints weakness, difficulty walking History of Current Condition Patient reports not sure why I'm here. Fell at home 2x over past 6 months, plus fell last February and wasn't able to get up; went into hospital with pneumonia. Fell and broke right ankle August 2021; ORIF. Agrees per doctor referral she may benefit for her balance and strenth. Rides a stationary bike 40 min 5x/wk. Doesn't go for walks. c/o weakness right thigh and ankle. Prior Treatments and Tests No PT. PT-OP-C Subjective Start: 05/12/22 17:02 Freq: Status: Active Protocol: Document 06/02/22 10:37 NBM (Rec: 06/02/22 11:21 NBM [id number]) OP-PT Subjective Patient Comments Patient Comments Pt states she is feeling frustrated with her balance. She states she can't do the tandem ex more than 4 seconds. She stood up at the kitchen table and almost lost balance last night, and her cat is often underfoot. PT-OP-D Balance Start: 05/12/22 17:02 Freq: Status: Active Protocol: Document 05/13/22 12:58 SAK (Rec: 05/15/22 15:36 SAK [id number]) [place] Balance Assessment Evaluation Sitting to Standing Ability Independent w/out Hands Unsupported Stance Safely- 2 minutes Sitting Unsupported, Feet on Floor Safely- 2 minutes Standing to Sitting Ability Safely, Minimal Hand Use Transfer Ability Safely, Hand Use Unsupported Stance- Eyes Closed Supervision, 10 seconds Unsupported Stance- Eyes Open Independent, 1 minute Reaching Forward Standing Safely, 2 inches Pick- Up Object From Floor Within 2 inches, Unable Look Behind Shoulder - Standing Supervision w/Turning Turning 360 Degrees Turns slowly, but safely Unsupported Stance, Alternating Feet on (I)- 8 Steps in > 20 secs Stair Unsupported Tandem Stance Balance Lost- Step/Stand Unilateral Leg Stance Unable,assist to not fall Total Score [place] Total Score (out of 56 points) 36 PT-OP-G Mobility & Gait Start: 05/12/22 17:02 Freq: Status: Active Protocol: Document 05/13/22 12:58 [facility] (Rec: 05/15/22 15:36 [facility] [id number]) OP Gait Assessment Gait Gait Assistance Required: Independent Assistive Devices Assistive Device None Gait Deviations General Gait Pattern Decreased Stride Length, Decreased Feet Clearance Factors Limiting Gait Function Factors Limiting Gait Function Decreased Strength,Poor Balance Comments Gait Comments reaches for objects to stready herself Stair Climbing Evaluation Evaluation Level of Assist On Stairs Independent Devices Stair Climbing Assistive Devices Left Railing,Right Railing Technique/Endurance Stair Climbing Technique Step Over Step PT-OP-H Neuro Start: 05/12/22 17:02 Freq: Status: Active Protocol: Document 05/13/22 12:58 [facility] (Rec: 05/15/22 15:36 [facility] [id number]) Sensation Evaluation Gross Sensation Gross Sensation WNL PT-OP-J Posture/Palpation/Skin Start: 05/12/22 17:02 Freq: Status: Active Protocol: Document 05/13/22 12:58 [facility] (Rec: 05/15/22 15:36 [facility] [id number]) Posture Evaluation Position Standing Head/C-Spine Posture Forward Head T-Spine Posture Increased Kyphosis L-Spine Posture Decreased Lordosis Scapula Posture (L) Protracted,(R) Protracted Arm Posture (L) Internally Rotated,(R) Internally Rotated Pelvis Posture Posterior Tilted Hip Posture (L) Externally Rotated,(R) Externally Rotated PT-OP-K Range of Motion Start: 05/12/22 17:02 Freq: Status: Active Protocol: Document 05/13/22 12:58 [facility] (Rec: 05/15/22 15:36 [facility] [id number]) Hip Goniometric Range of Motion Hip alexys Hip ROM WFL Yes Knee Goniometric Range of Motion Knee alexys Knee ROM WFL Yes Ankle and Foot Goniometric Range of Motion Ankle and Foot alexys Ankle/Foot ROM WFL No Dorsiflexion with Knee Flexed 0 Dorsiflexion with Knee Extended 0 Ankle and Foot ROM Limitations ROM Limitations Soft Tissue Tightness PT-OP-M Strength Start: 05/12/22 17:02 Freq: Status: Active Protocol: Document 05/13/22 12:58 [facility] (Rec: 05/15/22 15:36 [facility] [id number]) Hip Strength Hip Manual Muscle Testing Right Flexion (L2) 4 Good Extension (S1) 4 Good Abduction 4- Good- Adduction 3+ Fair+ External Rotation 3+ Fair+ Left Flexion (L2) 4- Good- Extension (S1) 4- Good- Abduction 4 Good External Rotation 4- Good- Internal Rotation 4 Good Knee Strength Knee Manual Muscle Testing rright Flexion (S2) 4- Good- Extension (L3) 4- Good- Left Flexion (S2) 4 Good Extension (L3) 4 Good Ankle/Foot Strength Ankle and Foot Manual Muscle Testing Right Dorsiflexion (L4) 4- Good- Plantarflexion (S1) 4- Good- Left Dorsiflexion (L4) 4 Good Plantarflexion (S1) 4 Good PT-OP-Q Treatments Start: 05/12/22 17:02 Freq: Status: Active Protocol: Document 06/02/22 10:37 NB (Rec: 06/02/22 11:21 [facility] [id number]) Cardio Equipment Recumbent Elliptical (Biodex) Duration (Minutes) 8 Resistance 3 Seat Position 6 seen Other cue to push through heels Gym Equipment Shuttle Balance red Details f/b,side bal and wt shifts Comments Mod UE support -Balloon volleyball a/p and m/ l 1 DIETETIC TECHNICIAN REGISTERED, CGA>[place] Therapeutic Exercises Sitting Exercises ankle alphabet Side bilateral Reps/Minutes 10x Comments vc for smaller letters to target ankle vs quads Standing Exercises calf stretch Standing Exercise Name at wall Side bilateral Reps/Minutes x30 ea Comments pt cued for longer hold Hip abduction Standing Exercise Name HEP Side bilateral Resistance Lvl1 Tb Equipment Used handrail Reps/Minutes x10 ea Comments cues for controlled eccentric, neutral foot chair squat Equipment Used mesh chair Reps/Minutes x5 Therapeutic Activity Therapeutic Activity sit to stand Reps/Minutes x5 Comments no UE support, cue edge of chair, pacing PT-OP-T Assessment and Plan Start: 05/12/22 17:02 Freq: Status: Active Protocol: Document 06/02/22 10:37 [facility] (Rec: 06/02/22 11:21 [facility] [id number]) Physical Therapy Assessment Impairments Impairments Activity Tolerance,Balance, Gait,Strength Goals Three Impairment gait dysfunction Impairment unsteady gait, doesn't use device Instructor Dancing Goal (LTG) Patient to be safe with gait on level and uneven surfaces with least restrictive device. LTG Duration 07/11/22 Two Impairment weakness alexys LE's right greater than left Short Term Goal (STG) Instruct patient in HEP to support exercises and activities in therapy STG Duration 06/13/22 Instructor Dancing Goal (LTG) Patient to be independent in HEP for purposes of LE strengthening and balance training LTG Duration 07/11/22 One Impairment Balance dysfunction with high risk for falls Impairment [place] balance score 36/56 indicating high rrisk for falls Short Term Goal (STG) Improve [place] balance score to at least 45/56 STG Duration 06/13/22 Residential Goal (LTG) Improve [place] Balance score to at least 50/56 as measure of improved balance and safety LTG Duration 07/11/22 Assessment Summary Assessment Pt requires cues for upright posture with distal focal point on shuttle balance and is educated on forward trunk lean shifting weight anteriorly and possibly contributing to loss of balance. On shuttle balance pt uses 1 DIETETIC TECHNICIAN REGISTERED wth balloon volleyball anterioposterior and mediolateral w/ good balance reactions; in weightshifting pt leans forward to look at feet. Pt still requires cues for smaller letters with ankle alphabet ex to target ankle vs quads, and expresses improved understanding and performance with education. She tolerates progression of chair squats to slower pacing of sit to stand with cues for no thigh/ upper extremity support. Physical Therapy Plan Frequency and Duration Frequency of Treatment 2x/Week Duration of treatment (weeks) 12 Plan of Care Start Date 05/13/22 Plan of Care End Date 08/11/22 Therapeutic Interventions Therapeutic Interventions Balance Training,Gait Training ,Home Exercise Program,Manual Therapy,Patient/Caregiver Education,Self-Care/Home Management,Soft Tissue Mobilization,Taping, Therapeutic Activities, Therapeutic Exercises Next Visit Focus/Plan Next Note Type Treatment Note Next Visit Plan Consider standing marching, corner balance and issuing for HEP (EO/EC). Review HEP, therapeutic exercises for LE strengthening , balance, and gait training as tolerated.
--- NOTE | 2022-06-05 14:58 | PT.OTN ---
Current Diagnoses Other abnormalities of gait and mobility (06/05/22) Weakness (06/05/22) Other reduced mobility (06/05/22) Physical Therapy Treatment Note PT-OP-A Visit Information Start: 05/12/22 17:02 Freq: Status: Active Protocol: Document 06/05/22 11:17 SAK (Rec: 06/05/22 11:59 [facility] [id number]) Out-Patient Physical Therapy Visit Information Visit Information Visit Type Treatment Note Visit Start Time 11:17 Visit Stop Time 12:00 Total Visit Minutes 43 Visit Number 6 Number of BUTTONHOLE TACKER Visits 0 PT-OP-B Current Condition Start: 05/12/22 17:02 Freq: Status: Active Protocol: Document 05/20/22 10:32 SAK (Rec: 05/20/22 11:16 SAK [id number]) Current Condition History of Current Condition Onset Date August 2021 Current Complaints weakness, difficulty walking History of Current Condition Patient reports not sure why I'm here. Fell at home 2x over past 6 months, plus fell last February and wasn't able to get up; went into hospital with pneumonia. Fell and broke right ankle August 2021; ORIF. Agrees per doctor referral she may benefit for her balance and strenth. Rides a stationary bike 40 min 5x/wk. Doesn't go for walks. c/o weakness right thigh and ankle. Prior Treatments and Tests No PT. PT-OP-C Subjective Start: 05/12/22 17:02 Freq: Status: Active Protocol: Document 06/05/22 11:17 SAK (Rec: 06/05/22 11:59 [facility] [id number]) OP-PT Subjective Patient Comments Patient Comments BP 159/80 sitting, 137/74 standing. Frustrated by difficulty with balance, not sure if dizzy, or just balance . l Reports BP much lower at home. Agreed to try BP sitting and standing at home. Admits to not drinking much water due to bladder issues. PT-OP-D Balance Start: 05/12/22 17:02 Freq: Status: Active Protocol: Document 05/13/22 12:58 SAK (Rec: 05/15/22 15:36 SAK [id number]) Layton Balance Assessment Evaluation Sitting to Standing Ability Independent w/out Hands Unsupported Stance Safely- 2 minutes Sitting Unsupported, Feet on Floor Safely- 2 minutes Standing to Sitting Ability Safely, Minimal Hand Use Transfer Ability Safely, Hand Use Unsupported Stance- Eyes Closed Supervision, 10 seconds Unsupported Stance- Eyes Open Independent, 1 minute Reaching Forward Standing Safely, 2 inches Pick- Up Object From Floor Within 2 inches, Unable Look Behind Shoulder - Standing Supervision w/Turning Turning 360 Degrees Turns slowly, but safely Unsupported Stance, Alternating Feet on (I)- 8 Steps in > 20 secs Stair Unsupported Tandem Stance Balance Lost- Step/Stand Unilateral Leg Stance Unable,assist to not fall Total Score Layton Total Score (out of 56 points) 36 PT-OP-G Mobility & Gait Start: 05/12/22 17:02 Freq: Status: Active Protocol: Document 05/13/22 12:58 [facility] (Rec: 05/15/22 15:36 [facility] [id number]) OP Gait Assessment Gait Gait Assistance Required: Independent Assistive Devices Assistive Device None Gait Deviations General Gait Pattern Decreased Stride Length, Decreased Feet Clearance Factors Limiting Gait Function Factors Limiting Gait Function Decreased Strength,Poor Balance Comments Gait Comments reaches for objects to stready herself Stair Climbing Evaluation Evaluation Level of Assist On Stairs Independent Devices Stair Climbing Assistive Devices Left Railing,Right Railing Technique/Endurance Stair Climbing Technique Step Over Step PT-OP-H Neuro Start: 05/12/22 17:02 Freq: Status: Active Protocol: Document 05/13/22 12:58 [facility] (Rec: 05/15/22 15:36 [facility] [id number]) Sensation Evaluation Gross Sensation Gross Sensation WNL PT-OP-J Posture/Palpation/Skin Start: 05/12/22 17:02 Freq: Status: Active Protocol: Document 05/13/22 12:58 [facility] (Rec: 05/15/22 15:36 [facility] [id number]) Posture Evaluation Position Standing Head/C-Spine Posture Forward Head T-Spine Posture Increased Kyphosis L-Spine Posture Decreased Lordosis Scapula Posture (L) Protracted,(R) Protracted Arm Posture (L) Internally Rotated,(R) Internally Rotated Pelvis Posture Posterior Tilted Hip Posture (L) Externally Rotated,(R) Externally Rotated PT-OP-K Range of Motion Start: 05/12/22 17:02 Freq: Status: Active Protocol: Document 05/13/22 12:58 [facility] (Rec: 05/15/22 15:36 [facility] [id number]) Hip Goniometric Range of Motion Hip alexys Hip ROM WFL Yes Knee Goniometric Range of Motion Knee alexys Knee ROM WFL Yes Ankle and Foot Goniometric Range of Motion Ankle and Foot alexys Ankle/Foot ROM WFL No Dorsiflexion with Knee Flexed 0 Dorsiflexion with Knee Extended 0 Ankle and Foot ROM Limitations ROM Limitations Soft Tissue Tightness PT-OP-M Strength Start: 05/12/22 17:02 Freq: Status: Active Protocol: Document 05/13/22 12:58 [facility] (Rec: 05/15/22 15:36 [facility] [id number]) Hip Strength Hip Manual Muscle Testing Right Flexion (L2) 4 Good Extension (S1) 4 Good Abduction 4- Good- Adduction 3+ Fair+ External Rotation 3+ Fair+ Left Flexion (L2) 4- Good- Extension (S1) 4- Good- Abduction 4 Good External Rotation 4- Good- Internal Rotation 4 Good Knee Strength Knee Manual Muscle Testing rright Flexion (S2) 4- Good- Extension (L3) 4- Good- Left Flexion (S2) 4 Good Extension (L3) 4 Good Ankle/Foot Strength Ankle and Foot Manual Muscle Testing Right Dorsiflexion (L4) 4- Good- Plantarflexion (S1) 4- Good- Left Dorsiflexion (L4) 4 Good Plantarflexion (S1) 4 Good PT-OP-Q Treatments Start: 05/12/22 17:02 Freq: Status: Active Protocol: Document 06/05/22 11:17 [facility] (Rec: 06/05/22 11:59 [facility] [id number]) Therapeutic Exercises Sitting Exercises sit to stand Reps/Minutes 5x Standing Exercises step-out Standing Exercise Name balance recovery all directions Comments next session marching Equipment Used parallel bars Comments 10x2, cues for slow calf stretch Standing Exercise Name at wall Side bilateral Reps/Minutes x30 ea Comments pt cued for longer hold Hip abduction Standing Exercise Name HEP Side bilateral Resistance Lvl1 Tb Equipment Used handrail Reps/Minutes x10 ea Comments cues for controlled eccentric, neutral foot Therapeutic Activity Therapeutic Activity sit to stand Reps/Minutes 5x2 Comments 1. no UE support, cue edge of chair, pacing 2. blue foam under feet, needed UE's to stand Neuro Re-Education Treatment Balance Activities hurdles Details forward Surface firm Equipment parallel bars, 3 then 5 hurdles Comments step-to and step over step alexys to unil UE support obstacle course Equipment parallel bars Comments foam pads: black, blue, green, blue square, lanier cushion Self-Care/Home Management Treatment Education Other Education Encouraged to inc hydration Instrsucted in sitting and stand BP to see if drops PT-OP-T Assessment and Plan Start: 05/12/22 17:02 Freq: Status: Active Protocol: Document 06/05/22 11:17 [facility] (Rec: 06/05/22 11:59 [facility] [id number]) Physical Therapy Assessment Goals Three Impairment gait dysfunction Impairment unsteady gait, doesn't use device Costume Specialist Goal (LTG) Patient to be safe with gait on level and uneven surfaces with least restrictive device. LTG Duration 07/11/22 Two Impairment weakness alexys LE's right greater than left Short Term Goal (STG) Instruct patient in HEP to support exercises and activities in therapy STG Duration 06/13/22 Costume Specialist Goal (LTG) Patient to be independent in HEP for purposes of LE strengthening and balance training LTG Duration 07/11/22 One Impairment Balance dysfunction with high risk for falls Impairment Layton balance score 36/56 indicating high rrisk for falls Short Term Goal (STG) Improve Layton balance score to at least 45/56 STG Duration 06/13/22 Nursing Home Goal (LTG) Improve Layton Balance score to at least 50/56 as measure of improved balance and safety LTG Duration 07/11/22 Assessment Summary Assessment Drop in BP sit to stand significant though patient denied dizziness today. Improved performance walking on foam and over hurdles with practice, encouraged that increased compliance and frequency of HEP can be helpful. Patient demonstrated good understanding of recommendation to try taking sitting and then immediate standing BP at home as well as benfits of increased hydration. Noting improvement in functional balance, recommend continued PT> Physical Therapy Plan Frequency and Duration Frequency of Treatment 2x/Week Duration of treatment (weeks) 12 Plan of Care Start Date 05/13/22 Plan of Care End Date 08/11/22 Therapeutic Interventions Therapeutic Interventions Balance Training,Gait Training ,Home Exercise Program,Manual Therapy,Patient/Caregiver Education,Self-Care/Home Management,Soft Tissue Mobilization,Taping, Therapeutic Activities, Therapeutic Exercises Next Visit Focus/Plan Next Note Type Treatment Note Next Visit Plan Instruct in corner balance ex, continue progression of therapeutic exercises and neuro re-ed for LE strengthening, balance, gait training.
--- NOTE | 2022-06-20 14:30 | PT.OTN ---
Current Diagnoses Other abnormalities of gait and mobility (06/20/22) Weakness (06/20/22) Other reduced mobility (06/20/22) Physical Therapy Treatment Note PT-OP-A Visit Information Start: 05/12/22 17:02 Freq: Status: Active Protocol: Document 06/20/22 13:50 SP (Rec: 06/20/22 14:31 SP [id number]) Out-Patient Physical Therapy Visit Information Visit Information Visit Type Treatment Note Visit Note PN in 3 more appts. Check if need more appts Visit Start Time 13:50 Visit Stop Time 14:30 Total Visit Minutes 40 Visit Number 7 Number of INFORMATION SECURITY OFFICER Visits 1 Evaluation Information Evaluation Date 05/13/22 PT-OP-B Current Condition Start: 05/12/22 17:02 Freq: Status: Active Protocol: Document 05/20/22 10:32 SAK (Rec: 05/20/22 11:16 SAK [id number]) Current Condition History of Current Condition Onset Date August 2021 Current Complaints weakness, difficulty walking History of Current Condition Patient reports not sure why I'm here. Fell at home 2x over past 6 months, plus fell last February and wasn't able to get up; went into hospital with pneumonia. Fell and broke right ankle August 2021; ORIF. Agrees per doctor referral she may benefit for her balance and strenth. Rides a stationary bike 40 min 5x/wk. Doesn't go for walks. c/o weakness right thigh and ankle. Prior Treatments and Tests No PT. PT-OP-C Subjective Start: 05/12/22 17:02 Freq: Status: Active Protocol: Document 06/20/22 13:50 SP (Rec: 06/20/22 14:31 SP [id number]) OP-PT Subjective Patient Comments Patient Comments Pt report hasn't taken BPs since last tx. SHe reports busy with computer problems and needing to reinstall programs. She states feeling better about walking level surfaces, still has LOB sways recovers from but uneven surfaces goes slow but has potential of falling. PT-OP-D Balance Start: 05/12/22 17:02 Freq: Status: Active Protocol: Document 05/13/22 12:58 SAK (Rec: 05/15/22 15:36 SAK [id number]) [place] Balance Assessment Evaluation Sitting to Standing Ability Independent w/out Hands Unsupported Stance Safely- 2 minutes Sitting Unsupported, Feet on Floor Safely- 2 minutes Standing to Sitting Ability Safely, Minimal Hand Use Transfer Ability Safely, Hand Use Unsupported Stance- Eyes Closed Supervision, 10 seconds Unsupported Stance- Eyes Open Independent, 1 minute Reaching Forward Standing Safely, 2 inches Pick- Up Object From Floor Within 2 inches, Unable Look Behind Shoulder - Standing Supervision w/Turning Turning 360 Degrees Turns slowly, but safely Unsupported Stance, Alternating Feet on (I)- 8 Steps in > 20 secs Stair Unsupported Tandem Stance Balance Lost- Step/Stand Unilateral Leg Stance Unable,assist to not fall Total Score Layton Total Score (out of 56 points) 36 PT-OP-G Mobility & Gait Start: 05/12/22 17:02 Freq: Status: Active Protocol: Document 05/13/22 12:58 [facility] (Rec: 05/15/22 15:36 [facility] [id number]) OP Gait Assessment Gait Gait Assistance Required: Independent Assistive Devices Assistive Device None Gait Deviations General Gait Pattern Decreased Stride Length, Decreased Feet Clearance Factors Limiting Gait Function Factors Limiting Gait Function Decreased Strength,Poor Balance Comments Gait Comments reaches for objects to stready herself Stair Climbing Evaluation Evaluation Level of Assist On Stairs Independent Devices Stair Climbing Assistive Devices Left Railing,Right Railing Technique/Endurance Stair Climbing Technique Step Over Step PT-OP-H Neuro Start: 05/12/22 17:02 Freq: Status: Active Protocol: Document 05/13/22 12:58 [facility] (Rec: 05/15/22 15:36 [facility] [id number]) Sensation Evaluation Gross Sensation Gross Sensation WNL PT-OP-J Posture/Palpation/Skin Start: 05/12/22 17:02 Freq: Status: Active Protocol: Document 05/13/22 12:58 [facility] (Rec: 05/15/22 15:36 [facility] [id number]) Posture Evaluation Position Standing Head/C-Spine Posture Forward Head T-Spine Posture Increased Kyphosis L-Spine Posture Decreased Lordosis Scapula Posture (L) Protracted,(R) Protracted Arm Posture (L) Internally Rotated,(R) Internally Rotated Pelvis Posture Posterior Tilted Hip Posture (L) Externally Rotated,(R) Externally Rotated PT-OP-K Range of Motion Start: 05/12/22 17:02 Freq: Status: Active Protocol: Document 05/13/22 12:58 [facility] (Rec: 05/15/22 15:36 [facility] [id number]) Hip Goniometric Range of Motion Hip alexys Hip ROM WFL Yes Knee Goniometric Range of Motion Knee alexys Knee ROM WFL Yes Ankle and Foot Goniometric Range of Motion Ankle and Foot alexys Ankle/Foot ROM WFL No Dorsiflexion with Knee Flexed 0 Dorsiflexion with Knee Extended 0 Ankle and Foot ROM Limitations ROM Limitations Soft Tissue Tightness PT-OP-M Strength Start: 05/12/22 17:02 Freq: Status: Active Protocol: Document 05/13/22 12:58 [facility] (Rec: 05/15/22 15:36 [facility] [id number]) Hip Strength Hip Manual Muscle Testing Right Flexion (L2) 4 Good Extension (S1) 4 Good Abduction 4- Good- Adduction 3+ Fair+ External Rotation 3+ Fair+ Left Flexion (L2) 4- Good- Extension (S1) 4- Good- Abduction 4 Good External Rotation 4- Good- Internal Rotation 4 Good Knee Strength Knee Manual Muscle Testing rright Flexion (S2) 4- Good- Extension (L3) 4- Good- Left Flexion (S2) 4 Good Extension (L3) 4 Good Ankle/Foot Strength Ankle and Foot Manual Muscle Testing Right Dorsiflexion (L4) 4- Good- Plantarflexion (S1) 4- Good- Left Dorsiflexion (L4) 4 Good Plantarflexion (S1) 4 Good PT-OP-Q Treatments Start: 05/12/22 17:02 Freq: Status: Active Protocol: Document 06/20/22 13:50 SP (Rec: 06/20/22 14:31 SP [id number]) Gym Equipment Shuttle Recovery Unilateral squat Resistance 25 (old band), 3/3 new band to much Shuttle Recovery Platform Stable Reps/Time x10 Bilateral Squats Resistance 50#> #50 (1new band) Shuttle Recovery Platform Stable Reps/Time 10x each resistance Therapeutic Exercises Sitting Exercises sit to stand Sitting Exercise Name added to HEP Equipment Used mesh chair, arms front> across chest Reps/Minutes 2x10 Comments cued scoot fwd, feet back under her, hip hinge asc/ descend improved no flop Gait Training Gait Activity stairs Description 3 stairs back, 3 stairs slider WHR, 3 enter stairs R WHR Device Used R HR Level of Assistance SBA Distance/Duration 4 stairs x4 sets Treatment Focus reciprocal patterning Comments limited R ankle DF Neuro Re-Education Treatment Balance Activities hurdles Details forward, latearl Surface firm Equipment 6 hurdles open space Reps/Duration 2 laps each direction Comments step-to cued soft stepping and posturing improved full foot more fwd COG over FLORIAN. when stopped wt shift retro recover 1 LOB. Self-Care/Home Management Treatment Education Patient Education Body Mechanics,Posture,Safety Other Education Reviewed continue hydration, BP checks, tall posture COG over full foot to decrease retro lean coming to standing. PT-OP-T Assessment and Plan Start: 05/12/22 17:02 Freq: Status: Active Protocol: Document 06/20/22 13:50 SP (Rec: 06/20/22 14:31 SP [id number]) Physical Therapy Assessment Goals Three Impairment gait dysfunction Impairment unsteady gait, doesn't use device Sql Engineer Goal (LTG) Patient to be safe with gait on level and uneven surfaces with least restrictive device. 06/20/22: states not using an AD . She report usually on flat side walks ok, but uneven rock /grass in yard little unsteady feels like potential fall so goes more slowly into yard. LTG Duration 07/11/22 progressing 06/20/22 Two Impairment weakness alexys LE's right greater than left Short Term Goal (STG) Instruct patient in HEP to support exercises and activities in therapy STG Duration 06/13/22 Residential Goal (LTG) Patient to be independent in HEP for purposes of LE strengthening and balance training LTG Duration 07/11/22 One Impairment Balance dysfunction with high risk for falls Impairment Layton balance score 36/56 indicating high rrisk for falls Short Term Goal (STG) Improve Layton balance score to at least 45/56 STG Duration 06/13/22 Residential Goal (LTG) Improve Layton Balance score to at least 50/56 as measure of improved balance and safety LTG Duration 07/11/22 Assessment Summary Assessment Pt BP 146/ 78 HR 66 SaO2 100% post shuttle recovery and STS. Pt improved soft stepping stability over hurdles post cues for taller posturing and allowed increase stance time, though when completed had 2 retro leans 1 being LOB 5%A recovery. Pt improved STS with hip hinge eccentric control post ed and reps. Physical Therapy Plan Frequency and Duration Frequency of Treatment 2x/Week Duration of treatment (weeks) 12 Plan of Care Start Date 05/13/22 Plan of Care End Date 08/11/22 Therapeutic Interventions Therapeutic Interventions Balance Training,Gait Training ,Home Exercise Program,Manual Therapy,Patient/Caregiver Education,Self-Care/Home Management,Soft Tissue Mobilization,Taping, Therapeutic Activities, Therapeutic Exercises Next Visit Focus/Plan Next Note Type Treatment Note Next Visit Plan Trial gait uneven surfaces w/ trek poles/SPC encourage use AD. Add wt shift off wall, perturbations, activities fwd COG full foot decrease retro lean. POC: Instruct in corner balance ex, continue progression of therapeutic exercises and neuro re-ed for LE strengthening, balance, gait training.
--- NOTE | 2022-07-01 14:32 | PT.OTN ---
Current Diagnoses Other abnormalities of gait and mobility (07/01/22) Weakness (07/01/22) Other reduced mobility (07/01/22) Physical Therapy Treatment Note PT-OP-A Visit Information Start: 05/12/22 17:02 Freq: Status: Active Protocol: Document 07/01/22 13:27 NB (Rec: 07/01/22 14:31 [facility] [id number]) Out-Patient Physical Therapy Visit Information Visit Information Visit Type Treatment Note Visit Note PN in 1 more appts. Check if need more appts Visit Start Time 13:49 Visit Stop Time 14:29 Total Visit Minutes 40 Visit Number 10 Number of BOBBIN COIL WINDER Visits 3 Evaluation Information Evaluation Date 05/13/22 PT-OP-B Current Condition Start: 05/12/22 17:02 Freq: Status: Active Protocol: Document 05/20/22 10:32 SAK (Rec: 05/20/22 11:16 SAK [id number]) Current Condition History of Current Condition Onset Date August 2021 Current Complaints weakness, difficulty walking History of Current Condition Patient reports not sure why I'm here. Fell at home 2x over past 6 months, plus fell last February and wasn't able to get up; went into hospital with pneumonia. Fell and broke right ankle August 2021; ORIF. Agrees per doctor referral she may benefit for her balance and strenth. Rides a stationary bike 40 min 5x/wk. Doesn't go for walks. c/o weakness right thigh and ankle. Prior Treatments and Tests No PT. PT-OP-C Subjective Start: 05/12/22 17:02 Freq: Status: Active Protocol: Document 07/01/22 13:27 NB (Rec: 07/01/22 14:31 [facility] [id number]) OP-PT Subjective Patient Comments Patient Comments Pt states she thinks she's getting better. She still struggles to do home exercises . She took her BP yesterday and it was in a good range. PT-OP-D Balance Start: 05/12/22 17:02 Freq: Status: Active Protocol: Document 05/13/22 12:58 SAK (Rec: 05/15/22 15:36 SAK [id number]) Layton Balance Assessment Evaluation Sitting to Standing Ability Independent w/out Hands Unsupported Stance Safely- 2 minutes Sitting Unsupported, Feet on Floor Safely- 2 minutes Standing to Sitting Ability Safely, Minimal Hand Use Transfer Ability Safely, Hand Use Unsupported Stance- Eyes Closed Supervision, 10 seconds Unsupported Stance- Eyes Open Independent, 1 minute Reaching Forward Standing Safely, 2 inches Pick- Up Object From Floor Within 2 inches, Unable Look Behind Shoulder - Standing Supervision w/Turning Turning 360 Degrees Turns slowly, but safely Unsupported Stance, Alternating Feet on (I)- 8 Steps in > 20 secs Stair Unsupported Tandem Stance Balance Lost- Step/Stand Unilateral Leg Stance Unable,assist to not fall Total Score Layton Total Score (out of 56 points) 36 PT-OP-G Mobility & Gait Start: 05/12/22 17:02 Freq: Status: Active Protocol: Document 05/13/22 12:58 [facility] (Rec: 05/15/22 15:36 [facility] [id number]) OP Gait Assessment Gait Gait Assistance Required: Independent Assistive Devices Assistive Device None Gait Deviations General Gait Pattern Decreased Stride Length, Decreased Feet Clearance Factors Limiting Gait Function Factors Limiting Gait Function Decreased Strength,Poor Balance Comments Gait Comments reaches for objects to stready herself Stair Climbing Evaluation Evaluation Level of Assist On Stairs Independent Devices Stair Climbing Assistive Devices Left Railing,Right Railing Technique/Endurance Stair Climbing Technique Step Over Step PT-OP-H Neuro Start: 05/12/22 17:02 Freq: Status: Active Protocol: Document 05/13/22 12:58 [facility] (Rec: 05/15/22 15:36 [facility] [id number]) Sensation Evaluation Gross Sensation Gross Sensation WNL PT-OP-J Posture/Palpation/Skin Start: 05/12/22 17:02 Freq: Status: Active Protocol: Document 05/13/22 12:58 [facility] (Rec: 05/15/22 15:36 [facility] [id number]) Posture Evaluation Position Standing Head/C-Spine Posture Forward Head T-Spine Posture Increased Kyphosis L-Spine Posture Decreased Lordosis Scapula Posture (L) Protracted,(R) Protracted Arm Posture (L) Internally Rotated,(R) Internally Rotated Pelvis Posture Posterior Tilted Hip Posture (L) Externally Rotated,(R) Externally Rotated PT-OP-K Range of Motion Start: 05/12/22 17:02 Freq: Status: Active Protocol: Document 05/13/22 12:58 [facility] (Rec: 05/15/22 15:36 [facility] [id number]) Hip Goniometric Range of Motion Hip alexys Hip ROM WFL Yes Knee Goniometric Range of Motion Knee alexys Knee ROM WFL Yes Ankle and Foot Goniometric Range of Motion Ankle and Foot alexys Ankle/Foot ROM WFL No Dorsiflexion with Knee Flexed 0 Dorsiflexion with Knee Extended 0 Ankle and Foot ROM Limitations ROM Limitations Soft Tissue Tightness PT-OP-M Strength Start: 05/12/22 17:02 Freq: Status: Active Protocol: Document 05/13/22 12:58 [facility] (Rec: 05/15/22 15:36 [facility] [id number]) Hip Strength Hip Manual Muscle Testing Right Flexion (L2) 4 Good Extension (S1) 4 Good Abduction 4- Good- Adduction 3+ Fair+ External Rotation 3+ Fair+ Left Flexion (L2) 4- Good- Extension (S1) 4- Good- Abduction 4 Good External Rotation 4- Good- Internal Rotation 4 Good Knee Strength Knee Manual Muscle Testing rright Flexion (S2) 4- Good- Extension (L3) 4- Good- Left Flexion (S2) 4 Good Extension (L3) 4 Good Ankle/Foot Strength Ankle and Foot Manual Muscle Testing Right Dorsiflexion (L4) 4- Good- Plantarflexion (S1) 4- Good- Left Dorsiflexion (L4) 4 Good Plantarflexion (S1) 4 Good PT-OP-Q Treatments Start: 05/12/22 17:02 Freq: Status: Active Protocol: Document 07/01/22 13:27 NB (Rec: 07/01/22 14:31 NB [id number]) Therapeutic Exercises Standing Exercises kitchen sink stretch Standing Exercise Name thoracic elongation Equipment Used handrail Reps/Minutes x30 bandwalking Standing Exercise Name lateral, forward, backward Side bilateral Resistance Lvl2 Tb Equipment Used // bars Reps/Minutes 1 lap ea Comments cues for feet hip width initially and with fatigue marching Equipment Used handrail Comments 10x2, cues for slow, level pelvis calf stretch Standing Exercise Name at wall Side bilateral Equipment Used handrail today Reps/Minutes 2x30 ea Comments pt cued for longer hold w/ verbal count Hip abduction Standing Exercise Name HEP (progressed to band walking) Side bilateral Resistance Lvl2 Tb at ankles Equipment Used handrail Reps/Minutes x10 ea Comments improved self-awareness for controlled eccentric, neutral foot chair squat Resistance Lvl2 Tb Equipment Used mesh chair Reps/Minutes x10 Comments cues for hip hinge, knee alignment alexys toe raise Standing Exercise Name HEP Side bilateral Reps/Minutes x10 Comments cues for not swaying bwd heel raise Standing Exercise Name HEP Side bilateral Reps/Minutes x10 Comments cue for slow eccentric Therapeutic Activity Therapeutic Activity sit to stand Reps/Minutes 5x Comments 1. no UE support, cue edge of chair, pacing Neuro Re-Education Treatment Balance Activities hurdles Details forward, latearl Surface firm Equipment 6 hurdles // bars Reps/Duration 2 laps each direction obstacle course Equipment parallel bars Comments foam pads: black, blue, green, blue square, lanier cushion PT-OP-T Assessment and Plan Start: 05/12/22 17:02 Freq: Status: Active Protocol: Document 07/01/22 13:27 [facility] (Rec: 07/01/22 14:31 [facility] [id number]) Physical Therapy Assessment Goals Three Impairment gait dysfunction Impairment unsteady gait, doesn't use device Mcc Goal (LTG) Patient to be safe with gait on level and uneven surfaces with least restrictive device. 06/20/22: states not using an AD . She report usually on flat side walks ok, but uneven rock /grass in yard little unsteady feels like potential fall so goes more slowly into yard. LTG Duration 07/11/22 progressing 06/20/22 Two Impairment weakness alexys LE's right greater than left Short Term Goal (STG) Instruct patient in HEP to support exercises and activities in therapy STG Duration 06/13/22 Chute Greaser Goal (LTG) Patient to be independent in HEP for purposes of LE strengthening and balance training LTG Duration 07/11/22 One Impairment Balance dysfunction with high risk for falls Impairment Layton balance score 36/56 indicating high rrisk for falls Short Term Goal (STG) Improve Layton balance score to at least 45/56 STG Duration 06/13/22 Mcc Goal (LTG) Improve Layton Balance score to at least 50/56 as measure of improved balance and safety LTG Duration 07/11/22 Assessment Summary Assessment Pt has improved self-awareness for controlled eccentric movement and neutral foot position with resisted hip abduction. Pt tolerates increased activity this session without a break including bandwalking Lvl2 forward, backward, and laterally with improved self- awareness of foot positioning. Lvl2 Tb added around knees to improve knee valgus with chair squats. Physical Therapy Plan Frequency and Duration Frequency of Treatment 2x/Week Duration of treatment (weeks) 12 Plan of Care Start Date 05/13/22 Plan of Care End Date 08/11/22 Therapeutic Interventions Therapeutic Interventions Balance Training,Gait Training ,Home Exercise Program,Manual Therapy,Patient/Caregiver Education,Self-Care/Home Management,Soft Tissue Mobilization,Taping, Therapeutic Activities, Therapeutic Exercises Next Visit Focus/Plan Next Note Type Treatment Note Next Visit Plan Trial gait uneven surfaces w/ trek poles/SPC encourage use AD. Add wt shift off wall, perturbations, activities fwd COG full foot decrease retro lean. POC: Instruct in corner balance ex, continue progression of therapeutic exercises and neuro re-ed for LE strengthening, balance, gait training.
--- NOTE | 2022-07-17 12:47 | PT.OTN ---
Current Diagnoses Other abnormalities of gait and mobility (07/17/22) Weakness (07/17/22) Other reduced mobility (07/17/22) Physical Therapy Treatment Note PT-OP-A Visit Information Start: 05/12/22 17:02 Freq: Status: Active Protocol: Document 07/17/22 12:00 DCW (Rec: 07/17/22 12:47 DCW [id number]) Out-Patient Physical Therapy Visit Information Visit Information Visit Type Progress Note Visit Start Time 12:00 Visit Stop Time 12:45 Total Visit Minutes 45 Visit Number 11 Number of ABALONE FISHERMAN Visits 0 Evaluation Information Evaluation Date 05/13/22 PT-OP-B Current Condition Start: 05/12/22 17:02 Freq: Status: Active Protocol: Document 05/20/22 10:32 SAK (Rec: 05/20/22 11:16 SAK [id number]) Current Condition History of Current Condition Onset Date August 2021 Current Complaints weakness, difficulty walking History of Current Condition Patient reports not sure why I'm here. Fell at home 2x over past 6 months, plus fell last February and wasn't able to get up; went into hospital with pneumonia. Fell and broke right ankle August 2021; ORIF. Agrees per doctor referral she may benefit for her balance and strenth. Rides a stationary bike 40 min 5x/wk. Doesn't go for walks. c/o weakness right thigh and ankle. Prior Treatments and Tests No PT. PT-OP-C Subjective Start: 05/12/22 17:02 Freq: Status: Active Protocol: Document 07/17/22 12:00 DCW (Rec: 07/17/22 12:47 DCW [id number]) OP-PT Subjective Patient Comments Patient Comments Admits she continues to be rather noncompliant with her HEP, notes she has other stuff going on. PT-OP-D Balance Start: 05/12/22 17:02 Freq: Status: Active Protocol: Document 07/17/22 12:00 DCW (Rec: 07/17/22 12:26 DCW [id number]) Layton Balance Assessment Evaluation Sitting to Standing Ability Independent w/out Hands Unsupported Stance Safely- 2 minutes Sitting Unsupported, Feet on Floor Safely- 2 minutes Standing to Sitting Ability Safely, Minimal Hand Use Transfer Ability Safely, Minimal Hand Use Unsupported Stance- Eyes Closed Safely, 10 seconds Unsupported Stance- Eyes Open Independent, 1 minute Reaching Forward Standing Safely, 5 inches Pick- Up Object From Floor Supervision Look Behind Shoulder - Standing Shifts Weight Well Turning 360 Degrees Turns slowly, but safely Unsupported Stance, Alternating Feet on (I)- 8 Steps in > 20 secs Stair Unsupported Tandem Stance Small Step- 30 seconds Unilateral Leg Stance Lifts Leg/Unable to Hold Total Score Layton Total Score (out of 56 points) 46 Layton Impairment Rating 1 to 19% Impaired (Score 45-55 ) PT-OP-G Mobility & Gait Start: 05/12/22 17:02 Freq: Status: Active Protocol: Document 05/13/22 12:58 [facility] (Rec: 05/15/22 15:36 [facility] [id number]) OP Gait Assessment Gait Gait Assistance Required: Independent Assistive Devices Assistive Device None Gait Deviations General Gait Pattern Decreased Stride Length, Decreased Feet Clearance Factors Limiting Gait Function Factors Limiting Gait Function Decreased Strength,Poor Balance Comments Gait Comments reaches for objects to stready herself Stair Climbing Evaluation Evaluation Level of Assist On Stairs Independent Devices Stair Climbing Assistive Devices Left Railing,Right Railing Technique/Endurance Stair Climbing Technique Step Over Step PT-OP-H Neuro Start: 05/12/22 17:02 Freq: Status: Active Protocol: Document 05/13/22 12:58 [facility] (Rec: 05/15/22 15:36 [facility] [id number]) Sensation Evaluation Gross Sensation Gross Sensation WNL PT-OP-J Posture/Palpation/Skin Start: 05/12/22 17:02 Freq: Status: Active Protocol: Document 05/13/22 12:58 [facility] (Rec: 05/15/22 15:36 [facility] [id number]) Posture Evaluation Position Standing Head/C-Spine Posture Forward Head T-Spine Posture Increased Kyphosis L-Spine Posture Decreased Lordosis Scapula Posture (L) Protracted,(R) Protracted Arm Posture (L) Internally Rotated,(R) Internally Rotated Pelvis Posture Posterior Tilted Hip Posture (L) Externally Rotated,(R) Externally Rotated PT-OP-K Range of Motion Start: 05/12/22 17:02 Freq: Status: Active Protocol: Document 07/17/22 12:00 DCW (Rec: 07/17/22 12:26 DCW [id number]) Ankle and Foot Goniometric Range of Motion Ankle and Foot alexys Comments Right DF knee flexed: 7 Right DF knee extended: 0 PT-OP-M Strength Start: 05/12/22 17:02 Freq: Status: Active Protocol: Document 07/17/22 12:00 DCW (Rec: 07/17/22 12:26 DCW [id number]) Hip Strength Hip Manual Muscle Testing Right Flexion (L2) 4+ Good+ Extension (S1) 4 Good Abduction 4 Good Adduction 4 Good External Rotation 4- Good- Internal Rotation 4 Good Left Flexion (L2) 4 Good Extension (S1) 4 Good Abduction 4 Good Adduction 4 Good External Rotation 4- Good- Internal Rotation 4 Good Knee Strength Knee Manual Muscle Testing rright Flexion (S2) 4+ Good+ Extension (L3) 4+ Good+ Left Flexion (S2) 4+ Good+ Extension (L3) 4+ Good+ Ankle/Foot Strength Ankle and Foot Manual Muscle Testing Right Dorsiflexion (L4) 4 Good Left Dorsiflexion (L4) 4+ Good+ PT-OP-Q Treatments Start: 05/12/22 17:02 Freq: Status: Active Protocol: Document 07/08/22 14:37 NBM (Rec: 07/08/22 16:57 NBM [id number]) Therapeutic Exercises Sitting Exercises ankle alphabet Side bilateral Reps/Minutes 10x Comments vc for smaller letters to target ankle vs quads Standing Exercises kitchen sink stretch Standing Exercise Name thoracic elongation Equipment Used handrail Reps/Minutes x30 bandwalking Standing Exercise Name lateral x1 lap, fwd/bwd x2 laps Side bilateral Resistance Lvl2 Tb Equipment Used // bars Comments cues for feet hip width fwd/ bwd, neutral toes marching Side bilateral Resistance 0>1# ea Equipment Used handrail Reps/Minutes x10 ea Comments 10x2, cues for slow, level pelvis calf stretch Standing Exercise Name CHLOÉ Side bilateral Equipment Used handrail today Reps/Minutes x60 e Comments positive feedback response toe raise Standing Exercise Name HEP Side bilateral Reps/Minutes x10 Comments cues for not swaying bwd heel raise Standing Exercise Name HEP Side bilateral Reps/Minutes x10 Comments cue for slow eccentric Therapeutic Activity Therapeutic Activity sit to stand Reps/Minutes x10 no Tb, x10 w/ Lvl 2 Tb above knees Comments 1. no UE support, cue edge of chair, pacing, knee alignment knee valgus improves w/ Lvl 2 Tb Neuro Re-Education Treatment Balance Activities weightshifting off the wall Details anterior weightshifting Surface firm Equipment wall Reps/Duration x10 Comments Pt demonstrates ease when cued to initiate movement from ankles to standing upright off the wall, but lacks carryover with gait. SLS Details with and without CRUCIBLE FURNACE TENDER Surface carpet Equipment corner juarez w/ chair in front Reps/Duration trials Comments Pt demonstrates SL balance L ~ 3-4s max and R ~2-3s max after taking away B CRUCIBLE FURNACE TENDER. PT-OP-T Assessment and Plan Start: 05/12/22 17:02 Freq: Status: Active Protocol: Document 07/17/22 12:00 DCW (Rec: 07/17/22 12:47 DCW [id number]) Physical Therapy Assessment Impairments Impairments Activity Tolerance,Balance, Gait,Strength Goals Three Impairment gait dysfunction Impairment unsteady gait, doesn't use device Mandrel Maker Goal (LTG) Patient to be safe with gait on level and uneven surfaces with least restrictive device. 06/20/22: states not using an AD . She report usually on flat side walks ok, but uneven rock /grass in yard little unsteady feels like potential fall so goes more slowly into yard. 07/08/22: Pt reports she prefers flat surfaces but if she has to step on a low curb she can do it, but higher curbs are problematic. LTG Duration 08/20/22 - Improving Two Impairment weakness alexys LE's right greater than left Short Term Goal (STG) Instruct patient in HEP to support exercises and activities in therapy STG Duration Met Residential Goal (LTG) Patient to be independent in HEP for purposes of LE strengthening and balance training LTG Duration 08/20/22 - minimal compliance One Impairment Balance dysfunction with high risk for falls Impairment Layton balance score 36/56 indicating high rrisk for falls Short Term Goal (STG) Improve Layton balance score to at least 45/56 STG Duration Met Residential Goal (LTG) Improve Layton Balance score to at least 50/56 as measure of improved balance and safety LTG Duration 08/20/22 - improving Assessment Summary Assessment Pt approaching goals, Layton score improved from 36/56 at evaluation to 46/56 today, showing good improvement with LE strength as well. Biggest ongoing limitation seems to be pt's willingness to participate in HEP, admits she has not been compliant. At this time, agreeable to return for another 2-3 visits every other week in an effort to improve pt compliance with HEP and ensure pt is becoming more independent. Will likely be appropriate then to discharge at that time. Physical Therapy Plan Frequency and Duration Frequency of Treatment Every Other Week Plan of Care Start Date 07/17/22 Plan of Care End Date 08/22/22 Therapeutic Interventions Therapeutic Interventions Balance Training,Gait Training ,Home Exercise Program,Manual Therapy,Patient/Caregiver Education,Self-Care/Home Management,Soft Tissue Mobilization,Taping, Therapeutic Activities, Therapeutic Exercises Next Visit Focus/Plan Next Note Type Treatment Note Next Visit Plan Trial gait uneven surfaces w/ trek poles/SPC encourage use AD. Add perturbations, activities fwd COG full foot decrease retro lean. POC: Instruct in corner balance ex, continue progression of therapeutic exercises and neuro re-ed for LE strengthening, balance, gait training.
--- NOTE | 2022-07-17 12:48 | PT.OPPOC ---
Physical, Occupational & Speech Therapy At [facility] Current Diagnoses Other abnormalities of gait and mobility (07/17/22) Weakness (07/17/22) Other reduced mobility (07/17/22) Visit Care Team Role Provider Type Kina Bustamante DO Primary Care Provider Physician Specialty: Medical Address: [address] [place] [address], [address], [place], [address] Email: [email or web address] Raheel Rehman MD Attending Provider Physician Family Provider Referring Provider Specialty: Family Practice Address: [address] [place] [address], [id number] Email: [email or web address] Plan Of Care PT-OP-T Assessment and Plan Start: 05/12/22 17:02 Freq: Status: Active Protocol: Document 07/17/22 12:00 DCW (Rec: 07/17/22 12:47 DCW [id number]) Physical Therapy Assessment Impairments Impairments Activity Tolerance,Balance, Gait,Strength Goals Three Impairment gait dysfunction Impairment unsteady gait, doesn't use device Telephone Sterilizer Goal (LTG) Patient to be safe with gait on level and uneven surfaces with least restrictive device. 06/20/22: states not using an AD . She report usually on flat side walks ok, but uneven rock /grass in yard little unsteady feels like potential fall so goes more slowly into yard. 07/08/22: Pt reports she prefers flat surfaces but if she has to step on a low curb she can do it, but higher curbs are problematic. LTG Duration 08/20/22 - Improving Two Impairment weakness alexys LE's right greater than left Short Term Goal (STG) Instruct patient in HEP to support exercises and activities in therapy STG Duration Met Telephone Sterilizer Goal (LTG) Patient to be independent in HEP for purposes of LE strengthening and balance training LTG Duration 08/20/22 - minimal compliance One Impairment Balance dysfunction with high risk for falls Impairment Layton balance score 36/56 indicating high rrisk for falls Short Term Goal (STG) Improve Layton balance score to at least 45/56 STG Duration Met Halfway Goal (LTG) Improve Layton Balance score to at least 50/56 as measure of improved balance and safety LTG Duration 08/20/22 - improving Assessment Summary Assessment Pt approaching goals, Layton score improved from 36/56 at evaluation to 46/56 today, showing good improvement with LE strength as well. Biggest ongoing limitation seems to be pt's willingness to participate in HEP, admits she has not been compliant. At this time, agreeable to return for another 2-3 visits every other week in an effort to improve pt compliance with HEP and ensure pt is becoming more independent. Will likely be appropriate then to discharge at that time. Physical Therapy Plan Frequency and Duration Frequency of Treatment Every Other Week Plan of Care Start Date 07/17/22 Plan of Care End Date 08/22/22 Therapeutic Interventions Therapeutic Interventions Balance Training,Gait Training ,Home Exercise Program,Manual Therapy,Patient/Caregiver Education,Self-Care/Home Management,Soft Tissue Mobilization,Taping, Therapeutic Activities, Therapeutic Exercises Next Visit Focus/Plan Next Note Type Treatment Note Next Visit Plan Trial gait uneven surfaces w/ trek poles/SPC encourage use AD. Add perturbations, activities fwd COG full foot decrease retro lean. POC: Instruct in corner balance ex, continue progression of therapeutic exercises and neuro re-ed for LE strengthening, balance, gait training. Plan of Care Dates Plan of Care Start Date 07/17/22 Plan of Care End Date 08/22/22 Electronically Signed by: Bull Rodríguez, PT 07/17/22 5234 If you are in agreement with this Plan of Care, please return a signed and dated copy. I have reviewed this Plan of Care and certify that the skilled therapy services above are required to meet the patient?s needs. Physician Signature Date Printed Name and Credentials Clinical Instructor Signature Printed Name and Credentials
--- NOTE | 2022-08-20 12:04 | PT.OTN ---
Current Diagnoses Other abnormalities of gait and mobility (08/20/22) Weakness (08/20/22) Other reduced mobility (08/20/22) Physical Therapy Treatment Note PT-OP-A Visit Information Start: 05/12/22 17:02 Freq: Status: Active Protocol: Document 08/20/22 11:18 SAK (Rec: 08/20/22 12:04 [facility] [id number]) Out-Patient Physical Therapy Visit Information Visit Information Visit Type Treatment Note Visit Start Time 11:18 Visit Stop Time 12:00 Total Visit Minutes 42 Visit Number 12 Evaluation Information Evaluation Date 05/13/22 PT-OP-B Current Condition Start: 05/12/22 17:02 Freq: Status: Active Protocol: Document 05/20/22 10:32 SAK (Rec: 05/20/22 11:16 SAK [id number]) Current Condition History of Current Condition Onset Date August 2021 Current Complaints weakness, difficulty walking History of Current Condition Patient reports not sure why I'm here. Fell at home 2x over past 6 months, plus fell last February and wasn't able to get up; went into hospital with pneumonia. Fell and broke right ankle August 2021; ORIF. Agrees per doctor referral she may benefit for her balance and strenth. Rides a stationary bike 40 min 5x/wk. Doesn't go for walks. c/o weakness right thigh and ankle. Prior Treatments and Tests No PT. PT-OP-C Subjective Start: 05/12/22 17:02 Freq: Status: Active Protocol: Document 08/20/22 11:18 SAK (Rec: 08/20/22 12:04 [facility] [id number]) OP-PT Subjective Patient Comments Patient Comments Patient reports pain in back and knee due to downsizing for anticipated move to [facility] [employer] [facility] [place]. Would like to be discharged from PT; too busy right now. Is using exercise bike 40 min 5 days per week. PT-OP-D Balance Start: 05/12/22 17:02 Freq: Status: Active Protocol: Document 07/17/22 12:00 DCW (Rec: 07/17/22 12:26 DCW [id number]) Layton Balance Assessment Evaluation Sitting to Standing Ability Independent w/out Hands Unsupported Stance Safely- 2 minutes Sitting Unsupported, Feet on Floor Safely- 2 minutes Standing to Sitting Ability Safely, Minimal Hand Use Transfer Ability Safely, Minimal Hand Use Unsupported Stance- Eyes Closed Safely, 10 seconds Unsupported Stance- Eyes Open Independent, 1 minute Reaching Forward Standing Safely, 5 inches Pick- Up Object From Floor Supervision Look Behind Shoulder - Standing Shifts Weight Well Turning 360 Degrees Turns slowly, but safely Unsupported Stance, Alternating Feet on (I)- 8 Steps in > 20 secs Stair Unsupported Tandem Stance Small Step- 30 seconds Unilateral Leg Stance Lifts Leg/Unable to Hold Total Score Layton Total Score (out of 56 points) 46 Layton Impairment Rating 1 to 19% Impaired (Score 45-55 ) PT-OP-G Mobility & Gait Start: 05/12/22 17:02 Freq: Status: Active Protocol: Document 05/13/22 12:58 [facility] (Rec: 05/15/22 15:36 [facility] [id number]) OP Gait Assessment Gait Gait Assistance Required: Independent Assistive Devices Assistive Device None Gait Deviations General Gait Pattern Decreased Stride Length, Decreased Feet Clearance Factors Limiting Gait Function Factors Limiting Gait Function Decreased Strength,Poor Balance Comments Gait Comments reaches for objects to stready herself Stair Climbing Evaluation Evaluation Level of Assist On Stairs Independent Devices Stair Climbing Assistive Devices Left Railing,Right Railing Technique/Endurance Stair Climbing Technique Step Over Step PT-OP-H Neuro Start: 05/12/22 17:02 Freq: Status: Active Protocol: Document 05/13/22 12:58 [facility] (Rec: 05/15/22 15:36 [facility] [id number]) Sensation Evaluation Gross Sensation Gross Sensation WNL PT-OP-J Posture/Palpation/Skin Start: 05/12/22 17:02 Freq: Status: Active Protocol: Document 05/13/22 12:58 [facility] (Rec: 05/15/22 15:36 [facility] [id number]) Posture Evaluation Position Standing Head/C-Spine Posture Forward Head T-Spine Posture Increased Kyphosis L-Spine Posture Decreased Lordosis Scapula Posture (L) Protracted,(R) Protracted Arm Posture (L) Internally Rotated,(R) Internally Rotated Pelvis Posture Posterior Tilted Hip Posture (L) Externally Rotated,(R) Externally Rotated PT-OP-K Range of Motion Start: 05/12/22 17:02 Freq: Status: Active Protocol: Document 07/17/22 12:00 DCW (Rec: 07/17/22 12:26 DCW [id number]) Ankle and Foot Goniometric Range of Motion Ankle and Foot alexys Comments Right DF knee flexed: 7 Right DF knee extended: 0 PT-OP-M Strength Start: 05/12/22 17:02 Freq: Status: Active Protocol: Document 07/17/22 12:00 DCW (Rec: 07/17/22 12:26 DCW [id number]) Hip Strength Hip Manual Muscle Testing Right Flexion (L2) 4+ Good+ Extension (S1) 4 Good Abduction 4 Good Adduction 4 Good External Rotation 4- Good- Internal Rotation 4 Good Left Flexion (L2) 4 Good Extension (S1) 4 Good Abduction 4 Good Adduction 4 Good External Rotation 4- Good- Internal Rotation 4 Good Knee Strength Knee Manual Muscle Testing rright Flexion (S2) 4+ Good+ Extension (L3) 4+ Good+ Left Flexion (S2) 4+ Good+ Extension (L3) 4+ Good+ Ankle/Foot Strength Ankle and Foot Manual Muscle Testing Right Dorsiflexion (L4) 4 Good Left Dorsiflexion (L4) 4+ Good+ PT-OP-Q Treatments Start: 05/12/22 17:02 Freq: Status: Active Protocol: Document 08/20/22 11:18 SAK (Rec: 08/20/22 12:04 SAK [id number]) Cardio Equipment Recumbent Stepper (Sci-Fit) Duration (Minutes) 10 Resistance 1 Seat Position 8 Therapeutic Exercises Sitting Exercises ankle alphabet Sitting Exercise Name circles, inv/ev Side bilateral Reps/Minutes 10x Comments vc for smaller letters to target ankle vs quads Standing Exercises kitchen sink stretch Standing Exercise Name thoracic elongation Equipment Used handrail Reps/Minutes x30 calf stretch Standing Exercise Name stair Side bilateral Equipment Used handrail today Reps/Minutes x60 e Comments positive feedback response chair squat Equipment Used mesh chair Reps/Minutes x10 Comments cues for hip hinge, knee alignment alexys Therapeutic Activity Therapeutic Activity sit to stand Reps/Minutes x10 no Tb, x10 w/ Lvl 2 Tb above knees Comments 1. no UE support, cue edge of chair, pacing, knee alignment knee valgus improves w/ Lvl 2 Tb Neuro Re-Education Treatment Balance Activities heel/toe raise Equipment parallel bars Reps/Duration 10x tandem stand Reps/Duration 3 min SLS Details with and without GRAVEL MACHINE OPERATOR Surface carpet Equipment corner juarez w/ chair in front Reps/Duration trials Comments Pt demonstrates SL balance L 4 -5s max and R 3-4s max after taking away B GRAVEL MACHINE OPERATOR. PT-OP-T Assessment and Plan Start: 05/12/22 17:02 Freq: Status: Active Protocol: Document 08/20/22 11:18 [facility] (Rec: 08/20/22 12:04 [facility] [id number]) Physical Therapy Assessment Impairments Impairments Activity Tolerance,Balance, Gait,Strength Goals Three Impairment gait dysfunction Impairment unsteady gait, doesn't use device Binder Cutter Hand Goal (LTG) Patient to be safe with gait on level and uneven surfaces with least restrictive device. 06/20/22: states not using an AD . She report usually on flat side walks ok, but uneven rock /grass in yard little unsteady feels like potential fall so goes more slowly into yard. 07/08/22: Pt reports she prefers flat surfaces but if she has to step on a low curb she can do it, but higher curbs are problematic. LTG Duration 08/20/22 - Improving Two Impairment weakness alexys LE's right greater than left Short Term Goal (STG) Instruct patient in HEP to support exercises and activities in therapy STG Duration Met Binder Cutter Hand Goal (LTG) Patient to be independent in HEP for purposes of LE strengthening and balance training LTG Duration 08/20/22 - minimal compliance One Impairment Balance dysfunction with high risk for falls Impairment Layton balance score 36/56 indicating high rrisk for falls Short Term Goal (STG) Improve Layton balance score to at least 45/56 STG Duration Met Binder Cutter Hand Goal (LTG) Improve Layton Balance score to at least 50/56 as measure of improved balance and safety LTG Duration 08/20/22 - improving Assessment Summary Assessment Patient has had poor compliance to HEP, reports not sure she will comply with added HEP today but verbalizes understanding of benefit. Requests discharge from PT today due to too busy at home downsizing and getting ready for a move. Physical Therapy Plan Discharge Physical Therapy Discharge Reasons Patient Request
== END 2022-08-21 11:33 | disposition home or self-care (01) ==
LOC: PHYS 11:15
PROVIDERS: Family Provider Family Medicine; PCP Family Medicine; Referring Provider Family Medicine; Visit Provider Family Medicine
DX: R26.89 Other abnormalities of gait and mobility (principal); R53.1 Weakness; Z74.09 Other reduced mobility
CPT/HCPCS: 97110; 97112; 97140; 97162; 97535

== ENCOUNTER → 2022-09-23 13:56 | Outpatient (CLI) | payer OTHER, SELFPAY ==
[2022-03-17 08:36] VITALS: BMI 22.8
[2022-09-23 16:58] LABS: Microalbumin Urine Random < 0.6 mg/dL (0-1.6)
[2022-09-24 05:44] LABS: x Labcorp Estim. Avg Glu (eAG) 163 mg/dL (.); x Labcorp Hemoglobin A1c 7.3 % (4.8-5.6)
== END ==
PROVIDERS: Family Provider Family Medicine; PCP Family Medicine; Referring Provider Family Medicine; Visit Provider Family Medicine
DX: I10 Essential (primary) hypertension (principal); E11.9 Type 2 diabetes mellitus without complications
CPT/HCPCS: 36415; 82043; 82570; 83036

== ENCOUNTER → 2022-10-20 13:48 | Outpatient (CLI) | payer OTHER, SELFPAY ==
[2022-03-17 08:36] VITALS: BMI 22.8
--- NOTE | 2022-10-20 13:49 | DI.RAD.S_ITS ---
PROCEDURE: XR ANKLE RT MIN 3V INDICATIONS: RIGHT ANKLE PAIN S/P ORIF TECHNIQUE: 3 views of the ankle were acquired. COMPARISON: [facility], [place], XR ANKLE 3+ VIEWS RIGHT, 11/18/2021, 10:49. [facility], CR, XR ANKLE 1 OR 2 VIEWS RIGHT, 10/22/2021, 14:00. [facility], [place], XR ANKLE 3+ VIEWS RIGHT, 10/07/2021, 11:34. [facility], CR, XR ANKLE RT MIN 3V, 09/16/2021, 20:06. FINDINGS: Bones: Open reduction and internal fixation of medial and lateral malleolar fractures. Alignment is normal. Alignment is stable. Ankle mortise is normally aligned. No suspicious bony lesions. Soft tissues: No tibiotalar joint effusion. Achilles tendon appears normal. IMPRESSION: ORIF medial and lateral malleolar fractures with stable postsurgical appearance. Dictated by: Thai Chau M.D. on 10/20/2022 at 21:37 Approved by: Thai Chau M.D. on 10/21/2022 at 8:35
== END ==
PROVIDERS: Family Provider Family Medicine; PCP Family Medicine; Referring Provider Physical Medicine & Rehabilitation; Visit Provider Physical Medicine & Rehabilitation
DX: S82.891A Other fracture of right lower leg, initial encounter for closed fracture (principal); M25.571 Pain in right ankle and joints of right foot; M47.817 Spondylosis without myelopathy or radiculopathy, lumbosacral region; M53.3 Sacrococcygeal disorders, not elsewhere classified
CPT/HCPCS: 73610; 99214

== ENCOUNTER → 2022-11-26 08:04 | Outpatient (CLI) | payer OTHER, SELFPAY ==
[2022-11-06 08:37] VITALS: BMI 22.8
[2022-11-26 09:59] LABS: Alanine Aminotransferase 20 IU/L (<35); Albumin 3.6 g/dL (3.5-5.0); Albumin Globulin Ratio 1.2 (1.0-2.8); Alkaline Phosphatase 78 U/L (38-126); Aspartate Aminotransferase 30 IU/L (14-36); BUN Creatinine Ratio 28.6 (6-22); Bilirubin Total 0.4 mg/dL (0.2-1.3); Blood Urea Nitrogen 22 mg/dL (7-17); Calcium 9.1 mg/dL (8.4-10.2); Carbon Dioxide 34 mmol/L (22-32); Chloride 100 mmol/L (98-107); Cholesterol 169 mg/dL (140-199); Estimated Glomerular Filt Rate > 60 mL/min (>60); Glucose 133 mg/dL (80-110); HDL Cholesterol 70 mg/dL (40-60); HEMOLYSIS < 15 (0-50); LDL Cholesterol Calculated 80 mg/dL (<100); Potassium 3.4 mmol/L (3.4-5.1); Sodium 138 mmol/L (137-145); Total Protein 6.6 g/dL (6.3-8.2); Triglycerides 93 mg/dL (35-150)
== END ==
PROVIDERS: Family Provider Family Medicine; PCP Family Medicine; Referring Provider Internal Medicine Cardiovascular Disease; Visit Provider Internal Medicine Cardiovascular Disease
DX: I10 Essential (primary) hypertension (principal); I47.1 Supraventricular tachycardia; R00.2 Palpitations; I70.90 Unspecified atherosclerosis; E78.5 Hyperlipidemia, unspecified
CPT/HCPCS: 36415; 80053; 80061

== ENCOUNTER → 2023-01-28 13:11 | Outpatient (CLI) | payer OTHER, SELFPAY ==
[2022-11-06 08:37] VITALS: BMI 22.8
--- NOTE | 2023-01-28 13:12 | DI.RAD.S_ITS ---
PROCEDURE: XR LUMBAR SPINE MIN 4V INDICATIONS: BACK PAIN TECHNIQUE: 5 views of the lumbar spine were acquired, including bilateral oblique views. COMPARISON: [facility], , XR LUMBAR SPINE MIN 4V, 02/29/2020, 12:11. FINDINGS: Bones: 5 nonrib-bearing vertebrae are present. There is straightening of normal lumbar lordosis. Degenerative endplate changes, loss of disc height and bilateral facet arthrosis is seen throughout lumbar spine. No vertebral body compression fractures. No suspicious bony lesions. Soft tissues: Overlying bowel gas pattern is normal. No suspicious soft tissue calcifications. Oblique images: No pars defects. Bilateral bony foraminal stenosis at L3-4 through L5-S1 levels. IMPRESSION: Degenerative disc disease throughout lumbar spine more notably at L3-4 and L4-5 levels. No acute compression fracture or spondylolisthesis. No gross pars defects. Bilateral bony foraminal stenosis are noted at L3-4 through L5-S1 levels. Dictated by: Doe Jerez M.D. on 01/28/2023 at 14:41 Approved by: Doe Jerez M.D. on 01/28/2023 at 14:43
--- NOTE | 2023-01-28 13:12 | DI.RAD.S_ITS ---
PROCEDURE: XR SACROILIAC JOINT MIN 3V INDICATIONS: SI JOINT PAIN TECHNIQUE: 3 views of the sacroiliac joints were acquired. COMPARISON: None. FINDINGS: Bones: Bilateral sacroiliac joint space narrowing and subchondral sclerosis is seen. No bony erosions or ankylosis. No suspicious bony lesions. No fractures. Soft tissues: Overlying bowel gas pattern is normal. No suspicious soft tissue densities. IMPRESSION: Bilateral sacroiliac joint osteoarthritic changes. No bony erosion or ankylosis. No fracture or dislocation. Dictated by: Doe Jerez M.D. on 01/28/2023 at 14:43 Approved by: Doe Jerez M.D. on 01/28/2023 at 14:44
== END ==
PROVIDERS: Family Provider Family Medicine; PCP Family Medicine; Referring Provider Physical Medicine & Rehabilitation; Visit Provider Physical Medicine & Rehabilitation
DX: M51.26 Other intervertebral disc displacement, lumbar region (principal); M47.817 Spondylosis without myelopathy or radiculopathy, lumbosacral region; M53.3 Sacrococcygeal disorders, not elsewhere classified; M51.36 Other intervertebral disc degeneration, lumbar region; M48.061 Spinal stenosis, lumbar region without neurogenic claudication
CPT/HCPCS: 72110; 72202

== ENCOUNTER 2023-10-08 12:49 | Outpatient (CLI) | payer OTHER, SELFPAY ==
[2023-06-24 11:13] VITALS: BMI 22.8
[2023-10-08] VITALS (8 sets, daily range): BP systolic 156–225; BP diastolic 69–95; PULSE 61–73; RESP 14–18; O2SAT 97–100
--- NOTE | 2023-10-08 13:30 | DI.RAD.S_ITS ---
PROCEDURE: PAIN L/S TRANSFORAMINAL INJECT INDICATIONS: Right L4-5 transforaminal JEREMIAH COMPARISON: None. FINDINGS: Fluoroscopic spot filming was performed to verify placement of spinal needles at the L4-L5 level(s), as labeled on the films. IMPRESSION: Imaging utilized for pain injection by the referring provider Dictated by: Sylvester Melendez M.D. on 10/08/2023 at 16:17 Approved by: Sylvester Melendez M.D. on 10/08/2023 at 16:17
[2023-10-08] MEDS: MIDAZOLAM 2 MG/2 ML VIAL 1 MG IV (14:15)
[2023-10-08] MEDS: BUPIVACAINE 0.25% (PF) VIAL 2 ML INJ (14:17)
[2023-10-08] MEDS: BETAMETHASONE 30 MG/5 ML MDV 6 MG INJ (14:18)
[2023-10-08] MEDS: DEXAMETHASONE 10 MG/ML VIAL INJ (14:18)
[2023-10-08] MEDS: iopamidoL 15 ML VIAL 3 ML INJ (14:19)
--- NOTE | 2023-10-08 14:29 | P.PCN_ITS ---
Date/Time/Diagnoses Date of procedure: 10/08/23 Time of procedure: 14:30 Pre-procedure diagnosis: 1. FORAMINAL STENOSIS WITH LE SYMPTOMS Post-procedure diagnosis: same Procedure Notes Procedure: 1. FLUOROSCOPICALLY GUIDED CONTRAST CONTROLLED TRANSFORAMINAL EPIDURAL STEROID INJECTION - RIGHT L4/5 TFESI Indications: Roxie is referred by Dr. Bustamante for treatment of Foraminal Stenosis with Right LE Symptoms Physician: Cameron Caraballo Total Fluoroscopy time (seconds): 9 Total sedation minutes: 10 Complications: none Procedure in detail & Post-procedure care: FINDINGS Foraminal Nerve Root Compression secondary to disc disease and facet hypertrophy DESCRIPTION OF PROCEDURE Following review of allergy and review of potential side effects and complications, including, but not necessarily limited to, infection, allergic reaction, local tissue breakdown, stroke, temporary or permanent nerve injury, paralysis, and possible , the patient indicated that the patient understood and agreed to proceed. An informed consent document was signed by the patient, witnessed by a nurse, and placed in the patient's chart. Additionally, other treatment options including medications, modalities, and physical therapy were reviewed with the patient. After review of previous anaesthesic history and IV conscious sedation the patient was deemed safe to proceed with today?s procedure with IV conscious sedation as ASA class II designation. Safety time-out was performed to confirm patient ID, procedure to be performed and site of procedure. IV sedation was accomplished with a combination of 1mg of Versed was administered by the RN after DO order, titrated to patient comfort during the course of the procedure while the patient remained responsive to all verbal commands In the prone position following sterile prep and drape of the lumbar region, the right L4/5 posterior neuroforamen was identified fluoroscopically. The skin was anesthetized via a 25-gauge 1.5-inch needle with 1% lidocaine solution. At this point, a 25-gauge 3.5-inch spinal needle was atraumatically introduced and advanced under fluoroscopic guidance through the posterior right L4/5 neuroforamen to approximately the anterior aspect of the canal. Depth was confirmed on lateral view. Following negative aspiration, injection of approximately 1.5cc of Isovue 200 under live fluoroscopy in the AP view confirmed excellent flow along the nerve root, into the epidural space without vascular or intrathecal uptake observed Radiological data, including multiple fluoroscopic views of the lumbosacral sp ine, reveal a spinal needle at the right L4/5 posterior neuroforamen. Subsequent views show flow of contrast material flowing superiorly and inferiorly along the nerve root confirming epidural flow. Subsequently, a test dose of 1.5 cc of 1% lidocaine solution was administered and patient was observed for two minutes for signs or symptoms of complications, including abdominal pain, shortness of breath, bilateral upper or lower extremity weakness, nausea and vomiting, prior to steroid injection. At this point, a total of 2cc or 10mg of dexamethasone and 6mg of betamethasone was injected without incident. The procedure tolerated the procedure well without signs or symptoms of complications prior to transfer to the recovery area continued monitoring without incident. The patient was then transferred to the recovery area where they were observed for an appropriate time after the injection. The patient reported a VAS score of 7 prior to the procedure and a post- procedure VAS of 0. POST OP INSTRUCTIONS The patient was provided a Pain Log to continue to record their response to the target-specific procedure prior to follow-up visit with their referring physician. Additionally, specific post-injection care instructions and a contact number to our office were provided if concerns arise regarding possible complications associated with the procedure are suspected.
--- NOTE | 2023-10-08 15:13 | PC.NURSE ---
1445- patient stood at chair noted to have some weakness when standing, able to stand and step in place but felt a little weak. Sat back in chair feet elevated with foot rest, patient was able to push and pull feet with resistance left and right strong and equal in strength. spoke with son Donald and updated. 1500 patient stood and steady on feet took steps denies any numbness or tingling. Patient states my legs feel strong.
== END 2023-10-08 15:05 | disposition home or self-care (01) ==
PROVIDERS: Family Provider Family Medicine; PCP Family Medicine; Referring Provider Physical Medicine & Rehabilitation; Visit Provider Physical Medicine & Rehabilitation
DX: M48.061 Spinal stenosis, lumbar region without neurogenic claudication (principal); M51.16 Intervertebral disc disorders with radiculopathy, lumbar region; M47.26 Other spondylosis with radiculopathy, lumbar region
CPT/HCPCS: 64483; J0702; J1100; J2250; J3490

== ENCOUNTER → 2023-12-30 10:12 | Outpatient (CLI) | payer OTHER, SELFPAY ==
[2023-06-24 11:13] VITALS: BMI 22.8
--- NOTE | 2023-12-30 10:13 | DI.RAD.S_ITS ---
PROCEDURE: FL BARIUM SWALLOW INDICATIONS: ESOPHAGEAL DYSPHAGIA COMPARISON: None. FINDINGS: Function: There is normal esophageal peristalsis. No elicited gastroesophageal reflux. There is normal transit of a calibrated barium tablet through the esophagus into the stomach. Morphology: Air-contrast images demonstrate normal mucosal morphology. Single contrast views show no esophageal strictures, extrinsic mass effects, or diverticula. Limited images of the stomach demonstrate normal appearance. IMPRESSION: Unremarkable. Dictated by: Jane Miles M.D. on 12/30/2023 at 14:27 Approved by: Jane Miles M.D. on 12/30/2023 at 14:27
== END ==
LOC: RAD 10:13
PROVIDERS: Family Provider Family Medicine; PCP Family Medicine; Referring Provider Internal Medicine Gastroenterology; Visit Provider Internal Medicine Gastroenterology
DX: R13.19 Other dysphagia (principal)
CPT/HCPCS: 74220

== ENCOUNTER → 2024-01-11 13:53 | Outpatient (CLI) | payer OTHER, SELFPAY ==
[2023-06-24 11:13] VITALS: BMI 22.8
--- NOTE | 2024-01-11 13:55 | DI.RAD.S_ITS ---
PROCEDURE: XR KNEE RT 3V INDICATIONS: right knee degenerative joint disease TECHNIQUE: 3 views of the knee were acquired. COMPARISON: None. FINDINGS: Bones: There are no osseous abnormalities. Joints: The tibialfemoral and patellofemoral joints are normal in width and alignment without arthritic change. . There are no effusions. Soft tissues: Normal IMPRESSION: Normal knee. Dictated by: Mark Huerta M.D. on 01/12/2024 at 8:12 Approved by: Mark Huerta M.D. on 01/12/2024 at 8:12
== END ==
PROVIDERS: Family Provider Family Medicine; PCP Family Medicine; Referring Provider Physical Medicine & Rehabilitation; Visit Provider Physical Medicine & Rehabilitation
DX: M17.11 Unilateral primary osteoarthritis, right knee (principal)
CPT/HCPCS: 73562

== ENCOUNTER 2024-02-11 13:27 | Outpatient (CLI) | payer OTHER, SELFPAY ==
[2023-06-24 11:13] VITALS: BMI 22.8
[2024-02-11] VITALS (9 sets, daily range): BP systolic 162–219; BP diastolic 68–89; PULSE 69–75; RESP 12–19; TEMP 36.4; O2SAT 95–99
--- NOTE | 2024-02-11 14:00 | DI.RAD.S_ITS ---
PROCEDURE: PAIN L/S FACET INJ/BLK 1ST MACI INDICATIONS: SPONDYLOSIS COMPARISON: None. FINDINGS: Fluoroscopic spot filming was performed to verify placement of spinal needles at the right L4, L5 and S1 level(s), as labeled on the films. Appropriate location(s) of the needle tip(s) was confirmed by injection of iodinated contrast. IMPRESSION: Fluoroscopic guidance utilized for a medial branch block. Dictated by: Lavell Watkins M.D. on 02/11/2024 at 16:45 Approved by: Lavell Watkins M.D. on 02/11/2024 at 16:47
[2024-02-11] MEDS: MIDAZOLAM 2 MG/2 ML VIAL 1 MG IV (15:06)
[2024-02-11] MEDS: BUPIVACAINE 0.5% (PF) 10 ML VIAL 5 ML INJ (15:10)
[2024-02-11] MEDS: LIDOCAINE 1% 20 ML 5 ML INJ (15:10)
[2024-02-11] MEDS: iopamidoL 15 ML VIAL 3 ML INJ (15:10)
[2024-02-11] MEDS: MIDAZOLAM 5 MG/ML VIAL 1 MG IV (15:14)
--- NOTE | 2024-02-11 15:26 | PM.PROC.IR.1 ---
Date/Time/Diagnoses Date of procedure: 02/11/24 Time of procedure: 15:27 Pre-procedure diagnosis: 1. FACET ARTHROPATHY Post-procedure diagnosis: same Procedure Notes Procedure: 1. BILATERAL- L4, L5 and S1 DIAGNOSTIC MB BLOCKS with LA Anesthetic Indications: Roxie is referred by Dr. Bustamante for treatment of Bilateral Axial LBP. Physician: Cameron Caraballo Total Fluoroscopy time (seconds): 13 Total sedation minutes: 14 Complications: none Procedure in detail & Post-procedure care: DESCRIPTION OF PROCEDURE Fluoroscopically guided, contrast-controlled bilateral L4, L5 and S1 medial branch blocks with 0.5cc of 0.5% Marcaine. Following review of allergy and review of potential side effects and complications, including, but not necessarily limited to, infection, allergic reaction, local tissue breakdown, nerve injury, paralysis, stroke and possible , the patient indicated that the patient understood and agreed to proceed. An informed consent document was signed by the patient, witnessed by a nurse, and placed in the patient's chart. After review of previous anaesthesic history and IV conscious sedation the patient was deemed safe to proceed with today's procedure with IV conscious sedation as ASA class II designation. Safety time-out was performed to confirm patient ID, procedure to be performed and site of procedure. IV sedation was accomplished with a combination of 3mg of Versed was administered by the RN after DO order, titrated to patient comfort during the course of the procedure while the patient remained responsive to all verbal commands In the prone position, following sterile prep and drape of the lumbar region, the right L4, L5 and S1 anatomical location of the medial branch of the dorsal ramus was identified fluoroscopically. Subsequently an anesthetic skin wheal using 1% lidocaine solution was initiated at each of the anatomical spots. Subsequently then a 22-gauge 3.5-inch spinal needle was atraumatically introduced and advanced under fluoroscopic guidance at each of the corresponding sites at the right L4, L5 and S1 MB. After negative aspiration, 0.2cc of Isovue 200 was injected, confirming placement without vascular or intrathecal uptake. Subsequently then 0.5cc of 0.5% Marcaine solution was injected at each of the corresponding sites at the right L4, L5 and S1 medial branch locations. The identical procedure was replicated on the left. The patient tolerated the procedure well without signs or symptoms of complications prior to transfer to the recovery area continued monitoring without incident. Post-procedure, the patient was monitored initiating provocative activities to measure the amount of relief from block of the facetogenic pain. The patient reported a VAS of 7 prior to the procedure and a post-procedure VAS of 1. It has been a pleasure to assist in the diagnostic and therapeutic care of your patient. POST OP INSTRUCTIONS The patient was provided with a Pain Log to complete over the next several hours and subsequent days prior to the patient's follow up with the ordering physician. If the patient has emergency department technician relief to the solution applied, then they may be a candidate for medial branch rhizotomy. The patient is aware, was provided, once again, with a Pain Log and will follow up with the referring physician for review and clinical correlation
== END 2024-02-11 15:46 | disposition home or self-care (01) ==
PROVIDERS: Family Provider Family Medicine; PCP Family Medicine; Referring Provider Physical Medicine & Rehabilitation; Visit Provider Physical Medicine & Rehabilitation
DX: M47.817 Spondylosis without myelopathy or radiculopathy, lumbosacral region (principal); M47.816 Spondylosis without myelopathy or radiculopathy, lumbar region
CPT/HCPCS: 64493; 64494; 99152; J2250

== ENCOUNTER 2024-02-22 12:42 | Day surgery (SDC) | payer OTHER, SELFPAY ==
[2023-06-24 11:13] VITALS: BMI 22.8
--- NOTE | 2024-02-22 | PATH_ITS ---
[facility] Accession Number: [id number] No. of containers..01 Tissue . 01 Material submitted: . gastrointestinal site - GASTRIC POLYP . 01 Diagnosis: STOMACH, POLYP: Fundic gland polyp. No evidence of Helicobacter organisms on H/E stain. Negative for intestinal metaplasia. Negative for dysplasia and malignancy. [facility] 02/23/2024 1054 Local . 01 Electronically signed: . Dorene Baker MD, Pathologist NPI- [id number] . 01 Gross description: . GASTRIC POLYP: Received in formalin are 2 fragment(s) of mills, soft tissue measuring 0.2 x 0.2 x 0.2 cm to 0.3 x 0.3 x 0.2 cm submitted entirely in 1 cassette(s) /GABRIELA 02/23/2024 0130 Local . 01 Pathologist provided ICD-10: K31.7 . 01 CPT . 639575 Specimen Comment: A courtesy copy of this report has been sent to [phone] Performed at: [address] [id number] MD Panfilo Li MD Phone: [phone]
--- NOTE | 2024-02-22 13:49 | PM.HP.1 ---
History of Present Illness History of Present Illness Date Patient Seen: 02/22/24 Time Patient Seen: 13:49 Chief complaint: EGD Narrative: 83-year-old female with intermittent symptoms of dysphagia. Barium swallow was unremarkable. She presents today for EGD and empiric dilatation. I reviewed my recent office note. No significant changes. [facility] Medical History Right knee DJD Sepsis Obstructive sleep apnea Hypokalemia Sacral dysfunction Eccrine poroma Seborrheic keratosis, inflamed 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Herniated nucleus pulposus, L3-4 right Facet arthropathy, lumbosacral Esophageal stricture Normal colonoscopy Stillborn, normal (~1967) History of one miscarriage (~1964) History of live (11/08/1962) History of live (12/01/1964) History of live (08/21/1968) Polymyalgia rheumatica (2011) Tuberculosis (1946) Right sacral radiculopathy Hypertension (1993) Hypothyroidism Hearing loss (2011) Chicken pox (1961) Measles (1946) Cyst of ovary (03/20/15) Lumbar back pain with radiculopathy affecting right lower extremity (11/28/14) Osteoarthritis (05/22/14) Hypertension (08/21/14) Hyperlipidemia (08/21/14) Surgical History Status post ORIF of fracture of ankle History of cataract surgery History of hysterectomy with oophorectomy (~2013) Anesthesia History of eyelid surgery (2013) History of bladder suspension procedure (2001) Family History Mother Hypertension Stroke Cardiopulmonary arrest Brother Cancer Father Pneumonia Grandmother Heart disease Grandfather Heart disease Social History marital status: household members: spouse occupational status: previously employed Smoking Status: Never smoker alcohol intake: never substance use type: does not use Meds Home Medications and Allergies Home Medications Medication Instructions Recorded Confirmed Type ascorbic acid (vitamin C) 500 mg 500 mg PO QDAY ##0 08/12/16 02/22/24 History tablet ibuprofen 200 mg capsule (Motrin 200 mg PO Q6H PRN Pain 03/01/20 02/22/24 History IB) Parking Permit... #1 ea 03/28/22 02/15/24 Rx losartan 100 mg tablet See Rx Instructions .Route 04/15/23 02/22/24 Rx .COMPLEX #90 tabs metformin 500 mg tablet 250 mg (1/2 x 500 mg) PO BIDWMEAL 07/13/23 02/22/24 Rx #90 tabs diclofenac sodium 1 % topical gel 2 g topical .qHS #100 grams 11/11/23 02/15/24 Rx (Voltaren Arthritis Pain) levothyroxine 75 mcg tablet 75 mcg PO DAILY #90 tabs 11/11/23 02/22/24 Rx (Synthroid) hydrochlorothiazide 25 mg tablet 25 mg PO DAILY #90 tabs 12/16/23 02/22/24 Rx pioglitazone 15 mg tablet 15 mg PO DAILY #90 tabs 01/18/24 02/22/24 Rx lovastatin 40 mg tablet 40 mg PO ONCE PM #90 tabs 02/08/24 02/22/24 Rx Allergies Allergy/AdvReac Type Severity Reaction Status Date / Time No Known Drug Allergies Allergy Verified 02/22/24 13:33 Review of Systems Review of Systems ROS: Yes All systems reviewed with the patient and are negative except as otherwise documented Exam Const General: cooperative HENMT Head: normal to inspection Eyes General: appearance normal, both eyes and all related structures Neck Neck: normal visual inspection Chest Chest: normal inspection of the chest Resp Effort & Inspection: normal respiratory effort Cardio Rate: regular rate GI Inspection: normal to inspection Skin General: no rashes or lesions noted Neuro General: patient alert and patient awake Extrem General: normal to inspection and no pedal edema Psych Appearance: grossly normal Assessment & Plan Assessment & Plan narrative: 83-year-old female with dysphagia to solids. EGD is pursued today for possible empiric dilatation Time-Based Coding :: [TOTAL MINUTES] spent with patient and on the chart (including review of chart, obtaining history, exam, reviewing outside data, placing orders, documenting exam and treatment plan, and counseling patient) on [DATE].
--- NOTE | 2024-02-22 13:50 | PM.PREOP ---
Pre-operative Note Interval Note History & Physical reviewed/Exam performed by Physician: Yes Changes to H&P: No ASA Class (for procedural sedation): III
[2024-02-22 13:55] VITALS: BP 180/80; PULSE 72; RESP 16; TEMP 36.9; O2SAT 96
--- NOTE | 2024-02-22 14:49 | PM.OP.EGD ---
Operative Date/Time/Diagnoses Date of procedure: 02/22/24 Time of procedure: 14:49 Pre-op diagnosis: Dysphagia Post-op diagnosis: same Procedure & Clinicians Study performed: EGD with dilatation an empiric Savary dilatation Same procedure as scheduled: Yes Indications: Dysphagia Surgeon: Chuck Rodriguez Procedure Notes SCOAP/Timeout: Done Procedure in detail: After the risks and benefits were explained, written and verbal informed consent was obtained. The patient was brought into the procedure room and placed into the left lateral decubitus position. Please see anesthesia notes for sedation details. The scope was introduced into the mouth through the bite block and advanced under direct visualization to the 2nd portion of the duodenum. The scope was slowly withdrawn carefully examining the mucosa for any defects or lesions. Retroflexed views were accomplished in the stomach. The stomach was decompressed, the scope was then removed from the patient who tolerated the procedure well. Sedation minutes: 11 Complications: none Impression: 1. Duodenum: No mucosal pathology appreciated from the bulb through to the 2nd portion. 2. Stomach: No ulcers no mass lesions no outlet obstruction. Retroflexed views of the LES were rather unremarkable. Couple of very diminutive benign-appearing polyps were sampled from the gastric body and submitted for histopathologic analysis. 3. Esophagus: The squamocolumnar junction correlated quite nicely with the top of the gastric folds. GEJ was at 40 cm from the incisors. No evidence of esophagitis no evidence of stricturing. No esophageal mucosal abnormalities identified throughout. Entrance into the esophagus through the upper esophageal sphincter mechanism did not seem very difficult with the endoscope. In light of the patient's prior response to an empiric dilatation and her ongoing symptoms, I elected to place a Savary wire in the stomach. I then selected a 51 Polish dilator and passed this over the wire with mild resistance at the upper esophageal sphincter mechanism. The wire and dilator were removed from the patient who tolerated the procedure quite well. Endoscopic diagnosis 1. Diminutive gastric polyps 2. Otherwise visually unremarkable EGD status post empiric 51 Polish Savary dilatation Post-procedure Plan for aftercare: 1. Await histology. 2. Follow up GI clinic in the next several weeks to review response. Disposition: PACU
[2024-02-22 14:52] VITALS: BP 138/72; PULSE 75; RESP 19; TEMP 36.5; O2SAT 95
[2024-02-22 14:58] VITALS: BP 144/77; PULSE 74; RESP 19; O2SAT 95
[2024-02-22 15:03] VITALS: BP 175/81; PULSE 68; RESP 13; O2SAT 97
[2024-02-22 15:05] VITALS: BP 177/79; PULSE 66; RESP 12; TEMP 36.2; O2SAT 97
== END 2024-02-22 15:25 | disposition home or self-care (01) ==
PROVIDERS: Family Provider Family Medicine; PCP Family Medicine; Referring Provider Internal Medicine Gastroenterology; Visit Provider Internal Medicine Gastroenterology
PROC: 0DJ08ZZ Inspection of Upper Intestinal Tract, Via Natural or Artificial Opening Endoscopic (ICD-10-PCS; CPT 43235; principal; 2024-02-22 14:00)
DX: R13.10 Dysphagia, unspecified (principal); K31.7 Polyp of stomach and duodenum
CPT/HCPCS: 43248; J2704

== ENCOUNTER → 2024-04-19 10:50 | Outpatient (CLI) | payer OTHER, SELFPAY ==
[2023-06-24 11:13] VITALS: BMI 22.8
== END ==
PROVIDERS: PCP Family Medicine; Visit Provider Urology
DX: R39.9 Unspecified symptoms and signs involving the genitourinary system (principal)
CPT/HCPCS: 87077; 87086; 87186

== ENCOUNTER 2024-04-26 07:56 | Day surgery (SDC) | payer OTHER, SELFPAY ==
[2023-06-24 11:13] VITALS: BMI 22.8
[2024-04-18 09:41] VITALS: BMI 23.6
[2024-04-26] VITALS (8 sets, daily range): BP systolic 103–158; BP diastolic 45–86; PULSE 48–85; RESP 8–16; TEMP 35.9–36.6; O2SAT 94–98; BMI 23.2
--- NOTE | 2024-04-26 | PATH_ITS ---
[facility] Accession Number: [id number] No. of containers..01 Tissue . 01 Material submitted: . bladder - ERYTHEMATOUS BLADDER LESION . 01 Diagnosis: URINARY BLADDER ERYTHEMATOUS LESION, BIOPSY: Follicular cystitis and reactive changes, please see microscopic description. Negative for in situ, or invasive carcinoma. MRV 04/27/2024 1648 Local . 01 Comment: Correlation with the cystoscopic findings is recommended. . 01 Electronically signed: . Jesus Nichols MD, Pathologist NPI- [id number] . 01 Gross description: . ERYTHEMATOUS BLADDER LESION: Received in formalin are 2 fragment(s) of mills, soft tissue measuring 0.3 x 0.2 x 0.2 cm to 0.5 x 0.2 x 0.2 cm submitted entirely in 1 cassette(s) /GABRIELA 04/27/2024 0124 Local . 01 Microscopic: . Microscopic examination of the bladder lesion reveals partially denuded urothelial mucosa with follicular cystitis, congestion, and minimal atypia, consistent with reactive changes. . Negative for in situ or invasive carcinoma. . 01 Pathologist provided ICD-10: N32.9 . 01 CPT . 586509 Performed at: [address] [facility] [address], [place], [place] [id number] MD Panfilo Li MD Phone: [phone]
[2024-04-26] MEDS: ACETAMINOPHEN 325 MG TABLET 650 MG PO (08:33)
[2024-04-26] MEDS: FAMOTIDINE 20 MG/2 ML VIAL IV (08:33)
[2024-04-26] MEDS: LACTATED RINGERS 1,000 ML 21 ML IV (08:35)
--- NOTE | 2024-04-26 09:00 | PM.PREOP ---
Pre-operative Note COVID-19 COVID-19 status: Not tested Interval Note History & Physical reviewed/Exam performed by Physician: Yes Changes to H&P: No
[2024-04-26] MEDS: CEFAZOLIN 2 GM/100 ML PREMIX 100 ML IV (09:30)
--- NOTE | 2024-04-26 09:50 | SUR.OPER ---
Lithotomy on padded OR bed, head on pillow, arms secured on padded arm boards at <90 degrees abduction. Legs secured in padded yellow fins stirrups.
--- NOTE | 2024-04-26 10:20 | PM.OP.1 ---
Procedure & Clinicians Procedure: Cystoscopy with bladder biopsy Same procedure as scheduled: Yes Indications: This 83-year-old female presented with complaints of urinary incontinence and irritative voiding symptoms. She underwent flexible cystoscopy in the office and had a preponderance of punctate erythematous lesions in the bladder which would on its surface appear to be consistent with inflammatory cystitis she comes at this time for biopsy of the lesions to ensure that there was no occult malignancy etc. that maybe responsible for her irritative voiding symptoms and incontinence. Surgeon: Lawrence La Click Yes if Unassisted: Yes Operative Notes Findings: At cystoscopy there is evidence of atrophic vaginitis, introital narrowing, small caruncle. The urethra is normal along its length with normal mucosa. Within the bladder there are some punctate erythematous raised lesions. Certainly future and number than were noted at the time of the cystoscopy. So this could be an inflammatory response. There was couple particularly in the dome that were biopsied. And sent as erythematous lesion her bladder looked much better. The ureteral orifices were normal position with clear efflux there was some moderate to severe trabeculation but no other abnormalities were noted. There were no papillary lesions or anything that looked overtly lichen malignancy. Closure Type: not applicable Specimen(s): other (Bladder biopsy erythematous lesion) Prosthetic devices, grafts, tissues, transplants, or devices: None Estimated Blood Loss (mL): 5 Procedure in detail: Procedure in detail: After informed consent was obtained, the patient was identified brought the operating room where she is placed in supine position on the table. Once there anesthesia was induced to maintain. Ensuring an adequate level of anesthesia patient was transitioned to the lithotomy position where she was prepped, draped in a sterile fashion. After prepping and draping, ensuring an adequate level of anesthesia, and after the time-out and administration of antibiotics a 22 Micronesian cystoscope was passed through the urethra in the bladder where cystoscopy was performed. The findings were noted to lesions in the dome of the bladder were identified and biopsied. A Bugbee electrode was in used to fulgurate the margins and control bleeding. There was also 1 on the trigone and Mercy areas bar which was biopsied these were all sent pool together. With these in hand and fulguration done hemostasis achieved the bladder was filled and drained things remained stable the bladder was drained the scope was removed the patient was awakened having tolerated the procedure well to be transferred to the postanesthesia care unit for recovery. There were no complications the patient will follow up in my office in approximately 10-14 days. Complications: none Post-operative Condition: stable Disposition: PACU Plan for aftercare: Discharged from postanesthesia once recovered and return to clinic in approximately 10-14 days.
== END 2024-04-26 11:02 | disposition home or self-care (01) ==
PROVIDERS: PCP Family Medicine; Referring Provider Urology; Visit Provider Urology
PROC: 0TBB8ZZ Excision of Bladder, Via Natural or Artificial Opening Endoscopic (ICD-10-PCS; CPT 52204; principal; 2024-04-26 09:15)
DX: N32.9 Bladder disorder, unspecified (principal); N30.90 Cystitis, unspecified without hematuria
CPT/HCPCS: 52204; 82962; J0690; J1100; J2405; J2704; J3010

== ENCOUNTER → 2025-03-08 11:19 | Outpatient (CLI) | payer OTHER, SELFPAY ==
[2023-06-24 11:13] VITALS: BMI 22.8
--- NOTE | 2025-03-08 11:20 | DI.RAD.S_ITS ---
PROCEDURE: XR LUMBAR SPINE MIN 4V INDICATIONS: BACK PAIN TECHNIQUE: 5 views of the lumbar spine acquired, including flexion and extension views. COMPARISON: [facility], CR, XR LUMBAR SPINE MIN 4V, 01/28/2023, 13:35. [facility], CR, XR LUMBAR SPINE MIN 4V, 02/29/2020, 12:11. FINDINGS: Bones: 5 nonrib-bearing vertebrae are present. There is normal bony alignment. Stable chronic compression deformity of the L1 superior endplate, without endplate retropulsion. Moderate to severe disc height loss at L3-4, L4-5. Mild to moderate at remaining levels. Diffuse facet arthrosis, progressed from prior. Soft tissues: Overlying bowel gas pattern is normal. No suspicious soft tissue calcifications. Flexion/extension: There is normal range of motion, with preserved normal alignment. IMPRESSION: Progressed facet arthrosis, with similar moderate to severe degenerative disc disease. Unchanged chronic compression deformity of the L1 superior endplate. No endplate retropulsion. Dictated by: Lavell Watkins M.D. on 03/08/2025 at 12:06 Approved by: Lavell Watkins M.D. on 03/08/2025 at 12:08
--- OUTSIDE RECORDS SUMMARY | 2025-03-10 15:54 | XMS_ITS | Encounter Summary ---
Author Organization [facility] Address [address] [place] [address] Care Team Providers Care Tank Erector Name Role Phone Ian Arthur Unavailable Unavailable Raheel Rehman Primary Care Provider Unavaila Kina Greenberg Primary Care Provider Unavailabl e Reason for Referral * Eye Care (Routine) - Authorized Specialty Diagnoses / Procedures Referred By Monique singh Referred To Contact Ophthalmology Diagnoses Senile ectropion of both lower eyelids Procedures REF OPHTHALMOLOGY REPAIR ECTROPION BLEPHAROPLASTY EXTENSIVE Chance Nelson [facility] [address] [address] Phone: tel: Eye, [place] [address] [place] [address] Referral ID Status Reason Start Date Expiration Date Visits Requested Visits Authorized [id number] Authorized Procedure Only 10/08/2022 10/08/2023 1 1 Encounter Details Date Type Department Care Team (Late st Contact Info) Description 10/08/2022 Community Orders Non [facility] [address] [place] [address] [place] [id number] Senile ectropion of both lower eyelids (Primary Dx) Social History Tobacco Use Types Packs/Day Years Used Date Smoking Tobacco: Never Assessed Comments Unknown Sex and Gender Information Value Date Recorded Sex Assigned at Not on file Legal Sex Female 8:40 AM PST Gender Identity Female 01/15/2023 5:15 PM PDT Sexual Orientation Straight 01/15/2023 5: 15 PM PDT documented as of this encounter Plan of Treatment Not on file documented as of this encounter Visit Diagnoses Diagnosis Senile ectropion of both lower eyelids- Primary documented in this encounter Care Teams Tank Erector Relationship Specialty Start Date End Date Raheel Rehman [facility] [address] [address] PCP - General 01/14/22 01/14/23 Kina Bustamante [facility] [address] [address] PCP - General 01/15/23 Ian Arthur Consultative Internal Medicine 11/20/21 documented as of this encounter
--- OUTSIDE RECORDS SUMMARY | 2025-03-10 15:54 | XMS_ITS | Encounter Summary ---
Author Organization [facility] Address [address] [place] [address] Care Team Providers Care Engineering Officer Name Role Phone Ian Arthur Unavailable Unavailable Raheel Rehman Primary Care Provider Unavaila Kina Greenberg Primary Care Provider Unavailabl e Reason for Referral * PT/OT/ST (Routine) - Authorized Specialty Diagnoses / Procedures Referred By Contadenike t Referred To Contact Physical Therapy Diagnoses Other abnormalities of gait and mobility Weakness Procedures REF PHYSICAL THERAPY - EXTERNAL THERA PROC 1+ AREAS EA 15 MIN THERA EXERCISES Raheel Rehman [facility] [address] [place] [address] [address] [place] [address] fax: Referral ID Status Reason Start Date Expiration Date Visits Requested Visits Authorized [id number] Authorized Itemized Services 2 04/08/2023 15 15 Encounter Details Date Type Department Care Team (Latest Contact Info) Description 04/08/2022 Community Orders Non [facility] Provider Raheel Rehman [facility] [address] [place] [id number] Other abnormalities of gait and mobility (Primary Dx); Weakness Social History Tobacco Use Types Packs/Day Years [...] as of this encounter Visit Diagnoses Diagnosis Other abnormalities of gait and mobility- Primary Weakness Other malaise and fatigue documented in this encounter Care Teams Engineering Officer Relationship Specialty Start Date End Date Raheel Rehman [facility] [address] [address] PCP - General 01/14/22 01/14/23 Kina Bustamante [facility] [address] [address] PCP - General 01/15/23 Ian Arthur Consultative Internal Medicine 11/20/21 documented as of this encounter
--- OUTSIDE RECORDS SUMMARY | 2025-03-10 15:54 | XMS_ITS | Encounter Summary ---
Author Organization [facility] Address [address] [place] [address] Care Team Providers Care Supervisor Loading Name Role Phone Ian Arthur Unavailable Unavailable Kina Bustamante Primary Care Provider Unavailabl e Reason for Referral * Outpatient Service (Routine) - Authorized Specialty Diagnoses / Procedures Referred By Monique singh Referred To Contact Orthopedic Surgery Diagnoses Unilateral primary osteoarthritis, right knee Procedures REF ORTHO EXTERNAL OFFICE/OUTPATIENT ESTABLISHED MOD MDM 30 MIN [facility] [address] [facility] [address] [place] [address] [facility] [address] [address] [place] [address] Referral ID Status Reason Start Date Expiration Date Visits Requested Visits Authorized [id number] Authorized Evaluate and Treat-Surgery if Indicated 03/09/2026 6 6 Encounter Details Date Type Department Care Team (Late st Contact Info) Description 03/09/2025 Community Orders Non [facility] [address] [facility] [address] [place] [address] Unilateral primary osteoarthritis, right knee (Primary Dx) Social History Tobacco Use Types [...] as of this encounter Visit Diagnoses Diagnosis Unilateral primary osteoarthritis, right knee- Primary documented in this encounter Care Teams Supervisor Loading Relationship Specialty Start Date End Date Robby, Kina [facility] [address] [address] PCP - General 01/15/23 Ian Arthur Consultative Internal Medicine 11/20/21 documented as of this encounter
--- OUTSIDE RECORDS SUMMARY | 2025-03-10 15:54 | XMS_ITS | Encounter Summary ---
Author Organization [facility] Address [address] [place] [address] Care Team Providers Care Transfusion Aide Name Role Phone Ian Arthur Unavailable Unavailable Kina Bustamante Primary Care Provider Unavailabl e Reason for Referral * Outpatient Service (Routine) - Authorized Specialty Diagnoses / Procedures Referred By Monique singh Referred To Contact Urology Diagnoses Urinary incontinence, unspecified type Other specified postprocedural states Personal history of other diseases of urinary system Procedures REF UROLOGY - EXTERNAL OFFICE/OUTPATIENT ESTABLISHED MOD MDM 30 MIN [facility] [address] [place] [phone] [place] [address] [place] [phone] fax: Referral ID Status Reason Start Date Expiration Date Visits Requested Visits Authorized [id number] Authorized Evaluate and Treat-Surgery if Indicated 4 02/28/2025 6 6 Encounter Details Date Type Department Care Team (Latest Contact Info) Description 02/29/2024 Community Orders Non [facility] [address] [place] [phone] Urinary incontinence, unspecified type (Primary Dx); Other specified postprocedural states; Personal history of other diseases of urinary system Social History Tobacco Use Types Packs/Day Years [...] as of this encounter Visit Diagnoses Diagnosis Urinary incontinence, unspecified type- Primary Other specified postprocedural states Personal history of other diseases of urinary system documented in this encounter Care Teams Transfusion Aide Relationship Specialty Start Date End Date Kina Bustamante [facility] [address] [address] PCP - General 01/15/23 Ian Arthur Consultative Internal Medicine 11/20/21 documented as of this encounter
--- OUTSIDE RECORDS SUMMARY | 2025-03-10 15:54 | XMS_ITS | Clinical Summary ---
Author Organization [facility] Address [address] [place] [address] Care Team Providers Care [employer] Special [employer] Teacher Name Role Phone Ian Arthur Unavailable Unavailable Kina Bustamante Primary Care Provider Unavailabl e Source Comments NOTE: The information displayed by Care Everywhere is extracted from the complete medical record and may not identify all current or past patient conditions.[facility] Allergies No known active allergies Medications ascorbic acid (vitamin C) (VITAMIN C) 500 mg tablet Take 500 mg by mouth daily Active ibuprofen (ADVIL) 200 mg tablet Take 200 mg by mouth every 6 hours as needed for pain Active hydroCHLOROthi azide (HYDRODIURIL) 25 mg tablet Take 1 tablet (25 mg) by mouth daily 90 tablet 3 5 7:18 PM PDT 09/16/19 25 Active levothyroxine 0.075 mg tablet Take 1 tablet (0.075 mg) by mouth daily 90 tablet 1 5 4:03 PM PDT 09/16/19 25 Active losartan (COZAAR) 100 mg tablet Take 1 tablet (100 mg) by mouth daily 90 tablet 3 5 3:17 PM PDT 09/16/19 25 Active lovastatin (MEVACOR) 40 mg tablet Take 1 tablet (40 mg) by mouth every evening 90 tablet 3 5 3:16 PM PDT 09/16/19 25 Active pioglitazone (ACTOS) 15 mg tablet Take 1 tablet (15 mg) by mouth daily 90 tablet 1 5 6:54 AM PDT 09/16/19 25 Active acetaminophen (TYLENOL) 325 mg tablet Take 325 mg by mouth every 4 hours as needed Active cholecalcifero l (VITAMIN D3) 25 mcg (1,000 unit) capsule Take 2,000 capsules by mouth daily Active guaiFENesin (MUCINEX) 600 mg extended release tablet Take 1,200 mg by mouth 2 times daily Activ e Calcium Carbonate 500 mg calcium (1,250 mg) Chew Chew and swallow 1 tablet by mouth daily Active cyanocobalamin (vitamin B-12) 1,000 mcg Cap Inject 1,000 mcg intramuscularly Active metFORMIN (GLUCOPHAGE) 500 mg tablet Take 1/2 tablet (250 mg) by mouth daily with dinner only 90 tablet 1 5 1:29 PM PST 03/08/20 25 Active semaglutide (OZEMPIC) 0.25 mg or 0.5 mg (2 mg/3 mL) sub-q pen Inject 0.25 mg under the skin once a week for 4 weeks. Inject into the abdomen, thigh, or upper arm at any time of day on the same day each week. 3 mL 3 03/08/20 25 Active metoprolol tartrate (LOPRESSOR) 25 mg tablet TAKE 1/2 TABLET BY MOUTH DAILY PRIOR TO BEDTIME 45 tablet 3 03/20/20 15 022 Discontin ued(Dupli alla) amLODIPine (NORVASC) 2.5 mg tablet Take 1 tablet (2.5 mg) by mouth daily 30 tablet 1 9 5:52 PM PST 05/12/19 19 022 Discontin ued(Alter leslie therapy) potassium chloride (K-TAB) 20 mEq extended release tablet Take 1 tablet (20 mEq) by mouth daily 90 tablet 3 0 4:44 PM PDT 10/06/19 20 022 Discontin ued(Thera py completed ) metFORMIN (GLUCOPHAGE) 500 mg tablet Take 0.5 tablets (250 mg) by mouth 2 times daily with meals 90 tablet 1 5 6:54 AM PDT 09/16/19 25 025 Discontin ued(Dupli alla) Active Problems Problem Noted Date Diagnosed Date High blood pressure 07/06/2017 Overview (07/06/2017): Condition was added by Toribio brooks as part of pharmacy chronic condition review. Thyroid disease 07/06/2017 Overview (07/06/2017): Condition was added by Toribio brooks as part of pharmacy chronic condition review. Encounters Date Type Department Care Team Description 03/09/2025 Community Orders Non [facility] Provider Kina Bustamante Unilateral primary osteoarthritis, right knee (Primary Dx) from Last 3 Months Immunizations Immunization Administration Dates Next Due *HIGH DOSE SYRINGE* FluZONE (65+ Yrs) QUAD 02/11/2022 *HIGH DOSE SYRINGE* FluZONE (65+ yrs) TRI 02/15/2024,01/30/2023,02/15/2021,02/02 *STANDARD DOSE SYRINGE* (FluLAVAL,FluZONE,FluARIX or AFLURIA) (6+ mos) QUAD 02/27/2020,02/09/2019,03/04/2018,01/05 DT (Diphtheria, Tetanus) 07/07/1996 FluVIRIN (4+ years) Tri *VIAL* 0,02/06/2009,02/14/2008,02/01,02/18/2006 Herpes Zoster (SHINGRIX) 09/27/2024 Influenza 04/03/2004, 3,03/03/2002,02/12,02/04/1995,03/07/1993 Influenza (.50 not PF) 02/06/2009,2007,02/01/2007,02/18 Influenza (0.50 not PF) 01/24/2010 Influenza, whole 02/13/1996,02/04/1995, 3 Moderna SARS-CoV-2 Vaccinati on (12 + y/o) (SPIKEVAX) 03/11/2024,01/30/2023 Moderna SARS-CoV-2 Vaccinati on (12 + y/o)(DIRECTOR OF REAL ESTATE) 03/05/2021,06/12/2020,05/08/2020 PCV13 (PREVNAR 13, Pneumococ zoey Conjugate Vaccine 13 Valent) 05/22/2014 PPV23 (PNEUMOVAX 23, Pneumoc occal Polysaccharide Vaccine) 09/26/2016 Pfizer SARS-CoV-2 Vaccinatio n (COMIRNATY) (12+ y/o) 12/31/2024 RSV Vaccination (AREXVY) (50 + yrs), Recombinant 03/04/2023 Td (Tetanus, Diphtheria) 10/12/1991 Tdap (Tetanus, Diphtheria, a cellular Pertussis) 09/27/2024,08/04/2011 Social History Tobacco Use Types Packs/Day Years Used Date Smoking Tobacco: Never Assessed Comments Unknown Sex and Gender Information Value Date Recorded Sex Assigned at Not on file Legal Sex Female 8:40 AM PST Gender Identity Female 01/15/2023 5:15 PM PDT Sexual Orientation Straight 01/15/2023 5: 15 PM PDT Plan of Treatment Health Maintenance Due Date Last Done Comments Lab Test: A1C (med monitoring) 1940 Lab Test: TSH (med monitoring) 1940 Lab Test: Creatinine (med monitoring) 03/01/2016 03/01/2015 Lab Test: Potassium (med monitoring) 03/01/2016 03/01/2015 Lab Test: Sodium (med monitoring) 03/01/2016 015 Health Profile 01/16/2024 01/15/2023 Personal Assessment of Total Health (PATH) 01/16/2024 01/15/2023 Vaccine: Shingles (2 of 2) 11/22/2024 09/27/2024 FLU VACCINE (#1) 12/19/2024 02/15/2024, , 02/11/2022, Additional history exists Vaccine: IQzI-Pvgf-No (4 - T d or Tdap) 09/27/2034 09/27/2024, 08/04/2011, 07/07/1996, Additional history exists Vaccine: Pneumococcal Completed 09/26/2016, 015 Vaccine: RSV Completed 03/04/2023 Medical Devices Implanted Type Area Math And Science Instructor Device Identifier Shelf Expiration Date Model / Serial / Lot Lens, Iol, 21.5 Pc, Acrylic Janeth, Fdbl Sgl, [id number] Implanted:Qty: 1 on 02/11/2016 by Cameron Torres MD Ophthalmology Right: Eye [employer]SUMER [id number] +21.5 / / [id number] Description:Vitrectomy, Peel , Cataract Extraction with Intra-Ocular Lens Implant, [place];[facility] Surgical Services Procedures Procedure Name Priority Date/Time Associated Diagnosis Comments RENAL FUNCTION PANEL (OVL) Patient Waiting 03/01/2015 7:35 AM PST from Last 3 Months or Most Recently Relevant to Health Maintenance Results * (ABNORMAL) RENAL FUNCTION PANEL (OVL) (03/01/2015 7:35 AM PST) BUN 24(H) 7 - 17 mg/dL [facility] (LAB) SERUM CREATININE 1.08(H) 0.52 - 1.04 mg/dL [facility] (LAB) ESTIMATED GFR 49 m/m/1.73 [facility] (LAB) Comment:GFR < 60: Chronic ki dney disease if found over a 3 month period. SODIUM 142 137 - 147 mmol/L [facility] (LAB) POTASSIUM 3.1(L) 3.5 - 5.1 mmol/L [facility] (LAB) CHLORIDE BLOOD 104 98 - 109 mmol/L [facility] (LAB) CO2 24 22 - 30 mmol/L [facility] (LAB) ANION GAP 17(H) 5 - 16 mmol/L [facility] (LAB) CALCIUM 9.8 8.5 - 10.5 mg/dL [facility] (LAB) PHOSPHORUS 3.5 2.5 - 4.5 mg/dL [facility] (LAB) GLUCOSE RANDOM 107(H) 65 - 99 mg/dL [facility] (LAB) ALBUMIN SERUM 4.5 3.5 - 5.0 g/dL [facility] (LAB) Blood 03/01/2015 7:35 AM PST 03/01/2015 7:42 AM PST Narrative [facility] (LAB) - 03/01/2015 8:03 AM PST Glucose Reference Range : ADA 2012 Diagnostic Categories for non adults: Impaired fasting glucose 100-125 mg/dL A fasting glucose result of 126 mg/dL or greater indicates diabetes if the abnormality is confirmed on a subsequent day. A random glucose of 200 mg/dL or greater in a patient with symptoms of hyperglycemia or hyperglycemic crisis, indicates diabetes. Al Cerna MD [facility] Final Re sult [facility] (LAB) [address] [place] [address] from Last 3 Months or Most Recently Relevant to Health Maintenance Insurance * Guarantor: Roxie Brito Account Type Relation to Patient Date of Phone Billing Address Personal/Family Self 1940 [id number] [place] [address] [facility] MEDIC[facility] Advance Directives For more information, please contact: [phone] Documents on File Type Date Recorded Patient Orthopedics Pediatric Physician Expl anation Durable Power of District Sales Leader Advance Directive and Living Will 02/11/2016 9:58 AM Care Teams [employer] Special [employer] Teacher Relationship Specialty Start Date End Date Robby, Kina [facility] [address] [phone] PCP - General 01/15/23 Ian Arthur Consultative Internal Medicine 11/20/21
--- OUTSIDE RECORDS SUMMARY | 2025-03-10 15:54 | XMS_ITS | Encounter Summary ---
Author Organization [facility] Address [address] [place] [address] Care Team Providers Care General Ledger Bookkeeper Name Role Phone Ian Arthur Unavailable Unavailable Raheel Rehman Primary Care Provider Unavaila Kina Greenberg Primary Care Provider Unavailabl e Reason for Referral * Outpatient Service (Routine) - Authorized Specialty Diagnoses / Procedures Referred By Monique singh Referred To Contact Pain Management Diagnoses Pain in right ankle and joints of right foot Other chronic pain Procedures REF INTERVENTIONAL PAIN MANAGEMENT (ANESTHESIA,SPINAL,EPIDURAL ) OFFICE VISIT E&M EST PT, MODERATE MDM, 30-39 MINS Robby [facility] [address] [place] [phone] [place] [id number] [place] [phone] fax: Referral ID Status Reason Start Date Expiration Date Visits Requested Visits Authorized [id number] Authorized Evaluate and Treat-Surgery if Indicated 10/16/2022 10/17/2023 6 6 Encounter Details Date Type Department Care Team (Late st Contact Info) Description 10/16/2022 Community Orders Non [facility] [address] [phone] Pain in right ankle and joints of right foot (Primary Dx); Other chronic pain Social History Tobacco Use Types Packs/Day Years [...] as of this encounter Visit Diagnoses Diagnosis Pain in right ankle and joints of right foot- Primary Other chronic pain documented in this encounter Care Teams General Ledger Bookkeeper Relationship Specialty Start Date End Date Raheel Rehman [facility] [address] [address] PCP - General 01/14/22 01/14/23 Kina Bustamante [place] [id number] [address] PCP - General 01/15/23 Ian Arthur Consultative Internal Medicine 11/20/21 documented as of this encounter
--- OUTSIDE RECORDS SUMMARY | 2025-03-10 15:54 | XMS_ITS | Encounter Summary ---
Author Organization [facility] Address [address] [place] [address] Care Team Providers Care Embossing Machine Operator Name Role Phone Ian Arthur Unavailable Unavailable Kina Bustamante Primary Care Provider Unavailabl e Reason for Referral * Outpatient Service (Routine) - Authorized Specialty Diagnoses / Procedures Referred By Monique singh Referred To Contact Gastroenterology Diagnoses Dysphagia, unspecified type Esophageal obstruction Procedures REF GASTROENTEROLOGY - EXTERNAL OFFICE/OUTPATIENT ESTABLISHED MOD MDM 30 MIN Robby [facility] [address] [facility] [address] [place] [address] [facility] [address] [place] [address] Referral ID Status Reason Start Date Expiration Date Visits Requested Visits Authorized [id number] Authorized Evaluate and Treat-Surgery if Indicated 03/03/2025 6 6 Encounter Details Date Type Department Care Team (Late st Contact Info) Description 03/03/2024 Community Orders Non [facility] Provider Robby [facility] [address] [facility] [address] [place] [address] Dysphagia, unspecified type (Primary Dx); Esophageal obstruction Social History Tobacco Use Types Packs/Day Years [...] as of this encounter Visit Diagnoses Diagnosis Dysphagia, unspecified type- Primary Esophageal obstruction Stricture and stenosis of esophagus documented in this encounter Care Teams Embossing Machine Operator Relationship Specialty Start Date End Date Robby, Kina [facility] [address] [phone] PCP - General 01/15/23 Ian Arthur Consultative Internal Medicine 11/20/21 documented as of this encounter
--- OUTSIDE RECORDS SUMMARY | 2025-03-10 15:54 | XMS_ITS | Encounter Summary ---
Author Organization [facility] Address [address] [place] [address] Care Team Providers Care Customer Service Advocate Name Role Phone Ian Arthur Unavailable Unavailable Weeks, Kina Primary Care Provider Unavailabl e Reason for Referral * Surgical Services (Routine) - Authorized Specialty Diagnoses / Procedures Referred By Monique t Referred To Contact Urology Diagnoses Urinary incontinence, unspecified type Procedures REF UROLOGY - EXTERNAL CYSTOURETHROSCOPY (SEP PROC) [facility] [address] [place] [phone] [facility] [address] [place] [phone] fax: Referral ID Status Reason Start Date Expiration Date Visits Requested Visits Authorized [id number] Authorized Procedure Only 03/29/2024 03/29/2025 1 1 Encounter Details Date Type Department Care Team (Late st Contact Info) Description 03/29/2024 Community Orders Non [facility] Provider [facility]OLOG[facility] [address] [place] [phone] Urinary incontinence, unspecified type (Primary Dx) Social History Tobacco Use Types [...] Diagnoses Diagnosis Urinary incontinence, unspecified type- Primary documented in this encounter Care Teams Customer Service Advocate Relationship Specialty Start Date End Date Robby, Kina [facility] [address] [phone] PCP - General 01/15/23 Ian Arthur Consultative Internal Medicine 11/20/21 documented as of this encounter
--- OUTSIDE RECORDS SUMMARY | 2025-03-10 15:54 | XMS_ITS | Encounter Summary ---
Author Organization [facility] Address [address] [place] [address] Care Team Providers Care Superintendent Production Name Role Phone Zoraida Rogers Primary Care Provider [phone] Ian Arthur Unavailable Unavailable Raheel Rehman Primary Care Provider Unavaila Kina Greenberg Primary Care Provider Unavailabl e Reason for Referral * Outpatient Service (Routine) - Closed Specialty Diagnoses / Procedures Referred By Monique singh Referred To Contact Pain Management Diagnoses Spondylosis without myelopathy or radiculopathy, lumbosacral region Radiculopathy of lumbosacral region Other intervertebral disc displacement, lumbar region Procedures REF INTERVENTIONAL PAIN MANAGEMENT (ANESTHESIA,SPINAL,EPIDURAL ) OFFICE VISIT E&M NEW SELF LIMIT/MINOR 10 [facility] [address] [place] [phone] Phone: tel: fax: [facility] [address] [place] [address] fax: Referral ID Status Reason Start Date Expiration Date V isits Requested Visits Authorized [id number] Closed Evaluate and Treat-Surgery if Indicated 04/18/2020 10/17/2020 1 1 Encounter Details Date Type Department Care Team (Latest Contact Info) Description 04/18/2020 Community Orders Non [facility] Provider Ken, Zoraida [address] [phone] Spondylosis without myelopathy or radiculopathy, lumbosacral region (Primary Dx); Radiculopathy of lumbosacral region; Other intervertebral disc displacement, lumbar region Social History Tobacco Use Types Packs/Day Years [...] as of this encounter Visit Diagnoses Diagnosis Spondylosis without myelopathy or radiculopathy, lumbosacral region- Primary Radiculopathy of lumbosacral region Thoracic or lumbosacral neuritis or radiculitis, unspecified Other intervertebral disc displacement, lumbar region documented in this encounter Care Teams Superintendent Production Relationship Specialty Start Date End Date Zoraida Rogers [address] [phone] PCP - General 03/04/19 01/13/22 Raheel Rehman [address] [address] PCP - General 01/14/22 01/14/23 Kina Bustamante [facility] [address] [phone] PCP - General 01/15/23 Ian Arthur [address] [phone] Consultative Internal Medicine 11/20/21 documented as of this encounter
--- OUTSIDE RECORDS SUMMARY | 2025-03-10 15:54 | XMS_ITS | Encounter Summary ---
Author Organization [facility] Address [address] [place] [address] Care Team Providers Care Synoptic Meteorologist Name Role Phone aIn Arthur Unavailable Unavailable Kina Bustamante Primary Care Provider Unavailabl e Reason for Referral * PT/OT/ST (Routine) - Authorized Specialty Diagnoses / Procedures Referred By Monique t Referred To Contact Physical Therapy Diagnoses Other abnormalities of gait and mobility Procedures REF PHYSICAL THERAPY - EXTERNAL THERA PROC 1+ AREAS EA 15 MIN THERA EXERCISES [facility] [address] [place] [address] Maxine Martini Physical [address] [place] [address] Referral ID Status Reason Start Date Expiration Date Visits Requested Visits Authorized [id number] Authorized Itemized Services 01/12/2024 01/11/2025 15 15 Encounter Details Date Type Department Care Team (Latest Contact Info) Description 01/12/2024 Community Orders Non [facility] Provider Kina Bustamante [facility] [address] [place] [address] Other abnormalities of gait and mobility (Primary Dx) Social History Tobacco Use Types [...] Other abnormalities of gait and mobility- Primary documented in this encounter Care Teams Synoptic Meteorologist Relationship Specialty Start Date End Date Robby, Kina [facility] [address] [phone] PCP - General 01/15/23 Ian Arthur Consultative Internal Medicine 11/20/21 documented as of this encounter
--- OUTSIDE RECORDS SUMMARY | 2025-03-10 15:54 | XMS_ITS | Encounter Summary ---
Author Organization [facility] Address [address] [place] [address] Care Team Providers Care Lithographic Stripper Name Role Phone Ian Arthur Unavailable Unavailable Weeks, Kina Primary Care Provider Unavailabl e Reason for Referral * Outpatient Service (Routine) - Authorized Specialty Diagnoses / Procedures Referred By Monique t Referred To Contact Urology Diagnoses Lesion of urinary bladder Procedures REF UROLOGY - EXTERNAL [facility]OURETHROSCOPY [facility] [address] [place] [phone] [facility] [address] [place] [phone] fax: Referral ID Status Reason Start Date Expiration Date Visits Requested Visits Authorized [id number] Authorized Evaluate and Treat-Surgery if Indicated 4 04/04/2025 1 1 Encounter Details Date Type Department Care Team (Late st Contact Info) Description 04/04/2024 Community Orders Non [facility] Provider [facility] UROLOG[facility] [address] [place] [phone] Lesion of urinary bladder (Primary Dx) Social History Tobacco Use Types [...] as of this encounter Visit Diagnoses Diagnosis Lesion of urinary bladder- Primary documented in this encounter Care Teams Lithographic Stripper Relationship Specialty Start Date End Date Robby, Kina [facility] [address] [phone] PCP - General 01/15/23 Ian Arthur Consultative Internal Medicine 11/20/21 documented as of this encounter
--- OUTSIDE RECORDS SUMMARY | 2025-03-10 15:54 | XMS_ITS | Encounter Summary ---
Author Organization [facility] Address [address] [place] [address] Care Team Providers Care Senior It Project Manager Name Role Phone Ian Arthur Unavailable Unavailable Weeks, Kina Primary Care Provider Unavailabl e Reason for Referral * Outpatient Service (Routine) - Authorized Specialty Diagnoses / Procedures Referred By Monique singh Referred To Contact Gastroenterology Diagnoses Dysphagia, unspecified type Procedures REF GASTROENTEROLOGY - EXTERNAL UPPER GI ENDO DX (SEP PROC) Jessica Khan Phone: tel: fax: Gastroenterology, [facility] [address] [place] [address] Referral ID Status Reason Start Date Expiration Date Visits Requested Visits Authorized [id number] Authorized Procedure Only 01/04/2024 01/03/2025 3 3 Encounter Details Date Type Department Care Team (Late st Contact Info) Description 01/04/2024 Community Orders Non [facility] Provider Jessica Khan [address] [place] [phone] Dysphagia, unspecified type (Primary Dx) Social History Tobacco [...] Visit Diagnoses Diagnosis Dysphagia, unspecified type- Primary documented in this encounter Care Teams Senior It Project Manager Relationship Specialty Start Date End Date Weeks, Kina [facility] [address] [phone] PCP - General 01/15/23 Ian Arthur Consultative Internal Medicine 11/20/21 documented as of this encounter
--- OUTSIDE RECORDS SUMMARY | 2025-03-10 15:54 | XMS_ITS | Encounter Summary ---
Author Organization [facility] Address [address] [place] [address] Care Team Providers Care Chlorine Cell Tender Name Role Phone Pcp, None Selected Primary Care Provider Unavail able Encounter Details Date Type Department Care Team (Late st Contact Info) Description 11/26/2022 Orders Only [facility] [address], [place] [address] Pepe Duggan MD [address] [place] [address] [address] [place] [address] Essential hypertension; SVT (supraventricular tachycardia) ([facility]); Palpitations; Atherosclerotic vascular disease; Dyslipidemia Social History Tobacco Use Types Packs/Day Years Used Date Smoking Tobacco: Never Smokeless Tobacco: Never Comments Unknown Sex and Gender Information Value Date Recorded Sex Assigned at Not on file Legal Sex Female 6:52 PM PDT Gender Identity Not on file Sexual Orientation Not on file documented as of this encounter Plan of Treatment Not on file documented as of this encounter Procedures Procedure Name Priority Date/Time Associated Diagnosis Comments LIPID PANEL Routine 11/26/2022 Essential hypertension SVT (supraventricular tachycardia) (CMS-HCC) Palpitations Atherosclerotic vascular disease Dyslipidemia COMPREHENSIVE METABOLIC PANEL Routine 11/26/2022 Essential hypertension SVT (supraventricular tachycardia) (CMS-HCC) Palpitations Atherosclerotic vascular disease Dyslipidemia documented in this encounter Results * Comprehensive Metabolic Panel (CMP) Expires 12 Months (11/26/2022) Blood Venous blood / Unknown Pepe Duggan MD LAB BLOOD ORDERABLES Final R esult * Lipid panel (Fasting) (11/26/2022) Blood Venous blood / Unknown Pepe Duggan MD LAB BLOOD ORDERABLES Final R esult documented in this encounter Visit Diagnoses Diagnosis Essential hypertension Unspecified essential hypertension SVT (supraventricular tachycardia) Other specified cardiac dysrhythmias Palpitations Atherosclerotic vascular disease Generalized and unspecified atherosclerosis Dyslipidemia Other and unspecified hyperlipidemia documented in this encounter Care Teams Chlorine Cell Tender Relationship Specialty Start Date End Date Pcp, None Selected PCP - General 08/04/24 documented as of this encounter
--- OUTSIDE RECORDS SUMMARY | 2025-03-10 15:54 | XMS_ITS | Encounter Summary ---
Author Organization [facility] Address [address] [place] [address] Care Team Providers Care Rent And Housing Investigator Name Role Phone Ian Arthur Unavailable Unavailable Raheel Rehman Primary Care Provider Unavaila Kina Greenberg Primary Care Provider Unavailabl e Reason for Referral * Outpatient Service (Routine) - Authorized Specialty Diagnoses / Procedures Referred By Monique singh Referred To Contact Cardiology Diagnoses Mixed hyperlipidemia Essential (primary) hypertension Type 2 diabetes mellitus without complication, unspecified whether assistant terminal manager insulin use Procedures REF CARDIOLOGY - EXTERNAL OFFICE VISIT E&M EST PT, MODERATE MDM, 30-39 MINS [facility] [address] [address] [facility] [address] [place] [address] Referral ID Status Reason Start Date Expiration Date Visits Requested Visits Authorized [id number] Authorized Evaluate and Treat-Surgery if Indicated 11/10/2022 11/11/2023 6 6 Encounter Details Date Type Department Care Team (Latest Contact Info) Description 11/10/2022 Community Orders Non [facility] Provider Kina Bustamante [facility] C[facility] [address] [address] Mixed hyperlipidemia (Primary Dx); Essential (primary) hypertension; Type 2 diabetes mellitus without complication, unspecified whether assistant terminal manager insulin use Social History Tobacco Use Types Packs/Day Years [...] as of this encounter Visit Diagnoses Diagnosis Mixed hyperlipidemia- Primary Essential (primary) hypertension Unspecified essential hypertension Type 2 diabetes mellitus without complication, unspecified whether shelter insulin use documented in this encounter Care Teams Rent And Housing Investigator Relationship Specialty Start Date End Date Raheel Rehman [facility] [address] [address] PCP - General 01/14/22 01/14/23 Kina Bustamante [place] [id number] [address] PCP - General 01/15/23 Ian Arthur Consultative Internal Medicine 11/20/21 documented as of this encounter
--- OUTSIDE RECORDS SUMMARY | 2025-03-10 15:54 | XMS_ITS | Encounter Summary ---
Author Organization [facility] Address [address] [place] [address] Care Team Providers Care Svp Name Role Phone Zoraida Rogers Primary Care Provider [phone] Ian Arthur Unavailable Unavailable Raheel Rehman Primary Care Provider Unavaila Kina Greenberg Primary Care Provider Unavailabl e Reason for Referral * Outpatient Service (Routine) - Closed Specialty Diagnoses / Procedures Referred By Contact Referred To Contact Physical Medicine & Rehabilitation Diagnoses Spondylosis of lumbosacral region, unspecified spinal osteoarthritis complication status Procedures REF PHYSICAL MED/ REHAB OFFICE VISIT E&M EST PT, MODERATE MDM, 30-39 MINS [facility] PRIM [address] [address] Phone: tel:[phone] fax:[phone] [facility] [address] [place] [address] fax:[phone] Referral ID Status Reason Start Date Expiration Date V isits Requested Visits Authorized [id number] Closed Evaluate and Treat-Surgery if Indicated 04/24/2020 10/22/2020 6 6 Encounter Details Date Type Department Care Team (Latest Contact Info) Description 04/24/2020 Community Orders Non [facility] Provider [facility] PRIM [address] [phone] Spondylosis of lumbosacral region, unspecified spinal osteoarthritis complication status (Primary Dx) Social History Tobacco Use Types [...] of this encounter Visit Diagnoses Diagnosis Spondylosis of lumbosacral region, unspecified spinal osteoarthritis complication status- Primary documented in this encounter Care Teams Svp Relationship Specialty Start Date End Date Zoraida Rogers [facility] [address] [place] [phone] PCP - General 03/04/19 01/13/22 Raheel Rehman [facility] [address] [place] [phone] PCP - General 01/14/22 01/14/23 Kina Bustamante [facility] [address] [address] PCP - General 01/15/23 Ian Arthur [address] [address] Consultative Internal Medicine 11/20/21 documented as of this encounter
--- OUTSIDE RECORDS SUMMARY | 2025-03-10 15:54 | XMS_ITS | Encounter Summary ---
Author Organization [facility] Address [address] [place] [address] Care Team Providers Care Dimension Mill Worker Name Role Phone Ian Arthur Unavailable Unavailable Kina Bustamante Primary Care Provider Unavailabl e Encounter Details Date Type Department Care Team (Late st Contact Info) Description 11/28/2024 Community Orders Non [facility] Provider Kenya Zarate [facility] [address] [place], [place] [id number] Social History Tobacco Use Types Packs/Day Years [...] documented as of this encounter Visit Diagnoses Not on filedocumented in this encounter Care Teams Dimension Mill Worker Relationship Specialty Start Date End Date Kina Bustamante [facility] [address] [place] [address] PCP - General 01/15/23 Ian Arthur Consultative Internal Medicine 11/20/21 documented as of this encounter
--- OUTSIDE RECORDS SUMMARY | 2025-03-10 15:54 | XMS_ITS | Encounter Summary ---
Author Organization [facility] Address [address] [place] [address] Care Team Providers Care Stretching Machine Tender Frame Name Role Phone Ian Arthur Unavailable Unavailable Kina Bustamante Primary Care Provider Unavailabl e Reason for Referral * Outpatient Service (Routine) - Authorized Specialty Diagnoses / Procedures Referred By Monique singh Referred To Contact Cardiology Diagnoses Palpitations Procedures REF CARDIOLOGY - EXTERNAL OFFICE/OUTPATIENT ESTABLISHED MOD MDM 30 MIN Robby [facility] PRIMARY CARE [address] [address] [facility] [address] [place] [address] Referral ID Status Reason Start Date Expiration Date Visits Requested Visits Authorized [id number] Authorized Evaluate and Treat-Surgery if Indicated 12/15/2023 12/14/2024 6 6 Encounter Details Date Type Department Care Team (Latest Contact Info) Description 12/15/2023 Community Orders Non [facility] [address] [address] Palpitations (Primary Dx) Social History Tobacco Use Types [...] as of this encounter Visit Diagnoses Diagnosis Palpitations- Primary documented in this encounter Care Teams Stretching Machine Tender Frame Relationship Specialty Start Date End Date Weeks, Kian [facility] CARE [address] [address] PCP - General 01/15/23 Ian Arthur Consultative Internal Medicine 11/20/21 documented as of this encounter
--- OUTSIDE RECORDS SUMMARY | 2025-03-10 15:54 | XMS_ITS | Encounter Summary ---
Author Organization [facility] Address [address] [place] [address] Care Team Providers Care 411 Directory Assistance Operator Name Role Phone Ian Arthur Unavailable Unavailable Kina Bustamante Primary Care Provider Unavailabl e Reason for Referral * Outpatient Service (Routine) - Authorized Specialty Diagnoses / Procedures Referred By Monique singh Referred To Contact Gastroenterology Diagnoses Dysphagia, unspecified type Procedures REF GASTROENTEROLOGY - EXTERNAL OFFICE/OUTPATIENT ESTABLISHED MOD MDM 30 MIN Robby [facility] [address] [address] Gastroenterology, [facility] [address] Tim [address] [place] [address] Referral ID Status Reason Start Date Expiration Date Visits Requested Visits Authorized [id number] Authorized Evaluate and Treat-Surgery if Indicated 09/08/2023 09/07/2024 6 6 Encounter Details Date Type Department Care Team (Late st Contact Info) Description 09/08/2023 Community Orders Non [facility] 12[address] 24 [facility] 100 [place] [address] Dysphagia, unspecified type (Primary Dx) Social History [...] Primary documented in this encounter Care Teams 411 Directory Assistance Operator Relationship Specialty Start Date End Date Robby, Ikna [facility] CARE [address] [address] PCP - General 01/15/23 Ian Arthur Consultative Internal Medicine 11/20/21 documented as of this encounter
--- OUTSIDE RECORDS SUMMARY | 2025-03-10 15:54 | XMS_ITS | Encounter Summary ---
Author Organization [facility] Address [address] [place] [address] Care Team Providers Care Silviculture Teacher Name Role Phone Ian Arthur Unavailable Unavailable Raheel Rehman Primary Care Provider Unavaila Kina Greenberg Primary Care Provider Unavailabl e Reason for Referral * Outpatient Service (Routine) - Closed Specialty Diagnoses / Procedures Referred By Monique singh Referred To Contact Dermatology Diagnoses Personal history of disease of skin and subcutaneous tissue Procedures REF DERMATOLOGY-EXTERNAL OFFICE VISIT E&M EST PT, MODERATE MDM, 30-39 MINS James Padgett [facility] CARE [address] [address] [facility] [address] [place] [address] Referral ID Status Reason Start Date Expiration Date V isits Requested Visits Authorized [id number] Closed Evaluate and Treat-Surgery if Indicated 02/25/2022 02/25/2023 6 6 Encounter Details Date Type Department Care Team (Latest Contact Info) Description 02/25/2022 Community Orders Non [facility] Provider James Padgett [facility] CARE [address] [address] Personal history of disease of skin and subcutaneous tissue (Primary Dx) Social History Tobacco Use Types [...] as of this encounter Visit Diagnoses Diagnosis Personal history of disease of skin and subcutaneous tissue- Primary Personal history of diseases of skin and subcutaneous tissue documented in this encounter Care Teams Silviculture Teacher Relationship Specialty Start Date End Date Raheel Rehman [facility] [address] [address] PCP - General 01/14/22 01/14/[address] [facility] CARE [address] [address] PCP - General 01/15/23 Ian Arthur Consultative Internal Medicine 11/20/21 documented as of this encounter
--- OUTSIDE RECORDS SUMMARY | 2025-03-10 15:54 | XMS_ITS | Encounter Summary ---
Author Organization [facility] Address [address] [place] [address] Care Team Providers Care Knife Setter Name Role Phone Ian Arthur Unavailable Unavailable Kina Bustamante Primary Care Provider Unavailabl e Reason for Referral * Outpatient Service (Urgent) - Authorized Specialty Diagnoses / Procedures Referred By Monique singh Referred To Contact Orthopedic Surgery Diagnoses Fracture of unspecified carpal bone, right wrist, initial encounter for closed fracture Procedures REF ORTHO EXTERNAL OFFICE/OUTPATIENT ESTABLISHED MOD MDM 30 MIN [facility] [address] [facility] 100 [place] [address] [facility] [address] [address] [place] [address] Referral ID Status Reason Start Date Expiration Date Visits Requested Visits Authorized [id number] Authorized Evaluate and Treat-Surgery if Indicated 09/29/2024 09/29/2025 6 6 Encounter Details Date Type Department Care Team (Late st Contact Info) Description 09/29/2024 Community Orders Non [facility] Provider [facility] [address] [facility] 100 [place] [address] Fracture of unspecified carpal bone, right wrist, initial encounter for closed fracture (Primary Dx) Social History Tobacco Use Types [...] as of this encounter Visit Diagnoses Diagnosis Fracture of unspecified carpal bone, right wrist, initial encounter for closed fracture- Primary documented in this encounter Care Teams Knife Setter Relationship Specialty Start Date End Date Robby Kina [facility] [address] [address] PCP - General 01/15/23 Ian Arthur Consultative Internal Medicine 11/20/21 documented as of this encounter
--- OUTSIDE RECORDS SUMMARY | 2025-03-10 15:54 | XMS_ITS | Encounter Summary ---
Author Organization [facility] Address [address] [place] [address] Care Team Providers Care Foundation Digger Name Role Phone Ian Arthur Unavailable Unavailable Raheel Rehman Primary Care Provider Unavaila Kina Greenberg Primary Care Provider Unavailleesa e Encounter Details Date Type Department Care Team (Late st Contact Info) Description 04/08/2022 Community Orders Non [facility] Provider James Padgett [facility] [address] [address] Social History Tobacco Use Types Packs/Day Years [...] on filedocumented in this encounter Care Teams Foundation Digger Relationship Specialty Start Date End Date Raheel Rehman [facility] [address] [address] PCP - General 01/14/22 01/14/23 Kina Bustamante [facility] [address] [address] PCP - General 01/15/23 Ian Arthur Consultative Internal Medicine 11/20/21 documented as of this encounter
--- OUTSIDE RECORDS SUMMARY | 2025-03-10 15:54 | XMS_ITS | Encounter Summary ---
Author Organization [facility] Address [address] [place] [address] Care Team Providers Care Application Integration Specialist Name Role Phone Ian Arthur Unavailable Unavailable Kina Bustamante Primary Care Provider Unavailabl e Reason for Referral * Outpatient Service (Routine) - Authorized Specialty Diagnoses / Procedures Referred By Monique singh Referred To Contact Audiology Diagnoses Other abnormalities of gait and mobility Procedures REF AUDIOLOGY - EXTERNAL OFFICE/OUTPATIENT ESTABLISHED MOD MDM 30 MIN Robby [facility] PRIMARY CARE [address] [address] Services, Hearing Health [address] [place] [phone] fax: Referral ID Status Reason Start Date Expiration Date Visits Requested Visits Authorized [id number] Authorized Evaluate and Treat-Surgery if Indicated 11/26/2023 11/25/2024 6 6 Encounter Details Date Type Department Care Team (Latest Contact Info) Description 11/26/2023 Community Orders Non [facility] Provider Robby [facility] PRIMARY CARE [address] [address] Other abnormalities of gait and mobility (Primary [...] Primary documented in this encounter Care Teams Application Integration Specialist Relationship Specialty Start Date End Date Robby, Kina [facility] [address] [address] PCP - General 01/15/23 Ian Arthur Consultative Internal Medicine 11/20/21 documented as of this encounter
--- OUTSIDE RECORDS SUMMARY | 2025-03-10 15:55 | XMS_ITS | Clinical Summary ---
Author Organization [facility] Address [address] [place] [address] Care Team Providers Care Cloud Systems Administrator Name Role Phone Kina Bustamante DO Primary Care Provider [phone] Allergies No known active allergies Medications ascorbic acid (VITAMIN C) 500 MG Tab Take 1 Tablet by mouth once daily. Active calcium carbonate (TUMS) 1250 (500 Ca) MG Chew Tab Chew and swallow 1 Tablet by mouth. Active hydrochlorothia zide 25 MG Tab Take 1 Tablet by mouth once daily. 12/25/2022 Active ibuprofen (MOTRIN) 200 MG Tab Take 1 Tablet by mouth. Active leVOTHYroxine (SYNTHROID) 75 MCG Tab Take 1 Tablet by mouth once daily. 11/11/2023 Active losartan (COZAAR) 100 MG Tab Take 1 Tablet by mouth once daily. 04/15/2023 Active lovastatin (MEVACOR) 40 MG Tab Take 1 Tablet by mouth once daily. 02/26/2023 Active metformin (GLUCOPHAGE) 500 MG Tab Take 0.5 Tablets by mouth twice daily. 07/13/2023 Active pioglitazone (ACTOS) 15 MG Tab Take 1 Tablet by mouth once daily. 07/24/2023 Active Active Problems No known active problems Family History Medical History Relation Name Comments Stroke Mother Colon Cancer No FHX Relation Name Status Comments Father Mother Social History Tobacco Use Types Packs/Day Years Used Date Smoking Tobacco: Never Smokeless Tobacco: Never Tobacco Cessation:Counseling Given: Not Answered Alcohol Use Standard Drinks/Week Comments Not Currently 0 (1 standard drink = 0.6 oz pur e alcohol) Comments Unknown Sex and Gender Information Value Date Recorded Sex Assigned at Female 03/01/2024 2:58 PM PST Legal Sex Female 7:05 AM PDT Gender Identity Female 03/01/2024 2:58 PM PST Sexual Orientation Straight 03/01/2024 2: 58 PM PST Occupation Industry Job Start Date Job End Date retired Not on file Not on file Not on file Last Filed Vital Signs Vital Sign Reading Time Taken Comments Blood Pressure 140/72 03/29/2024 8:55 AM PST Pulse 65 03/29/2024 8:55 AM PST Temperature - - Respiratory Rate - - Oxygen Saturation 94% 03/29/2024 8:55 AM PST Inhaled Oxygen Concentration - - Weight 57.6 kg (127 lb) 03/29/2024 8:55 AM PST Height 154.9 cm (5' 1) 03/29/2024 8:55 AM PST Body Mass Index 24 03/29/2024 8:55 AM PST Plan of Treatment Health Maintenance Due Date Last Done Comments Depression Screening 1940 IMM: SHINGRIX (1 of 2) 1988 IMM: DTAP/TDAP/TD (3 - Td or Tdap) 08/03/2021 08/04/2011, 07/07/1996, 10/12/1991 Advance Care Planning 04/20/2024 Screen for Fall Risk (>65Y) 04/20/2024 IMM: INFLUENZA (AGE > 6 MONTHS) (#1) 12/19/2024 01/30/2023, 02/11/2022, 02/15/2021, Additional history exists IMM: Pneumococcal Vaccine Completed 09/26/2016, 05/2014 IMM: RSV ( patients and Patients AGE > 60 YEARS OLD) Completed 03/04/2023 IMM: HEPATITIS A Aged Out No longer e ligible based on patient's age to complete this topic IMM: HEPATITIS B Aged Out No longer e ligible based on patient's age to complete this topic IMM: MENINGOCOCCAL ACWY Aged Out No l onger eligible based on patient's age to complete this topic IMM: RSV (AGE < 20 MONTHS) Aged Out N o longer eligible based on patient's age to complete this topic Insurance * Guarantor: Roxie Brito Account Type Relation to Patient Date of Phone Billing Address Personal/Family Self 1940 [address] [place] [address] [facility] MEDICARE ADVANTAGE Care Teams Cloud Systems Administrator Relationship Specialty Start Date End Date Robby, DO Kina [address] [place] [address] PCP - General Family Medicine 09/10/23
--- OUTSIDE RECORDS SUMMARY | 2025-03-10 15:55 | XMS_ITS | Encounter Summary ---
Author Organization [facility] Address [address] [place] [address] Care Team Providers Care Corrosion Control Technician Name Role Phone Zoraida Rogers Primary Care Provider [phone] Ian Arthur Unavailable Unavailable Raheel Rehman Primary Care Provider Unavaila Kina Greenberg Primary Care Provider Unavailabl e Encounter Details Date Type Department Care Team (Late st Contact Info) Description 12/19/2021 Scanned Document Ext Unspecified HEDIS [facility] Bone Density Test Social History Tobacco Use Types Packs/Day Years [...] on filedocumented in this encounter Care Teams Corrosion Control Technician Relationship Specialty Start Date End Date Zoraida Rogers [facility] [address] [phone] PCP - General 03/04/19 01/13/22 Raheel Rehman [facility] [address] [address] PCP - General 01/14/22 01/14/23 Kina Bustamante [facility] [address] [address] PCP - General 01/15/23 Ian Arthur [facility] [address] [address] Consultative Internal Medicine 11/20/21 documented as of this encounter
--- OUTSIDE RECORDS SUMMARY | 2025-03-10 15:55 | XMS_ITS | Clinical Summary ---
Author Organization formerly [facility] Address [address] [place] [address] Care Team Providers Care Mechanical Repair Worker Name Role Phone Pcp, None Selected Primary Care Provider Unavail able Allergies No known active allergies Medications lovastatin (MEVACOR) 40 mg tablet Take 1 tablet (40 mg total) by mouth nightly Active calcium carbonate (OS-NICHOLE) 500 mg calcium (1,250 mg) chewable tablet Take 1 tablet (1,250 mg total) by mouth daily Active levothyroxine sodium (TIROSINT) 88 mcg capsule Take 1 capsule (88 mcg total) by mouth daily Active losartan (COZAAR) 100 mg tablet Take 1 tablet (100 mg total) by mouth daily Active hydroCHLOROthia zide (HYDRODIURIL) 25 mg tablet Take 1 tablet (25 mg total) by mouth daily Active ascorbic acid, vitamin C, (VITAMIN C) 500 mg tablet Take 1 tablet (500 mg total) by mouth daily Active cyanocobalamin, vitamin B-12, 1,000 mcg capsule Inject 1,000 mcg into the shoulder, thigh, or buttocks daily Active metFORMIN (GLUCOPHAGE) 500 mg tablet Take 1 tablet (500 mg total) by mouth 2 (two) times a day with meals 07/13/2023 Active cholecalciferol , vitamin D3, 25 mcg (1,000 unit) capsule Take 2,000 capsules by mouth daily Active acetaminophen (TYLENOL) 325 mg tablet Take 1 tablet (325 mg total) by mouth every 4 (four) hours as needed for mild pain (1-3) Active guaiFENesin (MUCINEX) 600 mg 12 hr tablet Take 2 tablets (1,200 mg total) by mouth 2 (two) times a day Active Active Problems Problem Noted Date Diagnosed Date Pneumonia of right lower lobe due to infectious organism 10/31/2024 Type 2 diabetes mellitus wit hout complication, without long-term current use of insulin 10/31/2024 Hypokalemia 10/31/2024 Anemia 10/31/2024 Atherosclerotic vascular disease 08/11/2018 SVT (supraventricular tachycardia) 08/11/2018 Palpitations 05/27/2018 Essential hypertension 05/27/2018 Dyslipidemia 05/27/2018 Acquired hypothyroidism 05/27/2018 Family History Medical History Relation Comments Stroke Mother stroke Relation Status Comments Mother Social History Tobacco Use Types Packs/Day Years Used Date Smoking Tobacco: Never Smokeless Tobacco: Never Tobacco Cessation:Counseling Given: Not Answered Comments Unknown Sex and Gender Information Value Date Recorded Sex Assigned at Not on file Legal Sex Female 6:52 PM PDT Gender Identity Not on file Sexual Orientation Not on file Last Filed Vital Signs Vital Sign Reading Time Taken Comments Blood Pressure 147/69 10/31/2024 6:00 PM PDT Pulse 90 10/31/2024 6:00 PM PDT Temperature 36.5 C (97.7 F) 10/31/2024 6:00 PM PDT Respiratory Rate 15 10/31/2024 6:00 PM PDT Oxygen Saturation 93% 10/31/2024 6:00 PM PDT Inhaled Oxygen Concentration - - Weight 57.2 kg (126 lb) 12/15/2023 1:42 PM PDT Height 154.9 cm (5' 1) 12/15/2023 1:42 PM PDT Body Mass Index 23.81 12/15/2023 1:42 PM PDT Plan of Treatment Health Maintenance Due Date Last Done Comments Diabetic Eye Exam 1938 Hemoglobin A1C 1938 Medicare Annual Wellness (AWV) 1938 Diabetes Urine Protein Screening 1948 Diabetic Foot Exam 1948 Depression Screening (PHQ-2) 1950 Zoster Vaccines (1 of 2) 1988 Fall Risk Screening 10/16/2003 RSV Patients Over 60 years OR qualifying ( Patients) (1 - 1-dose 75+ series) 2013 DTaP,Tdap,and Td Vaccines (3 - Td or Tdap) 08/03/2021 08/04/2011, 07/07/1996, 10/12/1991 COVID-19 Vaccine ( season) 2024 01/30/2023, 06/12/2020, 05/08/2020 Influenza Vaccine (#1) 2025 , 02/11/2022, 02/15/2021, Additional history exists HM Pneumococcal Adult 50+ Completed 09/26/2016, 05/2014 HM Pneumococcal Combined Age 0-49 Discontinued 09/26/2016, 05/22/2014 HPV Vaccines Aged Out No longer eligi ble based on patient's age to complete this topic Hepatitis A Vaccines Aged Out No long er eligible based on patient's age to complete this topic Hepatitis B Vaccines Aged Out No long er eligible based on patient's age to complete this topic IPV Vaccines Aged Out No longer eligi ble based on patient's age to complete this topic MMR Vaccines Aged Out No longer eligi ble based on patient's age to complete this topic Insurance Care Teams Mechanical Repair Worker Relationship Specialty Start Date End Date Pcp, None Selected PCP - General 08/04/24
--- OUTSIDE RECORDS SUMMARY | 2025-03-10 15:55 | XMS_ITS | Encounter Summary ---
Author Organization [facility] Address [address] [place] [address] Care Team Providers Care Wind Turbine Engineer Name Role Phone Zoraida Rogers Primary Care Provider [phone] Ian Arthur Unavailable Unavailable Raheel Rehman Primary Care Provider Unavaila Kina Greenberg Primary Care Provider Unavailabl e Reason for Referral * Outpatient Service (Routine) - Closed Specialty Diagnoses / Procedures Referred By Monique singh Referred To Contact Cardiology Diagnoses Abnormality of heart beat Procedures REF CARDIOLOGY OFFICE VISIT E&M EST PT, MODERATE MDM, 30-39 MINS Ken [facility] [address] [address] Phone: tel: fax: [facility] [address] [place] [address] Referral ID Status Reason Start Date Expiration Date V isits Requested Visits Authorized [id number] Closed Evaluate and Treat-Surgery if Indicated 08/14/2020 02/13/2021 6 6 Encounter Details Date Type Department Care Team (Late st Contact Info) Description 08/14/2020 Community Orders Non [facility] Provider Ken [facility] [address] [address] Abnormality of heart beat (Primary Dx) Social History Tobacco Use Types [...] as of this encounter Visit Diagnoses Diagnosis Abnormality of heart beat- Primary Other abnormal heart sounds documented in this encounter Care Teams Wind Turbine Engineer Relationship Specialty Start Date End Date Ken Zoraida PRIM [address] [facility] [address] [place] [phone] PCP - General 03/04/19 01/13/22 Raheel Rehman [facility] [address] [address] PCP - General 01/14/22 01/14/23 Kina Bustamante [facility] [address] [address] PCP - General 01/15/23 Ian Arthur [facility] [address] [address] Consultative Internal Medicine 11/20/21 documented as of this encounter
--- OUTSIDE RECORDS SUMMARY | 2025-03-10 15:55 | XMS_ITS | Encounter Summary ---
Author Organization [facility] Address [address] [place] [address] Care Team Providers Care Zinc Skimmer Name Role Phone Ken, Zoraida Primary Care Provider [phone] Ian Arthur Unavailable Unavailable Raheel Rehman Primary Care Provider Unavaila Kina Greenberg Primary Care Provider Unavailabl e Reason for Referral * Outpatient Service (Routine) - Closed Specialty Diagnoses / Procedures Referred By Contac t Referred To Contact Cardiology Diagnoses Essential (primary) hypertension Mixed hyperlipidemia Type 2 diabetes mellitus without complication, unspecified whether termite exterminator insulin use Hypokalemia Procedures REF CARDIOLOGY - EXTERNAL OFFICE VISIT E&M EST PT, MODERATE MDM, 30-39 MINS Mica[facility] [address] [place], [place] [id number] [place] [address] [address] [place] [address] Referral ID Status Reason Start Date Expiration Date V isits Requested Visits Authorized [id number] Closed Evaluate and Treat-Surgery if Indicated 10/30/2021 10/30/2022 6 6 Encounter Details Date Type Department Care Team (Latest Contact Info) Description 10/30/2021 Community Orders Non [facility] Provider Micaela [facility] [address] [place] [address] Essential (primary) hypertension (Primary Dx); Mixed hyperlipidemia; Type 2 diabetes mellitus without complication, unspecified whether termite exterminator insulin use; Hypokalemia Social History Tobacco Use Types Packs/Day Years [...] as of this encounter Visit Diagnoses Diagnosis Essential (primary) hypertension- Primary Unspecified essential hypertension Mixed hyperlipidemia Type 2 diabetes mellitus without complication, unspecified whether skilled nursing insulin use Hypokalemia Hypopotassemia documented in this encounter Care Teams Zinc Skimmer Relationship Specialty Start Date End Date Ken Zoraida [facility] [address] [phone] PCP - General 03/04/19 01/13/22 Raheel Rehman [facility] [address] [address] PCP - General 01/14/22 01/14/23 Kina Bustamante [facility] [address] [address] PCP - General 01/15/23 Ian Arthur [facility] [address] [address] Consultative Internal Medicine 11/20/21 documented as of this encounter
--- OUTSIDE RECORDS SUMMARY | 2025-03-10 15:55 | XMS_ITS | Encounter Summary ---
Author Organization [facility] Address [address] [place] [address] Care Team Providers Care Testing Lead Name Role Phone Zoraida Rogers Primary Care Provider [phone] Ian Arthur Unavailable Unavailable Raheel Rehman Primary Care Provider Unavaila Kina Greenberg Primary Care Provider Unavailleesa e Encounter Details Date Type Department Care Team (Late st Contact Info) Description 12/20/2021 Community Orders Non [facility] Provider Ken [facility] [address] [place] [phone] Social History Tobacco Use Types Packs/Day Years [...] on filedocumented in this encounter Care Teams Testing Lead Relationship Specialty Start Date End Date Zoraida Rogers [facility] [address] [phone] PCP - General 03/04/19 01/13/22 Raheel Rehman [facility] [address] [address] PCP - General 01/14/22 01/14/23 Kina Bustamante [facility] [address] [address] PCP - General 01/15/23 Ian Arthur [facility] [address] [address] Consultative Internal Medicine 11/20/21 documented as of this encounter
--- OUTSIDE RECORDS SUMMARY | 2025-03-10 15:55 | XMS_ITS | Encounter Summary ---
Author Organization [facility] Address [address] [place] [address] Care Team Providers Care Business Reporter Name Role Phone Zoraida Rogers Primary Care Provider Ian Arthur Unavailable Unavailable Raheel Rehman Primary Care Provider Unavaila Kina Greenberg Primary Care Provider Unavailabl e Reason for Referral * Radiology (Routine) - Closed Specialty Diagnoses / Procedures Referred By Contac t Referred To Contact Radiology Diagnoses Osteoarthritis, unspecified osteoarthritis type, unspecified site Procedures REF RADIOLOGY DXA BONE DENSITY STUDY 1+ SITS AXIAL SKE Erin Melvin [facility] [address] [phone] [facility] [address] [place] [phone] fax: Referral ID Status Reason Start Date Expiration Date V isits Requested Visits Authorized [id number] Closed Itemized Services 12/11/2021 03/11/2022 4 4 Encounter Details Date Type Department Care Team (Latest Contact Info) Description 12/11/2021 Community Orders Non [facility] Provider Erin Melvin [facility] [address] [phone] Osteoarthritis, unspecified osteoarthritis type, unspecified site (Primary Dx) Social History Tobacco Use Types [...] as of this encounter Visit Diagnoses Diagnosis Osteoarthritis, unspecified osteoarthritis type, unspecified site- Primary documented in this encounter Care Teams Business Reporter Relationship Specialty Start Date End Date Zoraida Rogers [address] [phone] PCP - General 03/04/19 01/13/22 Raheel Rehman [address] [address] PCP - General 01/14/22 01/14/23 Kina Bustamante [facility] [address] [address] PCP - General 01/15/23 Ian Arthur [address] [address] Consultative Internal Medicine 11/20/21 documented as of this encounter
--- OUTSIDE RECORDS SUMMARY | 2025-03-10 15:55 | XMS_ITS | Encounter Summary ---
Author Organization [facility] Address [address] [place] [address] Care Team Providers Care Psychologist Social Name Role Phone Pcp, None Selected Primary Care Provider Unavail able Encounter Details Date Type Department Care Team (Late st Contact Info) Description 11/26/2022 Abstract [facility] Health Information Management [address] [place] [phone] [employer] Professor, Provider, Social History Tobacco Use Types Packs/Day Years [...] Associated Diagnosis Comments LIPID PANEL Routine 11/26/2022 documented in this encounter Results * Lipid panel (11/26/2022) External LDL Cholesterol 80 mg/dL Blood Venous blood / Unknown Narrative Resulting Agency Comment us Ordering Provider LAB BLOOD ORDERABLES Final Res ult documented in this encounter Visit Diagnoses Not on filedocumented in this encounter Care Teams Psychologist Social Relationship Specialty Start Date End Date Pcp, None Selected PCP - General 08/04/24 documented as of this encounter
--- OUTSIDE RECORDS SUMMARY | 2025-03-10 15:55 | XMS_ITS | Encounter Summary ---
Author Organization [facility] Address [address] [place] [address] Care Team Providers Care Stiff Neck Loader Name Role Phone Ken, Zoraida Primary Care Provider Ian Arthur Unavailable Unavailable Raheel Rehman Primary Care Provider Unavaila Kina Greenberg Primary Care Provider Unavailabl e Reason for Referral * Outpatient Service (Urgent) - Closed Specialty Diagnoses / Procedures Referred By Monique singh Referred To Contact Orthopedic Surgery Diagnoses Displaced bimalleolar fracture of right lower leg, initial encounter for closed fracture Procedures REF ORTHO EXTERNAL OFFICE VISIT E&M EST PT, MODERATE MDM, 30-39 MINS Erin Melvin [facility] [address] [facility] 100 [place] [address] Orthopedics, [facility] [address] [phone] fax: Referral ID Status Reason Start Date Expiration Date V isits Requested Visits Authorized [id number] Closed Evaluate and Treat-Surgery if Indicated 09/19/2021 09/19/2022 6 6 Encounter Details Date Type Department Care Team (Late st Contact Info) Description 09/19/2021 Community Orders Non [facility] Provider Erin Melvin [facility] [address] [facility] 100 [place] [address] Displaced bimalleolar fracture of right lower leg, initial encounter for closed fracture (Primary Dx) [...] as of this encounter Visit Diagnoses Diagnosis Displaced bimalleolar fracture of right lower leg, initial encounter for closed fracture- Primary documented in this encounter Care Teams Stiff Neck Loader Relationship Specialty Start Date End Date Ken Zoraida [facility] [address] [phone] PCP - General 03/04/19 01/13/22 Raheel Rehman [facility] [address] [address] PCP - General 01/14/22 01/14/23 Kina Bustamante [facility] [address] [address] PCP - General 01/15/23 Ian Arthur [facility] [address] [address] Consultative Internal Medicine 11/20/21 documented as of this encounter
--- OUTSIDE RECORDS SUMMARY | 2025-03-10 15:55 | XMS_ITS | Encounter Summary ---
Author Organization [facility] Address [address] [place] [address] Care Team Providers Care Spanish Tutor Name Role Phone Zoraida Rogers Primary Care Provider [phone] Ian Arthur Unavailable Unavailable Raheel Rehman Primary Care Provider Unavaila Kina Greenberg Primary Care Provider Unavailabl e Encounter Details Date Type Department Care Team (Late st Contact Info) Description 11/20/2021 Automated Outreach IVR Se nt, Person -Due for chronic condition review (MCR) -Asked to schedule F2F or Video Appt Social History Tobacco Use Types Packs/Day Years [...] on filedocumented in this encounter Care Teams Spanish Tutor Relationship Specialty Start Date End Date Zoraida Rogers [facility] [address] [phone] PCP - General 03/04/19 01/13/22 Raheel Rehman [facility] [address] [address] PCP - General 01/14/22 01/14/23 Kina Bustamante [facility] [address] [address] PCP - General 01/15/23 Ian Arthur [facility] [address] [address] Consultative Internal Medicine 11/20/21 documented as of this encounter
--- OUTSIDE RECORDS SUMMARY | 2025-03-10 15:55 | XMS_ITS | Encounter Summary ---
Author Organization [facility] Address [address] [place] [address] Care Team Providers Care Thermal Intelligence Analyst Name Role Phone Pcp, None Selected Primary Care Provider Unavail able Reason for Visit * Reason Comments Med Refill Encounter Details Date Type Department Care Team (Late st Contact Info) Description 11/30/2019 Refill [facility] [address], [place] [address] Pepe Duggan MD [address] [place] [address] Social History Tobacco Use Types Packs/Day Years [...] on filedocumented in this encounter Care Teams Thermal Intelligence Analyst Relationship Specialty Start Date End Date Pcp, None Selected PCP - General 08/04/24 documented as of this encounter
--- OUTSIDE RECORDS SUMMARY | 2025-03-10 15:55 | XMS_ITS | Encounter Summary ---
Author Organization [facility] Address [address] [place] [address] Care Team Providers Care Pan Helper Name Role Phone Ian Arthur Unavailable Unavailable Raheel Rehman Primary Care Provider UnavailKina Giordano Primary Care Provider Unavailabl bernie Reason for Referral * Outpatient Service (Routine) - Closed Specialty Diagnoses / Procedures Referred By Monqiue singh Referred To Contact Sleep Medicine Diagnoses Obstructive sleep apnea (adult) (pediatric) Procedures REF SLEEP DISORDER - EXTERNAL OFFICE VISIT E&M EST PT, MODERATE MDM, 30-39 MINS Theodore Long V [facility] [address] [address] Phone: tel: fax: [facility] [address] [place] [address] fax: Referral ID Status Reason Start Date Expiration Date V isits Requested Visits Authorized [id number] Closed Evaluate and Treat-Surgery if Indicated 01/14/2022 01/14/2023 6 6 Encounter Details Date Type Department Care Team (Late st Contact Info) Description 01/14/2022 Community Orders Non [facility] Provider Theodore Long V [facility] [address] [address] Obstructive sleep apnea (adult) (pediatric) (Primary Dx) Social History Tobacco Use Types [...] as of this encounter Visit Diagnoses Diagnosis Obstructive sleep apnea (adult) (pediatric)- Primary documented in this encounter Care Teams Pan Helper Relationship Specialty Start Date End Date Raheel Rehman [facility] [address] [address] PCP - General 01/14/22 01/14/23 Kina Bustamante [address] [address] PCP - General 01/15/23 Ian Arthur Consultative Internal Medicine 11/20/21 documented as of this encounter
--- OUTSIDE RECORDS SUMMARY | 2025-03-10 15:55 | XMS_ITS | Encounter Summary ---
Author Organization [facility] Address [address] [place] [address] Care Team Providers Care Relationship Executive Name Role Phone Pcp, None Selected Primary Care Provider Unavail able Encounter Details Date Type Department Care Team (Late st Contact Info) Description 12/01/2022 Abstract [facility] Cardiology [address], [place] [phone] [place] [address] Social History Tobacco Use Types Packs/Day Years [...] on filedocumented in this encounter Care Teams Relationship Executive Relationship Specialty Start Date End Date Pcp, None Selected PCP - General 08/04/24 documented as of this encounter
--- OUTSIDE RECORDS SUMMARY | 2025-03-10 15:55 | XMS_ITS | Encounter Summary ---
Author Organization [facility] Address [address] [place] [address] Care Team Providers Care Can Doffer Name Role Phone Zoraida Rogers Primary Care Provider [phone] Ian Arthur Unavailable Unavailable Raheel Rehman Primary Care Provider Unavaila Kina Greenberg Primary Care Provider Unavailabl e Reason for Referral * Surgical Services (Urgent) - Closed Specialty Diagnoses / Procedures Referred By Monique singh Referred To Contact Orthopedic Surgery Diagnoses Closed bimalleolar fracture of right ankle, initial encounter Procedures REF ORTHO EXTERNAL ARTHROTOMY ANKLE W/ JNT EXP W/WO BX/REM/LOOSE/FB Clark Álvarez [facility] [address] [place] [address] Phone: tel: fax: , [facility] [address] [address] Referral ID Status Reason Start Date Expiration Date V isits Requested Visits Authorized [id number] Closed Procedure Only 09/17/2021 09/17/2022 1 1 Encounter Details Date Type Department Care Team (Late st Contact Info) Description 09/17/2021 Community Orders Non [facility] Provider Clark Álvarez [facility] [address] [place], [place] [phone] Closed bimalleolar fracture of right ankle, initial encounter (Primary Dx) Social History Tobacco Use Types [...] as of this encounter Visit Diagnoses Diagnosis Closed bimalleolar fracture of right ankle, initial encounter- Primary documented in this encounter Care Teams Can Doffer Relationship Specialty Start Date End Date Zoraida Rogers [facility] [address] [address] PCP - General 03/04/19 01/13/22 Raheel Rehman [facility] [address] [address] PCP - General 01/14/22 01/14/23 Kina Bustamante [facility] [address] [address] PCP - General 01/15/23 Ian Arthur [facility] [address] [address] Consultative Internal Medicine 11/20/21 documented as of this encounter
--- OUTSIDE RECORDS SUMMARY | 2025-03-10 15:55 | XMS_ITS | Encounter Summary ---
Author Organization [facility] Address [address] [place] [address] Care Team Providers Care Corn Detasseler Machine Operator Name Role Phone Zoraida Rogers Primary Care Provider [phone] Ian Arthur Unavailable Unavailable Raheel Rehman Primary Care Provider Unavaila Kina Greenberg Primary Care Provider Unavailleesa e Encounter Details Date Type Department Care Team (Late st Contact Info) Description 06/18/2021 Community Orders Non [facility] Provider Kenya Zarate [facility] [address] [facility] [address] [place], [place] [phone] Social History Tobacco Use Types Packs/Day Years [...] on filedocumented in this encounter Care Teams Corn Detasseler Machine Operator Relationship Specialty Start Date End Date Zoraida Rogers [facility] [address] [place] [phone] PCP - General 03/04/19 01/13/22 Raheel Rehman [facility] [address] [address] PCP - General 01/14/22 01/14/23 Kina Bustamante [facility] [address] [phone] PCP - General 01/15/23 Ian Arthur [facility] [address] [address] Consultative Internal Medicine 11/20/21 documented as of this encounter
--- OUTSIDE RECORDS SUMMARY | 2025-03-10 15:55 | XMS_ITS | Encounter Summary ---
Author Organization [facility] Address [address] [place] [address] Care Team Providers Care Cooker Casing Name Role Phone Pcp, None Selected Primary Care Provider Unavail able Encounter Details Date Type Department Care Team (Late st Contact Info) Description 12/28/2023 Orders Only [facility] [address] [facility], [place] [phone] Luann Garland ARNP [address] [place] [address] [address] [place] [address] Essential hypertension; Dyslipidemia Social History Tobacco Use Types Packs/Day Years Used Date Smoking Tobacco: Never Smokeless Tobacco: Never Comments Unknown Sex and Gender Information Value Date Recorded Sex Assigned at Not on file Legal Sex Female 6:52 PM PDT Gender Identity Not on file Sexual Orientation Not on file documented as of this encounter Miscellaneous Notes * Result Encounter Note - HIPOLITO Stein - 12/28/2023 3:39 PM PDT Gumaro Richardson, I have reviewed your labs results. There is no concerning abnormalities. Make such you are drinkingenough fluids daily. Your cholesterol profile looks great. Keep up the good work. Luann Garland APRN documented in this encounter Plan of Treatment Not on file documented as of this encounter Procedures Procedure Name Priority Date/Time Associated Diagnosis Comments LIPID PANEL Routine 12/25/2023 5:58 AM PDT Dyslipidemia COMPREHENSIVE METABOLIC PANEL Routine 12/25/2023 5:58 AM PDT Essential hypertension documented in this encounter Results * Lipid panel (12/25/2023 5:58 AM PDT) Cholesterol, Total 171 100 - 199 mg/dL [facility] 001 Triglycerides 79 0 - 149 mg/dL [facility] 001 HDL Cholesterol 71 >39 mg/dL [facility] 001 VLDL Cholesterol 15 5 - 40 mg/dL [facility] 001 LDL Cholesterol 85 0 - 99 mg/dL [facility] 001 Blood Venous blood / Unknown 12/25/2023 5:58 AM PDT 12/24/2023 9:00 PM PDT Narrative [facility] [place] - 12/28/2023 9:08 AM PDT Performed at: - [place] [address] [address], [place], [place] [id number] Strategy Planning Consultant: Panfilo Li MD, Phone: [phone] Luann UngerNasir Garland [facility] LAB BLOOD ORDERABLES [facility] [address], [facility] * (ABNORMAL) Comprehensive Metabolic Panel (CMP) Expires 12 Months (12/25/2023 5:58 AM PDT) Glucose 126(H) 70 - 99 mg/dL [facility] 001 BUN 31(H) 8 - 27 mg/dL [facility] 001 Creatinine 0.91 0.57 - 1.00 mg/dL [facility] 001 eGFR (CKD-EPI 2020) 62 >59 mL/min/1.7 3 [facility] 001 BUN/Creatinine Ratio 34(H) 12 - 28 [facility] 001 Sodium 141 134 - 144 mmol/L [facility] 001 Potassium 3.7 3.5 - 5.2 mmol/L [facility] 001 Chloride 101 96 - 106 mmol/L [facility] 001 CO2 30(H) 20 - 29 mmol/L [facility] 001 Calcium 9.8 8.7 - 10.3 mg/dL [facility] 001 Total Protein 6.5 6.0 - 8.5 g/dL [facility] 001 Albumin 3.6(L) 3.7 - 4.7 g/dL [facility] 001 Globulin, Total 2.9 1.5 - 4.5 g/dL [facility] 001 Total Bilirubin 0.3 0.0 - 1.2 mg/dL [facility] 001 Alkaline Phosphatase 72 44 - 121 IU/L [facility] 001 AST 20 0 - 40 IU/L [facility] 001 ALT 13 0 - 32 IU/L [facility] 001 Blood Venous blood / Unknown 12/25/2023 5:58 AM PDT 12/24/2023 9:00 PM PDT Narrative [facility] [place] [place] - 12/28/2023 9:08 AM PDT Performed at: 01 - [facility], [place], [place] [id number] Strategy Planning Consultant: Panfilo Li MD, Phone: [phone] Specimen Comment: A courtesy copy of this report has been sent to [phone] Specimen Comment: A duplicate report has been generated due to demographic updates. Luann MCMILLAN LAB BLOOD ORDERABLES Final Result [facility] [address] [place] [address], [facility] 001 documented in this encounter Visit Diagnoses Diagnosis Essential hypertension Unspecified essential hypertension Dyslipidemia Other and unspecified hyperlipidemia documented in this encounter Care Teams Cooker Casing Relationship Specialty Start Date End Date Pcp, None Selected PCP - General 08/04/24 documented as of this encounter
--- OUTSIDE RECORDS SUMMARY | 2025-03-10 15:55 | XMS_ITS | Encounter Summary ---
Author Organization [facility] Address [address] [place] [address] Care Team Providers Care Automobile Travel Club Counselor Name Role Phone Pcp, None Selected Primary Care Provider Unavail able Reason for Visit * Reason Comments Med Refill Encounter Details Date Type Department Care Team (Late st Contact Info) Description 10/06/2019 Refill [facility] Cardiology [address], [place] [address] Pepe Duggan MD [address] [place] [address] Social History Tobacco Use Types Packs/Day Years [...] on filedocumented in this encounter Care Teams Automobile Travel Club Counselor Relationship Specialty Start Date End Date Pcp, None Selected PCP - General 08/04/24 documented as of this encounter
--- OUTSIDE RECORDS SUMMARY | 2025-03-10 15:55 | XMS_ITS | Encounter Summary ---
Author Organization [facility] Address [address] [place] [address] Care Team Providers Care Business Intelligence Director Name Role Phone Pcp, None Selected Primary Care Provider Unavail able Encounter Details Date Type Department Care Team (Late st Contact Info) Description 12/08/2023 Abstract [facility] Cardiology [address], [place] [phone] [place] [address] Social History Tobacco Use Types Packs/Day Years [...] on filedocumented in this encounter Care Teams Business Intelligence Director Relationship Specialty Start Date End Date Pcp, None Selected PCP - General 08/04/24 documented as of this encounter
--- OUTSIDE RECORDS SUMMARY | 2025-03-10 15:55 | XMS_ITS | Encounter Summary ---
Author Organization [facility] Address [address] [place] [address] Care Team Providers Care Entrepreneurship Program Director Name Role Phone Zoraida Rogers Primary Care Provider [phone] Ian Arthur Unavailable Unavailable Raheel Rehman Primary Care Provider Unavaila Kina Greenberg Primary Care Provider Unavailabl e Reason for Referral * Outpatient Service (Routine) - Closed Specialty Diagnoses / Procedures Referred By Monique singh Referred To Contact Sleep Medicine Diagnoses Other insomnia Procedures REF SLEEP DISORDER OFFICE VISIT E&M EST PT, MODERATE MDM, 30-39 [facility] [address] [place] [phone] Phone: tel: fax: [facility] [address] [place] [address] fax: Referral ID Status Reason Start Date Expiration Date V isits Requested Visits Authorized [id number] Closed Evaluate and Treat-Surgery if Indicated 11/12/2020 11/12/2021 6 6 Encounter Details Date Type Department Care Team (Late st Contact Info) Description 11/12/2020 Community Orders Non [facility] Provider Ken [facility] [address] [place] [phone] Other insomnia (Primary Dx) Social History Tobacco Use Types [...] of this encounter Visit Diagnoses Diagnosis Other insomnia- Primary documented in this encounter Care Teams Entrepreneurship Program Director Relationship Specialty Start Date End Date Zoraida Rogers [facility] [address] [phone] PCP - General 03/04/19 01/13/22 Raheel Rehman [facility] [address] [address] PCP - General 01/14/22 01/14/23 Kina Bustamante [facility] [address] [phone] PCP - General 01/15/23 Ian Arthur [facility] [address] [phone] Consultative Internal Medicine 11/20/21 documented as of this encounter
== END ==
PROVIDERS: PCP Family Medicine; Referring Provider Physical Medicine & Rehabilitation; Visit Provider Physical Medicine & Rehabilitation
DX: M47.816 Spondylosis without myelopathy or radiculopathy, lumbar region (principal); M47.817 Spondylosis without myelopathy or radiculopathy, lumbosacral region; M51.369 Other intervertebral disc degeneration, lumbar region without mention of lumbar back pain or lower extremity pain; M51.26 Other intervertebral disc displacement, lumbar region; M43.8X6 Other specified deforming dorsopathies, lumbar region
CPT/HCPCS: 72110